=== PATIENT | male | born 1955 | race Caucasian/White ===

== ENCOUNTER → 2017-11-14 14:31 | Outpatient (CLI) | payer OTHER, SELFPAY ==
[2017-10-27 09:20] VITALS: BP 130/98; BMI 38.2
[2017-11-14 16:11] LABS: Anion Gap 7 (5-15); BUN 21 mg/dL (7-18); BUN/Creat Ratio 18.8 RATIO (10-20); Calcium,Total 9.6 mg/dL (8.5-10.1); Chloride 109 mmol/L (98-107); Creatinine, Serum 1.12 mg/dL (0.70-1.30); EST Glomerular Filtration Rate 71 mL/min (>60); Est Glom Filt Rate - Afr Amer 85 mL/min (>60); Glucose 89 mg/dL (74-106); Sodium Level 143 mmol/L (136-145); T4 Total, Thyroxin 10.8 ug/dL (4.5-12.1); Thyroid Stim Hormone (TSH) 1.72 uIU/mL (0.358-3.74)
== END ==
PROVIDERS: Family Provider Family Medicine; PCP Family Medicine; Visit Provider Family Medicine
DX: E03.9 Hypothyroidism, unspecified (principal); I10 Essential (primary) hypertension
CPT/HCPCS: 36415; 80048; 84436; 84443

== ENCOUNTER → 2018-07-21 12:35 | Outpatient (CLI) | payer OTHER, SELFPAY ==
--- NOTE | 2018-07-21 12:38 | ECHOCS_ITS ---
Reason For Study: CHF Procedure This was a 2D Doppler, Color Flow transthoracic echocardiogram. The study was technically difficult. Contrast injection was performed. Exam performed in department. Left Ventricle Left ventricular systolic function is normal. The estimated ejection fraction is 55 %. Diastolic function is indeterminate. No regional wall motion abnormalities noted. Right Ventricle Normal RV size. Normal systolic function. Atria The left atrium is mildly enlarged. Normal right atrium. No doppler evidence for ASD. Mitral Valve There is no mitral annular calcification. Normal mitral valve. Trivial mitral valve insufficiency. Tricuspid Valve Normal tricuspid valve. Trivial tricuspid valve insufficiency. Right ventricular systolic pressure estimated to be 22 mmHg. Aortic Valve Trisinus/trileaflet aortic valve. Normal aortic valve. Pulmonic Valve The pulmonic valve is not well visualized. Great Vessels Normal sized aortic root. Pericardium/Pleural No pericardial effusion. Medication 22 gauge I.V. with prn adaptor inserted into right arm. Diluted definity 4.0ml given slow IV push to enhance endocardial definition. MMode/2D Measurements & Calculations LVIDd: 4.3 cm IVSd: 1.5 cm Ao root diam: 2.9 cm LVIDs: 3.1 cm LVPWd: 1.2 cm LA dimension: 3.8 cm RVDd: 2.8 cm FS: 26.2 % LAV(MOD-bp): 68.9 ml LA A4 area: 21.0 cm2 RA A4 area: 15.2 cm2 LAV(MOD-bp) Indexed: 29.1 ml/m2 LAV(MOD-sp2): 68.1 ml LAV(MOD-sp4): 66.5 ml Doppler Measurements & Calculations MV E max abimael: 60.7 cm/sec Lat Peak E' Abimael: 7.6 cm/sec Med Peak E' Abimael: 6.8 cm/sec MV A max abimael: 77.8 cm/sec E/E' lat: 8.0 E/E' med: 9.0 MV E/A: 0.78 Ao V2 max: 108.0 cm/sec LV V1 max: 90.3 cm/sec PA V2 max: 89.7 cm/sec Ao max P.7 mmHg LV V1 max P.3 mmHg TR max abimael: 219.0 cm/sec TR max P.2 mmHg Interpretation Summary The study was technically difficult. Contrast injection was performed. Left ventricular systolic function is normal. The estimated ejection fraction is 55 %. The left atrium is mildly enlarged. Trivial mitral valve insufficiency. Trivial tricuspid valve insufficiency. Right ventricular systolic pressure estimated to be 22 mmHg. Diastolic function is indeterminate. Ordering Physician: Luis Bo Referring Physician: Luis Bo Performed By: Ann Caceres, MARCO, RVT
== END ==
PROVIDERS: Family Provider Family Medicine; PCP Family Medicine; Referring Provider Nurse Practitioner Family; Visit Provider Nurse Practitioner Family
DX: I42.8 Other cardiomyopathies (principal); I48.0 Paroxysmal atrial fibrillation; I34.0 Nonrheumatic mitral (valve) insufficiency; I10 Essential (primary) hypertension
CPT/HCPCS: 93306; Q9957; A4216; C8929

== ENCOUNTER 2018-09-01 09:01 | Day surgery (SDC) | payer OTHER, SELFPAY ==
[2018-08-21 09:35] VITALS: BMI 24.7
--- NOTE | 2018-08-21 10:12 | RAD_ITS ---
STUDY: X-RAY CHEST REASON FOR EXAM: Male, 62 years old. Preheart catheter. TECHNIQUE: PA and lateral views of the chest. COMPARISON: June 30, 2017 FINDINGS: There is no new focal consolidation. There are surgical clips within the left axilla. Normal size heart. Normal mediastinum and presley. Normal visualized pulmonary arteries. Normal visualized aortic arch and descending thoracic aorta. Normal visualized thoracic spine. Normal visualized ribs, clavicles, and shoulders. There is no demonstrated abnormality of the visualized soft tissue structures of the upper abdomen. RAD/Chest PA and Lateral IMPRESSION: No acute cardiopulmonary process. Electronically Signed: Carmina Jacobs MD at 10:55 EST Tel , Service support ,
[2018-08-21 11:53] LABS: Hematocrit 41.9 % (40-54); Mean Corp Hgb Conc 33.4 g/gl (32-36); Mean Corpuscular Hgb 30.2 pg (27.0-32.0); Mean Corpuscular Volume 90.5 fL (80-94); Platelet Count 244 K/mm3 (150-450); RBC Distribution Width SD 42.4 fl (35.1-43.9); Red Blood Count 4.63 M/mm3 (4.6-6.2); White Blood Count 6.2 K/mm3 (4.4-11.0)
[2018-08-21 12:04] LABS: International Normalized Ratio 1.1; Prothrombin Time (Protime)PT. 13.9 SECONDS (11.7-14.9); Scan Indicated on CBC? Y/N NO
[2018-08-21 12:05] LABS: Partial Thromboplast Time 37.5 Seconds (24.1-36.2)
[2018-08-21 12:20] LABS: Anion Gap 2 (5-15); BUN 24 mg/dL (7-18); BUN/Creat Ratio 21.6 RATIO (10-20); Calcium,Total 9.5 mg/dL (8.5-10.1); Chloride 110 mmol/L (98-107); Creatinine, Serum 1.11 mg/dL (0.70-1.30); EST Glomerular Filtration Rate 71 mL/min (>60); Est Glom Filt Rate - Afr Amer 86 mL/min (>60); Glucose 60 mg/dL (74-106); Potassium 4.2 mmol/L (3.5-5.1); Sodium Level 143 mmol/L (136-145)
[2018-08-31 14:21] VITALS: BMI 24.7
--- NOTE | 2018-09-01 11:14 | CL.D_ITS ---
Patient Name: SWAPNA CEBALLOS Study Date: 09/01/2018 Performing: Frandy Phoenix MD Ht: 70.07 inches 178 cm : 1955 Wt: 171.96 lbs 78 kg Age: 62 Gender: male BSA: 1.96 PROCEDURE(S) PERFORMED [id number] CLINICAL PROFILE AND INDICATIONS Indications: Cardiac Arrythmia, Cardiomyopathy Heart Failure: None Stress/Imaging Stress/Image Study Performed: No Angina Classification Anginal Classification w/in 2 Weeks: No symptoms CAD Presentations: No Sxs, no angina. CONCLUSIONS Elevated Left Ventricular End Diastolic Pressure Normal LV size, wall motion,and systolic function LVEF: by LV gram 55 % [place] Multivessel CAD RECOMMENDATIONS Risk factor modification Medical therapy DESCRIPTION OF PROCEDURE The patient arrived to the procedure lab. The risks and benefits of the procedure as well as a full d escription of our services here and current unavailability of surgical backup were fully explained to the patient and/or their significant other prior to the catheterization. The Timeout was completed, verifying the correct patient and procedure. The patient's procedural site was prepped and draped in the usual fashion. Local anesthetic was given subcutaneously to right radial region with Lidocaine 2% . Using a modified Seldinger technique, arterial access was obtained via the right radial artery, a 6 Fr sheath was inserted. Left Coronary Artery selective angiography was performed in multiple views u sing a 5 Fr. 4.0 Garnett catheter. Right Coronary Artery selective angiography was then performed in mu ltiple views using a 5 Fr. 4.0 Garnett catheter. Left Ventriculography was performed in RAZA projection using a 5 Fr. Pigtail catheter. LV to AO pullback pressures were then recorded.The arterial sheath was pulled and a TR Band was applied for hemostasis w/ 14ml air CORONARY ANGIOGRAPHY DOMINANCE: Right Dominant LEFT HEART ASSESSMENT Left Ventricular Ejection Fraction: by LV Gram 55 % Normal LV wall motion Elevated Left Ventricular End Diastolic Pressure LVEDP: 24 mmHg LEFT MAIN: Angiographically normal LEFT ANTERIOR DECENDING ARTERY: PROX LAD: 25 % Stenosis MID LAD: Mild luminal irregularities DIAGONAL 1: Proximal - Mild luminal irregularities, Mid - Mild luminal irregularities CIRCUMFLEX ARTERY: OM 1: Proximal - Mild luminal irregularities RIGHT CORONARY ARTERY: Mild luminal irregularities VALVE FINDINGS: Normal Aortic Valve function Normal Mitral Valve function AORTIC ROOT: Angiographically normal COMPLICATIONS No Complications PROCEDURE MEDICATIONS Versed 1 mg IV Fentanyl 50 mcg IV Versed 1 mg IV Fentanyl 50 mcg IV Oxygen: 2 L/min via nasal cannula Heparin diluted in 23cc Heparinized saline. Patient given 10cc IA of this solution. 09/01/2018 10:36 :33 Verapamil 2.5mg, Ntg 100mcgs, 2000 units of Heparin diluted in 23cc Heparinized saline. Patient give n 10cc IA of this solution. 09/01/2018 10:36:33 SUMMARY OF HEMODYNAMIC DATA Time AIR REST ECG 09:27:01 AO 140/91 (109) SA 10:38:47 LV 144/9, 27 10:48:27 LV 148/4, 24 10:48:33 LV 145/11, 28 10:49:43 LVp 144/5, 25 10:49:49 AOp 153/88 (115) 10:49:54 Signed By Frandy Phoenix MD On 09/01/2018 11:13:36 Frandy Phoenix MD
--- OUTSIDE RECORDS SUMMARY | 2018-10-13 22:02 | XMS RPT_ITS ---
:1955 Author Organization [place] Support Name Relationship Address Phone DAWSON CEBALLOS Unavailable [address] + [place] [address] [facility] Unavailable [address] + [place] [address] TACHO ROWE Unavailable [address] + [place] [address] CATANZARITE, DAWSON Unavailable [address] + [place] [address] [facility] Unavailable [address] [address] + [place] [address] TACHO ROWE Unavailable [address] + [place] [address] CATANZARITE, DAWSON Unavailable [address] + [place] [address] [facility] Unavailable [address] + [place] [address] TACHO ROWE Unavailable [address] + [place] [address] CATANZARITE, DAWSON Unavailable [address] + [place] [address] [facility] Unavailable [address] [facility] + [place] [address] TACHO ROWE Unavailable [address] + [place] [address] CATANZARITE, DAWSON Unavailable Unavailable + [facility] Unavailable [address] [facility] + [place] [address] TACHO ROWE Unavailable Unavailable + CATANZARITE, DAWSON Unavailable Unavailable + [facility] Unavailable [address] + [place] [address] TACHO ROWE Unavailable Unavailable + CATANZARITE, DAWSON Unavailable Unavailable + [facility] Unavailable [address] + [place] [address] TACHO ROWE Unavailable Unavailable + CATANZARITE, DAWSON Unavailable NA + [place], [place] [facility] Unavailable [address] + [place] [address] TACHO ROWE Unavailable NA + [place], [place] CATANZARITE, DAWSON Unavailable NA + [place], [place] [facility] Unavailable [address] + [place] [address] TACHO ROWE Unavailable NA + [place], [place] CATANZARITE, DAWSON Unavailable NA + [place], [place] [facility] Unavailable [address] + [place] [address] TACHO ROWE Unavailable NA + [place], [place] CATANZARITE, DAWSON Unavailable NA + [place], [place] [facility] Unavailable [address] + [place] [address] TACHO ROWE Unavailable NA + [place], [place] CATANZARITE, DAWSON Unavailable [address] + [place] [address] [facility] Unavailable [address] [place] [address] ST + [place] [address] TACHO ROWE Unavailable . + [place] [address] Care Team Providers Name Role Phone Frandy Phoenix Attending Unavailable Frandy Phoenix Referring Unavailable Frandy Phoenix Attending Unavailable Frandy Phoenix Referring Unavailable Luis Bo Attending Unavailable Luis Bo Attending Unavailable Jimena Cagle Referring Unavailable Jolliff, Jimena Primary Care Unavailable Moodispaw, Frandy Attending Unavailable Jolliff, Jimena Attending Unavailable Jolliff, Jimena Primary Care Unavailable Roof, Luis H Attending Unavailable Jolliff, Jimena Referring Unavailable Roof, Luis H Attending Unavailable Roof, Luis H Referring Unavailable Jolliff, Jimena Primary Care Unavailable Roof, Luis H Attending Unavailable Roof, Luis H Referring Unavailable Jolliff, Jimena Primary Care Unavailable Moodispaw, Frandy Attending Unavailable Roof, Luis H Referring Unavailable Roof, Luis H Attending Unavailable Jolliff, Jimena Referring Unavailable Moodispaw, Frandy Attending Unavailable Moodispaw, Frandy Referring Unavailable Jolliff, Jimena Primary Care Unavailable PROBLEMS PROBLEMS DATE TYPE CONDITION / CODE ATTENDING STATUS SOURCE 09/01/2018 Unknown I48.0 - Paroxysmal [place], Active [place] atrial fibrillation / [facility] I48.0(ICD-10) Hospital Repository 09/01/2018 Unknown I47.2 - Ventricular [place], Active [place] tachycardia / [facility] I47.2(ICD-10) Hospital Repository 09/01/2018 Unknown R06.02 - Shortness of [place], Active [place] breath / [facility] R06.02(ICD-10) Hospital Repository 09/21/2018 Unknown I48.91 - Unspecified [place], Active [place] atrial fibrillation / [facility] I48.91(ICD-10) Hospital Repository 07/13/2018 Unknown I42.8 - Other RoofLuis Active [place] cardiomyopathies / [facility] I42.8(ICD-10) Hospital Repository 07/13/2018 Unknown I34.0 - Nonrheumatic Luis Bo Active [place] mitral (valve) Community insufficiency / Hospital I34.0(ICD-10) Repository 07/13/2018 Unknown I10 - Essential RoofLuis Active [place] (primary) hypertension [facility] / I10(ICD-10) Hospital Repository PROCEDURES PROCEDURES No Procedure Records FoundRESULTS RESULTS CBC-COMPLETE BLOOD CNT Collected: 09/01/2018 Status: F Source: [place] NO DIFF 10:30 AM [facility] HOSPITAL REPOSITORY TYPE CODE TESTS RESULT OUT OF RANGE REFERENCE UNITS LAB L100.1000 4.4-11.0 K/mm3 Normal WBC 6.2 LAB L100.1200 4.6-6.2 M/mm3 Normal RBC 4.63 LAB L100.1300 13.0-16.5 g/dl Normal HGB 14.0 LAB L100.1400 40-54 % Normal HCT 41.9 LAB L100.1500 80-94 fL Normal MCV 90.5 LAB L100.1600 27.0-32.0 pg Normal MCH 30.2 LAB L100.1700 32-36 g/gl Normal MCHC 33.4 LAB L100.1810 11.6-14.6 % Normal RDW CV 13.0 LAB L100.1820 35.1-43.9 fl Normal RDW SD 42.4 LAB L100.1900 150-450 K/mm3 Normal PLT 244 LAB L100.2000 6.2-12.0 fl Normal MPV 10.0 Performed By: #### L100.0500 #### [facility] [address] [place], [address] PROTHROMBIN TIME W/INR Collected: 09/01/2018 Status: F Source: [place] 10:30 AM [facility] REPOSITORY TYPE CODE TESTS RESULT OUT OF RANGE REFERENCE UNITS LAB L300.4150 11.7-14.9 SECONDS Normal PROTIME 13.9 LAB L300.4200 Normal INR 1.1 Performed By: #### L300.3900, L300.4310 #### [facility] [address] [place], [place], [address] PARTIAL THROMBOPLAST Collected: 09/01/2018 Status: F Source: [place] TIME 10:30 AM [facility] REPOSITORY TYPE CODE TESTS RESULT OUT OF REFERENCE UNITS RANGE LAB L300.4310 24.1-36.2 Seconds High PTT 37.5 Performed By: #### L300.3900, L300.4310 #### [facility] [address] [place], [address] BASIC METABOLIC Collected: 09/01/2018 Status: F Source: [place] PROFILE (BMP) 10:30 AM [facility] REPOSITORY TYPE CODE TESTS RESULT OUT OF RANGE REFERENCE UNITS LAB L501.0100 74-106 mg/dL Low GLU 60 Result Comment: Please note revised GLUCOSE reference range effective 2017. LAB L501.1000 7-18 mg/dL High BUN 24 LAB L501.1100 0.70-1.30 mg/dL Normal CREAT,SERUM 1.11 Result Comment: The validity of the calculated GFR AND GFRAA in patients over 70 years has not been determined. Clinical correlation is essential. LAB L501.1110 >60 mL/min Normal EST GFR 71 Result Comment: Non- GFR Calc LAB L501.1115 >60 mL/min Normal EST GFR - AA 86 Result Comment: GFR Calc LAB L501.1300 10-20 RATIO High BUN/CRE 21.6 LAB L501.2200 8.5-10.1 mg/dL CA Normal 9.5 LAB L501.5300 136-145 mmol/L NA Normal 143 LAB L501.5600 3.5-5.1 mmol/L K Normal 4.2 LAB L501.5900 98-107 mmol/L High CL 110 LAB L501.6100 21.0-32.0 mmol/L Normal CO2 31.0 LAB L501.6200 5-15 Low GAP 2 Performed By: #### L500.2500 #### [facility] [address] [place], [address] CARDIOLOGY VISIT Observed: 08/21/2018 Status: F Source: [place] REPORT 1:32 PM [facility] REPOSITORY [facility] [address] [place] [address] OFFICE VISIT Date of Service: 08/21/18 MR#: [id number] Acct: [id number] Name: SWAPNA CEBALLOS Rep #: [id number] : 1955 Provider: REJI Bo Age/Sex: 62/M Location: [facility] Status: Signed HPI HPI Details: SWAPNA CEBALLOS, is a 62 M who presents to the office today for a cardiovascular outpatient follow-up. Patient has a history of paroxysmal atrial fibrillation, hypertension, mitral valve insufficiency, tricuspid valve insufficiency, PFO, and hypothyroidism. While wearing a 30-day event monitor to discern if he has had any episodes of paroxysmal atrial fibrillation to better decide if he can discontinue anticoagulation, he had a 14 beat run of a wide complex tachycardia. It is difficult to discern if this is atrial fibrillation with aberrancy versus ventricular tachycardia. To err on the side of extreme caution he will undergo a heart catheterization for further assessment. Pt denies chest, arm, jaw, or neck discomfort. His exercise tolerance is stable. Pt denies symptoms of CHF, palpitations, lightheadedness, dizziness, near syncopal or syncopal episodes. Pt denies edema or claudication issues. Pt. denies orthopnea, PND, fever, chills, blood in urine, blood in stool, myalgia, or unexplainable fatigue. Intake Vital Signs08/21/18 Height 5 ft 10 in 08/21/18 Weight: 172 lb 2 oz 08/21/18 Body Mass Index (BMI) 24.7 Intake Visit Reasons: update H AND P Is patient in pain?: No Allergies lisinopril Adverse Reaction (Unknown, Verified 07/13/18 15:15) Dry Cough Medications B3/Azel/Quer/Tur/FA/B6/Zn/Caitlin [Nicazel Forte Tablet] 1 ea PO DAILY 06/10/17 [History Confirmed 07/13/18] Levothyroxine [Synthroid] 112 mcg PO DAILY 06/10/17 [History Confirmed 07/13/18] Mometasone/Formoterol [Dulera 200 Mcg/5 Mcg Inhaler] 1 puff IH BID 06/10/17 [History Confirmed 07/13/18] Metoprolol Tartrate [Lopressor (beta estefania)] 50 mg PO BID #60 tab 06/11/17 [Rx Confirmed 07/13/18] apixaban 5 mg tablet 5 mg PO BID #180 tab 09/11/17 [Rx Confirmed 07/13/18] multivitamin-ferrous fumarate-folic acid 18 mg-400 mcg tablet 1 tab PO QDAY 10/27/17 [History Confirmed 07/13/18] losartan 25 mg tablet 25 mg PO DAILY #30 tab 07/13/18 [Rx Confirmed 07/13/18] aspirin 81 mg tablet,delayed release 81 mg PO DAILY 08/19/18 [History] clopidogrel 75 mg tablet 75 mg PO DAILY #30 tab 08/21/18 [Rx Confirmed 08/21/18] furosemide 20 mg tablet 20 mg PO DAILY PRN 08/21/18 [History Confirmed 08/21/18] [facility] Medical History SOB (shortness of breath) (Acute) Wide-complex tachycardia (Acute) Paroxysmal atrial fibrillation (Chronic) Essential (primary) hypertension (Chronic) Nonischemic cardiomyopathy (Chronic) Valvular heart disease (Chronic) Nonrheumatic tricuspid (valve) insufficiency (Chronic) Nonrheumatic mitral (valve) insufficiency (Chronic) Atrial fibrillation (Chronic) Hypothyroidism (Chronic) Surgical History History of left knee surgery (Resolved) History of open reduction and internal fixation (ORIF) procedure (Resolved) History of tonsillectomy (Resolved) History of vasectomy (Resolved) Family History Father CAD (coronary artery disease) Mother Thyroid disorder Social History Smoking Status: Former smoker how long ago did patient quit smokin-3 months ago alcohol intake: current alcohol intake frequency: a few times a week Alcohol type: beer, wine, hard liquor substance use type: does not use caffeine: Yes Type: coffee Number of servings: 4 what type of physical activity do you participate in: none seatbelt use: always do you feel safe at home: Yes ROS Const Const: Negative for weakness, body ache, fever(s), chills or fatigue ENT ENT: Positive for dizziness Cardio Chest Pain: No Palpitations: No Edema: None Muscle aches with walking: None Resp Respiratory: Negative for SOB with activity, SOB at rest, SOB orthopnea\SOB lying down or paroxysmal nocturnal dyspnea GI GI: Negative nausea, black,tarry stools, bright, red blood in stools or vomiting blood/hematemesis : Negative for hematuria or frequent nighttime urination/ nocturia Musc Musc: Negative for muscle aches/ myalgia Skin Skin: Negative non-healing lesions or rash Neuro Neuro: Positive for dizziness; negative for weakness Endo Endo: Negative for fatigue Allergy Allergy/Immunology: Negative for rash Cardiology Exam Const Appearance: cooperative, healthy appearing, comfortable and no acute distress Nutritional Appearance: obese and well nourished Orientation: alert, awake and oriented x3 Head Head: normal to inspection Ears: hearing grossly normal bilaterally Nose: external nose normal Mouth: oral mucosae normal Eyes General: appearance normal, both eyes and all related structures Eyelids: eyelids normal Pupils: PERRL EOM: EOM intact bilaterally Neck Neck: no JVD and normal visual inspection Carotids: normal carotid upstroke Chest Chest inspection: normal inspection of the chest, normal respiratory effort and symmetric chest movement Auscultation: Bilateral: Clear to Auscultation Cardio Rate: regular rate Rhythm: regular rhythm Heart sounds: S1 normal and S2 normal; negative rub, gallop or murmur GI GI: obese Neuro General: alert, awake, oriented x3 and CN's II-XI intact bilaterally Skin Skin: no rashes or lesions noted Extremities Pulses: Normal: Right Posterior Tibial Pulse, Left Posterior Tibial Pulse, Right Radial Pulse, Left Radial Pulse Lower Extremity Edema: None: Bilateral Psych Psychological: normal affect Supplemental Info SANJEEV from July 2017 showed an estimated ejection fraction of 45%, mildly enlarged left atrium, mild spontaneous contrast of the left atrium, no thrombus detected in left atrial appendage, mildly enlarged right atrium, mild diffuse mitral valve thickening, mild to moderate mitral valve insufficiency, mild tricuspid valve insufficiency, positive color flow study for left to right interatrial shunt compatible with a PFO, and positive agitation saline contrast study for a right to left interatrial shunt compatible with a PFO. Echocardiogram from July 2018 showed estimate ejection fraction 55%, mildly enlarged left atrium, trivial mitral valve insufficiency, tricuspid valve incision, RVSP 22 mmHg, and diastolic function is indeterminate. Cardiovascular stress test from June 2017 was negative for myocardial ischemia and reported an ejection fraction 42%. Assessment AND Plan 1. Wide-complex tachycardia I47.2 Plan A 14 beat run of wide-complex tachycardia was noted on his 30-day event monitor in July 2018. Because of this, he will undergo a left heart catheterization for further assessment. Further recommendation will be made based on results of this test. If no intervention is required, he will discontinue his aspirin Plavix. 2. Paroxysmal atrial fibrillation I48.0 Cardioversion 07/2017; Plan His 30-day event monitor from July 2018 did not reveal any shlomo episodes of paroxysmal atrial fibrillation. Based on his heart catheterization result it will be further investigated whether his wide-complex tachycardia is related atrial fibrillation. It is reassuring that his most recent echocardiogram showed an improved ejection fraction 55%. Patient would like to discontinue anticoagulation. His echocardiogram did reveal mildly enlarged left atrium. This will all be taken into account to make final decision regarding anticoagulation. Orders Orders: 3. Essential (primary) hypertension I10 Plan Patient's blood pressure is well-controlled today in the office. We will continue to monitor this. We will not make any medication regimen changes. 4. Nonischemic cardiomyopathy I42.8 Plan His most recent echocardiogram in July 2018 showed ejection fraction 55%. He will continue with current beta-estefania and ARB. He was instructed that his Lasix can be changed to as needed. He was reminded of symptoms to monitor regarding fluid volume overload. We will continue to monitor. Plan Detail Other Medications New: Additional Comments Thank you for allowing us to participate in the patients plan of care, if you have any questions please do not hesitate to call. This note was generated using a voice recognition system and there may be incorrect words, spelling or punctuation that were not noted when reviewing the office note prior to saving. Coding Level of Care Code Off vis,est,level 3 Diagnoses Wide-complex tachycardia I47.2 Paroxysmal atrial fibrillation I48.0 Essential (primary) hypertension I10 Nonischemic cardiomyopathy I42.8 Coding Level of Care Code Off vis,est,level 3 Diagnoses Wide-complex tachycardia I47.2 Paroxysmal atrial fibrillation I48.0 Essential (primary) hypertension I10 Nonischemic cardiomyopathy I42.8 08/21/18 1332 <Electronically signed by Luis SHAW> Date Luis SHAW Cosigner Signature: Date (if applicable) CC: Jimena Cagle MD CHEST PA AND LATERAL Observed: 08/21/2018 Status: F Source: [place] 10:13 AM [facility] REPOSITORY [facility] Imaging Services [address] [place] [address] Chest PA and Lateral MR#: [id number] Acct: [id number] Name: SWAPNA CEBALLOS Rep #: [id number] : 1955 M 62 From: Carmina Jacobs MD PCP: Jimena Cagle MD [place] [facility]: Chest PA and Lateral Date of Exam: 08/21/18 Exam# [id number] Ordering Dr: Frandy Phoenix MD STUDY: X-RAY CHEST REASON FOR EXAM: Male, 62 years old. Preheart catheter. TECHNIQUE: PA and lateral views of the chest. COMPARISON: June 30, 2017 FINDINGS: There is no new focal consolidation. There are surgical clips within the left axilla. Normal size heart. Normal mediastinum and presley. Normal visualized pulmonary arteries. Normal visualized aortic arch and descending thoracic aorta. Normal visualized thoracic spine. Normal visualized ribs, clavicles, and shoulders. There is no demonstrated abnormality of the visualized soft tissue structures of the upper abdomen. RAD/Chest PA and Lateral IMPRESSION: No acute cardiopulmonary process. Electronically Signed: Carmina Jacobs MD at 10:55 EST Tel , Service support , CC: Jimena Cagle MD; Frandy Phoenix MD Heading And Priming Tool Setter: Signed 12 LEAD EKG PERFORMED Observed: 08/21/2018 Status: F Source: [place] BY [facility] 9:40 AM [facility] REPOSITORY [facility] [address] [place] [address] 12 Lead EKG performed by [facility] 08/21/18 0940 MR#: [id number] Acct: [id number] Name: SWAPNA CEBALLOS Rep #: [id number] : 1955 62 From: Luis Bo DIRECTOR OF EVENT MARKETING-C Attending Dr: Luis Bo NP Status: DEP AMB Ordering Dr: Luis BoC Date: 08/21/18 Location: [facility] Sex: M C Admitted: [facility]/12 Lead EKG performed by [facility] ECG Report Interpretation Sinus Rhythm Electronically signed on 08/21/2018 at 13:45 by Frandy Phoenix Software Version [id number] 08/21/18 1350 Date Luis Bo DIRECTOR OF EVENT MARKETING-C CC: Jimena Cagle MD Date Dictated: 08/21/1840 Date Transcribed: 08/21/18939 Heading And Priming Tool Setter: CHACORTA Signed ECHO, COMPLETE W/ Observed: 07/21/2018 Status: F Source: [place] CONTRAST 6:23 PM [facility] REPOSITORY [facility] Cardiovascular Services [address] [place] [address] Echo Complete W/ Contrast 07/21/18 1311 MR#: [id number] Acct: [id number] Name: SWAPNA CEBALLOS Rep #: [id number] : 1955 62 From: Frandy Phoenix MD Attending Dr: Luis Bo NP Status: REG CLI Ordering Dr: Luis Bo DIRECTOR OF EVENT MARKETING-C Date: 07/21/18 Location: [facility] Sex: M C Admitted: Reason For Study: CHF Procedure This was a 2D Doppler, Color Flow transthoracic echocardiogram. The study was technically difficult. Contrast injection was performed. Exam performed in department. Left Ventricle Left ventricular systolic function is normal. The estimated ejection fraction is 55 %. Diastolic function is indeterminate. No regional wall motion abnormalities noted. Right Ventricle Normal RV size. Normal systolic function. Atria The left atrium is mildly enlarged. Normal right atrium. No doppler evidence for ASD. Mitral Valve There is no mitral annular calcification. Normal mitral valve. Trivial mitral valve insufficiency. Tricuspid Valve Normal tricuspid valve. Trivial tricuspid valve insufficiency. Right ventricular systolic pressure estimated to be 22 mmHg. Aortic Valve Trisinus/trileaflet aortic valve. Normal aortic valve. Pulmonic Valve The pulmonic valve is not well visualized. Great Vessels Normal sized aortic root. Pericardium/Pleural No pericardial effusion. Medication 22 gauge I.V. with prn adaptor inserted into right arm. Diluted definity 4.0ml given slow IV push to enhance endocardial definition. MMode/2D Measurements AND Calculations LVIDd: 4.3 cm IVSd: 1.5 cm Ao root diam: 2.9 cm LVIDs: 3.1 cm LVPWd: 1.2 cm LA dimension: 3.8 cm RVDd: 2.8 cm FS: 26.2 % LAV(MOD-bp): 68.9 ml LA A4 area: 21.0 cm2 RA A4 area: 15.2 cm2 LAV(MOD-bp) Indexed: 29.1 ml/m2 LAV(MOD-sp2): 68.1 ml LAV(MOD-sp4): 66.5 ml Doppler Measurements AND Calculations MV E max abimael: 60.7 cm/sec Lat Peak E' Abimael: 7.6 cm/sec Med Peak E' Abimael: 6.8 cm/sec MV A max abimael: 77.8 cm/sec E/E' lat: 8.0 E/E' med: 9.0 MV E/A: 0.78 Ao V2 max: 108.0 cm/sec LV V1 max: 90.3 cm/sec PA V2 max: 89.7 cm/sec Ao max P.7 mmHg LV V1 max P.3 mmHg TR max abimael: 219.0 cm/sec TR max P.2 mmHg Interpretation Summary The study was technically difficult. Contrast injection was performed. Left ventricular systolic function is normal. The estimated ejection fraction is 55 %. The left atrium is mildly enlarged. Trivial mitral valve insufficiency. Trivial tricuspid valve insufficiency. Right ventricular systolic pressure estimated to be 22 mmHg. Diastolic function is indeterminate. Ordering Physician: Luis Bo Referring Physician: Luis Bo Performed By: Ann Caceres, MARCO, RVT 07/21/181821 Date Frandy Phoenix MD CC: REJI Bo; Jimena Cagle MD Date Dictated: 07/21/18 1311 Date Transcribed: 07/21/181821 Heading And Priming Tool Setter: Signed CARDIOLOGY VISIT Observed: 07/13/2018 Status: F Source: RACINE REPORT 4:42 PM [facility] REPOSITORY [facility] [address] [place] [address] OFFICE VISIT Date of Service: 07/13/18 MR#: [id number] Acct: [id number] Name: SWAPNA CEBALLOS Rep #: [id number] : 1955 Provider: REJI Bo Age/Sex: 62/M Location: [facility] Status: Signed HPI HPI Details: SWAPNA CEBALLOS, is a 62 M who presents to the office today for a cardiovascular outpatient follow-up. Patient has a history of paroxysmal atrial fibrillation, hypertension, mitral valve insufficiency, tricuspid valve insufficiency, PFO, and hypothyroidism. Pt. denies chest, arm, jaw, or neck discomfort. His exercise tolerance is stable. Pt. denies symptoms of CHF, palpitations, near syncope, or syncopal episodes. Pt. denies edema or claudication issues. Pt. denies orthopnea, PND, fever, chills, blood in urine, blood in stool, myalgia, or unexplainable fatigue. He states feeling SOB when going up multiple flights of steps. He acknowledges some lightheadedness, dizziness, presyncope during extreme episodes of coughing. Since his inhalers were adjusted this has improved. Intake Vital Signs07/13/18 Blood Pressure 140/90 H 07/13/18 Blood Pressure Location Lt brachial Intake Visit Reasons: 9 M FU Procedure Writer Required: No Accompanied by: Daughter Is patient in pain?: No Allergies lisinopril Adverse Reaction (Unknown, Verified 07/13/18 15:15) Dry Cough Medications B3/Azel/Quer/Tur/FA/B6/Zn/Caitlin [Nicazel Forte Tablet] 1 ea PO DAILY 06/10/17 [History Confirmed 07/13/18] Levothyroxine [Synthroid] 112 mcg PO DAILY 06/10/17 [History Confirmed 07/13/18] Mometasone/Formoterol [Dulera 200 Mcg/5 Mcg Inhaler] 1 puff IH BID 06/10/17 [History Confirmed 07/13/18] Metoprolol Tartrate [Lopressor (beta estefania)] 50 mg PO BID #60 tab 06/11/17 [Rx Confirmed 07/13/18] apixaban 5 mg tablet 5 mg PO BID #180 tab 09/11/17 [Rx Confirmed 07/13/18] multivitamin-ferrous fumarate-folic acid 18 mg-400 mcg tablet 1 tab PO QDAY 10/27/17 [History Confirmed 07/13/18] furosemide 20 mg tablet 20 mg PO DAILY 07/13/18 [History Confirmed 07/13/18] losartan 25 mg tablet 25 mg PO DAILY #30 tab 07/13/18 [Rx Confirmed 07/13/18] Ejection fraction %: 45 to 49 PFSH Medical History Paroxysmal atrial fibrillation (Chronic) Essential (primary) hypertension (Chronic) Nonischemic cardiomyopathy (Chronic) Valvular heart disease (Chronic) Nonrheumatic tricuspid (valve) insufficiency (Chronic) Nonrheumatic mitral (valve) insufficiency (Chronic) Atrial fibrillation (Chronic) Hypothyroidism (Chronic) Surgical History History of left knee surgery (Resolved) History of open reduction and internal fixation (ORIF) procedure (Resolved) History of tonsillectomy (Resolved) History of vasectomy (Resolved) Family History Father CAD (coronary artery disease) Mother Thyroid disorder Social History Smoking Status: Former smoker how long ago did patient quit smokin-3 months ago alcohol intake: current alcohol intake frequency: a few times a week Alcohol type: beer, wine, hard liquor substance use type: does not use caffeine: Yes Type: coffee Number of servings: 4 what type of physical activity do you participate in: none seatbelt use: always do you feel safe at home: Yes ROS Const Const: Negative for weakness, body ache, fever(s), chills or fatigue ENT ENT: Positive for dizziness Cardio Chest Pain: No Palpitations: No Edema: None Muscle aches with walking: None Resp Respiratory: Negative for SOB with activity, SOB at rest, SOB orthopnea\SOB lying down or paroxysmal nocturnal dyspnea GI GI: Negative nausea, black,tarry stools, bright, red blood in stools or vomiting blood/hematemesis : Negative for hematuria or frequent nighttime urination/ nocturia Musc Musc: Negative for muscle aches/ myalgia Skin Skin: Negative non-healing lesions or rash Neuro Neuro: Positive for lightheadedness, near syncope and dizziness; negative for syncope, orthostatic symptoms or weakness Endo Endo: Negative for fatigue Allergy Allergy/Immunology: Negative for rash Cardiology Exam Const Appearance: cooperative, healthy appearing, comfortable and no acute distress Nutritional Appearance: obese Orientation: alert, awake and oriented x3 Head Head: normal to inspection Ears: hearing grossly normal bilaterally Nose: external nose normal Mouth: oral mucosae normal Eyes General: appearance normal, both eyes and all related structures Eyelids: eyelids normal Pupils: PERRL EOM: EOM intact bilaterally Neck Neck: no JVD and normal visual inspection Carotids: normal carotid upstroke Chest Chest inspection: normal inspection of the chest, normal respiratory effort and symmetric chest movement Auscultation: Bilateral: Clear to Auscultation Cardio Rate: regular rate Rhythm: regular rhythm Heart sounds: S1 normal and S2 normal; negative rub, gallop or murmur GI GI: normal to inspection and obese Neuro General: alert, awake, oriented x3 and CN's II-XI intact bilaterally Skin Skin: no rashes or lesions noted Extremities Pulses: Normal: Right Posterior Tibial Pulse, Left Posterior Tibial Pulse, Right Radial Pulse, Left Radial Pulse Lower Extremity Edema: None: Bilateral Psych Psychological: normal affect Supplemental Info SANJEEV from July 2017 showed an estimated ejection fraction of 45%, mildly enlarged left atrium, mild spontaneous contrast of the left atrium, no thrombus detected in left atrial appendage, mildly enlarged right atrium, mild diffuse mitral valve thickening, mild to moderate mitral valve insufficiency, mild tricuspid valve insufficiency, positive color flow study for left to right interatrial shunt compatible with a PFO, and positive agitation saline contrast study for a right to left interatrial shunt compatible with a PFO. Cardiovascular stress test from June 2017 was negative for myocardial ischemia and reported an ejection fraction 42%. Assessment AND Plan 1. Paroxysmal atrial fibrillation I48.0 Cardioversion 07/2017; Plan Patient appears to be maintaining regular rhythm. He inquired if he can stop his anticoagulation. He will undergo a repeat echocardiogram to discern if his ejection fraction has improved. He will undergo a 30-day event monitor to evaluate for any episodes of paroxysmal atrial fibrillation. Based on results of these test further recommendation to discontinue anticoagulation will be made. Orders Orders: 2. Nonischemic cardiomyopathy I42.8 Plan His most recent transesophageal echocardiogram in July 2017 showed ejection fraction 45%. He denies any shortness of breath, lower extremity pedal edema, or activity intolerance. He will continue with current beta-estefania. An ARB will be added due to elevated blood pressure and intolerance to lisinopril. His echocardiogram will discern if this has improved. Orders Orders: 3. Essential (primary) hypertension I10 Plan His blood pressure is slightly elevated today in office. After last office visit, an LUZ MARIA inhibitor was added, but he states this caused a dry cough. An ARB will be added. We will continue to monitor this. Orders Orders: 4. Nonrheumatic mitral (valve) insufficiency I34.0 Plan His transesophageal echocardiogram in July 2017 showed mild to moderate mitral valve insufficiency. This does not appear to be causing any symptoms. This will be reevaluated during his echocardiogram. He will continue current medications. Orders Orders: Plan Detail Other Medications New: Additional Comments Thank you for allowing us to participate in the patient's plan of care, if you have any questions please do not hesitate to call. This note was generated using a voice recognition system and there may be incorrect words, spelling, or punctuation that were not noted upon reviewing the office note prior to saving. Follow Up 6 Months (PFM) 12 Months (DIRECTOR OF EVENT MARKETING/PA) Coding Level of Care Code Off vis,est,level 4 Diagnoses Paroxysmal atrial fibrillation I48.0 Nonischemic cardiomyopathy I42.8 Essential (primary) hypertension I10 Nonrheumatic mitral (valve) insufficiency I34.0 Coding Level of Care Code Off vis,est,level 4 Diagnoses Paroxysmal atrial fibrillation I48.0 Nonischemic cardiomyopathy I42.8 Essential (primary) hypertension I10 Nonrheumatic mitral (valve) insufficiency I34.0 07/13/18 1642 <Electronically signed by Luis SHAW> Date Luis SHAW Cosigner Signature: Date (if applicable) CC: Jimena Cagle MD BASIC METABOLIC Collected: 11/14/2017 Status: F Source: DEN PROFILE (BMP) 2:34 PM [facility] REPOSITORY Order Comment: Order Date: 08/30/16 Order Info: 0667-1 - BMP Order Info: 3026-2 - T4 Order Info: 3016-3 - TSH TYPE CODE TESTS RESULT OUT OF RANGE REFERENCE UNITS LAB L501.0100 74-106 mg/dL Normal GLU 89 Result Comment: Please note revised GLUCOSE reference range effective 2017. LAB L501.1000 7-18 mg/dL High BUN 21 LAB L501.1100 0.70-1.30 mg/dL Normal CREAT,SERUM 1.12 Result Comment: The validity of the calculated GFR AND GFRAA in patients over 70 years has not been determined. Clinical correlation is essential. LAB L501.1110 >60 mL/min Normal EST GFR 71 Result Comment: Non- GFR Calc LAB L501.1115 >60 mL/min Normal EST GFR - AA 85 Result Comment: GFR Calc LAB L501.1300 10-20 RATIO Normal BUN/CRE 18.8 LAB L501.2200 8.5-10.1 mg/dL CA Normal 9.6 LAB L501.5300 136-145 mmol/L NA Normal 143 LAB L501.5600 3.5-5.1 mmol/L K Normal 4.0 LAB L501.5900 98-107 mmol/L High CL 109 LAB L501.6100 21.0-32.0 mmol/L Normal CO2 27.0 LAB L501.6200 5-15 Normal GAP 7 Performed By: #### L500.2500, L501.9310, L501.9520 #### [facility] [address] [place], [address] T4 TOTAL, THYROXIN Collected: 11/14/2017 Status: F Source: RACINE 2:34 PM [facility] REPOSITORY Order Comment: Order Date: 08/30/16 Order Info: 0667-1 - BMP Order Info: 3026-2 - T4 Order Info: 3016-3 - TSH TYPE CODE TESTS RESULT OUT OF RANGE REFERENCE UNITS LAB L501.9310 4.5-12.1 ug/dL T4 Normal THYROXIN 10.8 Performed By: #### L500.2500, L501.9310, L501.9520 #### [facility] [address] [place], [address] THYROID STIM HORMONE Collected: 11/14/2017 Status: F Source: DEN (TSH) 2:34 PM [facility] REPOSITORY Order Comment: Order Date: 08/30/16 Order Info: 0667-1 - BMP Order Info: 3026-2 - T4 Order Info: 3016-3 - TSH TYPE CODE TESTS RESULT OUT OF RANGE REFERENCE UNITS LAB L501.9520 0.358-3.74 uIU/mL Normal TSH 1.72 Performed By: #### L500.2500, L501.9310, L501.9520 #### [facility] [address] [place], [place], [address] PROGRESS Observed: 11/09/2017 Status: COMPLETED Source: MUÑOZ 12:41 PM [facility] REPOSITORY HNO ID: [id number] Author: Nisa Araujo (Pa) Service: (none) Author Type: Physician Digital Artist Type: Progress Notes Filed: 11/09/2017 1:07 PM Note Text: HPI Pt presents with cough and congestion x 2 days. He has had fatigue and body aches. No influenza shot this year. He feels like he had a fever at home. He has been taking ibuprofen . He does have a history of afib ad is on eliquis and metoprolol. No chest pain. No hx of smoker. No hx of asthma, he does get bronchitis frequently. Some coworkers have been sick. Review of Systems Constitutional: Positive for chills, fever and malaise/fatigue. HENT: Positive for congestion and sore throat. Negative for ear pain. Eyes: Negative. Respiratory: Positive for cough, shortness of breath and wheezing. Cardiovascular: Negative. Gastrointestinal: Negative. Genitourinary: Negative. Musculoskeletal: Negative. Skin: Negative. Neurological: Negative. Endo/Heme/Allergies: Negative. Psychiatric/Behavioral: Negative. All other systems reviewed and are negative. No past medical history on file. Current Outpatient Prescriptions: metoprolol tartrate, short acting, (LOPRESSOR) 50 mg tablet Disp: Rfl: 3 lisinopril 2.5 mg tablet Take 2.5 mg by mouth once daily. Disp: Rfl: 5 furosemide (LASIX) 40 mg tablet Disp: Rfl: 3 SYMBICORT 160-4.5 mcg/actuation inhaler Inhale 1 puff using inhaler twice a day Disp: Rfl: 11 ELIQUIS 5 mg tab tab(s) Take 5 mg by mouth twice daily. Disp: Rfl: 3 LEVOTHYROXINE SODIUM (LEVOTHYROXINE ORAL) Take by mouth. Disp: Rfl: albuterol HFA (PROVENTIL HFA, VENTOLIN HFA) 90 mcg/actuation inhaler Inhale 2 Puffs as instructed every 4 hours as needed. Disp: 1 Inhaler Rfl: 0 No current facility-administered medications for this visit. No past surgical history on file. No family history on file. Social History Substance Use Topics - Smoking status: Light Tobacco Smoker Types: Cigars - Smokeless tobacco: Never Used - Alcohol use Not on file BP 134/80 Pulse 70 Temp 36.9 ?C (98.4 ?F) (Tympanic) Resp 18 Wt 120.2 kg (265 lb) SpO2 95% Physical Exam Constitutional: He is oriented to person, place, and time and well-developed, well-nourished, and in no distress. HENT: Head: Normocephalic and atraumatic. Right Ear: External ear normal. Left Ear: External ear normal. Nose: Nose normal. Mouth/Throat: Oropharynx is clear and moist. Eyes: Conjunctivae are normal. Pupils are equal, round, and reactive to light. Neck: Normal range of motion. Neck supple. Cardiovascular: Normal rate, regular rhythm and normal heart sounds. Pulmonary/Chest: Effort normal and breath sounds normal. No respiratory distress. He has no wheezes. Lymphadenopathy: He has no cervical adenopathy. Neurological: He is alert and oriented to person, place, and time. Skin: Skin is warm and dry. No rash noted. Psychiatric: Affect and judgment normal. Nursing note and vitals reviewed. ASSESSMENT/PLAN: 1. Influenza-like illness - ICD9: 799.89, ICD10: R69 Pt symptoms are most consistent with influenza. Pulse ox recheck here is 97%. His lungs are clear no wheezing. He is in the window for tamiflu and this was given as well as tessalon. Also instructed that he shouldn't be taking Nsaids while on eliquis due to risk of bleeding and should be taking Tylenol instead. Discussed with patient concerning symptoms to go to the emergency department or follow up here. Pt agreeable with this plan. Also instructed patient to keep appt with pcp in 5 days. Nisa Araujo PA-C CARDIOLOGY VISIT Observed: 10/27/2017 Status: F Source: DEN REPORT 5:58 PM [facility] REPOSITORY [facility] [address] [place] [address] OFFICE VISIT Date of Service: 10/27/17 MR#: [id number] Acct: [id number] Name: SWAPNA CEBALLOS Rep #: [id number] : 1955 Provider: REJI Bo Age/Sex: 62/M Location: [facility] Status: Signed HPI 3 M FU: Details: SWAPNA CEBALLOS, is a 62 M who presents to the office today for a current vascular outpatient follow-up. Patient has a history of atrial fibrillation, hypertension, mitral valve insufficiency, tricuspid valve insufficiency, PFO, and hypothyroidism. Pt. denies chest, arm, jaw, or neck discomfort. His exercise tolerance is stable. Pt. denies symptoms of CHF, palpitations, near syncope, or syncopal episodes. Pt. denies edema or claudication issues. Pt. denies orthopnea, PND, fever, chills, blood in urine, blood in stool, myalgia, or unexplainable fatigue. Pt. states sleeping less. Pt. states some lightheadedness/dizziness/and pre-syncope with extreme coughing in which he has been following up with an ENT. SANJEEV from July 2017 showed an estimated ejection fraction of 45%, mildly enlarged left atrium, mild spontaneous contrast of the left atrium, no thrombus detected in left atrial appendage, mildly enlarged right atrium, mild diffuse mitral valve thickening, mild to moderate mitral valve insufficiency, mild tricuspid valve insufficiency, positive color flow study for left to right interatrial shunt compatible with a PFO, and positive agitation saline contrast study for a right to left interatrial shunt compatible with a PFO. Cardiovascular stress test from June 2017 was negative for myocardial ischemia and reported an ejection fraction 42%. Intake Vital Signs10/27/17 Height 5 ft 10 in 10/27/17 Weight: 267 lb 10/27/17 Body Mass Index (BMI) 38.2 10/27/17 Blood Pressure 130/98 10/27/17 Blood Pressure Location Lt brachial Intake Visit Reasons: 3 M FU Procedure Writer Required: No Accompanied by: None Is patient in pain?: No Allergies No Known Allergies Allergy (Verified 10/27/17 09:25) Medications B3/Azel/Quer/Tur/FA/B6/Zn/Caitlin [Nicazel Forte Tablet] 1 ea PO DAILY 06/10/17 [History Confirmed 07/29/17] Levothyroxine [Synthroid] 112 mcg PO DAILY 06/10/17 [History Confirmed 10/22/17] Mometasone/Formoterol [Dulera 200 Mcg/5 Mcg Inhaler] 1 puff IH BID 06/10/17 [History Confirmed 10/22/17] Metoprolol Tartrate [Lopressor (beta estefania)] 50 mg PO BID #60 tab 06/11/17 [Rx Confirmed 10/22/17] apixaban 5 mg tablet 5 mg PO BID #180 tab 09/11/17 [Rx Confirmed 10/22/17] furosemide 40 mg tablet 20 mg PO DAILY tab 10/27/17 [History Confirmed 10/27/17] lisinopril 2.5 mg tablet 2.5 mg PO QDAY #30 tab 10/27/17 [Rx Confirmed 10/27/17] multivitamin-ferrous fumarate-folic acid 18 mg-400 mcg tablet 1 tab PO QDAY 10/27/17 [History Confirmed 10/27/17] Ejection fraction %: 45 to 49 PFSH Medical History Nonrheumatic tricuspid (valve) insufficiency (Chronic) Nonrheumatic mitral (valve) insufficiency (Chronic) Atrial fibrillation (Chronic) Hypothyroidism (Chronic) Hypertension (Chronic) Family History Father CAD (coronary artery disease) Social History Smoking Status: Current some day smoker alcohol intake: current alcohol intake frequency: a few times a week Alcohol type: beer, wine, hard liquor substance use type: does not use caffeine: Yes Type: coffee what type of physical activity do you participate in: none seatbelt use: always do you feel safe at home: Yes ROS Const Const: Negative for fatigue, weakness, body ache, fever(s) or chills ENT ENT: Positive for dizziness Cardio Chest Pain: No Palpitations: Positive for No Edema: None Muscle aches with walking: None Resp Respiratory: Positive for other (cough); negative for SOB with activity, SOB at rest, SOB orthopnea\SOB lying down or paroxysmal nocturnal dyspnea GI GI: Negative nausea, black,tarry stools, bright, red blood in stools or vomiting blood/hematemesis : Negative for hematuria or frequent nighttime urination/ nocturia Musc Musc: Negative for muscle aches/ myalgia Neuro Neuro: Negative for weakness, Positive for dizziness, Positive for lightheadedness, Positive for near syncope, Negative for syncope, Negative for orthostatic symptoms Endo Endo: Negative for fatigue Cardiology Exam Const Appearance: cooperative, healthy appearing, comfortable and no acute distress Orientation: alert, awake and oriented x3 Head Head: normal to inspection Mouth: oral mucosae normal Neck Neck: no JVD and normal visual inspection Carotids: normal carotid upstroke Chest Chest inspection: normal inspection of the chest and normal respiratory effort Auscultation: Bilateral: Clear to Auscultation Cardio Rate: regular rate Rhythm: regular rhythm Heart sounds: S1 normal and S2 normal; negative rub or gallop GI GI: normal to inspection Neuro General: alert, awake, oriented x3 and CN's II-XI intact bilaterally Skin Skin: no rashes or lesions noted Extremities Pulses: Normal: Right Posterior Tibial Pulse, Left Posterior Tibial Pulse, Right Radial Pulse, Left Radial Pulse Lower Extremity Edema: None: Bilateral Psych Psychological: normal affect Assessment AND Plan 1. Paroxysmal atrial fibrillation I48.0 Cardioversion 07/2017; Plan - COLIN Ag Patient appears to be maintaining sinus rhythm. Patient's chads score is 2, thus we will keep on oral anticoagulation. His rate is well controlled today in office. We will continue to monitor this through exam and repeat ECGs as needed. 2. Essential hypertension I10 Plan - COLIN Ag Patient's blood pressure remains elevated compared to previous office visit. We will add LUZ MARIA inhibitor, lisinopril 2.5 mg once a day. We will titrate this medication accordingly. He states that he will have a upcoming appointment primary care physician and possibly 1 week to evaluate blood pressure. 3. Valvular heart disease I38 Plan - COLIN Ag Patient's most recent SANJEEV from July 2017 showed mild to moderate mitral valve insufficiency and mild tricuspid valve insufficiency. Patient's activity level is stable. He denies any shortness of breath. We will continue to monitor this through exam and repeat echocardiogram as needed. We will not make any medication regimen changes. 4. Other cardiomyopathy I42.8 Plan - COLIN Ag This appears nonischemic related. Patient's most recent SANJEEV showed an ejection fraction of 45%. He was started on diuretics at last office visit. He appears to be euvolemic. We will attempt to decrease his Lasix to 20 mg once a day. He was asked to monitor his fluid status via shortness of breath, lower extremity pedal edema, and weight. He was also advised that if he would like to hold the medication due to continual usage of the restroom he could do so. He was reminded that if symptoms worsen to increase or resume Lasix. Plan Detail Other Medications New: Additional Comments - COLIN Ag Discussed the above patient with Dr. Phoenix, he agrees with the plan of care. Thank you for allowing us to participate in the patients plan of care, if you have any questions please do not hesitate to call. This note was generated using a voice recognition system and there may be incorrect words, spelling or punctuation that were not noted when reviewing the office note prior to saving. Follow Up 9 Months (PFM) Coding Level of Care Code Off vis,est,level 3 Diagnoses Paroxysmal atrial fibrillation I48.0 Atrial fibrillation type: paroxysmal Essential hypertension I10 Hypertension type: essential hypertension Valvular heart disease I38 Other cardiomyopathy I42.8 Cardiomyopathy type: other 10/27/17 1013 <Electronically signed by Luis FREEDMANC> Date Luis FREEDMANC 10/27/17 1758<Electronically signed by Frandy Phoenix MD> Cosigner Signature: Date (if applicable) Frandy Phoenix MD CC: Jimena Cagle MD ALLERGIES ALLERGIES DATE TYPE / CODE NAME / CODE REACTION SEVERITY SOURCE 07/13/2018 Drug lisinopril/F0060 DRY COUGH Unknown [facility] Allergy/416 01886(RXNORM) Hospital 326718(SNOM Repository ED CT) 10/27/2017 Drug No Known Unknown [facility] Allergy/416 Allergies/M33848 Hospital 150128(SNOM 0388(RXNORM) Repository ED CT) Drug NO KNOWN [facility] Class/98190 ALLERGIES [facility] 1003(SNOMED Repository CT) ENCOUNTERS ENCOUNTERS ADMIT/DISCHARGE ACCOUNT ADMITTING ENCOUNTER LOCATION SOURCE NUMBER CLASS 09/01/2018 [id number] Ambulatory BMSBuilding:[facility] Repository 09/01/2018/09/01/20 [id number] Ambulatory [address] ing:[facility] Repository 08/21/2018/08/21/20 [id number] [facility] [address] [facility] 08/19/2018 [id number] Ambulatory BMSBuilding:[facility] Repository 07/21/2018 [id number] [facility] Repository 07/21/2018 [id number] [facility] Repository 07/21/2018 [id number] Ambulatory BMSBuilding:Shelley Crenshaw [facility] Repository 07/13/2018 [id number] Ambulatory BMSBuilding:Bernard Crenshaw [facility] Repository 07/13/2018/07/13/20 [id number] Ambulatory BMSBuilding:Bernard Crenshaw [address] [place].[facility] Repository 11/14/2017 [id number] Ambulatory [facility] ing:[facility] Repository 11/09/2017/11/09/19 [id number] Ambulatory [address] Repository 10/27/2017/10/27/19 [id number] Ambulatory BMSBuilding:Bernard Crenshaw [address] MS.[facility] Repository 10/27/2017 [id number] Ambulatory BMSBuilding:Bernard Crenshaw MS.[facility] Repository PAYERS PAYERS ENCOUNTER GUARANTOR PAYER SUBSCRIBER SOURCE 09/01/2018 SWAPNA Primary Insurance:NUNU ONTIVEROSTE2711 [facility] CATANZARITEDOB: [facility] Number: [id number], [place] [id number] Repository [address]Skd: ([phone]) Date:2565-69-38XE [phone] () [address], [place] [address]CS: CHECK WEBSITE 09/01/2018 Secondary NOT GIVENUNK [place] Insurance:SELF PAY [facility] Number: Effective Repository Date:2018-09-01 09/01/2018 SWAPNA Primary Insurance:NUNU [id number] [facility] CATANZARITEDOB: [facility] [place] Number: [id number], [place] [id number] Repository [address]Zyd: (330) Date:7658-53-42WP [phone] () [address], [place] [address]AV: CHECK WEBSITE 09/01/2018 Secondary NOT GIVENUNK [place] Insurance:SELF PAY [facility] Number: Effective Repository Date:2018-08-19 08/21/2018 SWAPNA Primary Insurance:NUNU [id number] [employer] TP[employer] CATANZARITEDOB: Community [place] Number: [id number], [place] [id number] Repository [address]Vkm: (330) Date:4893-36-00YH [phone] () [address]EM[place], [place] [address]GG: CHECK WEBSITE 08/21/2018 Secondary NOT GIVENUNK [place] Insurance:SELF PAY [facility] Number: Effective Repository Date:2018-08-21 08/19/2018 SWAPNA Primary Insurance:MED SWAPNA Crenshaw [id number] MUTUAL TPAPolicy CATANZARITEDOB: Community [place] Number: [id number], [place] [id number] Repository [address]Lba: (330) Date:4632-15-64PK [phone] () [address]YGWLPVNP, [place] [address]VK: CHECK WEBSITE 08/19/2018 Secondary NOT GIVENUNK [place] Insurance:SELF PAY [facility] Number: Effective Repository Date:2018-08-19 07/21/2018 SWAPNA Primary NOT GIVENUNK [place] [id number] Insurance:SELF PAY [place] Number: Effective Repository [id number]: (330) Date:2018-07-13 [phone] () 07/21/2018 SWAPNA Primary Insurance:MED SWAPNA Crenshaw [id number] [address] TP[address]olicy CATANZARITEDOB: Community [place] Number: [id number], [place] [id number] Repository [address]Qsu: (330) Date:4135-73-76NM [phone] () [address]NSPYSZ[place], [place] [address]RN: CHECK WEBSITE 07/21/2018 Secondary NOT GIVENUNK [place] Insurance:SELF PAY [facility] Number: Effective Repository Date:2018-07-13 07/21/2018 SWAPNA Primary Insurance:MED SWAPNA Crenshaw [id number] MUTUAL TPAPolicy CATANZARITEDOB: Community [place] Number: [id number], [place] [id number] Repository [address]Gdx: (330) Date:5155-90-35GF [phone] () [address]UZVHA[place], [place] [address]OA: CHECK WEBSITE 07/21/2018 Secondary NOT GIVENUNK [place] Insurance:SELF PAY [facility] Number: Effective Repository Date:2018-07-21 07/13/2018 SWAPNA Primary Insurance:MED SWAPNA MARINELLIARITE2711 [address] TPAPolicy CATANZARITEDOB: Community [place] Number: [id number], [place] [id number] Repository [address]Zop: (330) Date:6322-12-50UK [phone] () [address]QFPGFOMWH, [place] [address]ZA: CHECK WEBSITE 07/13/2018 Secondary NOT GIVENUNK [place] Insurance:SELF PAY [facility] Number: Effective Repository Date:2017-10-27 07/13/2018 SWAPNA Primary Insurance:MED SWAPNA ONTIVEROSTE2711 [facility] CATANZARITEDOB: Community [place] Number: [id number], [place] [id number] Repository [address]Jka: ([phone]) Date:9186-11-46KF [phone] () [id number], [place] [address]OY: CHECK WEBSITE 07/13/2018 Secondary NOT GIVENUNK [place] Insurance:SELF PAY [facility] Number: Effective Repository Date:2018-04-06 11/14/2017 SWAPNA Primary Insurance:MED SWAPNA MARINELLIARITE2711 [facility] CATANZARITEDOB: Community GARRET Number: [id number], [place] [id number] Repository [address]Qks: (330) Date:9739-05-64HZ [phone] () [address], [place] [address]PS: CHECK WEBSITE 11/14/2017 Secondary NOT GIVENUNK [place] Insurance:SELF PAY [facility] Number: Effective Repository Date:2017-11-14 10/27/2017 SWAPNA Primary Insurance:MED SWAPNA MARINELLIARITE2711 [facility] CATANZARITEDOB: Community [place] Number: [id number], [place] [id number] Repository [address]Jpn: (330) Date:6222-77-74DZ [phone] () [address], [place] [address]LZ: CHECK WEBSITE 10/27/2017 Secondary NOT GIVENUNK [place] Insurance:SELF PAY [facility] Number: Effective Repository Date:2017-09-13 10/27/2017 [place] Primary Insurance:[facility] Swapna Hernandezoster [id number] [facility] CatanzariteDOB: Community Garret Number: [id number] [place], [place] [id number] Repository [address]Wfl: (330) Date:2916-39-85IW [phone] () [address], [place] [address]CR: CHECK WEBSITE 10/27/2017 Secondary NOT GIVENUNK [place] Insurance:SELF PAY [facility] Number: Effective Repository Date:2017-10-27
== END 2018-09-01 13:31 | disposition home or self-care (01) ==
LOC: CLSP 09:02
PROVIDERS: Family Provider Family Medicine; PCP Family Medicine; Referring Provider Internal Medicine Cardiovascular Disease; Visit Provider Internal Medicine Cardiovascular Disease
DX: I47.2 Ventricular tachycardia (principal); I48.0 Paroxysmal atrial fibrillation; E03.9 Hypothyroidism, unspecified; I35.0 Nonrheumatic aortic (valve) stenosis; I10 Essential (primary) hypertension; Z87.891 Personal history of nicotine dependence; Q21.1 Atrial septal defect; I42.8 Other cardiomyopathies
CPT/HCPCS: 36415; 71046; 80048; 85027; 85610; 85730; 93458; 99152; 99153; J7040; Q9967; C1769; C1894

== ENCOUNTER → 2019-10-22 09:48 | Outpatient (CLI) | payer OTHER, SELFPAY ==
[2019-08-23 16:06] VITALS: BMI 39.7
[2019-10-22 13:21] LABS: T4 Total, Thyroxin 9.2 ug/dL (4.5-12.1); Thyroid Stim Hormone (TSH) 2.52 uIU/mL (0.358-3.74)
== END ==
PROVIDERS: PCP Family Medicine; Referring Provider Family Medicine; Visit Provider Family Medicine
DX: E03.9 Hypothyroidism, unspecified (principal)
CPT/HCPCS: 36415; 84436; 84443

== ENCOUNTER → 2020-04-28 10:54 | Outpatient (CLI) | payer OTHER, SELFPAY ==
[2020-02-21 08:28] VITALS: BMI 39.6
[2020-04-28 12:34] LABS: Anion Gap 3 (5-15); BUN 16 mg/dL (7-18); BUN/Creat Ratio 12.5 RATIO (10-20); Calcium,Total 9.2 mg/dL (8.5-10.1); Chloride 111 mmol/L (98-107); Cholesterol 181 mg/dL (200); Creatinine, Serum 1.28 mg/dL (0.70-1.30); EST Glomerular Filtration Rate 60 mL/min (>60); Est Glom Filt Rate - Afr Amer 73 mL/min (>60); Glucose 110 mg/dL (74-106); High Density Lipoprotein 54 mg/dL; Potassium 4.4 mmol/L (3.5-5.1); Sodium Level 141 mmol/L (136-145); Triglycerides 68 mg/dL; Very Low Density Lipoprotein 14 mg/dL (5-40)
[2020-04-28 14:21] LABS: Vitamin D,25 Hydroxy 31.7 ng/mL
== END ==
PROVIDERS: PCP Family Medicine; Referring Provider Family Medicine; Visit Provider Family Medicine
DX: I10 Essential (primary) hypertension (principal); E55.9 Vitamin D deficiency, unspecified
CPT/HCPCS: 36415; 80048; 80061; 82306

== ENCOUNTER 2020-05-07 16:33 | Emergency (ER) | payer OTHER, SELFPAY ==
[2020-02-21 08:28] VITALS: BMI 39.6
[2020-05-07 16:36] VITALS: BP 170/97; PULSE 114; RESP 20; TEMP 37.1; O2SAT 95; BMI 39.7
--- NOTE | 2020-05-07 16:50 | EKG12_ITS ---
Test Reason : Blood Pressure : / mmHG Vent. Rate : 113 BPM Atrial Rate : 113 BPM P-R Int : 150 ms QRS Dur : 082 ms QT Int : 328 ms P-R-T Axes : 057 049 048 degrees QTc Int : 449 ms Sinus tachycardia Possible Bi-Atrial Enlargement Nonspeciic T- wave Abnormality Confirmed by CARLY SNEED, HARPER ([id number]), editor & co founder TORY RUSSELL ([id number]) on 05/10/2020 10:42:17 AM Referred By: CODY Confirmed By:HARPER CARROLL MD
--- NOTE | 2020-05-07 16:51 | ED.DCSUM_ITS ---
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 He then subsequently started feeling tingling in both hands and feet/toes. There is no weakness. He did not feel near syncopal or syncopal, he had no chest discomfort, shortness of breath, or palpitations but he checked his blood pressure, it was reading 150/110 and his heart rate was in the 150s although he did not feel his heart racing. He has been diagnosed with paroxysmal atrial fibrillation, when it was discovered and he was admitted to the hospital for it, he was asymptomatic. He has been rate controlled with metoprolol, anticoagulated with Eliquis since then. He states at one point last year he was cardioverted, although he has had no symptoms with atrial fibrillation so the reason for the cardioversion is unknown at this time. He has no known recent illnesses. Patient presents during the national coronavirus emergency declaration/pandemic. He denies any known contact with anyone infected with COVID-19. He denies traveling out of the immediate area recently. Additionally, patient states that he had a small amount of bright red blood per rectum this morning with bowel movement. He had no rectal pain, sensation of anything like a hemorrhoid in his perianal area, or large amount of blood in the toilet. There was a small amount mixed in with stool, and then when he wiped. He has had this from time to time. He had a colonoscopy 4 or 5 years ago, states it was normal and he was due 10 years later for another, they did not see any hemorrhoids or polyps. - Past Medical History (1) Essential (primary) hypertension Status: Chronic (2) Hypothyroidism Status: Chronic (3) Nonrheumatic mitral (valve) insufficiency Status: Chronic (4) Nonrheumatic tricuspid (valve) insufficiency Status: Chronic (5) Paroxysmal atrial fibrillation Status: Chronic Comment: Cardioversion 07/2017; (6) Patent foramen ovale Status: Chronic (7) Valvular heart disease Status: Chronic (8) Nonischemic cardiomyopathy Status: Resolved Past Medical History - Allergies and Home Meds Allergies/Adverse Reactions: Allergies lisinopril Adverse Reaction (Unknown, Verified 02/21/20 08:28) Dry Cough Primary Care Physician: Jimena Cagle MD [Primary Care Provider] - Surgical History: noncontributory Lives: Spouse/ Significant Other Smoking Status: Light Smoker (<10/day) - Family History Maternal Family History: Family History (Last Reviewed 08/23/19 @ 16:07 by Maribel Donahue) Father CAD (coronary artery disease) Mother Thyroid disorder Family History: Reports: No pertinent history Paternal Family History: Family History (Last Reviewed 08/23/19 @ 16:07 by Maribel Donahue) Father CAD (coronary artery disease) Mother Thyroid disorder Family History: Reports: Heart Disease - Congestive heart failure Review of Systems General: Reports: Malaise, Sweats, - - [place] hot. Denies: Chills, Fever Eyes: Denies: Visual changes - bilaterally, Diplopia ENT: Denies: Bilateral ear pain, Rhinorrhea, Sore throat Cardiovascular: Denies: Chest pain, Palpitations, Heart racing Respiratory: Denies: Dyspnea, Cough, Dyspnea on exertion Gastrointestinal: Reports: Hematochezia. Denies: Abdominal pain, Nausea, Vomiting, Diarrhea, Melena Genitourinary: Denies: Dysuria, Hematuria, Frequency Musculoskeletal: Denies: Neck pain, Back pain, Swelling, Extremity Pain Skin: Denies: Rash, Wounds Neurological: Reports: Headache - Resolved, Parasthesia. Denies: Weakness Physical Exam Vital Signs/Narrative: Vital Signs Temp Pulse Resp BP Pulse Ox 05/07/20 16:36 98.7 F 114 H 20 H 170/97 H 95 Inital Vital Signs reviewed: Yes General: Well nourished, Well developed, No Acute Distress Head: Normocephalic, Atraumatic Eyes: Perrl, EOMI ENT: Moist mucous membranes, No rhinorrhea Neck: Supple, Nontender, No lymphadenopathy, No JVD Cardiovascular: Regular rate, Regular rhythm, No murmurs, Tachycardia Respiratory: No distress, CTA bilaterally, Chest nontender Abdomen: Soft, Nontender, Nondistended, Normal bowel sounds Back: Nontender, Normal Inspection Extremities: Nontender, No edema. Negative for: Calf Tenderness Skin: Normal color, No rash, No Trauma. Negative for: Diaphoresis Neurological: Alert, Oriented x3, Cranial nerves II-XII grossly intact, Normal Strength, Normal Sensation Psychological: Normal affect, Normal Mood Diagnostic/Tx/Re-eval Laboratory Results 05/07/20 05/07/20 05/07/20 16:40 16:40 16:58 WBC 11.3 H RBC 5.12 Hgb 14.9 Hct 44.9 MCV 87.7 MCH 29.1 MCHC 33.2 RDW Std Deviation 43.4 RDW Coeff of Agustín 13.5 Plt Count 219 MPV 9.6 Immature Gran % (Auto) 0.400 Neut % (Auto) 88.8 H Lymph % (Auto) 3.[address] [place] % (Auto) 6.7 Eos % (Auto) 0.7 Baso % (Auto) 0.1 Absolute Neuts (auto) 10.0 H Absolute Lymphs (auto) 0.37 L Nucleated RBC % 0 Differential Comment SCANNED Sodium 141 Potassium 4.3 Chloride 109 H Carbon Dioxide 26.0 Anion Gap 6 BUN 18 Creatinine 1.42 H Estim Creat Clear Calc 54.26 Est GFR (MDRD) Af Amer 64 Est GFR (MDRD) Non-Af 53 L BUN/Creatinine Ratio 12.7 Glucose 104 Calcium 9.5 Troponin I < 0.015 Urine Color Urine Clarity Urine pH Ur Specific [place] Urine Protein Urine Glucose (UA) Urine Ketones Urine Occult Blood Urine Nitrite Urine Bilirubin Urine Urobilinogen Ur Leukocyte Esterase Urine RBC Urine WBC Ur Squamous Epith Cells Urine Bacteria Urine Mucus POC Glucose 100 05/07/20 17:50 WBC RBC Hgb Hct MCV MCH MCHC RDW Std Deviation RDW Coeff of Agustín Plt Count MPV Immature Gran % (Auto) Neut % (Auto) Lymph % (Auto) [place]. Francis % (Auto) Eos % (Auto) Baso % (Auto) Absolute Neuts (auto) Absolute Lymphs (auto) Nucleated RBC % Differential Comment Sodium Potassium Chloride Carbon Dioxide Anion Gap BUN Creatinine Estim Creat Clear Calc Est GFR (MDRD) Af Amer Est GFR (MDRD) Non-Af BUN/Creatinine Ratio Glucose Calcium Troponin I Urine Color Straw Urine Clarity Clear Urine pH 5.0 Ur Specific [place] 1.020 Urine Protein Negative Urine Glucose (UA) Normal Urine Ketones Negative Urine Occult Blood 25 H Urine Nitrite Negative Urine Bilirubin Negative Urine Urobilinogen Normal Ur Leukocyte Esterase Negative Urine RBC 0-5 SEEN Urine WBC 0-5 SEEN Ur Squamous Epith Cells 0 SEEN Urine Bacteria 1+ Urine Mucus 0 SEEN POC Glucose - Rhythm Strip Rhythm Strip: Sinus Tach Rate: 113 - EKG Initial EKG Interpretation: No Acute Injury Pattern, Sinus Tachycardia - Medical Decision Making Patient without any thoracic symptoms or palpitations/racing heartbeat. His work-up was unremarkable. He remained in sinus rhythm throughout his ED stay over almost 2 hours. This included before and after walking back and forth to the bathroom here. Urinalysis shows no infection. He has a very mild nonspecific leukocytosis of unknown significance. He is wondering if he was in A. fib prior to coming here, which I am not able to answer. Certainly with facial flushing, sweating, and basically symptoms of adrenaline release, that could have been the case. His blood pressure was monitored and continued to go up, so labetalol was ordered but prior to it being given his blood pressure read 140/85 and he felt back to normal basically at that point, still with a heart rate of 104, sinus. It is unknown if these symptoms were triggered by elevated blood pressure, or if that was simply a result of what ever caused his symptoms. Regardless he is feeling better, his blood pressure is down, and his work-up is negative. I recommend following up with his doctor as an outpatient, and he is welcome to return if he has recurrent symptoms, they are comfortable with that plan. ED Disposition - Plan for ED Patient: Disposition: Home or Assisted Living Diagnosis: Tachycardia Instructions: ED Tachycardia PAT Referrals: Jimena Cagle MD [Primary Care Provider] - Frandy Phoenix MD [STAFF PHYSICIAN] - 3-5 Days
[2020-05-07 17:03] LABS: Absolute Lymphocyte Count 0.37 X10^3/uL (0.83-4.51); Basophil# 0.01 X10^3/uL; Basophil% 0.1 % (0-1); Eosinophil# 0.08 X10^3/uL; Eosinophils% 0.7 % (0-5); Hematocrit 44.9 % (40-54); Hemoglobin 14.9 g/dL (13.0-16.5); Lymphocyte # 0.37 X10^3/ul (4.0); Lymphocyte % 3.3 % (19-41); Mean Corp Hgb Conc 33.2 g/dL (32-36); Mean Corpuscular Hgb 29.1 pg (27.0-32.0); Mean Corpuscular Volume 87.7 fL (80-94); Mean Platelet Vol. 9.6 fl (6.2-12.0); Monocyte# 0.75 X10^3/uL; Monocyte% 6.7 % (0-10); NRBC Flagged by Analyzer 0 % (0-5); Neutrophil # 10.01 X10^3/uL (2.7-7.7); Neutrophil % 88.8 % (47-70); POSITIVE DIFFERENTIAL YES; Platelet Count 219 K/mm3 (150-450); RBC Distribution Width CV 13.5 % (11.6-14.6); RBC Distribution Width SD 43.4 fl (35.1-43.9); Red Blood Count 5.12 M/mm3 (4.6-6.2); White Blood Count 11.3 K/mm3 (4.4-11.0)
[2020-05-07 17:06] LABS: Bedside Glucose 100 mg/dL (70-110)
[2020-05-07 17:14] LABS: Differential Indicated SCAN CRITERIA MET
[2020-05-07 17:16] LABS: Anion Gap 6 (5-15); BUN 18 mg/dL (7-18); BUN/Creat Ratio 12.7 RATIO (10-20); Calcium,Total 9.5 mg/dL (8.5-10.1); Chloride 109 mmol/L (98-107); Creatinine, Serum 1.42 mg/dL (0.70-1.30); EST Glomerular Filtration Rate 53 mL/min (>60); Est Glom Filt Rate - Afr Amer 64 mL/min (>60); Estimated Creatinine Clearance 54.26 ml/min; Glucose 104 mg/dL (74-106); Potassium 4.3 mmol/L (3.5-5.1); Sodium Level 141 mmol/L (136-145)
[2020-05-07 17:28] LABS: Differential Comment SCANNED
[2020-05-07 17:54] LABS: Mucous, Urine 0 SEEN /hpf (<or=2+); Squamous Epithelial Cells - UA 0 SEEN /hpf (0-5)
[2020-05-07 17:56] LABS: Color, Urine Straw (Yellow); Glucose, Dipstick Normal (Normal); Ketone-Dipstick Negative (Negative); Leukocyte Esterase-Dipstick Negative /ul (Negative); Nitrite-Dipstick Negative (Negative); Occult Blood-Urine 25 /ul (Negative); Protein-Dipstick Negative (Negative); Urine Bilirubin Dipstick Negative (Negative); Urine Clarity Clear (Clear); Urine Urobilinogen Normal (Normal)
[2020-05-07 18:13] VITALS: BP 144/85; PULSE 104; RESP 20; O2SAT 94
[2020-05-07 18:17] LABS: Bacteria 1+ /hpf (None Seen); Red Blood Cells-Urine 0-5 SEEN /hpf (0-5); White Blood Cells 0-5 SEEN /hpf (0-5)
[2020-05-07 18:41] VITALS: BP 137/87; PULSE 100; RESP 24; O2SAT 94
--- NOTE | 2020-05-07 18:41 | ED.RN ---
IV DC'ED, CATHETER INTACT, SMALL GAUZE DRESSING PLACED. DISCHARGE INSTRUCTIONS GIVEN TO AND REVIEWED WITH PATIENT, PATIENT DENIES QUESTIONS OR CONCERNS AND VOICES UNDERSTANDING OF DISCHARGE INSTRUCTIONS. PT AMBULATES OUT OF ROOM WITHOUT DIFFICULTY.
== END 2020-05-07 18:42 | disposition home or self-care (01) ==
PROVIDERS: Emergency Provider Emergency Medicine; PCP Family Medicine
DX: R00.0 Tachycardia, unspecified (principal); I10 Essential (primary) hypertension; E03.9 Hypothyroidism, unspecified; I48.0 Paroxysmal atrial fibrillation; I34.0 Nonrheumatic mitral (valve) insufficiency; F17.200 Nicotine dependence, unspecified, uncomplicated; Q21.1 Atrial septal defect; Z79.01 Long term (current) use of anticoagulants; Z82.49 Family history of ischemic heart disease and other diseases of the circulatory system
CPT/HCPCS: 80048; 81001; 82962; 84484; 85025; 93005; 96374; 99283; A4216

== ENCOUNTER → 2020-05-30 12:52 | Outpatient (CLI) | payer OTHER, SELFPAY ==
[2020-05-07 16:36] VITALS: BMI 39.7
== END ==
PROVIDERS: PCP Family Medicine; Referring Provider Internal Medicine Cardiovascular Disease; Visit Provider Internal Medicine Cardiovascular Disease
DX: R00.2 Palpitations (principal); R00.0 Tachycardia, unspecified; I48.0 Paroxysmal atrial fibrillation
CPT/HCPCS: 93225; 93226

== ENCOUNTER → 2020-08-25 12:05 | Outpatient (CLI) | payer OTHER, SELFPAY ==
--- NOTE | 2020-08-25 12:16 | RAD_ITS ---
STUDY: X-RAY CHEST REASON FOR EXAM: Male, 64 years old. ACUTE BRONCHITIS, COVID POSITIVE X1 WEEK AGO, CHEST PAIN TECHNIQUE: PA and lateral views of the chest. COMPARISON: Comparison is made with prior study dated 08/21/2018. FINDINGS: Surgical clips are seen in the left axillary region. There is evidence of focal infiltrate in the peripheral aspect of the right upper lobe. Mild increased markings are also seen at the left lung base. There is no demonstrated pleural abnormality. Normal size heart. Normal mediastinum and presley. Normal visualized pulmonary arteries. Normal visualized aortic arch and descending thoracic aorta. There is demineralization of the osseous structures. Normal visualized ribs, clavicles, and shoulders. There is no demonstrated abnormality of the visualized soft tissue structures of the upper abdomen. RAD/Chest PA and Lateral IMPRESSION: Focal infiltrate in the peripheral aspect of the right upper lobe with increased markings at the left lung base. Electronically Signed: Manuel James, at 12:30 EST , Service support ,
== END ==
PROVIDERS: PCP Family Medicine; Referring Provider Family Medicine; Visit Provider Family Medicine
DX: J20.9 Acute bronchitis, unspecified (principal)
CPT/HCPCS: 71046

== ENCOUNTER → 2020-10-13 15:43 | Outpatient (CLI) | payer OTHER, SELFPAY ==
[2020-10-13 18:24] LABS: Anion Gap 5 (5-15); BUN 16 mg/dL (7-18); Calcium,Total 9.3 mg/dL (8.5-10.1); Chloride 107 mmol/L (98-107); Creatinine, Serum 1.07 mg/dL (0.70-1.30); EST Glomerular Filtration Rate 74 mL/min (>60); Est Glom Filt Rate - Afr Amer 89 mL/min (>60); Glucose 95 mg/dL (74-106); Potassium 4.1 mmol/L (3.5-5.1); Sodium Level 139 mmol/L (136-145); T4 Total, Thyroxin 8.2 ug/dL (4.5-12.1); Thyroid Stim Hormone (TSH) 2.91 uIU/mL (0.358-3.74)
== END ==
PROVIDERS: PCP Family Medicine; Visit Provider Family Medicine
DX: E03.9 Hypothyroidism, unspecified (principal); I10 Essential (primary) hypertension
CPT/HCPCS: 36415; 80048; 84436; 84443

== ENCOUNTER → 2021-04-17 07:54 | Outpatient (CLI) | payer OTHER, SELFPAY ==
[2021-03-29 10:20] VITALS: BMI 39.0
--- NOTE | 2021-04-17 07:57 | ECHOCS_ITS ---
Reason For Study: CMP, HTN, PAF Procedure This was a 2D Doppler, Color Flow transthoracic echocardiogram. The study was technically difficult. Contrast injection was performed. Exam performed in department. Left Ventricle Normal LV size. Left ventricular systolic function is normal. The estimated ejection fraction is 55 %. No evidence for diastolic dysfunction. No regional wall motion abnormalities noted. Right Ventricle Normal RV size. Normal systolic function. Atria Normal left atrium. Normal right atrium. No doppler evidence for ASD. Mitral Valve There is no mitral annular calcification. Normal mitral valve. Trivial mitral valve insufficiency. Tricuspid Valve Normal tricuspid valve. Trivial tricuspid valve insufficiency. Right ventricular systolic pressure estimated to be 20 mmHg. Aortic Valve The aortic valve is not well visualized. Pulmonic Valve The pulmonic valve is not well visualized. Great Vessels Normal sized aortic root. Pericardium/Pleural No pericardial effusion. Medication 22 gauge I.V. with prn adaptor inserted into right arm. Diluted definity 5ml given slow IV push to enhance endocardial definition. MMode/2D Measurements & Calculations LVIDd: 5.9 cm IVSd: 1.1 cm Ao root diam: 3.6 cm LVIDs: 4.6 cm LVPWd: 1.1 cm RVDd: 3.3 cm FS: 22.2 % LAV(MOD-bp): 62.9 ml LVAd ap4: 33.5 cm2 LVAd ap2: 31.3 cm2 LAV(MOD-bp) Indexed: 26.4 ml/m2 LVLd ap4: 8.5 cm LVLd ap2: 8.5 cm LAV(MOD-sp2): 77.4 ml EDV(MOD-sp4): 110.6 ml EDV(MOD-sp2): 95.5 ml LAV(MOD-sp4): 50.7 ml EDV(sp4-el): 111.4 ml EDV(sp2-el): 97.4 ml LVAs ap4: 21.3 cm2 LVAs ap2: 19.4 cm2 LVLs ap4: 7.0 cm LVLs ap2: 7.4 cm ESV(MOD-sp4): 57.0 ml ESV(MOD-sp2): 43.6 ml ESV(sp4-el): 54.9 ml ESV(sp2-el): 43.3 ml EF(MOD-sp4): 48.5 % EF(MOD-sp2): 54.3 % EF(sp4-el): 50.8 % SV(MOD-sp4): 53.6 ml SV(MOD-sp2): 51.9 ml SV(sp4-el): 56.6 ml LA A4 area: 19.9 cm2 LA dimension(2D): 4.2 cm RA A4 area: 18.2 cm2 Time Measurements MV dec time: 0.20 sec Doppler Measurements & Calculations MV E max abimael: 83.9 cm/sec Lat Peak E' Abimael: 10.1 cm/sec Med Peak E' Abimael: 7.8 cm/sec MV A max abimael: 64.2 cm/sec E/E' lat: 8.3 E/E' med: 10.7 MV E/A: 1.3 Ao V2 max: 113.1 cm/sec LV V1 max: 96.0 cm/sec PA V2 max: 93.2 cm/sec Ao max P.1 mmHg LV V1 max P.7 mmHg TR max abimael: 200.6 cm/sec TR max P.1 mmHg ECHO/Echo Complete W/ Contrast Interpretation Summary The study was technically difficult. Contrast injection was performed. Left ventricular systolic function is normal. The estimated ejection fraction is 55 %. Trivial mitral valve insufficiency. Trivial tricuspid valve insufficiency. Right ventricular systolic pressure estimated to be 20 mmHg. No evidence for diastolic dysfunction. Ordering Physician: Frandy Phoenix Referring Physician: ABDIEL ONFORE Performed By: Deneen Fischer, MARCO, RVT
== END ==
PROVIDERS: PCP Family Medicine; Referring Provider Internal Medicine Cardiovascular Disease; Visit Provider Internal Medicine Cardiovascular Disease
DX: I42.8 Other cardiomyopathies (principal)
CPT/HCPCS: 93306; Q9957; A4216; C8929; J3490

== ENCOUNTER → 2021-09-27 10:53 | Outpatient (CLI) | payer OTHER, SELFPAY ==
[2021-09-27 13:01] LABS: Thyroid Stim Hormone (TSH) 2.46 uIU/mL (0.358-3.74)
== END ==
PROVIDERS: PCP Family Medicine; Referring Provider Family Medicine; Visit Provider Nurse Practitioner Family
DX: E03.9 Hypothyroidism, unspecified (principal)
CPT/HCPCS: 36415; 84443

== ENCOUNTER 2021-09-29 14:30 | Emergency (ER) | payer OTHER, SELFPAY ==
[2021-09-29 14:31] VITALS: BP 163/97; PULSE 76; RESP 16; TEMP 37; O2SAT 97; BMI 37.7
--- NOTE | 2021-09-29 15:25 | RAD_ITS ---
History: Trauma: Left femur AP and lateral views: Findings: No fracture or subluxation. Joint spaces and soft tissues appear normal. IMPRESSION: Intact left femur. at 1550 Reported and signed by: Bryant Vázquez MD Electronically Signed: Bryant Vázquez MD at 15:49 EST Tel , Service support , RAD/Femur Min 2 Views
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
[2021-09-29 16:01] VITALS: BP 176/76; PULSE 81; RESP 14
== END 2021-09-29 16:09 | disposition home or self-care (01) ==
PROVIDERS: Emergency Provider Emergency Medicine; PCP Family Medicine
DX: S70.12XA Contusion of left thigh, initial encounter (principal); V89.2XXA Person injured in unspecified motor-vehicle accident, traffic, initial encounter; Y93.9 Activity, unspecified; Y92.410 Unspecified street and highway as the place of occurrence of the external cause; Y99.9 Unspecified external cause status; I48.0 Paroxysmal atrial fibrillation; E03.9 Hypothyroidism, unspecified; I10 Essential (primary) hypertension; Q21.1 Atrial septal defect; F17.200 Nicotine dependence, unspecified, uncomplicated; Z79.82 Long term (current) use of aspirin; Z79.01 Long term (current) use of anticoagulants
CPT/HCPCS: 73552; 99284

== ENCOUNTER → 2022-04-10 | Outpatient (CLI) | payer OTHER, SELFPAY ==
[2022-04-10 10:16] LABS: Hematocrit 42.4 % (40-54); Hemoglobin 14.1 g/dL (13.0-16.5); Mean Corp Hgb Conc 33.3 g/dL (32-36); Mean Corpuscular Hgb 29.4 pg (27.0-32.0); Mean Corpuscular Volume 88.5 fL (80-94); Mean Platelet Vol. 9.6 fl (6.2-12.0); Platelet Count 243 K/mm3 (150-450); RBC Distribution Width CV 13.2 % (11.6-14.6); RBC Distribution Width SD 43.4 fl (35.1-43.9); Red Blood Count 4.79 M/mm3 (4.6-6.2); White Blood Count 5.3 K/mm3 (4.4-11.0)
[2022-04-10 11:03] LABS: AST(SGOT) 14 U/L (15-37); Alanine Aminotransfer ALT/SGPT 21 U/L (16-61); Albumin, Serum 3.6 g/dL (3.2-5.0); Alkaline Phosphatase 66 U/L (45-117); Anion Gap 3 (5-15); BUN 23 mg/dL (7-18); BUN/Creat Ratio 19.2 RATIO (10-20); Calcium,Total 10.1 mg/dL (8.5-10.1); Chloride 108 mmol/L (98-107); Cholesterol 188 mg/dL (200); EST Glomerular Filtration Rate 64 mL/min (>60); Est Glom Filt Rate - Afr Amer 78 mL/min (>60); Globulin 3.5 g/dL (2.2-4.2); Glucose 102 mg/dL (74-106); High Density Lipoprotein 52 mg/dL; Protein, Total 7.1 g/dL (6.4-8.2); Sodium Level 141 mmol/L (136-145); T4 Free Direct 1.04 ng/dL (0.76-1.46); Thyroid Stim Hormone (TSH) 2.84 uIU/mL (0.358-3.74); Triglycerides 87 mg/dL; Very Low Density Lipoprotein 17 mg/dL (5-40)
== END | disposition home or self-care (01) ==
LOC: MFPLAB 09:04
PROVIDERS: PCP Family Medicine; Visit Provider Nurse Practitioner Family
DX: I48.91 Unspecified atrial fibrillation (principal); I10 Essential (primary) hypertension; E03.9 Hypothyroidism, unspecified
CPT/HCPCS: 36415; 80053; 80061; 84439; 84443; 85027

== ENCOUNTER → 2023-06-02 | Outpatient (CLI) | payer OTHER, SELFPAY ==
[2023-06-02 18:38] LABS: Anion Gap 5 (5-15); BUN 18 mg/dL (7-18); BUN/Creat Ratio 16.5 RATIO (10-20); Calcium,Total 10.1 mg/dL (8.5-10.1); Chloride 107 mmol/L (98-107); Cholesterol 177 mg/dL (200); Creatinine, Serum 1.09 mg/dL (0.70-1.30); EST Glomerular Filtration Rate 72 mL/min (>60); Est Glom Filt Rate - Afr Amer 87 mL/min (>60); Glucose 94 mg/dL (74-106); High Density Lipoprotein 54 mg/dL; PSA,Total - Annual Screen 2.13 ng/mL (0.00-4.00); Potassium 4.1 mmol/L (3.5-5.1); Sodium Level 143 mmol/L (136-145); T4 Total, Thyroxin 9.5 ug/dL (4.5-12.1); Triglycerides 67 mg/dL; Very Low Density Lipoprotein 13 mg/dL (5-40)
[2023-06-02 19:01] LABS: Microalbumin,Random Urine 11.1 mg/L (NO RANGE EST.); Microalbumin:Creatinine Ratio 5.1 mg/g CRE (<30 mg/g CRE)
== END | disposition home or self-care (01) ==
LOC: MTLAB 16:55
PROVIDERS: PCP Family Medicine; Referring Provider Family Medicine; Visit Provider Family Medicine
DX: E03.9 Hypothyroidism, unspecified (principal); I10 Essential (primary) hypertension; Z12.5 Encounter for screening for malignant neoplasm of prostate
CPT/HCPCS: 36415; 80048; 80061; 82043; 82570; 84153; 84436; 84443; G0103

== ENCOUNTER → 2023-06-17 | Outpatient (CLI) | payer OTHER, SELFPAY | END | disposition home or self-care (01) | LOC: SL 19:31 | PROVIDERS: PCP Family Medicine; Visit Provider Family Medicine | DX: G47.10 Hypersomnia, unspecified (principal) | CPT/HCPCS: 95810 ==

== ENCOUNTER → 2024-06-14 | Outpatient (CLI) | payer OTHER, SELFPAY ==
[2024-06-14 17:58] LABS: Absolute Lymphocyte Count 1.18 X10^3/uL (0.83-4.51); Absolute Neutrophil Count 3.6 X10^3/uL (2.0-7.7); Basophil# 0.03 X10^3/uL; Basophil% 0.5 % (0-1); Eosinophils% 3.5 % (0-5); Hematocrit 42.7 % (40-54); Hemoglobin 13.9 g/dL (13.0-16.5); Lymphocyte # 1.18 X10^3/ul (0.83-4.51); Lymphocyte % 20.5 % (19-41); Mean Corp Hgb Conc 32.6 g/dL (32-36); Mean Corpuscular Hgb 28.7 pg (27.0-32.0); Mean Platelet Vol. 9.8 fl (6.2-12.0); Monocyte# 0.71 X10^3/uL; Monocyte% 12.3 % (0-10); NRBC Flagged by Analyzer 0 % (0-5); Neutrophil # 3.62 X10^3/uL (2.7-7.7); Platelet Count 242 K/mm3 (150-450); RBC Distribution Width CV 12.9 % (11.6-14.6); RBC Distribution Width SD 41.6 fl (35.1-43.9); Red Blood Count 4.85 M/mm3 (4.6-6.2); White Blood Count 5.8 K/mm3 (4.4-11.0)
[2024-06-14 18:17] LABS: Erythrocyte Sedimentation Rate 9 mm/hr (0-20)
[2024-06-14 20:51] LABS: ALB/GLOB Ratio 1.1 RATIO (0.9-2.4); AST(SGOT) 16 U/L (15-37); Alanine Aminotransfer ALT/SGPT 23 U/L (16-61); Albumin, Serum 3.9 g/dL (3.2-5.0); Alkaline Phosphatase 68 U/L (45-117); Anion Gap 9 (5-15); BUN 21 mg/dL (7-18); BUN/Creat Ratio 18.1 RATIO (10-20); CRP < 2.90 mg/L (0.0-3.0); Calcium,Total 10.9 mg/dL (8.5-10.1); Chloride 110 mmol/L (98-107); Creatinine, Serum 1.16 mg/dL (0.70-1.30); EST Glomerular Filtration Rate 66 mL/min (>60); Est Glom Filt Rate - Afr Amer 80 mL/min (>60); Globulin 3.6 g/dL (2.2-4.2); Glucose 94 mg/dL (74-106); Potassium 3.8 mmol/L (3.5-5.1); Protein, Total 7.5 g/dL (6.4-8.2); Sodium Level 144 mmol/L (136-145); T4 Total, Thyroxin 10.5 ug/dL (4.5-12.1)
[2024-06-15 08:42] LABS: Vitamin B12 382 pg/mL (211-911); Vitamin D,25 Hydroxy 29.7 ng/mL
== END | disposition home or self-care (01) ==
LOC: MFPLAB 17:02
PROVIDERS: PCP Family Medicine; Visit Provider Family Medicine
DX: E03.9 Hypothyroidism, unspecified (principal); E55.9 Vitamin D deficiency, unspecified; R53.83 Other fatigue; I10 Essential (primary) hypertension
CPT/HCPCS: 36415; 80053; 82306; 82607; 84436; 84443; 85025; 85652; 86140

== ENCOUNTER 2024-11-15 17:49 | Emergency (ER) | payer OTHER, SELFPAY ==
[2024-11-15 17:52] VITALS: BP 151/82; PULSE 81; RESP 18; TEMP 36.7; O2SAT 96; BMI 38.3
[2024-11-15 18:27] LABS: Absolute Lymphocyte Count 1.42 X10^3/uL (0.83-4.51); Absolute Neutrophil Count 7.4 X10^3/uL (2.0-7.7); Basophil# 0.03 X10^3/uL; Basophil% 0.3 % (0-1); Eosinophil# 0.19 X10^3/uL; Eosinophils% 1.9 % (0-5); Hematocrit 45.1 % (40-54); Hemoglobin 14.8 g/dL (13.0-16.5); Lymphocyte # 1.42 X10^3/ul (0.83-4.51); Lymphocyte % 14.2 % (19-41); Mean Corp Hgb Conc 32.8 g/dL (32-36); Mean Corpuscular Hgb 28.8 pg (27.0-32.0); Mean Corpuscular Volume 87.7 fL (80-94); Mean Platelet Vol. 9.4 fl (6.2-12.0); NRBC Flagged by Analyzer 0 % (0-5); Neutrophil # 7.35 X10^3/uL (2.7-7.7); Neutrophil % 73.3 % (47-70); Platelet Count 248 K/mm3 (150-450); RBC Distribution Width CV 13.2 % (11.6-14.6); RBC Distribution Width SD 42.1 fl (35.1-43.9); Red Blood Count 5.14 M/mm3 (4.6-6.2)
[2024-11-15 18:39] LABS: ALB/GLOB Ratio 0.9 RATIO (0.9-2.4); AST(SGOT) 34 U/L (15-37); Alanine Aminotransfer ALT/SGPT 24 U/L (16-61); Albumin, Serum 3.7 g/dL (3.2-5.0); Alkaline Phosphatase 81 U/L (45-117); Anion Gap 5 (5-15); BUN 17 mg/dL (7-18); BUN/Creat Ratio 14.2 RATIO (10-20); Calcium,Total 10.4 mg/dL (8.5-10.1); Chloride 103 mmol/L (98-107); EST Glomerular Filtration Rate 64 mL/min (>60); Est Glom Filt Rate - Afr Amer 77 mL/min (>60); Estimated Creatinine Clearance 76.44 ml/min; Globulin 4.2 g/dL (2.2-4.2); Glucose 98 mg/dL (74-106); Potassium 5.2 mmol/L (3.5-5.1); Protein, Total 7.9 g/dL (6.4-8.2); Sodium Level 135 mmol/L (136-145)
--- NOTE | 2024-11-15 19:27 | CT_ITS ---
PROCEDURE: CT abdomen pelvis with IV contrast REASON FOR EXAM: Left lower quadrant pain TECHNIQUE: Multiple contiguous axial images through the abdomen and pelvis were obtained after the administration of intravenous contrast. Two-dimensional coronal and sagittal reformatted images were reconstructed. Low-dose imaging technique was utilized. COMPARISON: None. FINDINGS: Lung bases are clear. Liver, spleen, pancreas and adrenal glands are intact. Gallbladder is satisfactory. No significant biliary ductal dilation. Kidneys enhance symmetrically. Heterogeneous enhancing mass in the inferior pole of the right kidney measuring 3.5 x 3.4 x 2.1 cm (AP, TV and CC dimensions). Small peripelvic cyst. No renal calculi or hydronephrosis. Urinary bladder is intact. Mildly enlarged prostate. Moderate focal inflammatory changes at the distal descending colon surrounding multiple prominent diverticula consistent with acute diverticulitis. No pericolonic abscess or free air. No bowel obstruction. Normal appendix. No pelvic free fluid. No free air. Calcified nonaneurysmal abdominal aorta. No suspicious adenopathy. Small fat containing inguinal hernias. No acute osseous abnormality. CT/Abdomen/Pelvis W IV Cont ONLY IMPRESSION: 1. Moderate acute uncomplicated distal descending colonic diverticulitis. 2. Heterogeneously enhancing mass in the inferior pole of the right kidney conc erning for renal cell carcinoma. One or more dose reduction techniques were used (e.g., Automated exposure contr ol, adjustment of the mA and/or kV according to patient size, use of iterative reconstruction technique). Reading Location: [facility]
--- NOTE | 2024-11-15 19:28 | EDS_ITS ---
HPI HPI - GI History of Present Illness Chief Complaint: Abd Pain Detail of Chief Complaint: Abdominal pain Informant: patient Narrative Narrative: Patient presents to the emergency room with complaint of abdominal pain that started 2 weeks ago to the left lower quadrant. Patient also tells me that 7 or 8 months ago he sneezed really hard and felt a strain in his left lower abdomen and the pain never really completely resolved. He denies any masses or anything protruding from his abdomen. Denies urinary symptoms other than frequency but he does take a water pill. Patient was seen by his primary care physician and referred to the ER. He denies fevers. He has had no vomiting. He states 3 weeks ago he had small amount of blood when he wiped on the toilet paper when he was having bowel movements but he thought maybe it was hemorrhoids and it resolved soon after. His last colonoscopy was about 4 years ago. He himself is never had diverticulitis but on colonoscopy had evidence of diverticular dise ase. Patient states pain is worse with moving. [facility] Medical History (Updated 11/15/24 @ 21:[address] Hilaria Jacobo, DO) Afib COVID-19 Palpitations Tachycardia Patent foramen ovale SOB (shortness of breath) Wide-complex tachycardia Paroxysmal atrial fibrillation Essential (primary) hypertension Nonischemic cardiomyopathy Valvular heart disease Nonrheumatic tricuspid (valve) insufficiency Nonrheumatic mitral (valve) insufficiency Hypothyroidism Home Medications ?Medication ?Instructions ?Recorded ?Last Taken ?Type levothyroxine 112 mcg tablet 112 mcg PO DAILY 06/10/17 07/29/17 History Blood Pressure Cuff #1 ea 08/23/19 Unknown Rx multivitamin-ferrous 1 tab PO QDAY PRN 08/22/23 U nknown History fumarate-folic acid 18 mg-400 mcg tablet (Centrum Complete) hydrochlorothiazide 25 mg tablet 25 mg PO DAILY #90 ta bs 01/30/24 Unknown Rx metoprolol tartrate 50 mg tablet 50 mg PO BID #180 TAB LETS 08/16/24 Unknown Rx losartan 50 mg tablet 50 mg PO BID #180 tabs 08/18 Unknown Rx apixaban 5 mg tablet (Eliquis) 5 mg PO BID #180 tabs 0 11/02/24 Unknown Rx budesonide 160 mcg-glycopyr 9 2 inh inhalation ONCE Unknown History mcg-formot 4.8 mcg/actuation HFA inhaler (Breztri Aerosphere) aspirin 81 mg capsule 81 mg PO DAILY 11/15/24 Unkn own History ciprofloxacin HCl 500 mg tablet 500 mg PO BID #20 TABL ETS 11/15/24 Unknown Rx hydrocodone-acetaminophen 5-325mg 1 tab PO Q4H PRN PRN Pain 2 days 11/15/24 Unknown Rx 5mg-325mg #15 TABLETS metronidazole 500 mg tablet 500 mg PO TID #30 tabs 07/30 Unknown Rx Allergy/AdvReac Type Severity Reaction Status Date / Time lisinopril AdvReac Unknown Dry Cough Verified 11/15/24 17:52 Family History Father CAD (coronary artery disease) Mother Thyroid disorder Surgical History Hx of cataract removal with insertion of prosthetic lens (~06/2022) History of open reduction and internal fixation (ORIF) procedure History of vasectomy History of left knee surgery History of tonsillectomy Social History Smoking Status: Current some day smoker tobacco type: cigars per week: 2 alcohol intake: current alcohol intake frequency: a few times a week Alcohol type: beer, wine and hard liquor substance use type: does not use caffeine: Yes Type: carbonated beverages and coffee Number of servings: 4 what type of physical activity do you participate in: none seatbelt use: always do you feel safe at home: Yes ROS ROS ED Review of Systems ROS Unobtainable: other Constitutional Constitutional ED: Reports lethargy; Denies chills, fever(s), sweats or weight loss Eyes Eyes: Denies blurry vision, change in vision or diplopia ENT ENT ED: Denies rhinorrhea or sore throat Cardiovascular Cardiovascular: Denies chest pain, orthopnea or racing heartbeat Respiratory/Chest Respiratory/Chest: Denies cough, dyspnea, dyspnea on exertion, orthopnea or sputum Gastrointestinal Gastrointestinal: Reports abdominal pain; Denies diarrhea, nausea or vomiting Genitourinary Genitourinary ED: Denies dysuria, hematuria or urinary frequency Musculoskeletal Musculoskeletal: Denies arthralgias, back pain, myalgias or neck pain Integumentary Denies abscess, Abrasions or rash Neurologic Neurologic: Denies headache(s) or weakness Psychiatric Psychiatric: Denies anxiety, depression or suicidal thoughts Endocrine Endocrinology: Denies polydipsia, polyphagia or polyuria Hematologic/Lymphatic Hematologic/Lymphatic: Denies easy bleeding, easy bruising or lymphadenopathy Allergic/Immunologic Allergic/Immunologic ED: Denies mouth swelling, tongue swelling or urticaria EXAM Physical Exam Const Vital Signs: 11/15/24 17:52 11/15/24 19:50 11/15/24 21:00 Temperature 98.1 F Temperature Source Oral Pulse Rate 81 83 93 Respiratory Rate 18 18 18 Blood Pressure 151/82 H 162/71 H 144/72 H Blood Pressure Mean 105 101 96 Pulse Ox 96 95 95 Oxygen Delivery Method Room Air Room Air Room Air Positive well nourished and well developed General Appearance ED: well developed and NAD HEENT Reports TM's clear and moist mucous membranes normocephalic and atraumatic; Negative for trauma or tenderness Tympanic Membrane ED: Yes TM's clear Eyes PERRL and EOMs intact bilaterally General Eye ED: Negative for pale conjunctiva or scleral icterus Neck no lymphadenopathy, supple and no JVD General: Negative for tenderness Chest Wall inspection of chest normal and palpation of chest normal Chest: Negative for tenderness Resp normal respiratory effort and clear to auscultation bilaterally Effort and Inspection: Negative for respiratory distress or pain with movement Auscultation: Negative for rhonchi, wheezes or diminished lung sounds Cardio regular rate, regular rhythm, S1 normal heart sound, S2 normal heart sound and no murmurs Peripheral Pulses: pulses 2+ throughout GI normal to inspection, nondistended, normoactive bowel sounds, soft to palpation, non-distended and no masses GI Narrative: Tenderness palpation over left lower quadrant with guarding and rebound. No rigidity noted Back/Spine no CVA tenderness and no thoracic nor lumbar tenderness Extremity normal to inspection General Extremety ED: Negative for edema General Extremity: Negative for edema Neuro oriented x3, CN's II-XII intact bilaterally, no sensory deficits noted and gait normal Sensorium / Orientation: awake, alert, oriented to person, oriented to place and oriented to time Motor Exam: strength 5/5 throughout and strength abnormal Psych mental status grossly normal Skin no rashes or lesions noted and no wounds MDM MDM MDM Narrative Medical decision making narrative: Patient presents with lower abdomen pain continuously for 2 weeks. Clinically looks well. In the differential would be kidney stone versus diverticulitis versus perforated bowel or other abnormality. No family history of colon cancer. IV line established. CBC with differential obtained showed white count of 10.0 with hemoglobin 14.8 and platelet count of 248. Chemistries unremarkable. LFTs were normal. Patient did not want thing for pain. Will obtain a CT scan of the abdomen pelvis with IV contrast. CT scan of the M pelvis read by radiology is uncomplicated sigmoid diverticulitis. Patient also noted to have a mass in his right kidney consistent with renal cell carcinoma. Discussed case with Dr. Lowry who asked that patient follow-up with his office. Will start patient on Cipro and Flagyl and give [place] for pain. Advised to ret urn if worsening pain, fever, bloody stools, or condition worsening way. He and his are aware of findings on CT including the repossible renal cell carcinoma Lab Data Attestation: I reviewed the patient's lab results. Labs: Laboratory Results - last 24 hr 11/15/24 18:10 WBC 10.0 RBC 5.14 Hgb 14.8 Hct 45.1 MCV 87.7 MCH 28.8 MCHC 32.8 RDW Std Deviation 42.1 RDW Coeff of Agustín 13.2 Plt Count 248 MPV 9.4 Immature Gran % (Auto) 0.300 Neut % (Auto) 73.3 H Lymph % (Auto) 14.2 L [place] % (Auto) 10.0 Eos % (Auto) 1.9 Baso % (Auto) 0.3 Absolute Neuts (auto) 7.4 Absolute Lymphs (auto) 1.42 Nucleated RBC % 0 Sodium 135 L Potassium 5.2 H Chloride 103 Carbon Dioxide 27.0 Anion Gap 5 BUN 17 Creatinine 1.20 Estim Creat Clear Calc 76.44 Est GFR (MDRD) Af Amer 77 Est GFR (MDRD) Non-Af 64 BUN/Creatinine Ratio 14.2 Glucose 98 Calcium 10.4 H Total Bilirubin 0.90 AST 34 ALT 24 Alkaline Phosphatase 81 Total Protein 7.9 Albumin 3.7 Globulin 4.2 Albumin/Globulin Ratio 0.9 Radiography Diagnostic Testing: Clinical Impression(s) from Imaging Studies Abdomen/Pelvis CT 11/15/24 19:27 IMPRESSION: 1. Moderate acute uncomplicated distal descending colonic diverticulitis. 2. Heterogeneously enhancing mass in the inferior pole of the right kidney concerning for renal cell carcinoma. One or more dose reduction techniques were used (e.g., Automated exposure control, adjustment of the mA and/or kV according to patient size, use of iterative reconstruction technique). Reading Location: [facility] Discharge Plan Triage Chief Complaint: Abd Pain ED Provider: Hilaria Jacobo Dx/Rx/DC Orders Clinical Impression: Acute diverticulitis, Renal cell carcinoma Instructions: Kidney Cancer Tx Dc, Diverticulitis Dc, ED Tumor, Uncertain Cause Prescriptions: New hydrocodone-acetaminophen 5-325 mg tablet 1 tab PO Q4H PRN PRN (Reason: Pain) 2 Days Qty: 15 0RF ciprofloxacin HCl 500 mg tablet 500 mg PO BID Qty: 20 0RF metronidazole 500 mg tablet 500 mg PO TID Qty: 30 0RF No Action Centrum Complete 18-400 mg-mcg tablet 1 tab PO QDAY PRN (DME) Blood Pressure Cuff Qty: 1 0RF Rx Instructions: As directed Breztri Aerosphere 160-9-4.8 mcg/actuation HFA aerosol inhaler 2 inh inhalation ONCE Eliquis 5 mg tablet 5 mg PO BID Qty: 180 3RF levothyroxine 112 MCG tablet 112 mcg PO DAILY Patient Comments: thyroid aspirin 81 mg capsule 81 mg PO DAILY hydrochlorothiazide 25 mg tablet 25 mg PO DAILY Qty: 90 4RF metoprolol tartrate 50 mg tablet 50 mg PO BID Qty: 180 3RF losartan 50 mg tablet 50 mg PO BID Qty: 180 3RF Primary Care Provider: Jimena Cagle Referrals: Jimena Cagle MD [Primary Care Provider] - Print Language: Kyrgyz Disposition Disposition: Home, Self Care
[2024-11-15 19:50] VITALS: BP 162/71; PULSE 83; RESP 18; O2SAT 95
[2024-11-15 21:00] VITALS: BP 144/72; PULSE 93; RESP 18; O2SAT 95
[2024-11-15] MEDS: metroNIDAZOLE 500 MG Tablet PO (21:24)
[2024-11-15] MEDS: HYDROcodone Bitartrate/Apap 5/325 Tablet PO (21:24)
[2024-11-15] MEDS: Ciprofloxacin 500 MG Tablet PO (21:24)
[2024-11-15 21:50] VITALS: BP 153/82; PULSE 86; RESP 16; TEMP 36.7; O2SAT 96
[2024-11-15 22:20] LABS: Bacteria 0 SEEN /hpf (None Seen); Color, Urine Yellow (Yellow); Glucose, Dipstick Normal (Normal); Ketone-Dipstick Negative (Negative); Leukocyte Esterase-Dipstick Negative /ul (Negative); Mucous, Urine 0 SEEN /hpf (<or=2+); Nitrite-Dipstick Negative (Negative); Occult Blood-Urine 25 /ul (Negative); Protein-Dipstick 30 mg/dl (Negative); Squamous Epithelial Cells - UA 0 SEEN /hpf (0-5); Urine Bilirubin Dipstick Negative (Negative); Urine Clarity Clear (Clear); Urine Urobilinogen Normal (Normal); White Blood Cells 0 SEEN /hpf (0-5)
[2024-11-15 22:55] LABS: Red Blood Cells-Urine 0 SEEN /hpf (0-5)
== END 2024-11-15 22:05 | disposition home or self-care (01) ==
PROVIDERS: Emergency Provider Emergency Medicine; PCP Family Medicine; Visit Provider Emergency Medicine
DX: K57.32 Diverticulitis of large intestine without perforation or abscess without bleeding (principal); C64.9 Malignant neoplasm of unspecified kidney, except renal pelvis; I10 Essential (primary) hypertension; Z79.82 Long term (current) use of aspirin; E03.9 Hypothyroidism, unspecified; Z86.16 Personal history of COVID-19; F17.290 Nicotine dependence, other tobacco product, uncomplicated
CPT/HCPCS: 74177; 80053; 81001; 85025; 99283; Q9967; A4216

== ENCOUNTER 2024-12-29 12:05 | Observation (INO) | payer OTHER, MEDICARE, SELFPAY ==
--- NOTE | 2024-12-16 11:51 | EKG12_ITS ---
Test Reason : PREOP Blood Pressure : */* mmHG Vent. Rate : 64 BPM Atrial Rate : 64 BPM P-R Int : 166 ms QRS Dur : 82 ms QT Int : 374 ms P-R-T Axes : 29 19 52 degrees QTcB Int : 385 ms Normal sinus rhythm Normal ECG Confirmed by STU SNEED, SANJUANITA ([id number]), editorial specialist JAXSON MESSER ([id number]) on 12/20/2024 11:30:45 AM Referred By: Portillo Lowry Confirmed By: SANJUANITA PERAZA MD
[2024-12-16 12:42] LABS: Hematocrit 41.5 % (40-54); Hemoglobin 13.9 g/dL (13.0-16.5); Mean Corp Hgb Conc 33.5 g/dL (32-36); Mean Corpuscular Hgb 29.4 pg (27.0-32.0); Mean Corpuscular Volume 87.9 fL (80-94); Mean Platelet Vol. 9.3 fl (6.2-12.0); Platelet Count 225 K/mm3 (150-450); RBC Distribution Width CV 13.2 % (11.6-14.6); RBC Distribution Width SD 42.5 fl (35.1-43.9); Red Blood Count 4.72 M/mm3 (4.6-6.2); White Blood Count 6.8 K/mm3 (4.4-11.0)
[2024-12-16 13:30] LABS: Anion Gap 10 (5-15); BUN 19 mg/dL (4-19); BUN/Creat Ratio 16.8 RATIO (10-20); Calcium,Total 10.6 mg/dL (7.6-11.0); Carbon Dioxide 24.3 mmol/L (21.0-32.0); Chloride 106 mmol/L (98-108); Creatinine, Serum 1.11 mg/dL (0.70-1.20); EST Glomerular Filtration Rate 72 (>60); Glucose 102 mg/dL (70-99); Potassium 4.2 mmol/L (3.3-5.1); Sodium Level 140 mmol/L (133-145)
[2024-12-29] VITALS (17 sets, daily range): BP systolic 111–148; BP diastolic 69–99; PULSE 64–107; RESP 16–20; TEMP 36.1–36.9; O2SAT 93–97; BMI 38.0
--- NOTE | 2024-12-29 09:52 | PCM.PRE.AN2 ---
ASA Classification* ASA Classification ASA Classification: 3 Assessment & Plan Anesthesia* Anesthesia Assessment Anesthesia Assessment: Discussed sedation and/or anesthesia options, risks, benefits, and alternatives with patient/parents/legal guardian/POA. Questions invited. The patient/parents/legal guardian/POA seems to understand and agrees to proceed with anesthesia plan. Reviewed the physical assessment, medical history, allergy history and patient home medications list prior to surgery/procedure/anesthetic and documented any changes. Performed airway and anesthesia risk assessments. Anesthesia Type Anesthesia Type: General Anesthesia Focused Assessment* Airway Assessment Mouth opens: >3 cm Mallampati Score: II Focused Labs Anesthesia Preop lab: CBC WBC 6.8 K/mm3 (4.4-11.0) 12/16/24 12:12/16/24 RBC 4.72 M/mm3 (4.6-6.2) 12/16/24 12:12/16/24 Hgb 13.9 g/dL (13.0-16.5) 12/16/24 12:12/16/24 Hct 41.5 % (40-54) 12/16/24 12:12/16/24 Plt Count 225 K/mm3 (150-450) 12/16/24 12:12/16/24 CHEMISTRY Potassium 4.2 mmol/L (3.3-5.1) 12/16/24 12:12/16/24 Sodium 140 mmol/L (133-145) 12/16/24 12:12/16/24 Magnesium 2.2 mg/dL (1.8-2.4) 06/10/17 12:30 06/10/17 BUN 19 mg/dL (4-19) 12/16/24 12:12/16/24 Creatinine 1.11 mg/dL (0.70-1.20) 12/16/24 12:12/16/24 Glucose 102 mg/dL (70-99) H 12/16/24 12:12/16/24 POC Glucose 100 mg/dL (70-110) 05/07/20 16:58 05/07/20 TSH 1.500 uIU/mL (0.300-4.200) 12/16/24 12:12/16/24 COAG PT 13.9 SECONDS (11.7-14.9) 09/01/18 10:30 09/01/18 Pre-Assessment Diagnosis/Proposed Procedure Planned Operative Procedure(s): LAP ROBOTIC RIGHT PARTIAL NEPHRECTOMY Anesthesia History 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 When Was Last Pacemaker Check QUESTION #4 FULL TEXT: You/Your Family Experience fever (hyperthermia) with Anesthesia Last Oral Intake Last Oral intake: Last Oral Intake NPO since Meds taken in AM with sips of water? 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 Female No 12/15/24 13:39 HX of Motion Sickness No 12/15/24 13:39 HX of N/V After Surgery No 12/15/24 13:39 Non-Smoker Yes 12/15/24 13:39 Duration of Surgery greater Yes 12/15/24 13:39 than 60 minutes Number of Risk Factors 2 12/15/24 13:39 PONV Score Moderate Risk 12/15/24 13:39 Height & Weight Height & Weight: Anesthesia: Height & Weight Height 5 ft 10.5 in 11/15/24 17:52 Respiratory Assessment Respiratory Assessment - croze machine operator: Respiratory Tract Infection Hx - croze machine operator Hx Respiratory Tract Infection No 12/15/24 13:39 STOP Sleep Apnea STOP Sleep Apnea - croze machine operator: STOP Sleep Apnea - croze machine operator Hx Hypertension Yes: CONTROLLED WITH MEDS 12/15/24 13:39 Hx Sleep Apnea Yes 12/15/24 13:39 CPAP Yes 12/15/24 13:39 BIPAP No 12/15/24 13:39 Do you snore loudly (louder than talking or can be heard Do you often feel tired/ fatigued/ sleepy during daytime? Has anyone observed you stop breathing during sleep? STOP Results Positive 12/15/24 13:39 QUESTION #5 FULL TEXT : Do you snore loudly (louder than talking or can be heard through closed doors)? Tobacco Use History Tobacco Use History - croze machine operator: Tobacco Use History - croze machine operator Tobacco Use Smoking Status Light Smoker (<10/day) 12/15/24 13:39 Hx Tobacco Use Yes 12/15/24 13:39 Years Smoking Packs Smoked per Day Smoking Cessation Date was within the last 15 years Hx Smoking Cessation Date Hx Smoking Cessation Counseling Hematologic Medial History Hematologic Hx - croze machine operator: Hematologic Medical Hx - targeteer Hx of Blood Transfusion No 12/15/24 13:39 Hx of Transfusion in last 3 No 12/15/24 13:39 Months Date of Last Transfusion (if within last 3 months) Ever experience any problems No 12/15/24 13:39 with transfusion(s)? Specify any problems Hx of Preganancy in last 3 N/A 12/15/24 13:39 Months Nurse Filling Out Transfusion DSCHRIBER 12/15/24 13:39 & Questions: Date: 12/15/24 12/15/24 13:39 Time: 13:41 12/15/24 13:39 Patient unable to answer at this time (ie. confused, unrespo /Reproduction History /Reproductive History - croze machine operator: /Reproductive Hx- croze machine operator Hx Now No 12/15/24 13:39 Gestational Age (in weeks): EDC: Hx Hx Para Hx Section SAB No 12/15/24 13:39 Active Medications Active Medications: Current Medications Generic Name Dose Route Start Last Admin Trade Name Freq PRN Reason Stop Dose Admin Cefazolin Sodium 3 gm/ N/A 30 mls @ 600 mls/hr 12/29/24 11:30 IV 12/29/24 11:32 PREOP ONE Sodium Chloride 1,000 mls @ 15 mls/hr 12/29/24 09:40 IV 01/03/25 22:59 .Q48H ANN MARIE PFSH Medical History Wears glasses Cancer Alcohol use History of steroid therapy Thyroid disease Arthritis History of renal disease Back pain History of diverticulitis Heartburn Cigar smoker CPAP (continuous positive airway pressure) dependence Chronic cough Asthma Leg cramps History of edema History of Holter monitoring History of echocardiogram Cardiology follow-up encounter Afib COVID-19 Palpitations Tachycardia Patent foramen ovale SOB (shortness of breath) Wide-complex tachycardia Paroxysmal atrial fibrillation Essential (primary) hypertension Nonischemic cardiomyopathy Valvular heart disease Nonrheumatic tricuspid (valve) insufficiency Nonrheumatic mitral (valve) insufficiency Hypothyroidism Home Medications ?Medication ?Instructions ?Recorded ?Last Taken ?Type levothyroxine 112 mcg tablet 112 mcg PO DAILY 06/10/17 07/29/17 History Blood Pressure Cuff #1 ea 08/23/19 Unknown Rx multivitamin-ferrous 1 tab PO QDAY 08/22/23 Unknown History fumarate-folic acid 18 mg-400 mcg tablet (Centrum Complete) hydrochlorothiazide 25 mg tablet 25 mg PO DAILY #90 tabs 01/30/24 Unknown Rx metoprolol tartrate 50 mg tablet 50 mg PO BID #180 TABLETS 08/16/24 Unknown Rx losartan 50 mg tablet 50 mg PO BID #180 tabs 08/18/24 Unknown Rx apixaban 5 mg tablet (Eliquis) 5 mg PO BID #180 tabs 11/02/24 Unknown Rx albuterol sulfate 90 mcg/actuation 2 puff inhalation 4X/DAY PRN 12/15/24 Unknown History aerosol inhaler shortness of breath or wheezing fluticasone furoate 200 1 ea inhalation DAILY 12/15/24 Unknown History mcg-vilanterol 25 mcg/dose inhalation powder (Breo Ellipta) Allergy/AdvReac Type Severity Reaction Status Date / Time lisinopril AdvReac Unknown Dry Cough Verified 12/15/24 13:34 Family History Father CAD (coronary artery disease) Mother Thyroid disorder Surgical History History of cardiac catheterization History of melanoma excision Hx of meniscectomy of right knee Hx of cataract removal with insertion of prosthetic lens (~06/2022) History of open reduction and internal fixation (ORIF) procedure History of vasectomy History of tonsillectomy Social History Smoking Status: Light Smoker (<10/day) alcohol intake: current alcohol intake frequency: a few times a week Alcohol type: beer, wine and hard liquor substance use type: does not use caffeine: Yes Type: carbonated beverages and coffee Number of servings: 4 what type of physical activity do you participate in: none seatbelt use: always do you feel safe at home: Yes Review of Systems (Anesthesia) ROS Narrative System reviewed and no additional complaints, except as documented.
[2024-12-29] MEDS: 0.9% Normal Saline (1000mL) 1,000 ML 15 ML IV (10:07)
--- NOTE | 2024-12-29 11:18 | PCM.HP.STD ---
HPI - General General Date of Service: 12/29/24 Chief Complaint: Right renal mass HPI Narrative WSAPNA CEBALLOS, is a 69 M who presents for a robotic right partial nephrectomy for a solid lower pole right renal mass PFSH Medical History Wears glasses Cancer Alcohol use History of steroid therapy Thyroid disease Arthritis History of renal disease Back pain History of diverticulitis Heartburn Cigar smoker CPAP (continuous positive airway pressure) dependence Chronic cough Asthma Leg cramps History of edema History of Holter monitoring History of echocardiogram Cardiology follow-up encounter Afib COVID-19 Palpitations Tachycardia Patent foramen ovale SOB (shortness of breath) Wide-complex tachycardia Paroxysmal atrial fibrillation Essential (primary) hypertension Nonischemic cardiomyopathy Valvular heart disease Nonrheumatic tricuspid (valve) insufficiency Nonrheumatic mitral (valve) insufficiency Hypothyroidism Home Medications ?Medication ?Instructions ?Recorded ?Last Taken ?Type levothyroxine 112 mcg tablet 112 mcg PO DAILY 06/10/17 12/29/24 History Blood Pressure Cuff #1 ea 08/23/19 Unknown Rx multivitamin-ferrous 1 tab PO QDAY 08/22/23 Unknown History fumarate-folic acid 18 mg-400 mcg tablet (Centrum Complete) hydrochlorothiazide 25 mg tablet 25 mg PO DAILY #90 tabs 01/30/24 12/29/24 Rx metoprolol tartrate 50 mg tablet 50 mg PO BID #180 TABLETS 08/16/24 12/29/24 Rx losartan 50 mg tablet 50 mg PO BID #180 tabs 08/18/24 12/29/24 Rx apixaban 5 mg tablet (Eliquis) 5 mg PO BID #180 tabs 11/02/24 12/23/24 Rx albuterol sulfate 90 mcg/actuation 2 puff inhalation 4X/DAY PRN 12/15/24 Unknown History aerosol inhaler shortness of breath or wheezing fluticasone furoate 200 1 ea inhalation DAILY 12/15/24 12/29/24 History mcg-vilanterol 25 mcg/dose inhalation powder (Breo Ellipta) Allergy/AdvReac Type Severity Reaction Status Date / Time lisinopril AdvReac Unknown Dry Cough Verified 12/29/24 09:58 Family History Father CAD (coronary artery disease) Mother Thyroid disorder Surgical History History of cardiac catheterization History of melanoma excision Hx of meniscectomy of right knee Hx of cataract removal with insertion of prosthetic lens (~06/2022) History of open reduction and internal fixation (ORIF) procedure History of vasectomy History of tonsillectomy Social History Smoking Status: Light Smoker (<10/day) alcohol intake: current alcohol intake frequency: a few times a week Alcohol type: beer, wine and hard liquor substance use type: does not use caffeine: Yes Type: carbonated beverages and coffee Number of servings: 4 what type of physical activity do you participate in: none seatbelt use: always do you feel safe at home: Yes Vital Signs Vital Signs Vital Signs: 12/29/24 10:00 12/29/24 10:00 Temperature 97.5 F L Temperature Source Temporal Pulse Rate 64 Respiratory Rate 16 Respiratory Pattern Normal Blood Pressure 145/92 H Blood Pressure Mean 109 Blood Pressure Source Monitor Blood Pressure Position Semi-Fowlers Blood Pressure Location Right Arm Pulse Ox 97 Oxygen Delivery Method Room Air Weight Weight: 120.2 kg Body Mass Index (BMI) 38.0 Results Lab / Micro Data 12/16/24 12:13 12/16/24 12:13
--- NOTE | 2024-12-29 11:30 | KID_PTH ---
PATIENT: SWAPNA CEBALLOS LOC: [facility]3 U#:[id number] AGE/SX: 69/M ROOM: NM319 RE12/29/[address]: Dr. Portillo Lowry MD : 1955 BED: 1 DIS: 12/31/2024 SPEC #: [id number] RECD: 12/30/24 09:16 STATUS: RADHA RILEY #: [id number] EFRAIN: 12/29/24 11:[address]: Portillo Lowry DEPT: SURGICAL PATHOLOGY RECD BY: Felton Reynaga ENTERED: 12/30/24 09:17 SP TYPE: KIDNEY OTHR DR: Dr. Jimena Cagle MD Tissues: A - Kidney, NOS Procedures: Surgery Specimen Level V HEADER OPERATION: Laparoscopic robotic partial nephrectomy PRE-OP DIAGNOSIS: Right renal mass TISSUE SUBMITTED: A- Partial right kidney and contents MICROSCOPIC DIAGNOSIS A. RIGHT KIDNEY, PARTIAL NEPHRECTOMY: * Clear cell renal cell carcinoma, WHO / ISUP grade 2, 3.5 cm in greatest dimension (see Synoptic Report). * Tumor is confined within the renal capsule. * All surgical margins are negative for carcinoma. COMMENT SYNOPTIC REPORT FOR RENAL CARCINOMA OF THE KIDNEY: Nephrectomy type (p=partial, t=total):?P Laterality (r=right, l=left): R Focality (u=unifocal, m=multifocal):?U Tumor size (cm):?3.5 cm Histologic type:?clear cell renal cell carcinoma Tumor grade (1-4):?WHO / ISUP grade 2 % sarcomatoid:?0 % rhabdoid:?0 % coagulative necrosis:?15% Lymphovascular invasion (n=no, y=yes):?N ? Tumor extent (n=no, y=yes, na=not applicable): NA ??? Renal sinus fat invasion:? Perinephric fat invasion:? Pelvicalyceal invasion:? Renal vein/branch invasion:? Vena cava thrombus below diaphragm:? Vena cava thrombus above diaphragm:? Invasion of vena cava wall:? Direct invasion of adrenal gland:? Non-contiguous adrenal invasion:? Beyond Gerota's fascia/in non-adrenal organs:? ? Margins (n=negative, p=positive, na=not applicable):?N ??? Location positive margin:?NA ? Regional lymph nodes (na=not applicable): NA ??? Number examined:?0 ??? Number positive:?NA ? Non-neoplastic kidney:? Additional findings:?NONE pTNM:?pT1a pNX Comments: NONE ? Pathologic Staging Definitions (pTNM): Primary Tumor (pT) pTX:? Primary tumor cannot be assessed pT0:? No evidence of primary tumor pT1a:?? Tumor </= 4 cm, limited to the kidney pT1b:?? Tumor > 4 cm and </= 7 cm, limited to the kidney pT2a:?? Tumor > 7 cm and </= 10 cm, limited to the kidney pT2b:?? Tumor > 10 cm, limited to the kidney pT3a:?? Tumor invades renal vein/branches, perirenal fat, renal sinus fat (adipose/soft tissue/small vessels) or pelvicalyceal system pT3b:?? Tumor extends into vena cava below the diaphragm pT3c:?? Tumor extends into vena cava above the diaphragm or invades vena cava wall pT4:? Tumor invades beyond Gerota's fascia including direct extension to adrenal gland ? MICROSCOPIC DESCRIPTION Slides are reviewed. GROSS DESCRIPTION A. Received in formalin labeledMallory Andrew, and designated partial right kidney and contents, is a portion of kidney with attached perinephric adipose tissue that weighs 38 g and measures 6.6 x 4.2 x 3.3 cm. The capsular surface consists of yellow, lobular, unremarkable, adipose tissue that is inked blue. The parenchymal margin is red-brown slightly ragged focally slightly disrupted and inked black. Sectioning shows a mass that measures 3.5 x 2.6 x 1.9 cm. The mass is a yellow to red-brown, focally softened, and slightly friable. The mass grossly appears to be confined to the kidney by the outer renal capsule with no involvement of the perinephric adipose tissue. The edge of the mass is within 0.4 cm of the closest point of the adipose tissue margin surface. The mass is focally present at an open/previously disrupted area of the parenchymal margin however the mass extends to within 0.1 cm of the closest black inked, intact, surface of the margin. The remaining parenchyma is red-brown and unremarkable. Adon sections are submitted as follows: Cassette Summary:A1-corporate sales representative perpendicular sections of one end of the [id number] bisected cross-section showing mass with closest soft tissue margin and disrupted/open parenchyma [id number] bisected cross-section showing mass and disrupted/open parenchyma marginA6-corporate sales representative section of mass at disrupted/open parenchyma [id number] bisected cross-section of kidney with massA9-corporate sales representative perpendicular sections of opposing end of the specimen Lacey 12/30/2024 CPT:15209
[2024-12-29] MEDS: Cefazolin 3 GM in Syringe 1 EACH IV (12:15)
--- NOTE | 2024-12-29 12:16 | DCINST_ITS ---
Discharge Instructions Diet Discharge Diet: No restrictions DC O2, CPAP, BIPAP needs Home O2 Discharge instructions: No Dressing / Incision Discharge Activity: May Not Drive (while taking narcotic pain medications.) Return to work on:: 01/26/25 Dressing / Incision Call your doctor if you observe: Fever of 101 or Higher and Uncontrolled pain Suture Line Care: Avoid Pulling/Pushing and Avoid Pinching/Bending Follow Up Care Please Follow Up With: Portillo Lowry MD When: Call [phone] for an appointment Test Results: Test results from this visit will be discussed in further detail at your follow- up appointment, if applicable. Discharge Plan Admission Primary Reason for Your Visit: right partial nephrectomy Attending Provider: Portillo Lowry Primary Care Provider: Jimena Cagle Instructions Print Language: [place]dean Discharge Orders/Prescriptions Prescriptions: New docusate sodium [Colace] 100 mg capsule 100 mg PO BID Qty: 20 0RF oxycodone 5 mg tablet 5 mg PO Q6H PRN (Reason: pain) 7 Days Qty: 14 0RF Continued Centrum Complete 18-400 mg-mcg tablet 1 tab PO QDAY (DME) Blood Pressure Cuff Qty: 1 0RF Rx Instructions: As directed levothyroxine 112 MCG tablet 112 mcg PO DAILY Patient Comments: thyroid fluticasone furoate-vilanterol [Breo Ellipta] 200-25 mcg/dose blister with device 1 ea inhalation DAILY albuterol sulfate 90 mcg/actuation HFA aerosol inhaler 2 puff INHALATION 4X/DAY PRN (Reason: shortness of breath or wheezing) hydrochlorothiazide 25 mg tablet 25 mg PO DAILY Qty: 90 4RF metoprolol tartrate 50 mg tablet 50 mg PO BID Qty: 180 3RF losartan 50 mg tablet 50 mg PO BID Qty: 180 3RF Held Eliquis 5 mg tablet 5 mg PO BID Qty: 180 3RF Hold Instructions: Resume on 01/12/25. Referrals / Follow Up: Jimena Cagle MD [Primary Care Provider] - Portillo Lowry MD [Med Staff - Active Staff] - Disposition Disposition (needs filled in before D/C Order can be placed): Home, Self Care
--- NOTE | 2024-12-29 14:56 | PCM.OPRPT ---
Operative Report (Standard) Operative Information Date of Procedure: 12/29/24 Pre-Operative Diagnosis: Right renal mass Post-Operative Diagnosis: The same Surgery/Procedure Performed: Laparoscopic robotic assisted right partial nephrectomy dietetic tech: Yes Hvac Sales Representative: Jolly Crouch Tasks completed by commercial lines assistant: Opening, Closing, Opening & closing, Harvesting grafts, Dissecting tissue, Removing tissue, Implanting device, Altering tissue, Insert Trochanter, Hemostasis: Clamp, Hemostasis: Tie, Hemostasis: Electrocautery, Trocar, Retracting and Other Type of Anesthesia: General RN Documented Start/Stop Times: Operation Date: 12/29/24 11:30 Case Time Into Pre-Op 12/29/24 09:38 Out of Pre-Op 12/29/24 12:07 Anesthesia Start 12/29/24 12:12 Into Room 12/29/24 12:12 Procedure Start 12/29/24 12:40 Procedure Start Time: 12:40 Procedure Stop Time: 14:57 Select all DRAINS/GRAFTS/IMPLANTS that apply: Drains Drain details: De La Rsoa catheter Estimated Blood Loss: 500 cc Specimen collected: No Description of surgery: Patient was taken back to to the operating room after smooth induction of anesthesia he was placed lateral flank position the patient's De La Rosa catheter was placed the abdomen was prepped and draped in usual sterile fashion. Made a small incision in the abdomen been severest Veress needle into the abdomen insufflated the abdomen CO2 gas upon insufflation the patient had a episode of bradycardia this was controlled by anesthesia once this was controlled then we proceeded with surgery again placed [place] ports and then Robot and proceeded with a laparoscopic robotic surgery to remove the tumor from the lower pole of the right kidnEY, first I dissected the colon off the kidney and then I dissected towards the renal hilum the Cook the Grady duodenum was kocherized and reflected off the hilum I then identified the vena cava identified the gonadal that was that was going to the vena cava this was left in place and then identified the first renal vein then identified a second renal vein these both were left in place between the 2 renal veins then deep within the fat was the renal artery once this was identified it was clean enough for 2 bulldogs to go on it. We then used ultrasound to identify the kidney had a lot of adequate adipose tissue around the kidney I then dissected through the adipose tissue down to the parenchyma of the kidney and then used ultrasound identify the tumor that was about 4 cm in size in the lower pole of the right kidney that was going deep into the sinus of the kidney I then used ultrasound to vicente out the edges of the resection site where the tumor deep is going into the kidney once this is accomplished and we got ready the artery was clamped with 2 bulldogs and we proceeded with the resection using cold knife and minimal electrocautery the tumor was then resected off the lower pole of the kidney having a gross negative margin and the entire way once the tumor was resected completely then is placed in Endo Catch bag I then used STRATAFIX stitch to run the base of the resection site to control blood vessels we did an early unclamping and immediately there was recognition of a fairly sizable blood vessel that was bleeding in the hilum of the resection so I did use a second STRATAFIX stitch to to suture this once this was sutured closed and the bleeding stopped we then performed a renal artery to reapproximate the edges of the kidney using a CT1 needle and 0 Vicryl with continuous fashion using clips along the way to put pressure on the kidney and this allowed for hemostatic pressure on the resection site Floseal and Surgicel was then placed on top of the resection site we lowered the pressure down to 5 mmHg and there was no bleeding from the resection site we then undocked the robot extracted the tumor through the Cecilio through the 1012 port where the air seal port was being used with open up the air seal port and then we reclosed this incision with interrupted 0 Vicryl stitches. Then we look back inside the abdomen all suture sponges needles were removed at the end of the case and there was no sign of bleeding from the resection site took about 7 to 10 minutes to extract the tumor and during this time there was no significant amount of bleeding from the resection site in the lower pole of the right kidney appeared to be good hemostasis blood pressure was stable. This point we then are closing all the subcuticular stitches with 4-0 Monocryl the anesthetic is currently being reversed blood loss about 500 cc and it was a complete gross resection of the tumor in the lower pole of the kidney. Surgical Findings: Mass in the lower pole resected completely and reconstructed Complications Complications: No Admit VTE Documentation VTE Present on Admission: No VTE Mechan Device Prophylaxis: SCD's VTE Pharm Prophylaxis ordered?: No
[2024-12-29] MEDS: Bupivacaine Mpf 0.5% 30 ML VIAL (15:07)
--- NOTE | 2024-12-29 15:21 | PCM.POST.ANE ---
Anesthesia: Postop Eval I Current Vital Signs Temperature: 98.1 F Pulse Rate: 99 Blood Pressure: 148/99 Respiratory Rate: 20 Pulse Ox: 95 Oxygen Delivery Method: Room Air Assessment Airway patent: Yes Spontaneous unlabored respirations: Yes Mental status: Awake and Calm nausea: No Vomiting: No Anesthesia Complication: No Fluid Hydration Crystalloid volume administer (ml): 2,300 Total IV fluid infused: 2,300 Progress Note Anesthesia document: Postop Eval 1 completed: Yes
--- NOTE | 2024-12-29 15:41 | POSTOPAN2_ITS ---
Anesthesia Postop Eval I Sum Postop Eval Completion status Anesthesia document: Postop Eval 1 completed: Yes Anesthesia Postop Eval I Summary Anesthesia Postop Eval I Summary: Anesthesia Postop Eval I: Assessment Summary Airway patent Yes 12/29/24 15:22 ACCOUNTS RECEIVABLE [email or web address] Spontaneous unlabored Yes 12/29/24 15:22 ACCOUNTS RECEIVABLE [email or web address] respirations Mental status Awake,Calm 12/29/24 15:22 ACCOUNTS RECEIVABLE [email or web address] nausea No 12/29/24 15:22 ACCOUNTS RECEIVABLE [email or web address] Vomiting No 12/29/24 15:22 ACCOUNTS RECEIVABLE [email or web address] Anesthesia Postop Eval I: Fluid Summary Crystalloid volume administer 2,300 12/29/24 15:22 ACCOUNTS RECEIVABLE [email or web address] (ml) Colloids volume administered ( ml) Blood Product volume administered (ml) Total IV fluid infused 2,300 12/29/24 15:22 ACCOUNTS RECEIVABLE [email or web address] Anesthesia Postop Eval I: Summary Notes Anesthesia Complication No 12/29/24 15:22 ACCOUNTS RECEIVABLE [email or web address] Anesthesia Complication Comment: Post-operative progress note Anesthesia: Postop Eval II Evaluation Mental status: Awake Pain Level: 3 nausea: No Vomiting: No
--- NOTE | 2024-12-29 15:41 | PCM.POSTANE2 ---
Anesthesia Postop Eval I Sum Postop Eval Completion status Anesthesia document: Postop Eval 1 completed: Yes Anesthesia Postop Eval I Summary Anesthesia Postop Eval I Summary: Anesthesia Postop Eval I: Assessment Summary Airway patent Yes 12/29/24 15:22 [email or web address] Spontaneous unlabored Yes 12/29/24 15:22 [email or web address] respirations Mental status Awake,Calm 12/29/24 15:22 [email or web address] nausea No 12/29/24 15:22 [email or web address] Vomiting No 12/29/24 15:22 [email or web address] Anesthesia Postop Eval I: Fluid Summary Crystalloid volume administer 2,300 12/29/24 15:22 [email or web address] (ml) Colloids volume administered ( ml) Blood Product volume administered (ml) Total IV fluid infused 2,300 12/29/24 15:22 [email or web address] Anesthesia Postop Eval I: Summary Notes Anesthesia Complication No 12/29/24 15:22 [email or web address] Anesthesia Complication Comment: Post-operative progress note Anesthesia: Postop Eval II Evaluation Mental status: Awake Pain Level: 3 nausea: No Vomiting: No
[2024-12-29] MEDS: Ketorolac 15 MG/ML Vial IV (15:46)
[2024-12-29] MEDS: 0.9% Normal Saline (1000mL) 1,000 ML 125 ML IV (15:46)
[2024-12-29] MEDS: Metoprolol Tartrate 50 MG Tablet PO (22:07)
[2024-12-29] MEDS: Losartan Potassium 50 MG Tablet PO (22:07)
[2024-12-29] MEDS: Docusate Sodium 100 MG Capsule 200 MG PO (22:08)
[2024-12-30] VITALS (9 sets, daily range): BP systolic 119–145; BP diastolic 71–81; PULSE 61–92; RESP 16–18; TEMP 36.7–37.1; O2SAT 91–97
[2024-12-30] MEDS: 0.9% Normal Saline (1000mL) 1,000 ML 125 ML IV (00:11)
[2024-12-30] MEDS: 0.9% Saline Lock 10 ML Syringe IV ×2 (01:24→21:25)
[2024-12-30] MEDS: Acetaminophen 325 MG Tablet 650 MG PO ×2 (01:24→10:50)
[2024-12-30] MEDS: Levothyroxine 112 MCG Tablet PO (05:15)
[2024-12-30 07:06] LABS: Absolute Lymphocyte Count 0.68 X10^3/uL (0.83-4.51); Absolute Neutrophil Count 9.4 X10^3/uL (2.0-7.7); Basophil# 0.01 X10^3/uL; Basophil% 0.1 % (0-1); Hematocrit 36.3 % (40-54); Hemoglobin 12.2 g/dL (13.0-16.5); Lymphocyte # 0.68 X10^3/ul (0.83-4.51); Mean Corp Hgb Conc 33.6 g/dL (32-36); Mean Corpuscular Hgb 29.2 pg (27.0-32.0); Mean Corpuscular Volume 86.8 fL (80-94); Monocyte# 1.07 X10^3/uL; Monocyte% 9.5 % (0-10); NRBC Flagged by Analyzer 0 % (0-5); Neutrophil # 9.44 X10^3/uL (2.7-7.7); Platelet Count 218 K/mm3 (150-450); RBC Distribution Width CV 13.1 % (11.6-14.6); RBC Distribution Width SD 41.1 fl (35.1-43.9); Red Blood Count 4.18 M/mm3 (4.6-6.2); White Blood Count 11.2 K/mm3 (4.4-11.0)
--- NOTE | 2024-12-30 07:29 | PCM.PN.GU ---
Subjective Subjective 69-year-old male status post right partial nephrectomy for lower pole renal mass complete resection. Postop day #1 patient looks fairly good just have some minor soreness in the abdomen which is expected. He is tolerating liquids but has not tried any solid food yet will see how it goes today we will remove the De La Rosa catheter today keep him on IV fluids. Tumor was fairly deep so too high risk this restart any pharmacological DVT prophylaxis he will continue with SCDs no sinus clubbing swelling or edema in the lower extremities abdomen soft and benign. He is on little bit of oxygen will wean as tolerated. Will check a set of blood labs tomorrow continue with IV fluids for now. Objective Data Objective Data Vital Signs: Vital Signs Temp Pulse Resp BP Pulse Ox O2 Del Method O2 Flow Rate 98.2 F 82 17 119/81 H 97 Nasal Cannula 2 12/30/24 05:13 12/30/24 05:13 12/30/24 05:13 12/30/24 05:13 12/30/24 05:13 12/30/24 05:13 12/30/24 05:13 Oxygen Flow Rate (L/min) 2 Oxygen Delivery Method Nasal Cannula Weight: 120.2 kg Body Mass Index (BMI) 38.0 Intake & Output: Intake and Output for Last 24 Hours 12/28/24 12/29/24 12/30/24 23:59 23:59 23:59 Intake Total 1136 / 1136 350 / 350 Output Total 600 / 600 250 / 250 Balance 536 / 536 100 / 100 Lab / Micro Data 12/30/24 06:40 12/16/24 12:13 Labs: Laboratory Results - last 24 hr 12/30/24 06:40: WBC 11.2 H, RBC 4.18 L, Hgb 12.2 L, Hct 36.3 L, MCV 86.8, MCH 29.2, MCHC 33.6, RDW Std Deviation 41.1, RDW Coeff of Agustín 13.1, Plt Count 218, MPV 9.0, Immature Gran % (Auto) 0.400, Neut % (Auto) 84.0 H, Lymph % (Auto) 6.0 L, [place] % (Auto) 9.5, Eos % (Auto) 0.0, Baso % (Auto) 0.1, Absolute Neuts (auto) 9.4 H, Absolute Lymphs (auto) 0.68 L, Nucleated RBC % 0
[2024-12-30 08:02] LABS: Anion Gap 8 (5-15); BUN 18 mg/dL (4-19); BUN/Creat Ratio 15.2 RATIO (10-20); Calcium,Total 9.2 mg/dL (7.6-11.0); Carbon Dioxide 21.9 mmol/L (21.0-32.0); Chloride 107 mmol/L (98-108); Creatinine, Serum 1.16 mg/dL (0.70-1.20); EST Glomerular Filtration Rate 68 (>60); Estimated Creatinine Clearance 78.11 ml/min (50-250); Glucose 132 mg/dL (70-99); Sodium Level 138 mmol/L (133-145)
[2024-12-30] MEDS: 0.9% Normal Saline (1000mL) 1,000 ML 100 ML IV ×2 (08:06→18:04)
[2024-12-30] MEDS: oxyCODONE 5 MG Tablet PO (10:51)
[2024-12-30] MEDS: Losartan Potassium 50 MG Tablet PO ×2 (10:52→21:17)
[2024-12-30] MEDS: Metoprolol Tartrate 50 MG Tablet PO ×2 (10:53→21:17)
[2024-12-30] MEDS: Docusate Sodium 100 MG Capsule 200 MG PO ×2 (10:53→21:17)
[2024-12-30] MEDS: hydroCHLOROthiazide 25 MG Tablet PO (10:53)
--- NOTE | 2024-12-30 12:44 | CASEMGMT ---
Met with patient to complete FOLEY form. FOLEY form explained to patient who was unaware that he had [employer] benefits. Original form placed in pt?s chart and copy provided to patient. Melania Iglesias, Discharge Planning Asst
[2024-12-30] MEDS: Albuterol 2.5 MG/3 ML VIAL.NEB. INHALATION ×2 (12:52→19:46)
[2024-12-30] MEDS: Budesonide Respules 0.5 MG/2 ML AMPUL.NEB. INHALATION (19:46)
[2024-12-30] MEDS: Ketorolac 15 MG/ML Vial IV (21:22)
[2024-12-31 03:19] VITALS: BP 121/81; PULSE 76; RESP 16; TEMP 37.1; O2SAT 96
[2024-12-31] MEDS: 0.9% Normal Saline (1000mL) 1,000 ML 100 ML IV (03:31)
[2024-12-31] MEDS: Levothyroxine 112 MCG Tablet PO (06:21)
[2024-12-31] MEDS: Albuterol 2.5 MG/3 ML VIAL.NEB. INHALATION (06:29)
[2024-12-31] MEDS: Budesonide Respules 0.5 MG/2 ML AMPUL.NEB. INHALATION (06:29)
[2024-12-31 06:31] VITALS: PULSE 78; RESP 18; O2SAT 93
--- NOTE | 2024-12-31 06:53 | PN.URO_ITS ---
Subjective Subjective 69-year-old male status post right lower pole partial nephrectomy. Postoperative day #2 he looks like is doing well reports that he is eating regular food staying down and also tolerating liquids okay we can Hep-Lock his fluids this morning De La Rosa catheter is out he has been urinating. He has not passed gas. Abdomen abdomen is soft and benign. He is using SCDs for DVT prophylaxis but contraindicated for pharmacological prophylaxis for DVT given the high risk of bleeding from a partial nephrectomy patient can go home today with a regular diet he will go home stool softeners and pain medicine he can resume all his medications , but he was given strict instructions not to start any blood thinners and not to start his Eliquis for a very high risk for bleeding from the resection site. He will follow-up in 2 weeks in my office to review the pathology report and for postoperative check. Objective Data Objective Data Vital Signs: Vital Signs Temp Pulse Resp BP Pulse Ox O2 Del Method O2 Flow Rate 98.7 F 78 18 121/81 H 93 Nasal Cannula 1.5 12/31/24 03:19 12/31/24 06:31 12/31/24 06:31 12/31/24 03:19 12/31/24 06:31 12/31/24 06:31 12/31/24 06:31 Oxygen Flow Rate (L/min) 1.5 Oxygen Delivery Method Nasal Cannula Weight: 120.2 kg Body Mass Index (BMI) 38.0 Intake & Output: Intake and Output for Last 24 Hours 12/29/24 12/30/24 12/31/24 23:59 23:59 23:59 Intake Total 1136 / 1136 2846.67 / 2846.67 945 / 945 Output Total 600 / 600 1225 / 1225 575 / 575 Balance 536 / 536 1621.67 / 1621.67 370 / 370 Lab / Micro Data 12/30/24 06:40 12/30/24 06:40 Labs: Laboratory Results - last 24 hr 12/30/24 06:40: WBC 11.2 H, RBC 4.18 L, Hgb 12.2 L, Hct 36.3 L, MCV 86.8, MCH 29.2, MCHC 33.6, RDW Std Deviation 41.1, RDW Coeff of Agustín 13.1, Plt Count 218, MPV 9.0, Immature Gran % (Auto) 0.400, Neut % (Auto) 84.0 H, Lymph % (Auto) 6.0 L, [place] % (Auto) 9.5, Eos % (Auto) 0.0, Baso % (Auto) 0.1, Absolute Neuts (auto) 9.4 H, Absolute Lymphs (auto) 0.68 L, Nucleated RBC % 0, Sodium 138, Potassium 4.0, Chloride 107, Carbon Dioxide 21.9, Anion Gap 8, BUN 18, Creatinine 1.16, Estim Creat Clear Calc 78.11, Est GFR (MDRD) Non-Af 68, BUN/Creatinine Ratio 15.2, Glucose 132 H, Calcium 9.2
[2024-12-31 06:54] LABS: Absolute Lymphocyte Count 0.93 X10^3/uL (0.83-4.51); Basophil# 0.02 X10^3/uL; Basophil% 0.3 % (0-1); Eosinophil# 0.08 X10^3/uL; Hematocrit 35.1 % (40-54); Hemoglobin 11.4 g/dL (13.0-16.5); Lymphocyte # 0.93 X10^3/ul (0.83-4.51); Lymphocyte % 11.7 % (19-41); Mean Corp Hgb Conc 32.5 g/dL (32-36); Mean Corpuscular Hgb 29.2 pg (27.0-32.0); Mean Corpuscular Volume 89.8 fL (80-94); Mean Platelet Vol. 9.7 fl (6.2-12.0); Monocyte% 11.3 % (0-10); NRBC Flagged by Analyzer 0 % (0-5); Neutrophil % 75.3 % (47-70); Platelet Count 169 K/mm3 (150-450); RBC Distribution Width CV 13.2 % (11.6-14.6); RBC Distribution Width SD 43.1 fl (35.1-43.9); Red Blood Count 3.91 M/mm3 (4.6-6.2)
[2024-12-31 08:04] LABS: Anion Gap 8 (5-15); BUN 17 mg/dL (4-19); BUN/Creat Ratio 12.9 RATIO (10-20); Calcium,Total 9.6 mg/dL (7.6-11.0); Chloride 108 mmol/L (98-108); Creatinine, Serum 1.34 mg/dL (0.70-1.20); EST Glomerular Filtration Rate 57 (>60); Estimated Creatinine Clearance 67.61 ml/min (50-250); Glucose 106 mg/dL (70-99); Potassium 3.9 mmol/L (3.3-5.1); Sodium Level 137 mmol/L (133-145)
[2024-12-31 08:42] VITALS: BP 151/85; PULSE 84; RESP 16; TEMP 37.2; O2SAT 94
--- NOTE | 2024-12-31 09:15 | CASEMGMT ---
MOISES CM into pt room, pt lying in bed in no distress. 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 He states he has a walker that he will have access to this evening. Pt denies any homegoing needs.
== END 2024-12-31 09:51 | disposition home or self-care (01) ==
LOC: SDC 16:13 → MS3 16:13
PROVIDERS: Anesthesiology; Admitting Provider Urology; PCP Family Medicine; Referring Provider Urology; Visit Provider Urology
PROC: (CPT 50543; principal; 2024-12-29 11:10)
DX: C64.1 Malignant neoplasm of right kidney, except renal pelvis (principal); I42.8 Other cardiomyopathies; I10 Essential (primary) hypertension; F17.200 Nicotine dependence, unspecified, uncomplicated; Z79.01 Long term (current) use of anticoagulants; Z79.890 Hormone replacement therapy; Z79.899 Other long term (current) drug therapy
CPT/HCPCS: 50543; S2900; 00862; 36415; 80048; 84439; 84443; 85025; 85027; 88307; 93005; 94640; 94668; 96361; 96374; 99221; 99406; A4216; G0378; J2405

== ENCOUNTER 2025-02-25 11:29 | Day surgery (SDC) | payer OTHER, SELFPAY ==
--- NOTE | 2025-02-24 11:02 | PAT.ANE_ITS ---
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 When Was Last Pacemaker Check QUESTION #4 FULL TEXT: You/Your Family Experience fever (hyperthermia) with Anesthesia Last Oral Intake Last Oral intake: Last Oral Intake NPO since Meds taken in AM with sips of water? 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 contractor Female No 02/24/25 10:34 HX of Motion Sickness No 02/24/25 10:34 HX of N/V After Surgery No 02/24/25 10:34 Non-Smoker No 02/24/25 10:34 Duration of Surgery greater No 02/24/25 10:34 than 60 minutes Number of Risk Factors PONV Score Height & Weight Height & Weight: Anesthesia: Height & Weight Height 5 ft 10.5 in 11/15/24 17:52 Respiratory Assessment Respiratory Assessment - construction contractor: Respiratory Tract Infection Hx - construction contractor Hx Respiratory Tract Infection No 02/24/25 10:34 STOP Sleep Apnea STOP Sleep Apnea - construction contractor: STOP Sleep Apnea - construction contractor Hx Hypertension Yes: CONTROLLED WITH MEDS 02/24/25 10:34 Hx Sleep Apnea Yes 02/24/25 10:34 CPAP Yes 02/24/25 10:34 BIPAP No 02/24/25 10:34 Do you snore loudly (louder than talking or can be heard Do you often feel tired/ fatigued/ sleepy during daytime? Has anyone observed you stop breathing during sleep? STOP Results Positive 02/24/25 10:34 QUESTION #5 FULL TEXT : Do you snore loudly (louder than talking or can be heard through closed doors)? 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 Specify any problems Hx of Preganancy in last 3 N/A 02/24/25 10:34 Months Nurse Filling Out Transfusion NBUCHER 02/24/25 10:34 & Questions: Date: 02/24/25 02/24/25 10:34 Time: 10:35 02/24/25 10:34 Patient unable to answer at this time (ie. confused, unrespo /Reproduction History /Reproductive History - construction contractor: /Reproductive Hx- construction contractor Hx Now Gestational Age (in weeks): EDC: Hx Hx Para Hx Section SAB No 02/24/25 10:34 PFSH Medical History (Updated 02/24/25 @ 10:40 by Yojana Carver) Smoker History of atrial fibrillation History of stress test Hypertension Wears glasses Cancer Alcohol use History of steroid therapy Thyroid disease Arthritis History of renal disease Back pain History of diverticulitis Heartburn Cigar smoker CPAP (continuous positive airway pressure) dependence Chronic cough Asthma Leg cramps History of edema History of Holter monitoring History of echocardiogram Cardiology follow-up encounter Afib COVID-19 Palpitations Tachycardia Patent foramen ovale SOB (shortness of breath) Wide-complex tachycardia Paroxysmal atrial fibrillation Essential (primary) hypertension Nonischemic cardiomyopathy Valvular heart disease Nonrheumatic tricuspid (valve) insufficiency Nonrheumatic mitral (valve) insufficiency Hypothyroidism Home Medications ?Medication ?Instructions ?Recorded ?Last Taken ?Type levothyroxine 112 mcg tablet 112 mcg PO DAILY 06/10/17 12/29/24 History Blood Pressure Cuff #1 ea 08/23/19 Unknown Rx multivitamin-ferrous 1 tab PO QDAY 08/22/23 Unkno wn History fumarate-folic acid 18 mg-400 mcg tablet (Centrum Complete) hydrochlorothiazide 25 mg tablet 25 mg PO DAILY #90 ta bs 01/30/24 12/29/24 Rx metoprolol tartrate 50 mg tablet 50 mg PO BID #180 TAB LETS 08/16/24 12/29/24 Rx apixaban 5 mg tablet (Eliquis) 5 mg PO BID #180 tabs 0 11/02/24 02/21/25 Rx albuterol sulfate 90 mcg/actuation 2 puff inhalation 4 X/DAY PRN 12/15/24 Unknown History aerosol inhaler shortness of breath or wheez ing fluticasone furoate 200 1 ea inhalation DAILY 12/29/24 History mcg-vilanterol 25 mcg/dose inhalation powder (Breo Ellipta) docusate sodium 100 mg capsule 100 mg PO BID #20 caps 12/29/24 Unknown Rx (Colace) losartan 50 mg tablet 50 mg PO BID #180 tabs 01/25 Unknown Rx Allergy/AdvReac Type Severity Reaction Status Date / Time lisinopril AdvReac Unknown Dry Cough Verified 02/24/25 10:32 Family History Father CAD (coronary artery disease) Mother Thyroid disorder Surgical History History of partial nephrectomy History of cardiac catheterization History of melanoma excision Hx of meniscectomy of right knee Hx of cataract removal with insertion of prosthetic lens (~06/2022) History of open reduction and internal fixation (ORIF) procedure History of vasectomy History of tonsillectomy Social History Smoking Status: Light Smoker (<10/day) alcohol intake: current alcohol intake frequency: a few times a week Alcohol type: beer, wine and hard liquor substance use type: does not use caffeine: Yes Type: carbonated beverages and coffee Number of servings: 4 what type of physical activity do you participate in: none seatbelt use: always do you feel safe at home: Yes Audit: Pertinent Findings Pertinent Findings EKG Perinent findings: 05/18/2025. Normal sinus rhythm 64 bpm. Echo (EF%) pertinent findings: 04/17/2021. Function normal EF 55%. PA pressure equals 20. Consult pertinent findings: Cardiology 10/25/2024. 04A. Paroxysmal atrial fibrillation. Stable. Appears to be regular rhythm on exam. 2 hypertension. Well-controlled. Recommendation Anesthesia Recommendation Anesthesia recommendation: OPTIMIZED for anesthesia
[2025-02-25] VITALS (8 sets, daily range): BP systolic 113–123; BP diastolic 68–82; PULSE 58–67; RESP 16; TEMP 36.1–37; O2SAT 67–99; BMI 36.8
--- NOTE | 2025-02-25 11:38 | PCM.PRE.AN2 ---
ASA Classification* ASA Classification ASA Classification: 2 Assessment & Plan Anesthesia* Anesthesia Assessment Anesthesia Assessment: Discussed sedation and/or anesthesia options, risks, benefits, and alternatives with patient/parents/legal guardian/POA. Questions invited. The patient/parents/legal guardian/POA seems to understand and agrees to proceed with anesthesia plan. Reviewed the physical assessment, medical history, allergy history and patient home medications list prior to surgery/procedure/anesthetic and documented any changes. Performed airway and anesthesia risk assessments. Anesthesia Type Anesthesia Type: MAC Anesthesia Focused Assessment* Airway Assessment Mouth opens: >3 cm Mallampati Score: II Focused Labs Anesthesia Preop lab: CBC WBC 8.0 K/mm3 (4.4-11.0) 12/31/24 06:21 12/31/24 RBC 3.91 M/mm3 (4.6-6.2) L 12/31/24 06:21 12/31/24 Hgb 11.4 g/dL (13.0-16.5) L 12/31/24 06:21 12/31/24 Hct 35.1 % (40-54) L 12/31/24 06:21 12/31/24 Plt Count 169 K/mm3 (150-450) 12/31/24 06:21 12/31/24 CHEMISTRY Potassium 3.9 mmol/L (3.3-5.1) 12/31/24 06:21 12/31/24 Sodium 137 mmol/L (133-145) 12/31/24 06:21 12/31/24 Magnesium 2.2 mg/dL (1.8-2.4) 06/10/17 12:30 06/10/17 BUN 17 mg/dL (4-19) 12/31/24 06:21 12/31/24 Creatinine 1.34 mg/dL (0.70-1.20) H 12/31/24 06:21 12/31/24 Glucose 106 mg/dL (70-99) H 12/31/24 06:21 12/31/24 POC Glucose 100 mg/dL (70-110) 05/07/20 16:58 05/07/20 TSH 1.500 uIU/mL (0.300-4.200) 12/16/24 12:13 12/16/24 COAG PT 13.9 SECONDS (11.7-14.9) 09/01/18 10:30 09/01/18 Pre-Assessment Diagnosis/Proposed Procedure Planned Operative Procedure(s): CSCOPE Anesthesia History 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 When Was Last Pacemaker Check QUESTION #4 FULL TEXT: You/Your Family Experience fever (hyperthermia) with Anesthesia Last Oral Intake Last Oral intake: Last Oral Intake NPO since Meds taken in AM with sips of water? Meds patient instructed to take am of surgery PONV PONV - trolley car overhauler: PONV - trolley car overhauler Female No 02/24/25 10:34 HX of Motion Sickness No 02/24/25 10:34 HX of N/V After Surgery No 02/24/25 10:34 Non-Smoker No 02/24/25 10:34 Duration of Surgery greater No 02/24/25 10:34 than 60 minutes Number of Risk Factors PONV Score Height & Weight Height & Weight: Anesthesia: Height & Weight Height 5 ft 10 in 12/29/24 17:20 Respiratory Assessment Respiratory Assessment - trolley car overhauler: Respiratory Tract Infection Hx - trolley car overhauler Hx Respiratory Tract Infection No 02/24/25 10:34 STOP Sleep Apnea STOP Sleep Apnea - trolley car overhauler: STOP Sleep Apnea - trolley car overhauler Hx Hypertension Yes: CONTROLLED WITH MEDS 02/24/25 10:34 Hx Sleep Apnea Yes 02/24/25 10:34 CPAP Yes 02/24/25 10:34 BIPAP No 02/24/25 10:34 Do you snore loudly (louder than talking or can be heard Do you often feel tired/ fatigued/ sleepy during daytime? Has anyone observed you stop breathing during sleep? STOP Results Positive 02/24/25 10:34 QUESTION #5 FULL TEXT : Do you snore loudly (louder than talking or can be heard through closed doors)? 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 Specify any problems Hx of Preganancy in last 3 N/A 02/24/25 10:34 Months Nurse Filling Out Transfusion NBUCHER 02/24/25 10:34 & Questions: Date: 02/24/25 02/24/25 10:34 Time: 10:35 02/24/25 10:34 Patient unable to answer at this time (ie. confused, unrespo /Reproduction History /Reproductive History - trolley car overhauler: /Reproductive Hx- trolley car overhauler Hx Now Gestational Age (in weeks): EDC: Hx Hx Para Hx Section SAB No 02/24/25 10:34 PFSH Medical History Smoker History of atrial fibrillation History of stress test Hypertension Wears glasses Cancer Alcohol use History of steroid therapy Thyroid disease Arthritis History of renal disease Back pain History of diverticulitis Heartburn Cigar smoker CPAP (continuous positive airway pressure) dependence Chronic cough Asthma Leg cramps History of edema History of Holter monitoring History of echocardiogram Cardiology follow-up encounter Afib COVID-19 Palpitations Tachycardia Patent foramen ovale SOB (shortness of breath) Wide-complex tachycardia Paroxysmal atrial fibrillation Essential (primary) hypertension Nonischemic cardiomyopathy Valvular heart disease Nonrheumatic tricuspid (valve) insufficiency Nonrheumatic mitral (valve) insufficiency Hypothyroidism Home Medications ?Medication ?Instructions ?Recorded ?Last Taken ?Type levothyroxine 112 mcg tablet 112 mcg PO DAILY 06/10/17 12/29/24 History Blood Pressure Cuff #1 ea 08/23/19 Unknown Rx multivitamin-ferrous 1 tab PO QDAY 08/22/23 Unknown History fumarate-folic acid 18 mg-400 mcg tablet (Centrum Complete) hydrochlorothiazide 25 mg tablet 25 mg PO DAILY #90 tabs 01/30/24 12/29/24 Rx metoprolol tartrate 50 mg tablet 50 mg PO BID #180 TABLETS 08/16/24 12/29/24 Rx apixaban 5 mg tablet (Eliquis) 5 mg PO BID #180 tabs 11/02/24 02/21/25 Rx albuterol sulfate 90 mcg/actuation 2 puff inhalation 4X/DAY PRN 12/15/24 Unknown History aerosol inhaler shortness of breath or wheezing fluticasone furoate 200 1 ea inhalation DAILY 12/15/24 12/29/24 History mcg-vilanterol 25 mcg/dose inhalation powder (Breo Ellipta) docusate sodium 100 mg capsule 100 mg PO BID #20 caps 12/29/24 Unknown Rx (Colace) losartan 50 mg tablet 50 mg PO BID #180 tabs 01/25/25 Unknown Rx Allergy/AdvReac Type Severity Reaction Status Date / Time lisinopril AdvReac Unknown Dry Cough Verified 02/24/25 10:32 Family History Father CAD (coronary artery disease) Mother Thyroid disorder Surgical History History of partial nephrectomy History of cardiac catheterization History of melanoma excision Hx of meniscectomy of right knee Hx of cataract removal with insertion of prosthetic lens (~06/2022) History of open reduction and internal fixation (ORIF) procedure History of vasectomy History of tonsillectomy Social History Smoking Status: Light Smoker (<10/day) alcohol intake: current alcohol intake frequency: a few times a week Alcohol type: beer, wine and hard liquor substance use type: does not use caffeine: Yes Type: carbonated beverages and coffee Number of servings: 4 what type of physical activity do you participate in: none seatbelt use: always do you feel safe at home: Yes Review of Systems (Anesthesia) ROS Narrative System reviewed and no additional complaints, except as documented.
[2025-02-25] MEDS: Lactated Ringers 1,000 ML 15 ML IV (12:14)
--- NOTE | 2025-02-25 12:24 | HP.PCM_ITS ---
HPI - General General Date of Admission: 02/25/25 Date of Service: 02/25/25 Chief Complaint: Diverticulitis HPI Narrative SWAPNA CEBALLOS, is a 69 M who presents today for evaluation of diverticulitis [facility] ED 11.15.24 with abd pain in the LLQ for two weeks. Hx of diverticular disease. CT abd/pelvis with sigmoid diverticulitis and right kidney mass consistent with renal cell carcinoma. Started on Cipro/ Flagyl and [place] for pain Abdomen/Pelvis CT 11/15/24 19:27 IMPRESSION: 1. Moderate acute uncomplicated distal descending colonic diverticulitis. 2. Heterogeneously enhancing mass in the inferior pole of the right kidney concerning for renal cell carcinoma. OV 12.02.24 Pt abd pain has been improving. He now just has some dull achy pain. He finished his antibiotic and took 3 of the pain pills. He has struggled with some constipation and is taking miralax as needed. He did see the urologist and has nephrectomy to [facility] for December 2024. [facility] Medical History Smoker History of atrial fibrillation History of stress test Hypertension Wears glasses Cancer Alcohol use History of steroid therapy Thyroid disease Arthritis History of renal disease Back pain History of diverticulitis Heartburn Cigar smoker CPAP (continuous positive airway pressure) dependence Chronic cough Asthma Leg cramps History of edema History of Holter monitoring History of echocardiogram Cardiology follow-up encounter Afib COVID-19 Palpitations Tachycardia Patent foramen ovale SOB (shortness of breath) Wide-complex tachycardia Paroxysmal atrial fibrillation Essential (primary) hypertension Nonischemic cardiomyopathy Valvular heart disease Nonrheumatic tricuspid (valve) insufficiency Nonrheumatic mitral (valve) insufficiency Hypothyroidism Home Medications ?Medication ?Instructions ?Recorded ?Last Taken ?Type levothyroxine 112 mcg tablet 112 mcg PO DAILY 06/10/17 12/29/24 History Blood Pressure Cuff #1 ea 08/23/19 Unknown Rx multivitamin-ferrous 1 tab PO QDAY 08/22/23 Unkno wn History fumarate-folic acid 18 mg-400 mcg tablet (Centrum Complete) hydrochlorothiazide 25 mg tablet 25 mg PO DAILY #90 ta bs 01/30/24 12/29/24 Rx metoprolol tartrate 50 mg tablet 50 mg PO BID #180 TAB LETS 08/16/24 02/25/25 Rx apixaban 5 mg tablet (Eliquis) 5 mg PO BID #180 tabs 0 11/02/24 02/21/25 Rx albuterol sulfate 90 mcg/actuation 2 puff inhalation 4 X/DAY PRN 12/15/24 Unknown History aerosol inhaler shortness of breath or wheez ing fluticasone furoate 200 1 ea inhalation DAILY 12/29/24 History mcg-vilanterol 25 mcg/dose inhalation powder (Breo Ellipta) docusate sodium 100 mg capsule 100 mg PO BID #20 caps 12/29/24 Unknown Rx (Colace) losartan 50 mg tablet 50 mg PO BID #180 tabs 01/2502/25/25 Rx Allergy/AdvReac Type Severity Reaction Status Date / Time lisinopril AdvReac Unknown Dry Cough Verified 02/24/25 10:32 Family History Father CAD (coronary artery disease) Mother Thyroid disorder Surgical History History of partial nephrectomy History of cardiac catheterization History of melanoma excision Hx of meniscectomy of right knee Hx of cataract removal with insertion of prosthetic lens (~06/2022) History of open reduction and internal fixation (ORIF) procedure History of vasectomy History of tonsillectomy Social History Smoking Status: Light Smoker (<10/day) alcohol intake: current alcohol intake frequency: a few times a week Alcohol type: beer, wine and hard liquor substance use type: does not use caffeine: Yes Type: carbonated beverages and coffee Number of servings: 4 what type of physical activity do you participate in: none seatbelt use: always do you feel safe at home: Yes ROS Constitutional Constitutional: Denies fatigue, fever(s), poor appetite, weight gain or weight loss Gastrointestinal Gastrointestinal: Denies belching, bloating, change in bowel habits, change in stool character, chewing difficulty, coffee ground emesis, constipation, cramping, diarrhea, dyspepsia, dysphagia, early satiety, excessive flatus, fecal incontinence, heartburn, hematemesis, hematochezia, hemorrhoids, loose stools, melena, nausea, odynophagia, rectal bleeding, tenesmus, vomiting or weight changes Vital Signs Vital Signs Vital Signs: 02/25/25 11:57 02/25/25 12:04 Temperature 96.9 F L Temperature Source Temporal Pulse Rate 60 Respiratory Rate 16 Respiratory Pattern Normal Blood Pressure 123/82 H Blood Pressure Mean 95 Blood Pressure Source Monitor Blood Pressure Position Semi-Fowlers Blood Pressure Location Right Arm Pulse Ox 99 Oxygen Delivery Method Room Air Weight Weight: 256 lb 13.416 oz Body Mass Index (BMI) 36.8 Physical Exam Const alert, oriented x3, no apparent distress and healthy appearing General Appearance: cooperative GI normal to inspection, nondistended, normoactive bowel sounds, soft to palpation, non-tender and non-distended Percussion: normal to percussion Rectal Exam: deferred Assessment & Plan Assessment/Plan (1) Diverticulitis: PLAN: Assessment and Plan Assessment and Plan (1) Diverticulitis: Status: Acute Plan: Pt is a 69 yo male pt here today for f/u after [facility] ED for diverticulitis. Pt was prescribed 10 day course of cipro/flagyl. He finished this and is doing well now. He is just having some dull pain now. His last colonoscopy was 5-7 years ago. He will have repeat colonoscopy to assess his diverticular disease. I recommended he take miralax as needed for constipation. In one month, he will start taking a fiber supplement to prevent future diverticular flares. -Colonoscopy -Miralax PRN -Start fiber supplement in 1 month -f/u as needed
--- NOTE | 2025-02-25 12:30 | COLBX_PTH ---
PATIENT: SWAPNA CEBALLOS LOC: EN U#:[id number] AGE/SX: 69/M ROOM: RE02/25/[address]: Dr. Charly Rosas DO : 1955 BED: DIS: 02/25/2025 SPEC #: [id number] RECD: 02/25/25 13:12 STATUS: RADHA REKaiden #: [id number] EFRAIN: 02/25/25 12:[address]: Charly Rosas DEPT: SURGICAL PATHOLOGY RECD BY: Felton Reynaga ENTERED: 02/25/25 13:20 SP TYPE: COLON BX TONY DR: Dr. Jimena Cagle MD Tissues: A - Sigmoid colon biopsy Procedures: Surgery Specimen Level IV HEADER OPERATION: Colonoscopy, biopsy PRE-OP DIAGNOSIS: Diverticulitis TISSUE SUBMITTED: A- Sigmoid polyp MICROSCOPIC DIAGNOSIS A. Sigmoid colon, polyp, biopsy: Tubular adenoma. MICROSCOPIC DESCRIPTION Slides are reviewed. GROSS DESCRIPTION A. Received in formalin in a container labeled with the patient's name, date of , and sigmoid polyp are multiple munoz-pink fragments of mucosal tissue measuring 0.9 x 0.6 x 0.3 cm in aggregate. Submitted in toto in A1. B 02-25-2025 CPT:82984
--- NOTE | 2025-02-25 13:01 | PCM.POST.ANE ---
Anesthesia: Postop Eval I Current Vital Signs Temperature: 97.7 F Pulse Rate: 67 Blood Pressure: 114/68 Respiratory Rate: 16 Pulse Ox: 67 Oxygen Delivery Method: Room Air Assessment Airway patent: Yes Spontaneous unlabored respirations: Yes nausea: No Vomiting: No Anesthesia Complication: No Fluid Hydration Crystalloid volume administer (ml): 300 Total IV fluid infused: 300 Progress Note Anesthesia document: Postop Eval 1 completed: Yes
--- NOTE | 2025-02-25 13:03 | OP.CCLET_ITS ---
02/25/2025 Jimena Cagle [address] [place] [address] Re : [facility] Cagle This procedure was performed on Tuesday, February 25, 2025. My impressions and recommendations are as follows: Impressions : - One 5 mm polyp at the recto-sigmoid colon, removed with a jumbo cold forceps. Resected and retrieved. - Diverticulosis in the entire examined colon. Healed diverticulitis in the sigmoid colon. Recommendations : - Discharge patient to home. - Resume previous diet. - Continue present medications. - Await pathology results. - Repeat colonoscopy in 5 years for surveillance. My findings are described in the full procedure note, which is enclosed. If I can be of further assistance, please feel free to contact me at . Sincerely, Charly Rosas, 02/25/2025 1:02:34 PM This report has been signed electronically.
--- NOTE | 2025-02-25 13:03 | OP.COLON_ITS ---
Patient Name: Carlton Tejada Procedure Date: 02/25/2025 12:38 PM Date of : 1955 Age: 69 Procedure: Colonoscopy Indications: Abnormal CT of the GI tract Providers: Charly Rosas DO Medicines: Monitored Anesthesia Care Patient Profile: This is a 69 year old male. Refer to note in patient chart for documentation of history and physical. Last Colonoscopy: several years ago. Complications: No immediate complications. Procedure: Pre-Anesthesia Assessment: - Prior to the procedure, a History and Physical was performed, and patient medications and allergies were reviewed. The patient is competent. The risks and benefits of the procedure and the sedation options and risks were discussed with the patient. All questions were answered and informed consent was obtained. Patient identification and proposed procedure were verified by the physician in the pre-procedure area. Mental Status Examination: alert and oriented. Airway Examination: normal oropharyngeal airway and neck mobility. Respiratory Examination: clear to auscultation. CV Examination: normal. Prophylactic Antibiotics: The patient does not require prophylactic antibiotics. Prior Anticoagulants: The patient has taken no anticoagulant or antiplatelet agents except for NSAID medication. ASA Grade Assessment: II - A patient with mild systemic disease. After reviewing the risks and benefits, the patient was deemed in satisfactory condition to undergo the procedure. The anesthesia plan was to use monitored anesthesia care (MAC). Immediately prior to administration of medications, the patient was re-assessed for adequacy to receive sedatives. The heart rate, respiratory rate, oxygen saturations, blood pressure, adequacy of pulmonary ventilation, and response to care were monitored throughout the procedure. The physical status of the patient was re-assessed after the procedure. After I obtained informed consent, the scope was passed under direct vision. Throughout the procedure, the patient's blood pressure, pulse, and oxygen saturations were monitored continuously. The Colonoscope was introduced through the anus and advanced to the cecum, identified by appendiceal orifice and ileocecal valve. The colonoscopy was performed without difficulty. The patient tolerated the procedure well. The quality of the bowel preparation was good. The ileocecal valve, appendiceal orifice, and rectum were photographed. Scope In: 12:48:18 PM Scope Withdrawal Time 0 hours 7 minutes 56 seconds Scope Out: 12:58:19 PM Total Procedure Duration Time 0 hours 10 minutes 1 second Findings: The perianal and digital rectal examinations were normal. A 5 mm polyp was found in the recto-sigmoid colon. The polyp was sessile. The polyp was removed with a jumbo cold forceps. Resection and retrieval were complete. Verification of patient identification for the specimen was done. Estimated blood loss was minimal. Multiple small and large-mouthed diverticula were found in the entire colon. Impression: - One 5 mm polyp at the recto-sigmoid colon, removed with a jumbo cold forceps. Resected and retrieved. - Diverticulosis in the entire examined colon. Healed diverticulitis in the sigmoid colon. Recommendation: - Discharge patient to home. - Resume previous diet. - Continue present medications. - Await pathology results. - Repeat colonoscopy in 5 years for surveillance. Procedure Code(s): --- Professional --- 26820, Colonoscopy, flexible; with biopsy, single or multiple CPT copyright 2021 [employer]. All rights reserved. The codes documented in this report are preliminary and upon certified professional coder review may be revised to meet current compliance requirements. Charly Rosas DO 02/25/2025 1:02:34 PM This report has been signed electronically. Number of Addenda: 0 Note Initiated On: 02/25/2025 12:38 PM
--- NOTE | 2025-02-25 13:26 | POSTOPAN2_ITS ---
Anesthesia Postop Eval I Sum Postop Eval Completion status Anesthesia document: Postop Eval 1 completed: Yes Anesthesia Postop Eval I Summary Anesthesia Postop Eval I Summary: Anesthesia Postop Eval I: Assessment Summary Airway patent Yes 02/25/25 13:02 SCRAP BUNCH [email or web address] Spontaneous unlabored Yes 02/25/25 13:02 SCRAP BUNCH [email or web address] respirations Mental status nausea No 02/25/25 13:02 SCRAP BUNCH [email or web address] Vomiting No 02/25/25 13:02 SCRAP BUNCH [email or web address] Anesthesia Postop Eval I: Fluid Summary Crystalloid volume administer 300 02/25/25 13:02 SCRAP BUNCH [email or web address] (ml) Colloids volume administered ( ml) Blood Product volume administered (ml) Total IV fluid infused 300 02/25/25 13:02 SCRAP BUNCH [email or web address] Anesthesia Postop Eval I: Summary Notes Anesthesia Complication No 02/25/25 13:02 SCRAP BUNCH [email or web address] Anesthesia Complication Comment: Post-operative progress note Anesthesia: Postop Eval II Evaluation Mental status: Awake Pain Level: 0 nausea: No Vomiting: No
--- NOTE | 2025-02-25 13:26 | PCM.POSTANE2 ---
Anesthesia Postop Eval I Sum Postop Eval Completion status Anesthesia document: Postop Eval 1 completed: Yes Anesthesia Postop Eval I Summary Anesthesia Postop Eval I Summary: Anesthesia Postop Eval I: Assessment Summary Airway patent Yes 02/25/25 13:02 MOBILE HOME [email or web address] Spontaneous unlabored Yes 02/25/25 13:02 MOBILE HOME [email or web address] respirations Mental status nausea No 02/25/25 13:02 MOBILE HOME [email or web address].SOBR Vomiting No 02/25/25 13:02 MOBILE HOME [email or web address].SOBR Anesthesia Postop Eval I: Fluid Summary Crystalloid volume administer 300 02/25/25 13:02 MOBILE HOME [email or web address] (ml) Colloids volume administered ( ml) Blood Product volume administered (ml) Total IV fluid infused 300 02/25/25 13:02 MOBILE HOME [email or web address].SOBR Anesthesia Postop Eval I: Summary Notes Anesthesia Complication No 02/25/25 13:02 MOBILE HOME [email or web address].SOBR Anesthesia Complication Comment: Post-operative progress note Anesthesia: Postop Eval II Evaluation Mental status: Awake Pain Level: 0 nausea: No Vomiting: No
== END 2025-02-25 14:00 | disposition home or self-care (01) ==
LOC: EN 11:30 → AC 11:31
PROVIDERS: PCP Family Medicine; Referring Provider Family Medicine; Visit Provider Internal Medicine Gastroenterology
PROC: 0DJD8ZZ Inspection of Lower Intestinal Tract, Via Natural or Artificial Opening Endoscopic (ICD-10-PCS; CPT 45378; principal; 2025-02-25 12:25)
DX: D12.5 Benign neoplasm of sigmoid colon (principal); I10 Essential (primary) hypertension; Z90.5 Acquired absence of kidney; Z86.16 Personal history of COVID-19; Z87.19 Personal history of other diseases of the digestive system; E03.9 Hypothyroidism, unspecified; Z99.89 Dependence on other enabling machines and devices; F17.210 Nicotine dependence, cigarettes, uncomplicated; K57.30 Diverticulosis of large intestine without perforation or abscess without bleeding
CPT/HCPCS: 45380; 88305

== ENCOUNTER 2025-05-26 15:30 | Outpatient (RCR) | payer OTHER, SELFPAY ==
--- NOTE | 2025-05-03 13:51 | HP.PTEVAL_ITS ---
Patient's Visit Information Visit Information Visit Information: SWAPNA CEBALLOS is a 69 year old M referred to Physical Therapy by NATHALIE Stevens with a diagnosis of DDD. Date of Evaluation: 05/03/25 Physical Therapist: Travis Sagastume, DPT, OCS, CSCS Visit Plan Frequency: 2x /Week Duration: 4-6 Weeks Plan: 2x/week for 4-6 weks.. IE HEP pelvic tilts 20x, trunk rotation 20x, skc 10x all 2x/day adn HS stretch supine 30 5x daily, also activity modificaiton to avoid aggravating activities. treat with progression to yoga back flows, quad and pirifromis streteches both to HEP with pics, then core mat strength to standing general strength all with pics. pt may decide he wants gym but not committed yet. Subjective Subjective: Rosana is present. H/O LBP sent over by Katie at ortho. Has had back pain on and off for years. All LBP worse with golf swinging hard, Helping in the kitchen can cause pain doing dishes. Sweeper hurts it. Walking is OK much of time unless leans forward. Sitting makes him worse. 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 Sore upon arising. Walks slow at work and gets more painful. Basic ADLS, all I. Sleeping OK, normal for him mostly but sometimes hard to get comfortable. Hobbies: golf. No regular exercises. Too much TV. Pain LBP: Pain Intensity (Out of 10): 1 Pain Intensity Range: 1 and 10 Objective Objective: Walks stiff adn little arm swing but I. Trasnfers chair and bed I. L/S AROM ext min limited adn flexion mod limited SB mod limited, rotations mod to max limited. slight pain end range of ext mostly, otherwise tight. HS and quad max tight B with a -40 90/90 test. - SLR,- slump reflexes 1/3 patella and achilles Seensation LE WNL to gross light touch B. strength knees and ankles 5/5, hips abd and ext 4-, core 3+ ext and flexion. Balance/Special Test Scores Oswestry Low Back Score: 18 Goals Goal 1:: I appropriate HEP for LB ROM, leg stretches and core strength to HEP, possibly gym. Goal Time Frame: 4-6 Weeks Goal 2:: Back pain 50% better to 4/10 at worst Goal Time Frame: 4-6 Weeks Goal 3:: Tolerate work walking and sitting without worsening at end of day. Goal Time Frame: 4-6 Weeks Goal 4:: return to golfing without increased pain Goal Time Frame: 4-6 Weeks Goal 5:: 9 or less oswestry score Goal Time Frame: 4-6 Weeks Rehabilitation Potential Physical Therapy Diagnosis: tightness, limited ROM and weakness effecting back pain and funciton. Rehabilitation Potential: Fair Anticipated Interventions Patient/Client Instruction: Educate patient on: Condition and Plan of Care For the Purpose of:: To decrease pain, To increase ROM, To improve muscle performance and motor function, To increase tolerance to activity/condition/position and To improve ability of physical actions for home/community/work/leisure Therapeutic Exercise to Include: Strength training, Flexibilty training, Passive ROM, Active ROM and Dynamic Lumbar Stabilization For the Purpose of:: To decrease pain, To increase ROM, To improve nutrient delivery to tissue, To improve muscle performance and motor function, To increase tolerance to activity/condition/position, To improve ability of physical actions for home/community/work/leisure and To improve gait and locomotor functions Text: Thank you for the opportunity to evaluate your patient. For Medicare and Medicare HMO plans, please review the plan of care and approve it. It will need to be FAXED BACK to us at [phone] for Medicare purposes. For Medicare only, by signing this I certify the plan of care. Please let me know if there are questions or concerns regarding this plan of ca re. Physician Signature: Date:
--- NOTE | 2025-07-21 16:42 | HP.PT.NRP ---
Patient Information Patient Information: SWAPNA CEBALLOS was seen in my office for initial evaluation on 05/03/25. The following Plan of Care was established for this patient: POC Established Initial Frequency: 2x /Week Initial Duration: 4-6 Weeks Anticipated Interventions Patient/Client Instruction: Educate patient on: Condition and Plan of Care For the Purpose of:: To decrease pain, To increase ROM, To improve muscle performance and motor function, To increase tolerance to activity/condition/position and To improve ability of physical actions for home/community/work/leisure Therapeutic Exercise to Include: Strength training, Flexibilty training, Passive ROM, Active ROM and Dynamic Lumbar Stabilization For the Purpose of:: To decrease pain, To increase ROM, To improve nutrient delivery to tissue, To improve muscle performance and motor function, To increase tolerance to activity/condition/position, To improve ability of physical actions for home/community/work/leisure and To improve gait and locomotor functions Last Seen Last Seen: This patient was last seen in our office 05/26/25. Pertinent comments regarding their Physical therapy will appear below: Pt seen 6 visits of POC and cancelled all remianing visits. did not reattend. I will discontinue at this time as it has been over 6 weeks. At this point I will be discontinuing this patient from physical therapy. I would be happy to see this patient again in the future if found appropriate by the physician. Thank you! Travis Sagastume, DPT, OCS, CSCS Balance/Gait/Functional tests Balance/Special Test Scores Oswestry Low Back Score: 18
== END 2025-05-26 19:00 | disposition home or self-care (01) ==
LOC: PT 15:30
PROVIDERS: PCP Family Medicine; Referring Provider Student in an Organized Health Care Education/Training Program; Visit Provider Student in an Organized Health Care Education/Training Program
DX: M51.360 Other intervertebral disc degeneration, lumbar region with discogenic back pain only (principal)
CPT/HCPCS: 97110; 97161

== ENCOUNTER → 2025-05-26 | Outpatient (CLI) | payer OTHER, SELFPAY ==
--- NOTE | 2025-05-26 06:40 | ECHOD_ITS ---
Reason For Study Reason For Study: AFIB/FLUTTER Procedure This was a 2D Doppler, Color Flow transthoracic echocardiogram. The study was technically difficult. Due to body habitus. 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 Exam performed in department. Left Ventricle Normal LV size. Left ventricular systolic function is normal. The left ventricular ejection fraction is 60 %. No regional wall motion abnormalities noted. Right Ventricle Normal RV size. Normal systolic function. Atria Normal left atrium. Normal right atrium. Mitral Valve Normal mitral valve. Tricuspid Valve Normal tricuspid valve. Aortic Valve The aortic valve is not well visualized. Pulmonic Valve The pulmonic valve is not well visualized. Great Vessels Normal aortic root. Pericardium/Pleural No pericardial effusion. MMode/2D Measurements & Calculations LVIDd: 5.3 cm IVSd: 1.2 cm Ao root diam: 3.2 cm LVIDs: 3.6 cm LVPWd: 1.4 cm FS: 32.6 % LAV(MOD-bp): 37.4 ml LVAd ap4: 26.1 cm2 SV(MOD-sp4): 51.7 ml LAV(MOD-bp) Indexed: 16.0 ml/m2 LVLd ap4: 7.6 cm SI(MOD-sp4): 22.1 ml/m2 LAV(MOD-sp2): 35.1 ml EDV(MOD-sp4): 75.2 ml LAV(MOD-sp4): 35.1 ml EDV(sp4-el): 75.4 ml LVAs ap4: 13.3 cm2 LVLs ap4: 6.3 cm ESV(MOD-sp4): 23.5 ml ESV(sp4-el): 23.6 ml EF(MOD-sp4): 68.7 % EF(sp4-el): 68.7 % SV(sp4-el): 51.8 ml LA A4 area: 13.3 cm2 RA A4 area: 10.6 cm2 TAPSE: 1.9 cm Time Measurements MV dec time: 0.21 sec Doppler Measurements & Calculations MV E max abimael: 65.3 cm/sec Lat Peak E' Abimael: 7.3 cm/sec Med Peak E' Abimael: 7.7 cm/sec MV A max abimael: 83.4 cm/sec E/E' lat: 9.0 E/E' med: 8.4 MV E/A: 0.78 MV V2 max: 80.9 cm/sec MV P1/2t max abimael: 71.2 cm/sec Ao V2 max: 93.1 cm/sec MV max P.6 mmHg MV P1/2t: 60.2 msec Ao max P.5 mmHg MV V2 mean: 40.7 cm/sec MV dec slope: 346.2 cm/sec2 Ao V2 mean: 67.3 cm/sec MV mean P.77 mmHg Ao mean P.0 mmHg MV V2 VTI: 26.9 cm MVA(P1/2t): 3.7 cm2 Ao V2 VTI: 21.3 cm AV (velocity ratio): 0.79 LV V1 max: 71.9 cm/sec PA V2 max: 74.6 cm/sec TR max abimael: 190.5 cm/sec LV V1 max P.1 mmHg TR max P.5 mmHg LV V1 mean P.1 mmHg LV V1 mean: 51.6 cm/sec LV V1 VTI: 16.9 cm ECHO/Echo Complete Interpretation Summary Normal LV size. Left ventricular systolic function is normal. The left ventricular ejection fraction is 60 %. The study was technically limited. Ordering Physician: Neville Scehrer Referring Physician: Frandy Patton Performed By: Ann Caceres, MARCO, RVT
--- OUTSIDE RECORDS SUMMARY | 2025-05-26 06:45 | XMS RPT_ITS | CCD ---
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 performance and motor function, To increase tolerance to activity/condition/p osition and To improve ability of physical actions for home/community/work/ leisure Therapeutic Exercise to Include: Strength training, Flexibilty training, Passive ROM, Active ROM and Dynamic Lumbar Stabilization For the Purpose of:: To decrease pain, To increase ROM, To improve nutrient delivery to tissue, To improve muscle performance and motor function, To increase tolerance to activity/condition/p osition, To improve ability of physical actions for home/community/work/ leisure and To improve gait and locomotor functions Text: Thank you for the opportunity to evaluate your patient. For Medicare and Medicare HMO plans, please review the plan of care and approve it. It will need to be FAXED BACK to us at [phone] for Medicare purposes. For Medicare only, by signing this I certify the plan of care. Please let me know if there are questions or concerns regarding this plan of care. Physician Signature: D ate: 05/03/25 1351 CC: NATHALIE Stevens; Dr. Frandy Patton MD EBG Signed Normal [facility] L/S Spine Min 4 Viewson 04-06 L/S Spine Min 4 Views [facility] Imaging Services [address] [place] [address] L/S Spine Min 4 Views MR#: [id number] Acct: [id number] Name: SWAPNA TEJADA Rep #: [id number] : 1955 M 69 From: Chuy Canas MD PCP: Dr. Jimena Cagle MD Status: DEP AMB Study: L/S Spine Min 4 Views Date of Exam: 04/25/25 Exam# [id number] Ordering Dr: Katie Meade PROCEDURE: L/S SPINE MIN 4 VIEWS 04/25/2025 REASON FOR EXAM: BACK PAIN TECHNIQUE: L/S SPINE MIN 4 VIEWS COMPARISON: No FINDINGS: Mild lumbosacral scoliosis. Diffuse facet arthritis. Grade 1 anterolisthesis, L4. Multilevel mild/moderate disc space narrowing most pronounced L5-S1. No abnormal motion with flexion/extension. No acute bone or soft tissue pathology. RAD/L/S Spine Min 4 Views IMPRESSION: Lumbar spine scoliosis and degeneration Reading Location: [place] [address] CC: NATHALIE Stevens; Dr. 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: No Accompanied by: Is patient in pain?: Yes (low back) Pain scale (1-10): 3 Allergies lisinopril Adverse Reaction (Unknown, Verified 04/25/25 13:38) Dry Cough Medications ???Medication ???Instructions ???Recorded ???Confirmed ???Type levothyroxine 112 mcg tablet 112 mcg PO DAILY 06/10/17 04/25/25 History Blood Pressure Cuff #1 ea 08/23/19 02/18/23 Rx multivitamin-ferrous 1 tab PO QDAY 08/22/23 04/25/25 Hi story fumarate-folic acid 18 mg-400 mcg tablet (Centrum Complete) hydrochlorothiazide 25 mg tablet 25 mg PO DAILY #90 tabs 01/30/24 0 04/25/25 Rx metoprolol tartrate 50 mg tablet 50 mg PO BID #180 TABLETS 08/16/24 04/25/25 Rx apixaban 5 mg tablet (Eliquis) 5 mg PO BID #180 tabs 11/02/24 Rx albuterol sulfate 90 mcg/actuation 2 puff inhalation 4X/DAY PRN 09/2904/25/25 History aerosol inhaler shortness of breath or wheezing fluticasone furoate 200 1 ea inhalation DAILY 12/15/24 History mcg-vilanterol 25 mcg/dose inhalation powder (Breo Ellipta) docusate sodium 100 mg capsule 100 mg PO BID #20 caps 12/29/24 Rx (Colace) losartan 50 mg tablet 50 mg PO BID #180 tabs 01/25/25 Rx methocarbamol 500 mg tablet 500 mg PO TID PRN pain/spasms #30 04/25/25 04/25/25 Rx tabs Have you fallen in the past year?: Yes PFSH Medical History Smoker History of atrial fibrillation History of stress test Hypertension Wears glasses Cancer Alcohol use History of steroid therapy Thyroid disease Arthritis History of renal disease Back pain History of diverticulitis Heartburn Cigar smoker CPAP (continuous positive airway pressure) dependence Chronic cough Asthma Leg cramps History of edema History of Holter monitoring History of echocardiogram Cardiology follow-up encounter Afib COVID-19 Palpitations Tachycardia Patent foramen ovale SOB (shortness of breath) Wide-complex tachycardia Paroxysmal atrial fibrillation Essential (primary) hypertension Nonischemic cardiomyopathy Valvular heart disease Nonrheumatic tricuspid (valve) insufficiency Nonrheumatic mitral (valve) insufficiency Hypothyroidism Surgical History History of partial nephrectomy History of cardiac catheterization History of melanoma excision Hx of meniscectomy of right knee Hx of cataract removal with insertion of prosthetic lens ( 06/2022) History of open reduction and internal fixation (ORIF) procedure History of vasectomy History of tonsillectomy Family History Father CAD (coronary artery disease) Mother Thyroid disorder Social History Smoking Status: Light Smoker (<10/day) alcohol intake: current alcohol intake frequency: a few times a week Alcohol type: beer, wine and hard liquor substance use type: does not use caffeine: Yes Type: carbonated beverages and coffee Number of servings: 4 what type of physical activity do you participate in: none seatbelt use: always do you feel safe at home: Yes HPI LUMBAR SPINE Details: This documentation accurately reflects the service provided and the decisions made by me, NATHALIE Stevens 04/25/25 2287. Part of today???s visit was documented by [ ], acting as scribe. SWAPNA TEJADA is a 69 year old M here today for B/L low back pain going on intermittently for many years. The pain worsens with sitting. Walking does not seem to increase the pain. He says that lifting heavy items seems to increase the pain. He denies any back injury or fall. 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 Occasional numbness and cramping in B/L hand or foot. He does have a history of restless leg syndrome at night. He gets pain that will radiate into the bilateral buttocks, he denies any pain that radiates down the leg. Says that this pain is equal bilaterally. Patient also says that his pain changes during the flares where sometimes it is worse with sitting and other times it is worse with walking or sometimes it is worse on 1 side versus the other however none of these are consistent issues. Completed PT years ago as ordered by [facility]/Dr. Mendez that was helpful. No recent phys (more content not included)... Normal [facility] Gastroenterology Visit Repor ton 03-10-2025 Gastroenterology Visit Report [facility] [address] [place] [address] OFFICE VISIT Date of Service: 03/10/25 MR#: [id number] Acct: [id number] Name: SWAPNA TEJADA Rep #: [id number] : 1955 Provider: NATHALIE Arenas Age/Sex: 69/M [place] [facility] [place] Signed Intake Vital Signs 02/25/25 11:57 Height 5 ft 10 in Intake Visit Reasons: Follow up to scope Chief Complaint: Diverticulitis Allergies lisinopril Adverse Reaction (Unknown, Verified 02/24/25 10:32) Dry Cough Have you fallen in the past year?: Yes Nurse's Note: OV 03/10/25 Pt here for f/u and reports he is feeling well with no GI complaints. Pt reports he is sill taking colace daily. [facility] Medical History Smoker History of atrial fibrillation History of stress test Hypertension Wears glasses Cancer Alcohol use History of steroid therapy Thyroid disease Arthritis History of renal disease Back pain History of diverticulitis Heartburn Cigar smoker CPAP (continuous positive airway pressure) dependence Chronic cough Asthma Leg cramps History of edema History of Holter monitoring History of echocardiogram Cardiology follow-up encounter Afib COVID-19 Palpitations Tachycardia Patent foramen ovale SOB (shortness of breath) Wide-complex tachycardia Paroxysmal atrial fibrillation Essential (primary) hypertension Nonischemic cardiomyopathy Valvular heart disease Nonrheumatic tricuspid (valve) insufficiency Nonrheumatic mitral (valve) insufficiency Hypothyroidism Surgical History History of partial nephrectomy History of cardiac catheterization History of melanoma excision Hx of meniscectomy of right knee Hx of cataract removal with insertion of prosthetic lens ( 06/2022) History of open reduction and internal fixation (ORIF) procedure History of vasectomy History of tonsillectomy Family History Father CAD (coronary artery disease) Mother Thyroid disorder Social History Smoking Status: Light Smoker (<10/day) alcohol intake: current alcohol intake frequency: a few times a week Alcohol type: beer, wine and hard liquor substance use type: does not use caffeine: Yes Type: carbonated beverages and coffee Number of servings: 4 what type of physical activity do you participate in: none seatbelt use: always do you feel safe at home: Yes HPI HPI Chief Complaint: Diverticulitis Details: SWAPNA TEJADA, is a 69 M who presents to the office today for f/u. [facility] ED 11.15.24 With abd pain in the LLQ for two weeks. Hx of diverticular disease. CT abd/pelvis with sigmoid diverticuiltis and right kidney mass consitstent with r enal cell carcomina. Starte on atb and norco for pain. Abdomen/Pelvis CT 11/15/24 19:27 IMPRESSION: 1. Moderate acute uncomplicated distal descending colonic diverticulitis. 2. Heterogeneously enhancing mass in the inferior pole of the right kidney concerning for renal cell carcinoma. Last OV 12.02.24 Pain is improving. Finished course of antibiotics. Having constipation and taking miralax as needed. Pt scheduled for nephrectomy in December 2024. Colonoscopy 02.25.25; - One 5 mm polyp at the recto-sigmoid colon, removed with a jumbo cold forceps. Resected and retrieved. - Diverticulosis in the entire examined colon. Healed diverticulitis in the sigmoid colon. OV 6.25 Pt doing well today. He is taking a daily fiber supplement and miralax PRN. He is having a formed stool daily. He continues to have some left sided abd pain but not near as bad as when he was the diverticulitis. ROS Const Constitutional: Positive for weight change; No fatigue or fever(s) ENT ENT: No difficulty swallowing Gastro GI: No abdominal pain, belching, bloating, change in bowel habits, change in stool character, coffee ground emesis, constipation, cramping, diarrhea, heartburn, difficulty swallowing, feeling full early, excessive flatus, incontinent of stools, Vomiting blood/hematemesis, Blood in stool, loose stools, Black,tarry stools, nausea/dyspepsia, pain with swallowing, vomiting or other Musc Musculoskeletal: Positive for joint pain, back pain, muscle cramps and Arthritis Skin Skin: No yellowing of the eye or itchy eyes Psych Psychiatric: No anxiety and No depression Endo Endocrine: Positive for weight change; No fatigue Aller/Imm Allergy/Immunologic: No itchy eyes Janak/Lymp Hematologic/Lymphati c: Positive for easy bruising; No easy bleeding Exam Const General: cooperative and comfortable Orientation: alert Resp Effort Inspection: normal respiratory effort and cough Cardio (more content not included)... Normal [facility] Colonoscopy Reporton 025 Colonoscopy Report [facility] Medical Records Department [address] [place] [address] Colonoscopy Report MR#: [id number] Acct: [id number] Name: SWAPNA TEJADA Rep #: [id number] : 1955 69 From: Charly Rosas DO PCP: Dr. Jimena Cagle MD Status:[facility] Patient Name: Swapna Tejada Procedure Date: 02/25/2025 12:38 PM Date of : 1955 Age: 69 Procedure: Colonoscopy Indications: Abnormal CT of the GI tract Providers: Charly Rosas DO Medicines: Monitored Anesthesia Care Patient Profile: This is a 69 year old male. Refer to note in patient chart for documentation of history and physical. Last Colonoscopy: several years ago. Complications: No immediate complications. Procedure: Pre-Anesthesia Assessment: - Prior to the procedure, a History and Physical was performed, and patient medications and allergies were reviewed. The patient is competent. The risks and benefits of the procedure and the sedation options and risks were discussed with the patient. All questions were answered and informed consent was obtained. Patient identification and proposed procedure were verified by the physician in the pre-procedure area. Mental Status Examination: alert and oriented. Airway Examination: normal oropharyngeal airway and neck mobility. Respiratory Examination: clear to auscultation. CV Examination: normal. Prophylactic Antibiotics: The patient does not require prophylactic antibiotics. Prior Anticoagulants: The patient has taken no anticoagulant or antiplatelet agents except for NSAID medication. ASA Grade Assessment: II - A patient with mild systemic disease. After reviewing the risks and benefits, the patient was deemed in satisfactory condition to undergo the procedure. The anesthesia plan was to use monitored anesthesia care (MAC). Immediately prior to administration of medications, the patient was re-assessed for adequacy to receive sedatives. The heart rate, respiratory rate, oxygen saturations, blood pressure, adequacy of pulmonary ventilation, and response to care were monitored throughout the procedure. The physical status of the patient was re-assessed after the procedure. After I obtained informed consent, the scope was passed under direct vision. Throughout the procedure, the patient's blood pressure, pulse, and oxygen saturations were monitored continuously. The Colonoscope was introduced through the anus and advanced to the cecum, identified by appendiceal orifice and ileocecal valve. The colonoscopy was performed without difficulty. The patient tolerated the procedure well. The quality of the bowel preparation was good. The ileocecal valve, appendiceal orifice, and rectum were photographed. Scope In: 12:48:18 PM Scope Withdrawal Time 0 hours 7 minutes 56 seconds Scope Out: 12:58:19 PM Total Procedure Duration Time 0 hours 10 minutes 1 second Findings: The perianal and digital rectal examinations were normal. A 5 mm polyp was found in the recto-sigmoid colon. The polyp was sessile. The polyp was removed with a jumbo cold forceps. Resection and retrieval were complete. Verification of patient identification for the specimen was done. Estimated blood loss was minimal. Multiple small and large-mouthed diverticula were found in the entire colon. Impression: - One 5 mm polyp at the recto-sigmoid colon, removed with a jumbo cold forceps. Resected and retrieved. - Diverticulosis in the entire examined colon. Healed diverticulitis in the sigmoid colon. Recommendation: - Discharge patient to home. - Resume previous diet. - Continue present medications. - Await pathology results. - Repeat colonoscopy in 5 years for surveillance. Procedure Code(s): --- Professional --- 22648, Colonoscopy, flexible; with biopsy, single or multiple CPT copyright 2021 [employer]. All rights reserved. The codes documented in this report are preliminary and upon field associate review may be revised to meet current compliance requirements. Charly Rosas DO 02/25/2025 1:02:34 PM This report has been signed electronically. Number of Addenda: 0 Note Initiated On: 02/25/2025 12:38 PM 02/25/25 1302 Date Charly Rosas DO Cosigner Signature: Date (if indicated) CC: Dr. Jimena Cagle MD; Charly Rosas DO Date Dictated: 02/25/25 1238 Date Transcribed: Saxophone Assembler: RF Signed [facility] MR/POSTOP.ANE 02-25-2025 MR/POSTOP.[facility] Medical Records Department [address] [place] [address] Anesthesia Postop Eval I 02/25/25 1301 MR#: [id number] Acct: [id number] Name: SWAPNA TEJADA Rep #: [id number] : 1955 69 From: Zach Olivera CRNA PCP: Dr. Jimena Cagle MD Status:REG [facility] Race: C Location: [place] [address] Anesthesia: Postop Eval I Current Vital Signs Temperature: 97.7 F Pulse Rate: 67 Blood Pressure: 114/68 Respiratory Rate: 16 Pulse Ox: 67 Oxygen Delivery Method: Room Air Assessment Airway patent: Yes Spontaneous unlabored respirations: Yes nausea: No Vomiting: No Anesthesia Complication: No Fluid Hydration Crystalloid volume administer (ml): 300 Total IV fluid infused: 300 Progress Note Anesthesia document: Postop Eval 1 completed: Yes 02/25/25 130 Date Zach Olivera 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 CLERK Cosigner Signature: Date CC: Signed [facility] MR/LUZQUVOH7ev 02-25-2025 MR/POSTOPAN2 [facility] Medical Records Department [address] [place] [address] Anesthesia Postop Eval II 02/25/25 1326 MR#: [id number] Acct: [id number] Name: SWAPNA TEJADA Rep #: [id number] : 1955 69 From: Rigo Kendrick MD PCP: Dr. Jimena Cagle MD Status:REG SDC Y Race: C Location: [facility]-05 Anesthesia Postop Eval I Sum Postop Eval Completion status Anesthesia document: Postop Eval 1 completed: Yes Anesthesia Postop Eval I Summary Anesthesia Postop Eval I Summary: Anesthesia Postop Eval I: Assessment Summary Airway patent Yes 02/25/25 13:02 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 CLERK.SOBR Spontaneous unlabored Yes 02/25/25 13:02 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 CLERK.SOBR respirations Mental status nausea No 02/25/25 13:02 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 CLERK.SOBR Vomiting No 02/25/25 13:02 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 CLERK.SOBR Anesthesia Postop Eval I: Fluid Summary Crystalloid volume administer 300 02/25/25 13:02 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 CLERK.SOBR (ml) Colloids volume administered ( ml) Blood Product volume administered (ml) Total IV fluid infused 300 02/25/25 13:02 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 CLERK.SOBR Anesthesia Postop Eval I: Summary Notes Anesthesia Complication No 02/25/25 13:02 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 CLERK.SOBR Anesthesia Complication Comment: Post-operative progress note Anesthesia: Postop Eval II Evaluation Mental status: Awake Pain Level: 0 nausea: No Vomiting: No 02/25/25 1326 Date [facility] Date CC: Signed Normal [facility] Surgery Specimen Level Merna 02-25-2025 Surgery Specimen Level IV Patient Age/Sex Location Account Attending Physician RAMASWAPNA MENDOZA 69/M EN [id number] Charly Rosas DO Specimen: [id number] Received: 02/25/25 Status: RADHA Swain Num: [id number] Spec Type: COLON BX Subm Dr: Charly Rosas DO HEADER OPERATION: Colonoscopy, biopsy PRE-OP DIAGNOSIS: Diverticulitis TISSUE SUBMITTED: A- Sigmoid polyp MICROSCOPIC DIAGNOSIS A. Sigmoid colon, polyp, biopsy: Tubular adenoma. MICROSCOPIC DESCRIPTION Slides are reviewed. GROSS DESCRIPTION A. Received in formalin in a container labeled with the patient's name, date of , and sigmoid polyp are multiple munoz-pink fragments of mucosal tissue measuring 0.9 x 0.6 x 0.3 cm in aggregate. Submitted in toto in A1. [facility] 02-25-2025 CPT:84604 Patient Age/Sex Location Account Attending Physician SWAPNA TEJADA 69/M EN [id number] Charly Rosas, DO Signed (signature on file) Dr. Reshma Farooq MD 03/07/25 1224 Normal [facility] Comment on above: Performed By: #### P SUIV #### [facility] Laboratory [address] [place], [place], [address] MR/Elijah 02-24-2025 MR/[facility] Medical Records Department [address] [place] [address] PAT - Anesthesia 02/24/25 1102 MR#: [id number] Acct: [id number] Name: SWAPNA TEJADA Rep #: [id number] : 1955 69 From: Rigo Kendrick MD PCP: Dr. 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 When Was Last Pacemaker Check QUESTION #4 FULL TEXT: You/Your Family Experience fever (hyperthermia) with Anesthesia Last Oral Intake Last Oral intake: Last Oral Intake NPO since Meds taken in AM with sips of water? Meds patient instructed to take am of surgery PONV PONV - yard hostler: PONV - yard hostler Female No 02/24/25 10:34 HX of Motion Sickness No 02/24/25 10:34 HX of N/V After Surgery No 02/24/25 10:34 Non-Smoker No 02/24/25 10:34 Duration of Surgery greater No 02/24/25 10:34 than 60 minutes Number of Risk Factors PONV Score Height Weight Height Weight: Anesthesia: Height Weight Height 5 ft 10.5 in 11/15/24 17:52 Respiratory Assessment Respiratory Assessment - yard hostler: Respiratory Tract Infection Hx - yard hostler Hx Respiratory Tract Infection No 02/24/25 10:34 STOP Sleep Apnea STOP Sleep Apnea - yard hostler: STOP Sleep Apnea - yard hostler Hx Hypertension Yes: CONTROLLED WITH MEDS 02/24/25 10:34 Hx Sleep Apnea Yes 02/24/25 10:34 CPAP Yes 02/24/25 10:34 BIPAP No 02/24/25 10:34 Do you snore loudly (louder than talking or can be heard Do you often feel tired/ fatigued/ sleepy during daytime? Has anyone observed you stop breathing during sleep? STOP Results Positive 02/24/25 10:34 QUESTION #5 FULL TEXT : Do you snore loudly (louder than talking or can be heard through closed doors)? 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 Specify any problems Hx of Preganancy in last 3 N/A 02/24/25 10:34 Months Nurse Filling Out Transfusion NBUCHER 02/24/25 10:34 Questions: Date: 02/24/25 02/24/25 10:34 Time: 10:35 02/24/25 10:34 Patient unable to answer at this time (ie. confused, unrespo /Reproducti on History /Reproducti ve History - yard hostler: /Reproducti ve Hx- yard hostler Hx Now Gestational Age (in weeks): EDC: Hx Hx Para Hx Section SAB No 02/24/25 10:34 PFSH Medical History (Updated 02/24/25 @ 10:40 by Yojana Carver) Smoker History of atrial fibrillation History of stress test Hypertension Wears glasses Cancer Alcohol use History of steroid therapy Thyroid disease Arthritis History of renal disease Back pain History of diverticulitis Heartburn Cigar smoker CPAP (continuous positive airway pressure) dependence Chronic cough Asthma Leg cramps History of edema History of Holter monitoring History of echocardiogram Cardiology follow-up encounter Afib COVID-19 Palpitations Tachycardia Patent foramen ovale SOB (shortness of breath) Wide-complex tachycardia Paroxysmal atrial fibrillation Essential (primary) hypertension Nonischemic cardiomyopathy Valvular heart disease Nonrheumatic tricuspid (valve) insufficiency Nonrheumatic mitral (valve) insufficiency Hypothyroidism Home Medications ???Medication ???Instructions ???Recorded ???Last Taken ???Type levothyroxine 112 mcg tablet 112 mcg PO DAILY 06/10/17/ (more content not included)... Normal [facility] Basic Metabolic Profile (BMP )on 01-01-2025 BUN Normal 4-19 [facility] Comment on above: Result Comment: Canc elled via OM: Order cancelled - Patient discharged Performed By: #### L 500.2500, L100.0100 #### [facility] [address] [place], [address] BUN/CRE Normal 10-20 [facility] Comment on above: Result Comment: Canc elled via OM: Order cancelled - Patient discharged Performed By: #### L 500.2500, L100.0100 #### [facility] [address] [place], [address] Calcium Normal 7.6-11.0 [facility] Comment on above: Result Comment: Canc elled via OM: Order cancelled - Patient discharged Performed By: #### L 500.2500, L100.0100 #### [facility] [address] [place], [address] CL Normal 98-108 [facility] Comment on above: Result Comment: Canc elled via OM: Order cancelled - Patient discharged Performed By: #### L 500.2500, L100.0100 #### [facility] [address] [place], [address] CO2 Normal 21.0-32.0 [facility] Comment on above: Result Comment: Canc elled via OM: Order cancelled - Patient discharged Performed By: #### L 500.2500, L100.0100 #### [facility] [address] [place], [address] CREAT,SERUM Normal 0.70-1.20 [facility] Comment on above: Result Comment: Canc elled via OM: Order cancelled - Patient discharged Performed By: #### L 500.2500, L100.0100 #### [facility] [address] [place], [address] eGFR Normal >60 [facility] Comment on above: Result Comment: Canc elled via OM: Order cancelled - Patient discharged Performed By: #### L 500.2500, L100.0100 #### [facility] [address] [place], [address] GAP Normal 5-15 [facility] Comment on above: Result Comment: Canc elled via OM: Order cancelled - Patient discharged Performed By: #### L 500.2500, L100.0100 #### [facility] [address] [place], [address] GLU Normal 70-99 [facility] Comment on above: Result Comment: Canc elled via OM: Order cancelled - Patient discharged Performed By: #### L 500.2500, L100.0100 #### [facility] [address] [place], [address] Potassium Normal 3.3-5.1 [facility] Comment on above: Result Comment: Canc elled via OM: Order cancelled - Patient discharged Performed By: #### L 500.2500, L100.0100 #### [facility] [address] [place], [address] Basic Metabolic Profile (BMP) Normal 133-145 [facility] Comment on above: Result Comment: Canc elled via OM: Order cancelled - Patient discharged Performed By: #### L 500.2500, L100.0100 #### [facility] [address] [place], [address] CBC W/Diff, Automatedon 03-2 Absolute Neut Normal 2.0-7.7 [facility] Comment on above: Result Comment: Canc elled via OM: Order cancelled - Patient discharged Performed By: #### L 500.2500, L100.0100 #### [facility] [address] [place], [address] HCT Normal 40-54 [facility] Comment on above: Result Comment: Canc elled via OM: Order cancelled - Patient discharged Performed By: #### L 500.2500, L100.0100 #### [facility] [address] [place], [address] HGB Normal 13.0-16.5 [facility] Comment on above: Result Comment: Canc elled via OM: Order cancelled - Patient discharged Performed By: #### L 500.2500, L100.0100 #### [facility] [address] [place], [address] MCH Normal 27.0-32.0 [facility] Comment on above: Result Comment: Canc elled via OM: Order cancelled - Patient discharged Performed By: #### L 500.2500, L100.0100 #### [facility] [address] [place], [address] MCHC Normal 32-36 [facility] Comment on above: Result Comment: Canc elled via OM: Order cancelled - Patient discharged Performed By: #### L 500.2500, L100.0100 #### [facility] [address] [place], [address] MCV Normal 80-94 [facility] Comment on above: Result Comment: Canc elled via OM: Order cancelled - Patient discharged Performed By: #### L 500.2500, L100.0100 #### [facility] [address] [place], [address] NEUT% Normal 47-70 [facility] Comment on above: Result Comment: Canc elled via OM: Order cancelled - Patient discharged Performed By: #### L 500.2500, L100.0100 #### [facility] [address] [place], [address] PLT Normal 150-450 [facility] Comment on above: Result Comment: Canc elled via OM: Order cancelled - Patient discharged Performed By: #### L 500.2500, L100.0100 #### [facility] [address] [place], [address] RBC Normal 4.6-6.2 [facility] Comment on above: Result Comment: Canc elled via OM: Order cancelled - Patient discharged Performed By: #### L 500.2500, L100.0100 #### [facility] [address] [place], [address] RDW CV Normal 11.6-14.6 [facility] Comment on above: Result Comment: Canc elled via OM: Order cancelled - Patient discharged Performed By: #### L 500.2500, L100.0100 #### [facility] [address] [place], [address] RDW SD Normal 35.1-43.9 [facility] Comment on above: Result Comment: Canc elled via OM: Order cancelled - Patient discharged Performed By: #### L 500.2500, L100.0100 #### [facility] [address] [place], [address] WBC Normal 4.4-11.0 [facility] Comment on above: Result Comment: Canc elled via OM: Order cancelled - Patient discharged Performed By: #### L 500.2500, L100.0100 #### [facility] [address] [place], [address] Absolute lymphocyte countOrd ered By: Portillo Lowry on 12-31-2024 Lymphocytes Auto (Unsp spec) [#/Vol] 0.93 10*3/uL 0.83-4.51 [facility] Absolute neutrophil countOrd ered By: Portillo Lowry on 12-31-2024 Neutrophils (Bld) [#/Vol] 6.0 10*3/uL 2.0-7.7 [facility] Anion gap in Serum or Plasma Ordered By: Portillo Lowry on 12-31-2024 Anion gap [Moles/Vol] 8 mmol/L 5-15 [facility] Automated lymphocyte count a s percentage of total leukocytesOrdered By: Portillo Lowry on 12-31-2024 Lymphocytes/100 WBC Auto (Unsp spec) 11.7 % Low 19-41 [facility] BUN/creatinine ratioOrdered By: Portillo Lowry on 12-31-2024 Urea nitrogen/Creatinine [Mass ratio] 12.9 mg/mg 10- [facility] Basic Metabolic Profile (BMP )on 12-31-2024 BUN/CRE 12.9 RATIO Normal - [facility] Comment on above: Performed By: #### P SUIV #### [facility] [address] [place], [address] Calcium [Mass/Vol] 9.6 mg/dL Normal 7.6-11.0 [facility] Comment on above: Performed By: #### P SUIV #### [facility] [address] [place], [address] Chloride [Moles/Vol] 108 mmol/L Normal 98-108 [facility] Comment on above: Performed By: #### P SUIV #### [facility] [address] [place], [address] CO2 [Moles/Vol] 21.0 mmol/L Normal 21.0-32.0 [facility] Comment on above: Performed By: #### P SUIV #### [facility] [address] [place], [address] Creatinine [Mass/Vol] 1.34 mg/dL High 0.70-1.20 [facility] Comment on above: Performed By: #### P SUIV #### [facility] [address] [place], [address] ECRCL 67.61 ml/min Normal 50-250 [facility] Comment on above: Performed By: #### P SUIV #### [facility] [address] [place], [address] GAP 8 Normal 5-15 [facility] Comment on above: Performed By: #### P SUIV #### [facility] [address] [place], [address] GFR/1.73 sq M.predicted among non-blacks MDRD (S/P/Bld) [Vol rate/Area] 57 mL/min/{1.73_m2} Low >60 [facility] Comment on above: Result Comment: mL/m in/1.73m2 CKD-EPI Creatinine Equation (2020) Performed By: #### P SUIV #### [facility] [address] [place], [address] Glucose [Mass/Vol] 106 mg/dL High 70-99 [facility] Comment on above: Performed By: #### P SUIV #### [facility] [address] [place], [address] Potassium [Moles/Vol] 3.9 mmol/L Normal 3.3-5.1 [facility] Comment on above: Performed By: #### P SUIV #### [facility] [address] [place], [address] Sodium [Moles/Vol] 137 mmol/L Normal 133-145 [facility] Comment on above: Performed By: #### P SUIV #### [facility] [address] [place], [address] Urea nitrogen [Mass/Vol] 17 mg/dL Normal 4-19 [facility] Comment on above: Performed By: #### P SUIV #### [facility] [address] [place], [address] Basophil percentageOrdered B y: Portillo Lowry on 12-31-2024 Basophils/100 WBC (Bld) 0.3 % 0-1 [facility] CBC W/Diff, Automatedon 03-2 Absolute Lymph 0.93 X10 3/uL Normal 0.83-4.51 [facility] Comment on above: Performed By: #### P SUIV #### [facility] [address] [place], [address] Absolute Neut 6.0 X10 3/uL Normal 2.0-7.7 [facility] Comment on above: Performed By: #### P SUIV #### [facility] [address] [place], [address] Basophils/100 WBC (Bld) 0.3 % Normal 0-1 [facility] Comment on above: Performed By: #### P SUIV #### [facility] [address] [place], [address] Eosinophils/100 WBC (Bld) 1.0 % Normal 0-5 [facility] Comment on above: Performed By: #### P SUIV #### [facility] [address] [place], [address] Erythrocyte distribution width (RBC) [Ratio] 13.2 % Normal 11.6-14.6 [facility] Comment on above: Performed By: #### P SUIV #### [facility] [address] [place], [address] Hematocrit (Bld) [Volume fraction] 35.1 % Low 40-54 [facility] Comment on above: Performed By: #### P SUIV #### [facility] [address] [place], [address] Hemoglobin (Bld) [Mass/Vol] 11.4 g/dL Low 13.0-16.5 [facility] Comment on above: Performed By: #### P SUIV #### [facility] [address] [place], [address] IG% 0.400 Normal 0.0-0.9 [facility] Comment on above: Result Comment: IG% - Immature Granulocytes (promyelocytes, myelocytes and metamyelocytes) > 1% indicates that a LEFT SHIFT is Present. Performed By: #### P SUIV #### [facility] [address] [place], [address] Lymphocytes/100 WBC (Bld) 11.7 % Low 19-41 [facility] Comment on above: Performed By: #### P SUIV #### [facility] [address] [place], [address] MCH (RBC) [Entitic mass] 29.2 pg Normal 27.0-32.0 [facility] Comment on above: Performed By: #### P SUIV #### [facility] [address] [place], [address] MCHC (RBC) [Mass/Vol] 32.5 g/dL Normal 32-36 [facility] Comment on above: Performed By: #### P SUIV #### [facility] [address] [place], [address] MCV (RBC) [Entitic vol] 89.8 fL Normal 80-94 [facility] Comment on above: Performed By: #### P SUIV #### [facility] [address] [place], [address] Monocytes/100 WBC (Bld) 11.3 % High 0-10 [facility] Comment on above: Performed By: #### P SUIV #### [facility] [address] [place], [address] Neutrophils/100 WBC (Bld) 75.3 % High 47-70 [facility] Comment on above: Performed By: #### P SUIV #### [facility] [address] [place], [address] Nucleated RBC (Bld) [#/Vol] 0 10*3/uL Normal 0-5 [facility] Comment on above: Performed By: #### P SUIV #### [facility] [address] [place], [address] Platelet mean volume (Bld) [Entitic vol] 9.7 fL Normal 6.2-12.0 [facility] Comment on above: Performed By: #### P SUIV #### [facility] [address] [place], [address] Platelets (Bld) [#/Vol] 169 10*3/uL Normal 150-450 [facility] Comment on above: Performed By: #### P SUIV #### [facility] [address] [place], [address] RBC (Bld) [#/Vol] 3.91 10*6/uL Low 4.6-6.2 [facility] Comment on above: Performed By: #### P SUIV #### [facility] [address] [place], [address] RDW SD 43.1 fl Normal 35.1-43.9 [facility] Comment on above: Performed By: #### P SUIV #### [facility] [address] [place], [address] WBC (Bld) [#/Vol] 8.0 10*3/uL Normal 4.4-11.0 [facility] Comment on above: Performed By: #### P SUIV #### [facility] [address] [place], [address] Carbon dioxide, total [Moles /volume] in Central venous bloodOrdered By: Portillo Lowry on 12-31-2024 CO2 [Moles/Vol] 21.0 mmol/L 21.0-32.0 [facility] Chloride assayOrdered By: Faith Lowry on 12-31-2024 Chloride [Moles/Vol] 108 mmol/L 98-108 [facility] Eosinophil percentageOrdered By: Portillo Lowry on 12-31-2024 Eosinophils/100 WBC (Bld) 1.0 % 0-5 [facility] Erythrocyte distribution wid th ratioOrdered By: Portillo Lowry on 12-31-2024 Erythrocyte distribution width (RBC) [Ratio] 13.2 % 11.6-14.6 [facility] Erythrocyte distribution wid th standard deviationOrdered By: Portillo Lowry on 12-31-2024 Erythrocyte distribution width (RBC) [Entitic vol] 43.1 fL 35.1-43.9 [facility] Erythrocyte distribution width (RBC) [Ratio] 43.1 fl 35.1-43.9 [facility] Estimation of creatinine otto aranceOrdered By: Portillo Lowry on 12-31-2024 Estimated Creatinine Clearance Calc 67.61 ml/min 50-250 [facility] GFR/1.73 sq M.predicted carolyn g non-blacks MDRD (S/P/Bld) [Vol rate/Area]Ordered By: Portillo Lowry on 12-31-2024 Estimated GFR (MDRD) Non-Af Amer 57 Low >60 [facility] Comment on above: mL/min/1.73m2 CKD-EP I Creatinine Equation (2020) Glomerular filtration rate ( GFR) estimation/1.73 sq m using serum, plasma, or whole bOrdered By: Portillo Lowry on 12-31-2024 GFR/1.73 sq M.predicted among non-blacks MDRD (S/P/Bld) [Vol rate/Area] 57 mL/min/{1.73_m2} Low >60 [facility] Comment on above: mL/min/1.73m2 CKD-EP I Creatinine Equation (2020) Hematocrit Auto (Bld) [Volum e fraction]Ordered By: Portillo Lowry on 12-31-2024 Hematocrit (Bld) [Volume fraction] 35.1 % Low 40-54 [facility] Hemoglobin measurementOrdere d By: Portillo Lowry on 12-31-2024 Hemoglobin (Bld) [Mass/Vol] 11.4 g/dL Low 13.0-16.5 [facility] Immature granulocytes/100 WB C Auto (Bld)Ordered By: Portillo Lowry on 12-31-2024 Immature granulocytes/100 WBC (Bld) 0.400 % 0.0-0.9 [facility] Comment on above: IG% - Immature Granu locytes (promyelocytes, myelocytes and metamyelocytes) > 1% indicates that a LEFT SHIFT is Present. Lymphocytes Auto (Unsp spec) [#/Vol]Ordered By: Portillo Lowry on 12-31-2024 Lymphocytes (Bld) [#/Vol] 0.93 10*3/uL 0.83-4.51 [facility] Lymphocytes/100 WBC Auto (Un sp spec)Ordered By: Portillo Lowry on 12-31-2024 Lymphocytes/100 WBC (Bld) 11.7 % Low 19-41 [facility] MCV (mean corpuscular volume ) determinationOrdered By: Portillo Lowry on 12-31-2024 MCV (RBC) [Entitic vol] 89.8 fL 80-94 [facility] Mean corpuscular hemoglobin (MCH) determinationOrdered By: Portillo Lowry on 12-31-2024 MCH (RBC) [Entitic mass] 29.2 pg 27.0-32.0 [facility] Mean corpuscular hemoglobin concentration (MCHC) determinationOrdered By: Portillo Lwory on 12-31-2024 MCHC (RBC) [Mass/Vol] 32.5 g/dL 32-36 [facility] Mean platelet volume determi nationOrdered By: Portillo Lowry on 12-31-2024 Platelet mean volume (Bld) [Entitic vol] 9.7 fL 6.2-12.0 [facility] Monocyte percentageOrdered B y: Portillo Lowry on 12-31-2024 Monocytes/100 WBC (Bld) 11.3 % High 0-10 [facility] Neutrophil percentageOrdered By: Portillo Lowry on 12-31-2024 Neutrophils/100 WBC (Bld) 75.3 % High 47-70 [facility] Nucleated red blood cell per centageOrdered By: Portillo Lowry on 12-31-2024 Nucleated RBC/100 WBC (Bld) [Ratio] 0 % 0-5 [facility] Platelet countOrdered By: Faith Lowry on 12-31-2024 Platelets (Bld) [#/Vol] 169 10*3/uL 150-450 [facility] Potassium (Unsp spec) [Mass/ Vol]Ordered By: Portillo Lowry on 12-31-2024 Potassium [Moles/Vol] 3.9 mmol/L 3.3-5.1 [facility] Potassium measurement (mass/ volume)Ordered By: Portillo Lowry on 12-31-2024 Potassium (Unsp spec) [Mass/Vol] 3.9 mmol/L 3.3-5.1 [facility] RBC Auto (Bld) [#/Vol]Ordere d By: Portillo Lowry on 12-31-2024 RBC (Bld) [#/Vol] 3.91 10*6/uL Low 4.6-6.2 [facility] Serum creatinine measurement (mass/volume)Ordered By: Portillo Lowry on 12-31-2024 Creatinine [Mass/Vol] 1.34 mg/dL High 0.70-1.20 [facility] Serum glucose measurement (m ass/volume)Ordered By: Portillo Lowry on 12-31-2024 Glucose [Mass/Vol] 106 mg/dL High 70-99 [facility] Serum or plasma calcium ralf urement (mass/volume)Ordered By: Portillo Lowry on 12-31-2024 Calcium [Mass/Vol] 9.6 mg/dL 7.6-11.0 [facility] Serum or plasma urea nitroge n measurement (mass/volume)Ordered By: Portillo Lowry on 12-31-2024 Urea nitrogen [Mass/Vol] 17 mg/dL 4-19 [facility] Sodium levelOrdered By: Portillo Lowry on 12-31-2024 Sodium [Moles/Vol] 137 mmol/L 133-145 [facility] White blood cell (WBC) count Ordered By: Portillo Lowry on 12-31-2024 WBC (Bld) [#/Vol] 8.0 10*3/uL 4.4-11.0 [facility] Basic Metabolic Profile (BMP )on 12-30-2024 BUN/CRE 15.2 RATIO Normal 10-20 [facility] Comment on above: Performed By: #### L 100.0100, L500.2500 #### [facility] [address] [place], [address] Calcium [Mass/Vol] 9.2 mg/dL Normal 7.6-11.0 [facility] Comment on above: Performed By: #### L 100.0100, L500.2500 #### [facility] [address] [place], [address] Chloride [Moles/Vol] 107 mmol/L Normal 98-108 [facility] Comment on above: Performed By: #### L 100.0100, L500.2500 #### [facility] [address] [place], [address] CO2 [Moles/Vol] 21.9 mmol/L Normal 21.0-32.0 [facility] Comment on above: Performed By: #### L 100.0100, L500.2500 #### [facility] [address] [place], [address] Creatinine [Mass/Vol] 1.16 mg/dL Normal 0.70-1.20 [facility] Comment on above: Performed By: #### L 100.0100, L500.2500 #### [facility] [address] [place], [address] ECRCL 78.11 ml/min Normal 50-250 [facility] Comment on above: Performed By: #### L 100.0100, L500.2500 #### [facility] [address] [place], [address] GAP 8 Normal 5-15 [facility] Comment on above: Performed By: #### L 100.0100, L500.2500 #### [facility] [address] [place], [address] GFR/1.73 sq M.predicted among non-blacks MDRD (S/P/Bld) [Vol rate/Area] 68 mL/min/{1.73_m2} Normal >60 [facility] Comment on above: Result Comment: mL/m in/1.73m2 CKD-EPI Creatinine Equation (2020) Performed By: #### L 100.0100, L500.2500 #### [facility] [address] [place], [address] Glucose [Mass/Vol] 132 mg/dL High 70-99 [facility] Comment on above: Performed By: #### L 100.0100, L500.2500 #### [facility] [address] [place], [address] Potassium [Moles/Vol] 4.0 mmol/L Normal 3.3-5.1 [facility] Comment on above: Performed By: #### L 100.0100, L500.2500 #### [facility] [address] [place], [address] Sodium [Moles/Vol] 138 mmol/L Normal 133-145 [facility] Comment on above: Performed By: #### L 100.0100, L500.2500 #### [facility] [address] [place], [address] Urea nitrogen [Mass/Vol] 18 mg/dL Normal 4-19 [facility] Comment on above: Performed By: #### L 100.0100, L500.2500 #### [facility] [address] [place], [address] CBC W/Diff, Automatedon 03-2 Absolute Lymph 0.68 X10 3/uL Low 0.83-4.51 [facility] Comment on above: Performed By: #### L 100.0100, L500.2500 #### [facility] [address] [place], [address] Absolute Neut 9.4 X10 3/uL High 2.0-7.7 [facility] Comment on above: Performed By: #### L 100.0100, L500.2500 #### [facility] [address] [place], [address] Basophils/100 WBC (Bld) 0.1 % Normal 0-1 [facility] Comment on above: Performed By: #### L 100.0100, L500.2500 #### [facility] [address] [place], [address] Eosinophils/100 WBC (Bld) 0.0 % Normal 0-5 [facility] Comment on above: Performed By: #### L 100.0100, L500.2500 #### [facility] [address] [place], [address] Erythrocyte distribution width (RBC) [Ratio] 13.1 % Normal 11.6-14.6 [facility] Comment on above: Performed By: #### L 100.0100, L500.2500 #### [facility] [address] [place], [address] Hematocrit (Bld) [Volume fraction] 36.3 % Low 40-54 [facility] Comment on above: Performed By: #### L 100.0100, L500.2500 #### [facility] [address] [place], [address] Hemoglobin (Bld) [Mass/Vol] 12.2 g/dL Low 13.0-16.5 [facility] Comment on above: Performed By: #### L 100.0100, L500.2500 #### [facility] [address] [place], [address] IG% 0.400 Normal 0.0-0.9 [facility] Comment on above: Result Comment: IG% - Immature Granulocytes (promyelocytes, myelocytes and metamyelocytes) > 1% indicates that a LEFT SHIFT is Present. Performed By: #### L 100.0100, L500.2500 #### [facility] [address] [place], [address] Lymphocytes/100 WBC (Bld) 6.0 % Low 19-41 [facility] Comment on above: Performed By: #### L 100.0100, L500.2500 #### [facility] [address] [place], [address] MCH (RBC) [Entitic mass] 29.2 pg Normal 27.0-32.0 [facility] Comment on above: Performed By: #### L 100.0100, L500.2500 #### [facility] [address] [place], [address] MCHC (RBC) [Mass/Vol] 33.6 g/dL Normal 32-36 [facility] Comment on above: Performed By: #### L 100.0100, L500.2500 #### [facility] [address] [place], [address] MCV (RBC) [Entitic vol] 86.8 fL Normal 80-94 [facility] Comment on above: Performed By: #### L 100.0100, L500.2500 #### [facility] [address] [place], [address] Monocytes/100 WBC (Bld) 9.5 % Normal 0-10 [facility] Comment on above: Performed By: #### L 100.0100, L500.2500 #### [facility] [address] [place], [address] Neutrophils/100 WBC (Bld) 84.0 % High 47-70 [facility] Comment on above: Performed By: #### L 100.0100, L500.2500 #### [facility] [address] [place], [address] Nucleated RBC (Bld) [#/Vol] 0 10*3/uL Normal 0-5 [facility] Comment on above: Performed By: #### L 100.0100, L500.2500 #### [facility] [address] [place], [address] Platelet mean volume (Bld) [Entitic vol] 9.0 fL Normal 6.2-12.0 [facility] Comment on above: Performed By: #### L 100.0100, L500.2500 #### [facility] [address] [place], [address] Platelets (Bld) [#/Vol] 218 10*3/uL Normal 150-450 [facility] Comment on above: Performed By: #### L 100.0100, L500.2500 #### [facility] [address] [place], [address] RBC (Bld) [#/Vol] 4.18 10*6/uL Low 4.6-6.2 [facility] Comment on above: Performed By: #### L 100.0100, L500.2500 #### [facility] [address] [place], [address] RDW SD 41.1 fl Normal 35.1-43.9 [facility] Comment on above: Performed By: #### L 100.0100, L500.2500 #### [facility] [address] [place], [address] WBC (Bld) [#/Vol] 11.2 10*3/uL High 4.4-11.0 [facility] Comment on above: Performed By: #### L 100.0100, L500.2500 #### [facility] [address] [place], [address] Discharge Instructionon 12-05 Discharge Instruction [facility] Medical Records Department [address] [place] [address] Instructions for Home/Discharge Instructions 12/29/24 1216 MR#: [id number] Acct: [id number] Name: SWAPNA TEJADA Rep #: [id number] : 1955 69 From: Portillo Lowry MD PCP: Dr. Jimena Cagle MD Status:REG SD Discharge Instructions Diet Discharge Diet: No restrictions DC O2, CPAP, BIPAP needs Home O2 Discharge instructions: No Dressing / Incision Discharge Activity: May Not Drive (while taking narcotic pain medications.) Return to work on:: 01/26/25 Dressing / Incision Call your doctor if you observe: Fever of 101 or Higher and Uncontrolled pain Suture Line Care: Avoid Pulling/Pushing and Avoid Pinching/Bending Follow Up Care Please Follow Up With: Portillo Lowry MD When: Call [phone] for an appointment Test Results: Test results from this visit will be discussed in further detail at your follow-up appointment, if applicable. Discharge Plan Admission Primary Reason for Your Visit: right partial nephrectomy Attending Provider: Portillo Lowry Primary Care Provider: Jimena Cagle Instructions Print Language: Ethiopian Discharge Orders/Prescriptions Prescriptions: New docusate sodium [Colace] 100 mg capsule 100 mg PO BID Qty: 20 0RF oxycodone 5 mg tablet 5 mg PO Q6H PRN (Reason: pain) 7 Days Qty: 14 0RF Continued Centrum Complete 18-400 mg-mcg tablet 1 tab PO QDAY (DME) Blood Pressure Cuff Qty: 1 0RF Rx Instructions: As directed levothyroxine 112 MCG tablet 112 mcg PO DAILY Patient Comments: thyroid fluticasone furoate-vilanterol [Breo Ellipta] 200-25 mcg/dose blister with device 1 ea inhalation DAILY albuterol sulfate 90 mcg/actuation HFA aerosol inhaler 2 puff INHALATION 4X/DAY PRN (Reason: shortness of breath or wheezing) hydrochlorothiazide 25 mg tablet 25 mg PO DAILY Qty: 90 4RF metoprolol tartrate 50 mg tablet 50 mg PO BID Qty: 180 3RF losartan 50 mg tablet 50 mg PO BID Qty: 180 3RF Held Eliquis 5 mg tablet 5 mg PO BID Qty: 180 3RF Hold Instructions: Resume on 01/12/25. Referrals / Follow Up: Jimena Cagle MD [Primary Care Provider] - Portillo Lowry MD [Med Staff - Active Staff] - Disposition Disposition (needs filled in before D/C Order can be placed): Home, Self Care 12/29/24 1216 Portillo Lowry MD CC: Dr. Jimena Cagle MD Signed [facility] MR/POSTOP.ANEon 12-29-2024 MR/POSTOP.[facility] Medical Records Department [address] [facility] [place] [address] Anesthesia Postop Eval I 12/29/24 1521 MR#: [id number] Acct: [id number] Name: SWAPNA TEJADA Rep #: [id number] : 1955 69 From: Chuy Serrano CRNA PCP: Dr. Jimena Cagle MD Status:REG [facility] Race: C Location: [place] [address] Anesthesia: Postop Eval I Current Vital Signs Temperature: 98.1 F Pulse Rate: 99 Blood Pressure: 148/99 Respiratory Rate: 20 Pulse Ox: 95 Oxygen Delivery Method: Room Air Assessment Airway patent: Yes Spontaneous unlabored respirations: Yes Mental status: Awake and Calm nausea: No Vomiting: No Anesthesia Complication: No Fluid Hydration Crystalloid volume administer (ml): 2,300 Total IV fluid infused: 2,300 Progress Note Anesthesia document: Postop Eval 1 completed: Yes 12/29/24 152 Date [facility]err[facility] Date CC: Signed [facility] MR/[id number] 12-29-2024 MR/POSTOPAN2 [facility] Medical Records Department [address] [facility] [place] [address] Anesthesia Postop Eval II 12/29/24 1541 MR#: [id number] Acct: [id number] Name: IANBESWANPA Rep #: [id number] : 1955 69 From: Rigo Kendrick MD PCP: Dr. 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 Vomiting No 12/29/24 15:22 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 Anesthesia Postop Eval I: Fluid Summary Crystalloid volume administer 2,300 12/29/24 15:22 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 (ml) Colloids volume administered ( ml) Blood Product volume administered (ml) Total IV fluid infused 2,300 12/29/24 15:22 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 Anesthesia Postop Eval I: Summary Notes Anesthesia Complication No 12/29/24 15:22 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 Jimena Cagle MD Status:REG [facility] Location: AC21-1 Operative Report (Standard) Operative Information Date of Procedure: 12/29/24 Pre-Operative Diagnosis: Right renal mass Post-Operative Diagnosis: The same Surgery/Procedure Performed: Laparoscopic robotic assisted right partial nephrectomy sleeve turner: Yes Heel Shaper: Jolly Crouch Tasks completed by children's nursery assistant: Opening, Closing, Opening closing, Harvesting grafts, Dissecting tissue, Removing tissue, Implanting device, Altering tissue, Insert Trochanter, Hemostasis: Clamp, Hemostasis: Tie, Hemostasis: Electrocautery, Trocar, Retracting and Other Type of Anesthesia: General RN Documented Start/Stop Times: Operation Date: 12/29/24 11:30 Case Time Into Pre-Op 12/29/24 09:38 Out of Pre-Op 12/29/24 12:07 Anesthesia Start 12/29/24 12:12 Into Room 12/29/24 12:12 Procedure Start 12/29/24 12:40 Procedure Start Time: 12:40 Procedure Stop Time: 14:57 Select all DRAINS/GRAFTS/IMPLAN TS that apply: Drains Drain details: De La Rosa catheter Estimated Blood Loss: 500 cc Specimen collected: No Description of surgery: Patient was taken back to to the operating room after smooth induction of anesthesia he was placed lateral flank position the patient's De La Rosa catheter was placed the abdomen was prepped and draped in usual sterile fashion. Made a small incision in the abdomen been severest Veress needle into the abdomen insufflated the abdomen CO2 gas upon insufflation the patient had a episode of bradycardia this was controlled by anesthesia once this was controlled then we proceeded with surgery again placed [place] ports and then Robot and proceeded with a laparoscopic robotic surgery to remove the tumor from the lower pole of the right kidnEY, first I dissected the colon off the kidney and then I dissected towards the renal hilum the Cook the Dunmary anne duodenum was kocherized and reflected off the hilum I then identified the vena cava identified the gonadal that was that was going to the vena cava this was left in place and then identified the first renal vein then identified a second renal vein these both were left in place between the 2 renal veins then deep within the fat was the renal artery once this was identified it was clean enough for 2 bulldogs to go on it. We then used ultrasound to identify the kidney had a lot of adequate adipose tissue around the kidney I then dissected through the adipose tissue down to the parenchyma of the kidney and then used ultrasound identify the tumor that was about 4 cm in size in the lower pole of the right kidney that was going deep into the sinus of the kidney I then used ultrasound to vicente out the edges of the resection site where the tumor deep is going into the kidney once this is accomplished and we got ready the artery was clamped with 2 bulldogs and we proceeded with the resection using cold knife and minimal electrocautery the tumor was then resected off the lower pole of the kidney having a gross negative margin and the entire way once the tumor was resected completely then is placed in Endo Catch bag I then used STRATAFIX stitch to run the base of the resection site to control blood vessels we did an early unclamping and immediately there was recognition of a fairly sizable blood vessel that was bleeding in the hilum of the resection so I did use a second STRATAFIX stitch to to suture this once this was sutured closed and the bleeding stopped we then performed a renal artery to reapproximate the edges of the kidney using a CT1 needle and 0 Vicryl with continuous fashion using clips along the way to put pressure on the kidney and this allowed for hemostatic pressure on the resection site Floseal and Surgicel was then placed on top of the resection site we lowered the pressure down to 5 mmHg and there was no bleeding from the resection site we then undocked the robot extracted the tumor through the Cecilio through the 1012 port where the air seal port was being used with open up the air seal port and then we reclosed this incision with interrupted 0 Vicryl stitches. Then we look back inside the abdomen all suture sponges needles were removed at the end of the case and there was no sign of bleeding from the resection site took about 7 to 10 minutes to extract the tumor and during this time there was no significant amount of bleeding from the resection site in the lower pole of the right kidney appeared to be good hemostasis blood pressure was stable. This point we then are closing all the subcuticular stitches with 4-0 Monocryl the anesthetic is currently being reversed blood loss about 500 (more content not included)... Normal [facility] Surgery Specimen Level Von 0 12-29-2024 Surgery Specimen Level V ----- Patient Age/Sex Location Account Attending Physician TUCKERSWAPNA 69/M MS3 [id number] Dr. Portillo Lowry MD Specimen: [id number] Received: 12/30/24 Status: RADHA Cxogerri Num: [id number] Spec Type: KIDNEY Subm Dr: Dr. Portillo Lowry MD HEADER OPERATION: Laparoscopic robotic partial nephrectomy PRE-OP DIAGNOSIS: Right renal mass TISSUE SUBMITTED: A- Partial right kidney and contents MICROSCOPIC DIAGNOSIS A. RIGHT KIDNEY, PARTIAL NEPHRECTOMY: * Clear cell renal cell carcinoma, WHO / ISUP grade 2, 3.5 cm in greatest dimension (see Synoptic Report). * Tumor is confined within the renal capsule. * All surgical margins are negative for carcinoma. COMMENT SYNOPTIC REPORT FOR RENAL CARCINOMA OF THE KIDNEY: Nephrectomy type (p=partial, t=total):???P Laterality (r=right, l=left): R Focality (u=unifocal, m=multifocal):???U Tumor size (cm):???3.5 cm Histologic type:???clear cell renal cell carcinoma Tumor grade (1-4):???WHO / ISUP grade 2 % sarcomatoid:???0 % rhabdoid:???0 % coagulative necrosis:???15% Lymphovascular invasion (n=no, y=yes):???N ??? Tumor extent (n=no, y=yes, na=not applicable): NA ? Renal sinus fat invasion:? Perinephric fat invasion:? Pelvicalyceal invasion:? Renal vein/branch invasion:? Vena cava thrombus below diaphragm:? Vena cava thrombus above diaphragm:? Invasion of vena cava wall:? Direct invasion of adrenal gland:? Non-contiguous adrenal invasion:? Beyond Gerota's fascia/in non-adrenal organs:? Margins (n=negative, p=positive, na=not applicable):???N ? Location positive margin:???NA ??? Regional lymph nodes (na=not applicable): NA ? Number examined:???0 ? Number positive:???NA ??? Patient Age/Sex Location Account Attending Physician SWAPNA TEJADA 69/M MS3 [id number] Dr. Portillo Lowry MD Non-neoplastic kidney:??? Additional findings:???NONE pTNM:???pT1a pNX Comments: NONE ??? Pathologic Staging Definitions (pTNM): Primary Tumor (pT) pTX:? Primary tumor cannot be assessed pT0:? No evidence of primary tumor pT1a:? Tumor pT1b:? Tumor > 4 cm and pT2a:? Tumor > 7 cm and pT2b:? Tumor > 10 cm, limited to the kidney pT3a:? Tumor invades renal vein/branches, perirenal fat, renal sinus fat (adipose/soft tissue/small vessels) or pelvicalyceal system pT3b:? Tumor extends into vena cava below the diaphragm pT3c:? Tumor extends into vena cava above the diaphragm or invades vena cava wall pT4:? Tumor invades beyond Gerota's fascia including direct extension to adrenal gland ??? MICROSCOPIC DESCRIPTION Slides are reviewed. GROSS DESCRIPTION A. Received in formalin labeled, IanJuma amosw, and designated partial right kidney and contents, is a portion of kidney with attached perinephric adipose tissue that weighs 38 g and measures 6.6 x 4.2 x 3.3 cm. The capsular surface consists of yellow, lobular, unremarkable, adipose tissue that is inked blue. The parenchymal margin is red-brown slightly ragged focally slightly disrupted and inked black. Sectioning shows a mass that measures 3.5 x 2.6 x 1.9 cm. The mass is a yellow to red-brown, focally softened, and slightly friable. The mass grossly appears to be confined to the kidney by the outer renal capsule with no involvement of the perinephric adipose tissue. The edge of the mass is within 0.4 cm of the closest point of the adipose tissue margin surface. The mass is focally present at an open/previously disrupted area of the parenchymal margin however the mass extends to within 0.1 cm of the closest black inked, intact, surface of the margin. The remaining parenchyma is red-brown and unremarkable. Cad Draftsman sections are submitted as follows: Cassette Summary:A1-represent ative perpendicular sections of one end of the [id number] bisected cross-section showing mass with closest soft tissue margin and disrupted/open parenchyma [id number] bisected cross-section showing mass and disrupted/open parenchyma marginA6-representat derek section of m (more content not included)... Normal [facility] Comment on above: Performed By: #### P SUIV #### [facility] [address] [facility], [address] Electrocardiogram reportOrde red By: Rick Calhoun on 12-20-2024 EKG study [facility] Cardiovascular Services [address] [place] [address] 12 Lead EKG 12/16/24 1207 MR#: [id number] Acct: [id number] Name: ISISMURALISWAPNA Rep #:[id number] : 1955 69 From: Rick montalvo MD Attending Dr: Dr. Portillo Lowry MD Status: PRE SDC Ordering Dr: Rigo Kendrick MD Date: 12/04 12/28 Location: [facility] Sex: M C Admitted: Test Reason : PREOP Blood Pressure : */* mmHG Vent. Rate : 64 BPM Atrial Rate : 64 BPM P-R Int : 166 ms QRS Dur : 82 ms QT Int : 374 ms P-R-T Axes : 29 19 52 degrees QTcB Int : 385 ms Normal sinus rhythm Normal ECG Confirmed by LJ SNEED, SANJUANITA ([id number]), web editor JAXSON MESSER ([id number]) on12/20/2024 11:30:45 AM Referred By: Portillo Lowry Confirmed By: SANJUANITA CALHOUN MD 12/20/24 1130 Date _ Rick Calhoun MD CC: Dr. Jimena Cagle MD; Dr. Rigo Kendrick MD; Dr. Portillo Lowry MD ~ Signed [facility] Work Phone: 12 Lead EKGon 12-16-2024 12 Lead EKG [facility] Cardiovascular Services [address] [place] [address] 12 Lead EKG 12/16/24 1207 MR#: [id number] Acct: [id number] Name: SWAPNA TEJADA Rep #: [id number] : 1955 69 From: Rick Calhoun MD Attending Dr: Dr. Portillo Lowry MD Status: PRE SDC Ordering Dr: Rigo Kendrick MD Date: 12/16/24 Location: [facility] Sex: M C Admitted: Test Reason : PREOP Blood Pressure : */* mmHG Vent. Rate : 64 BPM Atrial Rate : 64 BPM P-R Int : 166 ms QRS Dur : 82 ms QT Int : 374 ms P-R-T Axes : 29 19 52 degrees QTcB Int : 385 ms Normal sinus rhythm Normal ECG Confirmed by LJ SNEED, SANJUANITA ([id number]), web editor JAXSON MESESR ([id number]) on 12/20/2024 11:30:45 AM Referred By: Portillo Lowry Confirmed By: SANJUANITA CALHOUN MD 12/20/24 1130 Date Rick Calhoun MD CC: Dr. Jimena Cagle MD; Dr. Rigo Kendrick MD; Dr. Portillo Lowry MD Signed Normal [facility] Basic Metabolic Profile (BMP )on 12-16-2024 BUN/CRE 16.8 RATIO Normal 10-20 [facility] Comment on above: Order Comment: SEND TSH AND CALCIUM TO [facility] Performed By: #### L 100.0500, L501.9520, L500.2500 #### [facility] [address] [place], [address] Calcium [Mass/Vol] 10.6 mg/dL Normal 7.6-11.0 [facility] Comment on above: Order Comment: SEND TSH AND CALCIUM TO [facility] Performed By: #### L 100.0500, L501.9520, L500.2500 #### [facility] [address] [place], [address] Chloride [Moles/Vol] 106 mmol/L Normal 98-108 [facility] Comment on above: Order Comment: SEND TSH AND CALCIUM TO [facility] Performed By: #### L 100.0500, L501.9520, L500.2500 #### [facility] [address] [place], [address] CO2 [Moles/Vol] 24.3 mmol/L Normal 21.0-32.0 [facility] Comment on above: Order Comment: SEND TSH AND CALCIUM TO [facility] Performed By: #### L 100.0500, L501.9520, L500.2500 #### [facility] [address] [place], [address] Creatinine [Mass/Vol] 1.11 mg/dL Normal 0.70-1.20 [facility] Comment on above: Order Comment: SEND TSH AND CALCIUM TO [facility] Performed By: #### L 100.0500, L501.9520, L500.2500 #### [facility] [address] [place], [address] GAP 10 Normal 5-15 [facility] Comment on above: Order Comment: SEND TSH AND CALCIUM TO [facility] Performed By: #### L 100.0500, L501.9520, L500.2500 #### [facility] [address] [place], [address] GFR/1.73 sq M.predicted among non-blacks MDRD (S/P/Bld) [Vol rate/Area] 72 mL/min/{1.73_m2} Normal >60 [facility] Comment on above: Order Comment: SEND TSH AND CALCIUM TO [facility] Result Comment: mL/m in/1.73m2 CKD-EPI Creatinine Equation (2020) Performed By: #### L 100.0500, L501.9520, L500.2500 #### [facility] [address] [place], [address] Glucose [Mass/Vol] 102 mg/dL High 70-99 [facility] Comment on above: Order Comment: [facility]END [facility] Performed By: #### L 100.0500, L501.9520, L500.2500 #### [facility] Laboratory [address] [place], [address] Potassium [Moles/Vol] 4.2 mmol/L Normal 3.3-5.1 [facility] Comment on above: Order Comment: SEND TSH AND CALCIUM TO [facility] Performed By: #### L 100.0500, L501.9520, L500.2500 #### [facility] Laboratory [address] [place], [address] Sodium [Moles/Vol] 140 mmol/L Normal 133-145 [facility] Comment on above: Order Comment: SEND TSH AND CALCIUM TO [facility] Performed By: #### L 100.0500, L501.9520, L500.2500 #### [facility] Laboratory [address] [place], [address] Urea nitrogen [Mass/Vol] 19 mg/dL Normal 4-19 [facility] Comment on above: Order Comment: SEND TSH AND CALCIUM TO [facility] Performed By: #### L 100.0500, L501.9520, L500.2500 #### [facility] Laboratory [address] [place], [address] CBC-Complete Blood Cnt No Di ffon 12-16-2024 Erythrocyte distribution width (RBC) [Ratio] 13.2 % Normal 11.6-14.6 [facility] Comment on above: Performed By: #### L 100.0500, L501.9520, L500.2500 #### [facility] Laboratory [address] [place], [address] Hematocrit (Bld) [Volume fraction] 41.5 % Normal 40-54 [facility] Comment on above: Performed By: #### L 100.0500, L501.9520, L500.2500 #### [facility] Laboratory [address] [place], [address] Hemoglobin (Bld) [Mass/Vol] 13.9 g/dL Normal 13.0-16.5 [facility] Comment on above: Performed By: #### L 100.0500, L501.9520, L500.2500 #### [facility] Laboratory [address] [place], [address] MCH (RBC) [Entitic mass] 29.4 pg Normal 27.0-32.0 [facility] Comment on above: Performed By: #### L 100.0500, L501.9520, L500.2500 #### [facility] Laboratory [address] [place], [address] MCHC (RBC) [Mass/Vol] 33.5 g/dL Normal 32-36 [facility] Comment on above: Performed By: #### L 100.0500, L501.9520, L500.2500 #### [facility] Laboratory [address] [place], [address] MCV (RBC) [Entitic vol] 87.9 fL Normal 80-94 [facility] Comment on above: Performed By: #### L 100.0500, L501.9520, L500.2500 #### [facility] Laboratory [address] [place], [address] Platelet mean volume (Bld) [Entitic vol] 9.3 fL Normal 6.2-12.0 [facility] Comment on above: Performed By: #### L 100.0500, L501.9520, L500.2500 #### [facility] Laboratory [address] [place], [address] Platelets (Bld) [#/Vol] 225 10*3/uL Normal 150-450 [facility] Comment on above: Performed By: #### L 100.0500, L501.9520, L500.2500 #### [facility] Laboratory [address] [place], [address] RBC (Bld) [#/Vol] 4.72 10*6/uL Normal 4.6-6.2 [facility] Comment on above: Performed By: #### L 100.0500, L501.9520, L500.2500 #### [facility] Laboratory [address] [place], [address] RDW SD 42.5 fl Normal 35.1-43.9 [facility] Comment on above: Performed By: #### L 100.0500, L501.9520, L500.2500 #### [facility] Laboratory [address] [place], [address] WBC (Bld) [#/Vol] 6.8 10*3/uL Normal 4.4-11.0 [facility] Comment on above: Performed By: #### L 100.0500, L501.9520, L500.2500 #### [facility] Laboratory [address] [place], [address] T4 Free Directon 12-16-2024 T4 FREE DIRECT 1.40 ng/dL Normal 0.76-1.46 [facility] Comment on above: Order Comment: Order Date: 06/16/24 Order Info: 3024-7 - T4F re check Performed By: #### L 506.0400 #### [facility] Laboratory [address] [place], [address] T4 freeOrdered By: Jimena Linares ff on 12-16-2024 Free T4 [Mass/Vol] 1.40 ng/dL 0.76-1.46 [facility] TSH DL <= 0.005 mIU/L QnOrde red By: Rigo Kendrick on 12-16-2024 Thyroid Stimulating Hormone (TSH) 1.500 uIU/mL 0.300-4.200 [facility] TSH Qn 1.500 uIU/mL 0.300-4.200 [facility] Thyroid Stim Hormone (TSH)on 12-16-2024 TSH 1.500 uIU/mL Normal 0.300-4.200 [facility] Comment on above: Order Comment: SEND TSH AND CALCIUM TO [facility] Performed By: #### L 100.0500, L501.9520, L500.2500 ####[facility] [address] [place], [address] Gastroenterology Visit Repor ton 12-02-2024 Gastroenterology Visit Report [facility] Gastroenterology [address] [place] [address] OFFICE VISIT Date of Service: 12/02/24 MR#: [id number] Acct: [id number] Name: SWAPNA TEJADA Rep #: [id number] : 1955 Provider: NATHALIE Arenas Age/Sex: 69/M Location: [email or web address] Status: Signed Intake Vital Signs 11/15/24 17:52 Height 5 ft 10.5 in Intake Visit Reasons: Diverticulitis Chief Complaint: Diverticulitis Accompanied by: Is patient in pain?: No Allergies lisinopril Adverse Reaction (Unknown, Verified 11/15/24 17:52) Dry Cough Have you fallen in the past year?: No Nurse's Note: OV 12.02.24 Pt here to establish care [facility]. Reports trouble swallowing. Reports a formed BM daily. Denies blood in stools, and n/v. Prior colonoscopy 5 years ago. [facility] Medical History (Updated 12/02/24 @ 16:54 by NATHALIE Arenas) Afib COVID-19 Palpitations Tachycardia Patent foramen ovale SOB (shortness of breath) Wide-complex tachycardia Paroxysmal atrial fibrillation Essential (primary) hypertension Nonischemic cardiomyopathy Valvular heart disease Nonrheumatic tricuspid (valve) insufficiency Nonrheumatic mitral (valve) insufficiency Hypothyroidism Surgical History Hx of cataract removal with insertion of prosthetic lens ( 06/2022) History of open reduction and internal fixation (ORIF) procedure History of vasectomy History of left knee surgery History of tonsillectomy Family History Father CAD (coronary artery disease) Mother Thyroid disorder Social History Smoking Status: Current some day smoker tobacco type: cigars per week: 2 alcohol intake: current alcohol intake frequency: a few times a week Alcohol type: beer, wine and hard liquor substance use type: does not use caffeine: Yes Type: carbonated beverages and coffee Number of servings: 4 what type of physical activity do you participate in: none seatbelt use: always do you feel safe at home: Yes HPI HPI Chief Complaint: Diverticulitis Details: SWAPNA TEJADA, is a 69 M who presents to the office today for ED f/u. [facility] ED 11.15.24 with abd pain in the LLQ for two weeks. Hx of diverticular disease. CT abd/pelvis with sigmoid diverticulitis and right kidney mass consistent with renal cell carcinoma. Started on Cipro/ Flagyl and [place] for pain Abdomen/Pelvis CT 11/15/24 19:27 IMPRESSION: 1. Moderate acute uncomplicated distal descending colonic diverticulitis. 2. Heterogeneously enhancing mass in the inferior pole of the right kidney concerning for renal cell carcinoma. OV 12.02.24 Pt abd pain has been improving. He now just has some dull achy pain. He finished his antibiotic and took 3 of the pain pills. He has struggled with some constipation and is taking miralax as needed. He did see the urologist and [facility]. ROS Const Constitutional: Positive for fatigue; No fever(s) or weight change Eyes Eyes: No change in vision ENT ENT: No abnormal hearing, difficulty swallowing, mouth lesions, tongue swelling or throat swelling Resp Respiratory: No cough or shortness of breath Cardio Cardiology: No chest pain at rest, chest pain with exertion, shortness of breath or dyspnea on exertion Gastro GI: Positive for abdominal pain and change in bowel habits; No belching, bloating, change in stool character, coffee ground emesis, constipation, cramping, diarrhea, heartburn, difficulty swallowing, feeling full early, excessive flatus, incontinent of stools, Vomiting blood/hematemesis, Blood in stool, loose stools, Black,tarry stools, nausea/dyspepsia, pain with swallowing, vomiting or other Genitourinary Male: No difficulty urinating or burning urination Musc Musculoskeletal: Positive for joint pain, back pain, muscle cramps, muscle weakness, numbness, stiffness, tingling and Arthritis Skin Skin: No hair loss in leg, yellowing of the eye, itchy eyes, rash, skin ulcer or skin swelling Neuro Neurology: Positive for numbness and tingling; No abnormal hearing, abnormal movements, confusion, unsteady gait/balance or memory loss Psych Psychiatric: No anxiety, No confusion, No depression and No memory loss Endo Endocrine: Positive for fatigue; No weight change Aller/Imm Allergy/Immunologic: No itchy eyes, throat swelling or tongue swelling Janak/Lymp Hematologic/Lymphati c: No easy bleeding, easy bruising or enlarged lymph nodes Exam Const General: cooperative and comfortable Nutritional Appearance: average body habitus and well nourished [facility] Head: normal to inspection Ears: hearing grossly normal bilaterally Nose: external nose normal Face and sinus: normal facial exam Eyes Gene (more content not included)... Normal [facility] Abdomen/Pelvis W IV Cont ONL Yon 11-15-2024 Abdomen/Pelvis W IV Cont ONLY [facility] Imaging Services [address] [place], [place] [address] Abdomen/Pelvis W IV Cont ONLY MR#: [id number] Acct: [id number] Name: SWAPNA TEJADA Rep #: [id number] : 1955 M 69 From: Brian Gilliland PCP: Dr. Jimena Cagle MD Status: REG ER Study: Abdomen/Pelvis W IV Cont ONLY Date of Exam: Exam# [id number] Ordering Dr: Hilaria Jacobo DO PROCEDURE: CT abdomen pelvis with IV contrast REASON FOR EXAM: Left lower quadrant pain TECHNIQUE: Multiple contiguous axial images through the abdomen and pelvis were obtained after the administration of intravenous contrast. Two-dimensional coronal and sagittal reformatted images were reconstructed. Low-dose imaging technique was utilized. COMPARISON: None. FINDINGS: Lung bases are clear. Liver, spleen, pancreas and adrenal glands are intact. Gallbladder is satisfactory. No significant biliary ductal dilation. Kidneys enhance symmetrically. Heterogeneous enhancing mass in the inferior pole of the right kidney measuring 3.5 x 3.4 x 2.1 cm (AP, TV and CC dimensions). Small peripelvic cyst. No renal calculi or hydronephrosis. Urinary bladder is intact. Mildly enlarged prostate. Moderate focal inflammatory changes at the distal descending colon surrounding multiple prominent diverticula consistent with acute diverticulitis. No pericolonic abscess or free air. No bowel obstruction. Normal appendix. No pelvic free fluid. No free air. Calcified nonaneurysmal abdominal aorta. No suspicious adenopathy. Small fat containing inguinal hernias. No acute osseous abnormality. CT/Abdomen/Pelvis W IV Cont ONLY IMPRESSION: 1. Moderate acute uncomplicated distal descending colonic diverticulitis. 2. Heterogeneously enhancing mass in the inferior pole of the right kidney concerning for renal cell carcinoma. One or more dose reduction techniques were used (e.g., Automated exposure control, adjustment of the mA and/or kV according to patient size, use of iterative reconstruction technique). Reading Location: [facility] CC: Dr. Jimena Cagle MD; Dr. Hilaria Jacobo, Saxophone Assembler: Signed Normal [facility] Absolute lymphocyte countOrd ered By: ED PROVIDER on 11-15-2024 Lymphocytes Auto (Unsp spec) [#/Vol] 1.42 10*3/uL 0.83-4.51 [facility] Absolute neutrophil countOrd ered By: ED PROVIDER on 11-15-2024 Neutrophils (Bld) [#/Vol] 7.4 10*3/uL 2.0-7.7 [facility] Albumin to globulin ratioOrd ered By: ED PROVIDER on 11-15-2024 Albumin/Globulin [Mass ratio] 0.9 {ratio} 0.9-2.4 [facility] Automated lymphocyte count a s percentage of total leukocytesOrdered By: ED PROVIDER on 11-15-2024 Lymphocytes/100 WBC Auto (Unsp spec) 14.2 % Low 19-41 [facility] Basophil percentageOrdered B y: ED PROVIDER on 11-15-2024 Basophils/100 WBC (Bld) 0.3 % 0-1 [facility] Bilirubin Test strip Ql (U)O rdered By: Hilaria Jacobo on 11-15-2024 Bilirubin Ql (U) Negative Negative [facility] Bilirubin, totalOrdered By: ED PROVIDER on 11-15-2024 Bilirubin [Mass/Vol] 0.90 mg/dL 0.20-1.00 [facility] Comment on above: For patients on eltr ombopag therapy, use of [employer] TBIL is not recommended. Blood urea nitrogen (BUN)/cr eatinine ratioOrdered By: ED PROVIDER on 11-15-2024 Urea nitrogen/Creatinine [Mass ratio] 14.2 mg/mg 10- [facility] CBC W/Diff, Automatedon 11-06 Absolute Lymph 1.42 X10 3/uL Normal 0.83-4.51 [facility] Comment on above: Performed By: #### P SUIV #### [facility] Laboratory [address] [place], [address] Absolute Neut 7.4 X10 3/uL Normal 2.0-7.7 [facility] Comment on above: Performed By: #### P SUIV #### [facility] Laboratory [address] [place], [address] Basophils/100 WBC (Bld) 0.3 % Normal 0-1 [facility] Comment on above: Performed By: #### P SUIV #### [facility] Laboratory [address] [place], [address] Eosinophils/100 WBC (Bld) 1.9 % Normal 0-5 [facility] Comment on above: Performed By: #### P SUIV #### [facility] Laboratory [address] [place], [address] Erythrocyte distribution width (RBC) [Ratio] 13.2 % Normal 11.6-14.6 [facility] Comment on above: Performed By: #### P SUIV #### [facility] Laboratory [address] [place], [address] Hematocrit (Bld) [Volume fraction] 45.1 % Normal 40-54 [facility] Comment on above: Performed By: #### P SUIV #### [facility] Laboratory [address] [place], [address] Hemoglobin (Bld) [Mass/Vol] 14.8 g/dL Normal 13.0-16.5 [facility] Comment on above: Performed By: #### P SUIV #### [facility] Laboratory [address] [place], [address] IG% 0.300 Normal 0.0-0.9 [facility] Comment on above: Result Comment: IG% - Immature Granulocytes (promyelocytes, myelocytes and metamyelocytes) > 1% indicates that a LEFT SHIFT is Present. Performed By: #### P SUIV #### [facility] Laboratory [address] [place], [address] Lymphocytes/100 WBC (Bld) 14.2 % Low 19-41 [facility] Comment on above: Performed By: #### P SUIV #### [facility] Laboratory [address] [place], [address] MCH (RBC) [Entitic mass] 28.8 pg Normal 27.0-32.0 [facility] Comment on above: Performed By: #### P SUIV #### [facility] Laboratory [address] [place], [address] MCHC (RBC) [Mass/Vol] 32.8 g/dL Normal 32-36 [facility] Comment on above: Performed By: #### P SUIV #### [facility] Laboratory [address] [place], [address] MCV (RBC) [Entitic vol] 87.7 fL Normal 80-94 [facility] Comment on above: Performed By: #### P SUIV #### [facility] Laboratory [address] [place], [address] Monocytes/100 WBC (Bld) 10.0 % Normal 0-10 [facility] Comment on above: Performed By: #### P SUIV #### [facility] Laboratory [address] [place], [address] Neutrophils/100 WBC (Bld) 73.3 % High 47-70 [facility] Comment on above: Performed By: #### P SUIV #### [facility] Laboratory [address] [place], [address] Nucleated RBC (Bld) [#/Vol] 0 10*3/uL Normal 0-5 [facility] Comment on above: Performed By: #### P SUIV #### [facility] Laboratory [address] [place], [address] Platelet mean volume (Bld) [Entitic vol] 9.4 fL Normal 6.2-12.0 [facility] Comment on above: Performed By: #### P SUIV #### [facility] Laboratory [address] [place], [address] Platelets (Bld) [#/Vol] 248 10*3/uL Normal 150-450 [facility] Comment on above: Performed By: #### P SUIV #### [facility] Laboratory [address] [place], [address] RBC (Bld) [#/Vol] 5.14 10*6/uL Normal 4.6-6.2 [facility] Comment on above: Performed By: #### P SUIV #### [facility] Laboratory [address] [place], [address] RDW SD 42.1 fl Normal 35.1-43.9 [facility] Comment on above: Performed By: #### P SUIV #### [facility] Laboratory [address] [place], [address] WBC (Bld) [#/Vol] 10.0 10*3/uL Normal 4.4-11.0 [facility] Comment on above: Performed By: #### P SUIV #### [facility] Laboratory [address] [place], [address] Carbon dioxide measurementOr dered By: ED PROVIDER on 11-15-2024 CO2 [Moles/Vol] 27.0 mmol/L 21.0-32.0 [facility] Chloride measurementOrdered By: ED PROVIDER on 11-15-2024 Chloride [Moles/Vol] 103 mmol/L 98-107 [facility] Comprehensive Metabolic Prof ilon 11-15-2024 Albumin [Mass/Vol] 3.7 g/dL Normal 3.2-5.0 [facility] Comment on above: Performed By: #### P SUIV #### [facility] Laboratory [address] [place], [address] Albumin/Globulin [Mass ratio] 0.9 {ratio} Normal 0.9-2.4 [facility] Comment on above: Performed By: #### P SUIV #### [facility] Laboratory [address] [place], [address] ALK P 81 U/L Normal 45-117 [facility] Comment on above: Performed By: #### P SUIV #### [facility] Laboratory [address] [place], [address] ALT [Catalytic activity/Vol] 24 U/L Normal 16-61 [facility] Comment on above: Performed By: #### P SUIV #### [facility] Laboratory [address] [place], [address] AST [Catalytic activity/Vol] 34 U/L Normal 15-37 [facility] Comment on above: Result Comment: Mode rate Hemolysis, Result may be falsely increased. Performed By: #### P SUIV #### [facility] Laboratory [address] [place], [address] Bilirubin [Mass/Vol] 0.90 mg/dL Normal 0.20-1.00 [facility] Comment on above: Result Comment: For patients on eltrombopag therapy, use of [employer] TBIL is not recommended. Performed By: #### P SUIV #### [facility] Laboratory [address] [place], [address] BUN/CRE 14.2 RATIO Normal 10-20 [facility] Comment on above: Performed By: #### P SUIV #### [facility] Laboratory [address] [place], [address] CA,Total 10.4 mg/dL High 8.5-10.1 [facility] Comment on above: Performed By: #### P SUIV #### [facility] Laboratory [address] [place], [address] Chloride [Moles/Vol] 103 mmol/L Normal 98-107 [facility] Comment on above: Performed By: #### P SUIV #### [facility] Laboratory [address] [place], [address] CO2 [Moles/Vol] 27.0 mmol/L Normal 21.0-32.0 [facility] Comment on above: Performed By: #### P SUIV #### [facility] Laboratory [address] [place], [address] Creatinine [Mass/Vol] 1.20 mg/dL Normal 0.70-1.30 [facility] Comment on above: Result Comment: The validity of the calculated GFR GFRAA in patients over 70 years has not been determined. Clinical correlation is essential. Performed By: #### P SUIV #### [facility] Laboratory [address] [place], [address] ECRCL 76.44 ml/min Normal [facility] Comment on above: Performed By: #### P SUIV #### [facility] Laboratory [address] [place], [address] EST GFR - AA 77 mL/min Normal >60 [facility] Comment on above: Result Comment: Afri can Lebanese GFR Calc Performed By: #### P SUIV #### [facility] Laboratory [address] [place], [address] GAP 5 Normal 5-15 [facility] Comment on above: Performed By: #### P SUIV #### [facility] Laboratory [address] [place], [address] GFR/1.73 sq M.predicted among non-blacks MDRD (S/P/Bld) [Vol rate/Area] 64 mL/min/{1.73_m2} Normal >60 [facility] Comment on above: Result Comment: Non- GFR Calc Performed By: #### P SUIV #### [facility] Laboratory [address] [place], [address] Globulin (S) [Mass/Vol] 4.2 g/dL Normal 2.2-4.2 [facility] Comment on above: Performed By: #### P SUIV #### [facility] Laboratory [address] [place], [address] Glucose [Mass/Vol] 98 mg/dL Normal 74-106 [facility] Comment on above: Performed By: #### P SUIV #### [facility] Laboratory [address] [place], [address] Potassium [Moles/Vol] 5.2 mmol/L High 3.5-5.1 [facility] Comment on above: Result Comment: Mode rate Hemolysis, Result may be falsely increased. Performed By: #### P SUIV #### [facility] Laboratory [address] [place], [address] Sodium [Moles/Vol] 135 mmol/L Low 136-145 [facility] Comment on above: Performed By: #### P SUIV #### [facility] Laboratory [address] [place], [address] T PROT 7.9 g/dL Normal 6.4-8.2 [facility] Comment on above: Performed By: #### P SUIV #### [facility] Laboratory [address] [place], [address] Urea nitrogen [Mass/Vol] 17 mg/dL Normal 7-18 [facility] Comment on above: Performed By: #### P SUIV #### [facility] Laboratory [address] [place], [address] Emergency Department Summary on 11-15-2024 Emergency Department Summary [facility] Medical Records Department [address] [place] [address] Emergency Department Summary 11/15/24 MR#: [id number] Acct: [id number] Name: SWAPNA TEJADA Rep #: [id number] : 1955 69 From: Hilaria Jacobo DO PCP: Dr. Jimena Cagle MD Status:DEP ER Location: ED HPI HPI - GI History of Present Illness Chief Complaint: Abd Pain Detail of Chief Complaint: Abdominal pain Informant: patient Narrative Narrative: Patient presents to the emergency room with complaint of abdominal pain that started 2 weeks ago to the left lower quadrant. Patient also tells me that 7 or 8 months ago he sneezed really hard and felt a strain in his left lower abdomen and the pain never really completely resolved. He denies any masses or anything protruding from his abdomen. Denies urinary symptoms other than frequency but he does take a water pill. Patient was seen by his primary care physician and referred to the ER. He denies fevers. He has had no vomiting. He states 3 weeks ago he had small amount of blood when he wiped on the toilet paper when he was having bowel movements but he thought maybe it was hemorrhoids and it resolved soon after. His last colonoscopy was about 4 years ago. He himself is never had diverticulitis but on colonoscopy had evidence of diverticular disease. Patient states pain is worse with moving. [facility] Medical History (Updated 11/15/24 @ 21:[address] Hilaria Jacobo DO) Afib COVID-19 Palpitations Tachycardia Patent foramen ovale SOB (shortness of breath) Wide-complex tachycardia Paroxysmal atrial fibrillation Essential (primary) hypertension Nonischemic cardiomyopathy Valvular heart disease Nonrheumatic tricuspid (valve) insufficiency Nonrheumatic mitral (valve) insufficiency Hypothyroidism Home Medications ???Medication ???Instructions ???Recorded ???Last Taken ???Type levothyroxine 112 mcg tablet 112 mcg PO DAILY 06/10/17 07/29/17 History Blood Pressure Cuff #1 ea 08/23/19 Unknown Rx multivitamin-ferrous 1 tab PO QDAY PRN 08/22/23 Unknown History fumarate-folic acid 18 mg-400 mcg tablet (Centrum Complete) hydrochlorothiazide 25 mg tablet 25 mg PO DAILY #90 tabs 01/30/24 U nknown Rx metoprolol tartrate 50 mg tablet 50 mg PO BID #180 TABLETS 08/16/24 Unknown Rx losartan 50 mg tablet 50 mg PO BID #180 tabs 08/18/24 Un known Rx apixaban 5 mg tablet (Eliquis) 5 mg PO BID #180 tabs 11/02/24 Unk nown Rx budesonide 160 mcg-glycopyr 9 2 inh inhalation ONCE 11/02/24 Unk nown History mcg-formot 4.8 mcg/actuation HFA inhaler (Breztri Aerosphere) aspirin 81 mg capsule 81 mg PO DAILY 11/15/24 Unknown Hi story ciprofloxacin HCl 500 mg tablet 500 mg PO BID #20 TABLETS 11/15/24 Unknown Rx hydrocodone-acetamin ophen 5-325mg 1 tab PO Q4H PRN PRN Pain 2 days 11/15/24 Unknown Rx 5mg-325mg #15 TABLETS metronidazole 500 mg tablet 500 mg PO TID #30 tabs 11/15/24 Un known Rx Allergy/AdvReac Type Severity Reaction Status Date / Time lisinopril AdvReac Unknown Dry Cough Verified 11/15/24 17:52 Family History Father CAD (coronary artery disease) Mother Thyroid disorder Surgical History Hx of cataract removal with insertion of prosthetic lens ( 06/2022) History of open reduction and internal fixation (ORIF) procedure History of vasectomy History of left knee surgery History of tonsillectomy Social History Smoking Status: Current some day smoker tobacco type: cigars per week: 2 alcohol intake: current alcohol intake frequency: a few times a week Alcohol type: beer, wine and hard liquor substance use type: does not use caffeine: Yes Type: carbonated beverages and coffee Number of servings: 4 what type of physical activity do you participate in: none seatbelt use: always do you feel safe at home: Yes ROS ROS ED Review of Systems ROS Unobtainable: other Constitutional Constitutional ED: Reports lethargy; Denies chills, fever(s), sweats or weight loss Eyes Eyes: Denies blurry vision, change in vision or diplopia ENT ENT ED: Denies rhinorrhea or sore throat Cardiovascular Cardiovascular: Denies chest pain, orthopnea or racing heartbeat Respiratory/Chest Respiratory/Chest: Denies cough, dyspnea, dyspnea on exertion, orthopnea or sputum Gastrointestinal Gastrointestinal: Reports abdominal pain; Denies diarrhea, nausea or vomiting Genitourinary Genitourinary ED: Denies dysuria, hematuria or urinary frequency Musculoskeletal Musculoskeletal: Denies arthralgias, back pain, myalgias or neck pain Integumentary Denies abscess, Abrasions or rash Neurologic Neurologic: Denies headache(s) or weakness Psychiatric Psychiatric: Denies anxiet (more content not included)... Normal [facility] Eosinophil percentageOrdered By: ED PROVIDER on 11-15-2024 Eosinophils/100 WBC (Bld) 1.9 % 0-5 [facility] Epithelial cells.squamous LM Ql (Urine sed)Ordered By: Hilaria Jacobo on 11-15-2024 Epithelial cells.squamous LM.HPF (Urine sed) [#/Area] 0 /[HPF] 0-5 [facility] Erythrocyte distribution wid th ratioOrdered By: ED PROVIDER on 11-15-2024 Erythrocyte distribution width (RBC) [Ratio] 13.2 % 11.6-14.6 [facility] Erythrocyte distribution wid th standard deviationOrdered By: ED PROVIDER on 11-15-2024 Erythrocyte distribution width (RBC) [Entitic vol] 42.1 fL 35.1-43.9 [facility] Erythrocyte distribution width (RBC) [Ratio] 42.1 fl 35.1-43.9 [facility] Estimated glomerular filtrat ion rate (GFR) AmericanOrdered By: ED PROVIDER on 11-15-2024 Estimated GFR (MDRD) Amer 77 mL/min >60 [facility] Comment on above: GFR Calc Estimation of creatinine otto aranceOrdered By: ED PROVIDER on 11-15-2024 Estimated Creatinine Clearance Calc 76.44 ml/min [facility] Glomerular filtration rate ( GFR) estimationOrdered By: ED PROVIDER on 11-15-2024 Estimated GFR (MDRD) Non-Af Amer 64 mL/min >60 [facility] Comment on above: Non- GFR Calc GFR/1.73 sq M.predicted among non-blacks MDRD (S/P/Bld) [Vol rate/Area] 64 mL/min/{1.73_m2} >60 [facility] Comment on above: Non- GFR Calc Glucose Ql (U)Ordered By: Brooke Jacobo on 11-15-2024 Urine Glucose (UA) Normal mg/dl Normal [facility] Glucose measurementOrdered B y: ED PROVIDER on 11-15-2024 Glucose [Mass/Vol] 98 mg/dL 74-106 [facility] Hematocrit Auto (Bld) [Volum e fraction]Ordered By: ED PROVIDER on 11-15-2024 Hematocrit (Bld) [Volume fraction] 45.1 % 40-54 [facility] Hemoglobin measurementOrdere d By: ED PROVIDER on 11-15-2024 Hemoglobin (Bld) [Mass/Vol] 14.8 g/dL 13.0-16.5 [facility] Immature granulocytes/100 WB C Auto (Bld)Ordered By: ED PROVIDER on 11-15-2024 Immature granulocytes/100 WBC (Bld) 0.300 % 0.0-0.9 [facility] Comment on above: IG% - Immature Granu locytes (promyelocytes, myelocytes and metamyelocytes) > 1% indicates that a LEFT SHIFT is Present. Ketones Test strip Ql (U)Ord ered By: Hilaria Jacobo on 11-15-2024 Ketones Ql (U) Negative Negative [facility] Laboratory - Chemistry and C hemistry - challengeOrdered By: ED PROVIDER on 11-15-2024 AST [Catalytic activity/Vol] 34 U/L 15-37 [facility] Comment on above: Moderate Hemolysis, Result may be falsely increased. Lymphocytes Auto (Unsp spec) [#/Vol]Ordered By: ED PROVIDER on 11-15-2024 Lymphocytes (Bld) [#/Vol] 1.42 10*3/uL 0.83-4.51 [facility] Lymphocytes/100 WBC Auto (Un sp spec)Ordered By: ED PROVIDER on 11-15-2024 Lymphocytes/100 WBC (Bld) 14.2 % Low 19-41 [facility] MCV (mean corpuscular volume ) determinationOrdered By: ED PROVIDER on 11-15-2024 MCV (RBC) [Entitic vol] 87.7 fL 80-94 [facility] Mean corpuscular hemoglobin (MCH) determinationOrdered By: ED PROVIDER on 11-15-2024 MCH (RBC) [Entitic mass] 28.8 pg 27.0-32.0 [facility] Mean corpuscular hemoglobin concentration (MCHC) determinationOrdered By: ED PROVIDER on 11-15-2024 MCHC (RBC) [Mass/Vol] 32.8 g/dL 32-36 [facility] Mean platelet volume determi nationOrdered By: ED PROVIDER on 11-15-2024 Platelet mean volume (Bld) [Entitic vol] 9.4 fL 6.2-12.0 [facility] Microscopic analysis of urin e for red blood cells (RBC)Ordered By: Hilaria Jacobo on 11-15-2024 Microscopic analysis of urine for red blood cells (RBC) 0 SEEN /hpf 0-5 [facility] Urine RBC 0 SEEN /hpf 0-5 [facility] Monocyte percentageOrdered B y: ED PROVIDER on 11-15-2024 Monocytes/100 WBC (Bld) 10.0 % 0-10 [facility] Mucus LM Ql (Urine sed)Order ed By: Hilaria Jacobo on 11-15-2024 Mucus Ql (Urine sed) 0 SEEN /hpf [facility] Neutrophil percentageOrdered By: ED PROVIDER on 11-15-2024 Neutrophils/100 WBC (Bld) 73.3 % High 47-70 [facility] Nitrite Test strip Ql (U)Ord ered By: Hilaria Jacobo on 11-15-2024 Nitrite Ql (U) Negative Negative [facility] Nucleated red blood cell per centageOrdered By: ED PROVIDER on 11-15-2024 Nucleated RBC/100 WBC (Bld) [Ratio] 0 % 0-5 [facility] Platelet countOrdered By: ED PROVIDER on 11-15-2024 Platelets (Bld) [#/Vol] 248 10*3/uL 150-450 [facility] Potassium measurementOrdered By: ED PROVIDER on 11-15-2024 Potassium [Moles/Vol] 5.2 mmol/L High 3.5-5.1 [facility] Comment on above: Moderate Hemolysis, Result may be falsely increased. Protein Test strip Ql (U)Ord ered By: Hilaria Jacobo on 11-15-2024 Protein Ql (U) 30 mg/dl High Negative [facility] RBC Auto (Bld) [#/Vol]Ordere d By: ED PROVIDER on 11-15-2024 RBC (Bld) [#/Vol] 5.14 10*6/uL 4.6-6.2 [facility] Serum anion gap measurementO rdered By: ED PROVIDER on 11-15-2024 Anion gap [Moles/Vol] 5 mmol/L 5-15 [facility] Serum globulin measurementOr dered By: ED PROVIDER on 11-15-2024 Globulin (S) [Mass/Vol] 4.2 g/dL 2.2-4.2 [facility] Serum or plasma alanine rojas otransferase (ALT) measurementOrdered By: ED PROVIDER on 11-15-2024 ALT [Catalytic activity/Vol] 24 U/L 16-61 [facility] Serum or plasma albumin ralf urement (mass/volume)Ordered By: ED PROVIDER on 11-15-2024 Albumin [Mass/Vol] 3.7 g/dL 3.2-5.0 [facility] Serum or plasma alkaline yeison sphatase measurementOrdered By: ED PROVIDER on 11-15-2024 ALP [Catalytic activity/Vol] 81 U/L 45-117 [facility] Serum or plasma calcium ralf urement (mass/volume)Ordered By: ED PROVIDER on 11-15-2024 Calcium [Mass/Vol] 10.4 mg/dL High 8.5-10.1 [facility] Serum or plasma creatinine m easurement (mass/volume)Ordered By: ED PROVIDER on 11-15-2024 Creatinine [Mass/Vol] 1.20 mg/dL 0.70-1.30 [facility] Comment on above: The validity of the calculated GFR & GFRAA in patients over 70 years has not been determined. Clinical correlation is essential. Serum or plasma urea nitroge n measurement (mass/volume)Ordered By: ED PROVIDER on 11-15-2024 Urea nitrogen [Mass/Vol] 17 mg/dL 7-18 [facility] Sodium levelOrdered By: ED Alexander DONATO on 11-15-2024 Sodium [Moles/Vol] 135 mmol/L Low 136-145 [facility] Squamous epithelial cells de tection in urine sediment by light microscopyOrdered By: Hilaria Jacobo on 11-15-2024 Epithelial cells.squamous LM Ql (Urine sed) 0 SEEN /hpf 0-5 [facility] Total proteinOrdered By: ED PROVIDER on 11-15-2024 Protein [Mass/Vol] 7.9 g/dL 6.4-8.2 [facility] Urinalysis, Completeon 11-15 RBC 0 SEEN Normal 0-5 [facility] Comment on above: Order Comment: KENYATTA CTOR TO SPECIFY Performed By: #### L [id number] ####[facility] [address] [place], [address] BACTERIA 0 SEEN Normal None Seen [facility] Comment on above: Order Comment: KENYATTA CTOR TO SPECIFY Performed By: #### L [id number] ####[facility] [address] [place], [address] EPI,SQUAMOUS 0 SEEN Normal 0-5 [facility] Comment on above: Order Comment: KENYATTA CTOR TO SPECIFY Performed By: #### L [id number] ####[facility] [address] [place], [address] Mucus Ql (Urine sed) 0 SEEN Normal [facility] Comment on above: Order Comment: KENYATTA CTOR TO SPECIFY Performed By: #### L [id number] ####[facility] [address] [place], [address] WBC 0 SEEN Normal [address] [place] [address] Comment on above: Order Comment: KENYATTA CTOR TO SPECIFY Performed By: #### L [id number] ####[facility] [address] [place], [address] Urine blood detectionOrdered By: Remus Ungur on 11-15-2024 Urine Occult Blood 25 /ul High Negative [facility] Urine clarityOrdered By: Rem us Ungur on 11-15-2024 Clarity (U) Clear Clear [facility] Urine color determinationOrd ered By: Remus Ungur on 11-15-2024 Color (U) Yellow Yellow [facility] Urine glucose detectionOrder ed By: Remus Ungur on 11-15-2024 Glucose Ql (U) Normal mg/dl Normal [facility] Urine leukocyte esterase det ection by dipstickOrdered By: Hilaria Jacobo on 11-15-2024 Leukocyte esterase Test strip Ql (U) Negative Negative [facility] Urine pHOrdered By: Hilaria Un gur on 11-15-2024 pH (U) 5.0 [pH] 5.0 - 8.0 [facility] Urine sediment bacteria coun t by microscopy (number/high power field)Ordered By: Hilaria Jacobo on 11-15-2024 Bacteria LM.HPF (Urine sed) [#/Area] 0 /[HPF] None Seen [facility] Urine specific gravity measu rementOrdered By: Hilaria Jacobo on 11-15-2024 Specific gravity (U) [Rel density] 1.010 1.002-1.030 [facility] Urine urobilinogen measureme ntOrdered By: Remus Jacobo on 11-15-2024 Urobilinogen Ql (U) Normal mg/dl Normal [facility] Urobilinogen Ql (U)Ordered B y: Remus Odalis on 11-15-2024 Urine Urobilinogen Normal mg/dl Normal [facility] White blood cell (WBC) count Ordered By: ED PROVIDER on 11-15-2024 WBC (Bld) [#/Vol] 10.0 10*3/uL 4.4-11.0 [facility] White blood cell countOrdere d By: Karinaus Odalis on 11-15-2024 Urine WBC 0 SEEN /hpf 0-5 [facility] White blood cell count 0 SEEN /hpf 0-5 [facility] Cardiology Visit Reporton Cardiology Visit Report [facility] [place] [address] OFFICE VISIT Date of Service: 11/02/24 MR#: [id number] Acct: [id number] Name: SWAPNA TEJADA Rep #: [id number] : 1955 Provider: Dr. Neville Scherer MD Age/Sex: 69/M Location: [facility] Status: Signed HPI HPI History of Present Illness Details: This is a 69-year-old white male who presents today for outpatient cardiovascular follow-up of a history of a non-CAD related cardiomyopathy, an episode of atrial fibrillation status post synchronized DC biphasic energy over 5 years ago. He also has mild obstructive sleep apnea. CPAP was recommended but he has not been using it faithfully. He has been on anticoagulation and has not had any episodes of atrial fibrillation since his last ejection fraction from 2020 was 55%. He denies chest, arm, jaw, or neck discomfort. He denies palpitations. He denies bilateral lower extremity edema. He denies claudication. He continues with shortness of breath with activity such as going up stairs. This is improved since last visit. He denies shortness of breath at rest, orthopnea, or PND. He denies chronic cough. He denies significant, sudden weight gain. He is acknowledges lightheadedness when coughing. He acknowledges occasional near-syncope. He denies dizziness or syncope. He denies blood in urine, blood in stool, or epistaxis. He denies fever with chills. He denies myalgia. He continues with fatigue. His exercise level has remained stable. Intake Vital Signs 08/22/23 08:38 11/02/24 15:36 Height 5 ft 11 in 5 ft 11 in Weight: 274 lb BMI 38.2 BP 136/82 H Blood Pressure Location Lt brachial Position Sitting Respiration 16 Pulse 61 Pulse Source Monitor Intake Visit Reasons: 1 Y FU/PREV PFM [employer] T[employer] Required: No Accompanied by: Significant Other Is patient in pain?: No Allergies lisinopril Adverse Reaction (Unknown, Verified 11/02/24 15:39) Dry Cough Medications ???Medication ???Instructions ???Recorded ???Confirmed ???Type levothyroxine 112 mcg tablet 112 mcg PO DAILY 06/10/17 11/02/24 History Blood Pressure Cuff #1 ea 08/23/19 02/18/23 Rx multivitamin-ferrous 1 tab PO QDAY PRN 08/22/23 11/02/24 History fumarate-folic acid 18 mg-400 mcg tablet (Centrum Complete) hydrochlorothiazide 25 mg tablet 25 mg PO DAILY #90 tabs 01/30/24 11/02/24 Rx metoprolol tartrate 50 mg tablet 50 mg PO BID #180 TABLETS 08/16/24 11/02/24 Rx losartan 50 mg tablet 50 mg PO BID #180 tabs 08/18/24 11/02/24 Rx apixaban 5 mg tablet (Eliquis) 5 mg PO BID #180 tabs 11/02/24 11/02/24 Rx budesonide 160 mcg-glycopyr 9 2 inh inhalation ONCE 11/02/24 11/02/24 History mcg-formot 4.8 mcg/actuation HFA inhaler (Breztri [employer]) Have you fallen in the past year?: No PFSH Medical History COVID-19 Palpitations Tachycardia Patent foramen ovale SOB (shortness of breath) Wide-complex tachycardia Paroxysmal atrial fibrillation Essential (primary) hypertension Nonischemic cardiomyopathy Valvular heart disease Nonrheumatic tricuspid (valve) insufficiency Nonrheumatic mitral (valve) insufficiency Hypothyroidism Surgical History Hx of cataract removal with insertion of prosthetic lens ( 06/2022) History of open reduction and internal fixation (ORIF) procedure History of vasectomy History of left knee surgery History of tonsillectomy Family History Father CAD (coronary artery disease) Mother Thyroid disorder Social History Smoking Status: Current some day smoker tobacco type: cigars per week: 2 alcohol intake: current alcohol intake frequency: a few times a week Alcohol type: beer, wine and hard liquor substance use type: does not use caffeine: Yes Type: carbonated beverages and coffee Number of servings: 4 what type of physical activity do you participate in: none seatbelt use: always do you feel safe at home: Yes ROS Const Const: Negative for fatigue, weakness, headache(s), daytime sleepiness or difficulty sleeping ENT ENT: Negative for headache(s), dizziness or Nosebleed/epistaxis Cardio Chest Pain: No Palpitations: No Edema: None Resp Respiratory: Positive for SOB with activity (climbing stairs); Negative for SOB at rest, SOB orthopnea SOB lying down or Cough GI GI: Negative nausea, vomiting or heartburn Neuro Neuro: Negative for dizziness, lightheadedness, near syncope, headache(s) or weakness Endo Endo: Negative for fatigue Cardiology Exam Const Appearance: cooperative, healthy appearing, comfortable and no acute distress Nutritional Appearance: well n (more content not included)... Normal [facility] Vitamin B12on 06-15-2024 Cobalamin (Vitamin B12) [Mass/Vol] 382 pg/mL Normal 211-911 [facility] Comment on above: Performed By: #### L 501.9520, L506.1000, L501.9310, L501.6710, L101.9900, L500.4050, L100.0100, L503.0105 ####[facility] [address] [place], [address] Vitamin D,25 Hydroxyon 06-15 Vitamin D 25-OH 29.7 ng/mL Normal [facility] Comment on above: Result Comment: Brie min D 25(OH) Status Range Deficiency <20 ng/mL (50nmol/L) Insufficiency 20 - 30 ng/mL (50 - 75 nmol/L) Sufficiency 30 - 100 ng/mL (75 - 250 nmol/L) Toxicity >100 ng/mL (>250 nmol/L) Performed By: #### L 501.9520, L506.1000, L501.9310, L501.6710, L101.9900, L500.4050, L100.0100, L503.0105 ####[facility] [address] [place], [address] CBC W/Diff, Automatedon Absolute Lymph 1.18 X10 3/uL Normal 0.83-4.51 [facility] Comment on above: Performed By: #### L [id number], L506.1000, L501.9310, L501.6710, L101.9900, L500.4050, L100.0100, L503.0105 ####[facility] [address] [place], [address] Absolute Neut 3.6 X10 3/uL Normal 2.0-7.7 [facility] Comment on above: Performed By: #### L 501.9520, L506.1000, L501.9310, L501.6710, L101.9900, L500.4050, L100.0100, L503.0105 ####[facility] [address] [place], [address] Basophils/100 WBC (Bld) 0.5 % Normal 0-1 [facility] Comment on above: Performed By: #### L 501.9520, L506.1000, L501.9310, L501.6710, L101.9900, L500.4050, L100.0100, L503.0105 ####[facility] [address] [place], [address] Eosinophils/100 WBC (Bld) 3.5 % Normal 0-5 [facility] Comment on above: Performed By: #### L [id number], L506.1000, L501.9310, L501.6710, L101.9900, L500.4050, L100.0100, L503.0105 ####[facility] [address] [place], [address] Erythrocyte distribution width (RBC) [Ratio] 12.9 % Normal 11.6-14.6 [facility] Comment on above: Performed By: #### L 501.9520, L506.1000, L501.9310, L501.6710, L101.9900, L500.4050, L100.0100, L503.0105 ####[facility] [address] [place], [address] Hematocrit (Bld) [Volume fraction] 42.7 % Normal 40-54 [facility] Comment on above: Performed By: #### L 501.9520, L506.1000, L501.9310, L501.6710, L101.9900, L500.4050, L100.0100, L503.0105 ####[facility] [address] [place], [address] Hemoglobin (Bld) [Mass/Vol] 13.9 g/dL Normal 13.0-16.5 [facility] Comment on above: Performed By: #### L 501.9520, L506.1000, L501.9310, L501.6710, L101.9900, L500.4050, L100.0100, L503.0105 ####[facility] [address], [address] IG% 0.200 Normal 0.0-0.9 [facility] Comment on above: Result Comment: IG% - Immature Granulocytes (promyelocytes, myelocytes and metamyelocytes) > 1% indicates that a LEFT SHIFT is Present. Performed By: #### L [id number], L506.1000, L501.9310, L501.6710, L101.9900, L500.4050, L100.0100, L503.0105 ####[facility] [address], [address] Lymphocytes/100 WBC (Bld) 20.5 % Normal 19-41 [facility] Comment on above: Performed By: #### L 501.9520, L506.1000, L501.9310, L501.6710, L101.9900, L500.4050, L100.0100, L503.0105 ####[facility] [address] [place], [address] MCH (RBC) [Entitic mass] 28.7 pg Normal 27.0-32.0 [facility] Comment on above: Performed By: #### L 501.9520, L506.1000, L501.9310, L501.6710, L101.9900, L500.4050, L100.0100, L503.0105 ####[facility] [facility] [address], [address] MCHC (RBC) [Mass/Vol] 32.6 g/dL Normal 32-36 [facility] Comment on above: Performed By: #### L 501.9520, L506.1000, L501.9310, L501.6710, L101.9900, L500.4050, L100.0100, L503.0105 ####[facility] [address] [place], [address] MCV (RBC) [Entitic vol] 88.0 fL Normal 80-94 [facility] Comment on above: Performed By: #### L 501.9520, L506.1000, L501.9310, L501.6710, L101.9900, L500.4050, L100.0100, L503.0105 ####[facility] [address] [place], [address] Monocytes/100 WBC (Bld) 12.3 % High 0-10 [facility] Comment on above: Performed By: #### L 501.9520, L506.1000, L501.9310, L501.6710, L101.9900, L500.4050, L100.0100, L503.0105 ####[facility] [address] [place], [address] Neutrophils/100 WBC (Bld) 63.0 % Normal 47-70 [facility] Comment on above: Performed By: #### L 501.9520, L506.1000, L501.9310, L501.6710, L101.9900, L500.4050, L100.0100, L503.0105 ####[facility] [address] [place], [address] Nucleated RBC (Bld) [#/Vol] 0 10*3/uL Normal 0-5 [facility] Comment on above: Performed By: #### L 501.9520, L506.1000, L501.9310, L501.6710, L101.9900, L500.4050, L100.0100, L503.0105 ####[facility] [address] [place], [address] Platelet mean volume (Bld) [Entitic vol] 9.8 fL Normal 6.2-12.0 [facility] Comment on above: Performed By: #### L 501.9520, L506.1000, L501.9310, L501.6710, L101.9900, L500.4050, L100.0100, L503.0105 ####[facility] [address] [place], [address] Platelets (Bld) [#/Vol] 242 10*3/uL Normal 150-450 [facility] Comment on above: Performed By: #### L 501.9520, L506.1000, L501.9310, L501.6710, L101.9900, L500.4050, L100.0100, L503.0105 ####[facility] [address] [place], [address] RBC (Bld) [#/Vol] 4.85 10*6/uL Normal 4.6-6.2 [facility] Comment on above: Performed By: #### L 501.9520, L506.1000, L501.9310, L501.6710, L101.9900, L500.4050, L100.0100, L503.0105 ####[facility] [address] [place], [address] RDW SD 41.6 fl Normal 35.1-43.9 [facility] Comment on above: Performed By: #### L 501.9520, L506.1000, L501.9310, L501.6710, L101.9900, L500.4050, L100.0100, L503.0105 ####[facility] [address] [place], [address] WBC (Bld) [#/Vol] 5.8 10*3/uL Normal 4.4-11.0 [facility] Comment on above: Performed By: #### L 501.9520, L506.1000, L501.9310, L501.6710, L101.9900, L500.4050, L100.0100, L503.0105 ####[facility] [address] [place], [address] CRPon 06-14-2024 C-REACTIVE PROT < 2.90 Normal 0.0-3.0 [facility] Comment on above: Result Comment: C-Re active Protein (CRP) provides useful information for the diagnosis, therapy and monitoring of inflammatory processes and associated diseases. For the evaluation of Relative Risk for Cardiovascular Disease, a High Sensitivity CRP (HSCRP) should be ordered. Performed By: #### L 501.9520, L506.1000, L501.9310, L501.6710, L101.9900, L500.4050, L100.0100, L503.0105 ####[facility] [address] [place], [place], [id number] Comprehensive Metabolic Prof ilon 06-14-2024 Albumin [Mass/Vol] 3.9 g/dL Normal 3.2-5.0 [facility] Comment on above: Performed By: #### L 501.9520, L506.1000, L501.9310, L501.6710, L101.9900, L500.4050, L100.0100, L503.0105 ####[facility] [address] [place], [place], [id number] Albumin/Globulin [Mass ratio] 1.1 {ratio} Normal 0.9-2.4 [facility] Comment on above: Performed By: #### L 501.9520, L506.1000, L501.9310, L501.6710, L101.9900, L500.4050, L100.0100, L503.0105 ####[facility] [address] [place], [address] ALK P 68 U/L Normal 45-117 [facility] Comment on above: Performed By: #### L 501.9520, L506.1000, L501.9310, L501.6710, L101.9900, L500.4050, L100.0100, L503.0105 ####[facility] [address] [place], [address] ALT [Catalytic activity/Vol] 23 U/L Normal 16-61 [facility] Comment on above: Performed By: #### L 501.9520, L506.1000, L501.9310, L501.6710, L101.9900, L500.4050, L100.0100, L503.0105 ####[facility] [address] [place], [address] AST [Catalytic activity/Vol] 16 U/L Normal 15-37 [facility] Comment on above: Performed By: #### L 501.9520, L506.1000, L501.9310, L501.6710, L101.9900, L500.4050, L100.0100, L503.0105 ####[facility] [address] [place], [address] Bilirubin [Mass/Vol] 0.50 mg/dL Normal 0.20-1.00 [facility] Comment on above: Result Comment: For patients on eltrombopag therapy, use of [employer] TBIL is not recommended. Performed By: #### L 501.9520, L506.1000, L501.9310, L501.6710, L101.9900, L500.4050, L100.0100, L503.0105 ####[facility] [address] [place], [address] BUN/CRE 18.1 RATIO Normal 10-20 [facility] Comment on above: Performed By: #### L 501.9520, L506.1000, L501.9310, L501.6710, L101.9900, L500.4050, L100.0100, L503.0105 ####[facility] [address] [place], [address] CA,Total 10.9 mg/dL High 8.5-10.1 [facility] Comment on above: Performed By: #### L 501.9520, L506.1000, L501.9310, L501.6710, L101.9900, L500.4050, L100.0100, L503.0105 ####[facility] [address] [place], [address] Chloride [Moles/Vol] 110 mmol/L High 98-107 [facility] Comment on above: Performed By: #### L 501.9520, L506.1000, L501.9310, L501.6710, L101.9900, L500.4050, L100.0100, L503.0105 ####[facility] [address] [place], [address] CO2 [Moles/Vol] 25.0 mmol/L Normal 21.0-32.0 [facility] Comment on above: Performed By: #### L 501.9520, L506.1000, L501.9310, L501.6710, L101.9900, L500.4050, L100.0100, L503.0105 ####[facility] [address] [place], [address] Creatinine [Mass/Vol] 1.16 mg/dL Normal 0.70-1.30 [facility] Comment on above: Result Comment: The validity of the calculated GFR GFRAA in patients over 70 years has not been determined. Clinical correlation is essential. Performed By: #### L 501.9520, L506.1000, L501.9310, L501.6710, L101.9900, L500.4050, L100.0100, L503.0105 ####[facility] [address] [place], [address] EST GFR - AA 80 mL/min Normal >60 [facility] Comment on above: Result Comment: Afri can Lebanese GFR Calc Performed By: #### L 501.9520, L506.1000, L501.9310, L501.6710, L101.9900, L500.4050, L100.0100, L503.0105 ####[facility] [address] [place], [address] GAP 9 Normal 5-15 [facility] Comment on above: Performed By: #### L 501.9520, L506.1000, L501.9310, L501.6710, L101.9900, L500.4050, L100.0100, L503.0105 ####[facility] [address] [place], [address] GFR/1.73 sq M.predicted among non-blacks MDRD (S/P/Bld) [Vol rate/Area] 66 mL/min/{1.73_m2} Normal >60 [facility] Comment on above: Result Comment: Non- GFR Calc Performed By: #### L 501.9520, L506.1000, L501.9310, L501.6710, L101.9900, L500.4050, L100.0100, L503.0105 ####[facility] [address] [place], [address] Globulin (S) [Mass/Vol] 3.6 g/dL Normal 2.2-4.2 [facility] Comment on above: Performed By: #### L 501.9520, L506.1000, L501.9310, L501.6710, L101.9900, L500.4050, L100.0100, L503.0105 ####[facility] [address] [place], [address] Glucose [Mass/Vol] 94 mg/dL Normal 74-106 [facility] Comment on above: Performed By: #### L 501.9520, L506.1000, L501.9310, L501.6710, L101.9900, L500.4050, L100.0100, L503.0105 ####[facility] [address] [place], [address] Potassium [Moles/Vol] 3.8 mmol/L Normal 3.5-5.1 [facility] Comment on above: Performed By: #### L 501.9520, L506.1000, L501.9310, L501.6710, L101.9900, L500.4050, L100.0100, L503.0105 ####[facility] [address] [place], [address] Sodium [Moles/Vol] 144 mmol/L Normal 136-145 [facility] Comment on above: Performed By: #### L 501.9520, L506.1000, L501.9310, L501.6710, L101.9900, L500.4050, L100.0100, L503.0105 ####[facility] [address] [place], [address] T PROT 7.5 g/dL Normal 6.4-8.2 [facility] Comment on above: Performed By: #### L 501.9520, L506.1000, L501.9310, L501.6710, L101.9900, L500.4050, L100.0100, L503.0105 ####[facility] [address] [place], [address] Urea nitrogen [Mass/Vol] 21 mg/dL High 7-18 [facility] Comment on above: Performed By: #### L 501.9520, L506.1000, L501.9310, L501.6710, L101.9900, L500.4050, L100.0100, L503.0105 ####[facility] [address] [place], [place], [id number] Erythrocyte Sed Rateon 06-14 SED RATE 9 mm/hr Normal 0-20 [facility] Comment on above: Performed By: #### L 501.9520, L506.1000, L501.9310, L501.6710, L101.9900, L500.4050, L100.0100, L503.0105 ####[facility] [address] [place], [place], [id number] T4 Total, Thyroxinon 024 T4 [Mass/Vol] 10.5 ug/dL Normal 4.5-12.1 [facility] Comment on above: Performed By: #### L 501.9520, L506.1000, L501.9310, L501.6710, L101.9900, L500.4050, L100.0100, L503.0105 ####[facility] [address] [place], [place], [phone] Thyroid Stim Hormone (TSH)on 06-14-2024 TSH 2.470 uIU/mL Normal 0.358-3.740 [facility] Comment on above: Performed By: #### L 501.9520, L506.1000, L501.9310, L501.6710, L101.9900, L500.4050, L100.0100, L503.0105 ####[facility] [address] [place], [place], [id number] Basophil percentageOrdered B y: Jimena Cagle on 06-02-2023 Chloride [Moles/Vol] 107 mmol/L 98-107 [facility] Cholesterol [Mass/Vol] 177 mg/dL <200 [facility] Comment on above: <200 mg/dL Desirable 200-240 mg/dL Borderline >240 mg/dL High Risk Glucose [Mass/Vol] 94 mg/dL 74-106 [facility] Potassium [Moles/Vol] 4.1 mmol/L 3.5-5.1 [facility] Sodium [Moles/Vol] 143 mmol/L 136-145 [facility] Triglyceride [Mass/Vol] 67 mg/dL <199 [facility] Comment on above: The drugs N-Acetylcy steine and Metamizole may falsely depress this assay.Serum Triglycerides Reference Interval Normal <150 mg/dL Borderline high 150 - 199 mg/dL High 200 - 499 mg/dL Very High > or = 500 mg/dL Laboratory - Chemistry and C hemistry - challengeOrdered By: Jimena Cagle on 06-02-2023 CO2 [Moles/Vol] 31.0 mmol/L 21.0-32.0 [facility] T4 [Mass/Vol] 9.5 ug/dL 4.5-12.1 [facility] Urea nitrogen/Creatinine [Mass ratio] 16.5 mg/mg 10-20 [facility] No Panel InformationOrdered By: Jimena Cagle on 06-02-2023 Estimated GFR (MDRD) Amer 87 mL/min >60 [facility] Comment on above: GFR Calc Estimated GFR (MDRD) Non-Af Amer 72 mL/min >60 [facility] Comment on above: Non- GFR Calc Prostate Specific Antigen Screen 2.13 ng/mL 0.00-4.00 [facility] Comment on above: This test was perfor med using the TPSA assay method for the[facility] chemistry system. Values obtained with differentassay methods cannot be used interchangably.When changing PSA assays in the course of monitoring apatient, additional sequential testing should be carriedout to confirm baseline values. Thyroid Stimulating Hormone (TSH) 3.30 uIU/mL 0.358-3.74 [facility] Urine Microalbumin/Creatinine Ratio 5.1 mg/g CRE <30 [facility] Serum or plasma calcium ralf urement (mass/volume)Ordered By: Jimena Cagle on 06-02-2023 Calcium [Mass/Vol] 10.1 mg/dL 8.5-10.1 [facility] Serum or plasma cholesterol in HDL measurement (mass/volume)Ordered By: Jimena Cagle on 06-02-2023 Cholesterol in HDL [Mass/Vol] 54 mg/dL >40 [facility] Comment on above: The drugs N-Acetylcy steine and Metamizole may falsely depress this assay. Reference Range HDL <40 mg/dL Low HDL Cholesterol HDL >or= 60 mg/dL High HDL Cholesterol Serum or plasma cholesterol in VLDL measurement (mass/volume)Ordered By: Jimena Cagle on 06-02-2023 Cholesterol in VLDL [Mass/Vol] 13 mg/dL 5-40 [facility] Serum or plasma creatinine m easurement (mass/volume)Ordered By: Jimena Cagle on 06-02-2023 Creatinine [Mass/Vol] 1.09 mg/dL 0.70-1.30 [facility] Comment on above: The validity of the calculated GFR & GFRAA in patients over 70 years has not been determined. Clinical correlation is essential. Serum or plasma low density lipoprotein (LDL) cholesterol measurement (mass/volume)Ordered By: Jimena Cagle on 06-02-2023 Cholesterol in LDL [Mass/Vol] 110 mg/dL 0-130 [facility] Serum or plasma urea nitroge n measurement (mass/volume)Ordered By: Jimena Cagle on 06-02-2023 Urea nitrogen [Mass/Vol] 18 mg/dL 7-18 [facility] Thin prep Papanicolaou smear with manual screeningOrdered By: Jimena Cagle on 06-02-2023 Thin prep Papanicolaou smear with manual screening 5 5-15 [facility] Thin prep Papanicolaou smear with manual screening 11.1 mg/L NO RANGE EST. [facility] Urine creatinine measurement (mass/volume)Ordered By: Jimena Cagle on 06-02-2023 Creatinine (U) [Mass/Vol] 219.00 mg/dL NO RANGE EST. [facility] Basophil percentageon 2021 Bilirubin [Mass/Vol] 0.50 mg/dL 0.20-1.00 [facility] Work Phone: Comment on above: For patients on eltr ombopag therapy, use of [employer] TBIL is not recommended. Chloride [Moles/Vol] 108 mmol/L 98-107 [facility] Work Phone: Cholesterol [Mass/Vol] 188 mg/dL <200 [facility] Work Phone: Comment on above: <200 mg/dL Desirable 200-240 mg/dL Borderline >240 mg/dL High Risk Glucose [Mass/Vol] 102 mg/dL 74-106 [facility] Work Phone: Comment on above: Fasting Glucose resu lt from 100 to 125 mg/dL suggests IMPAIRED HOMEOSTASIS per A.D.A. criteria. Potassium [Moles/Vol] 4.0 mmol/L 3.5-5.1 [facility] Work Phone: Protein [Mass/Vol] 7.1 g/dL 6.4-8.2 [facility] Work Phone: Sodium [Moles/Vol] 141 mmol/L 136-145 [facility] Work Phone: Triglyceride [Mass/Vol] 87 mg/dL <199 [facility] Work Phone: Comment on above: The drugs N-Acetylcy steine and Metamizole may falsely depress this assay.Serum Triglycerides Reference Interval Normal <150 mg/dL Borderline high 150 - 199 mg/dL High 200 - 499 mg/dL Very High > or = 500 mg/dL WBC (Bld) [#/Vol] 5.3 10*3/uL 4.4-11.0 [facility] Work Phone: Blood erythrocytes count (nu mber/volume)on 04-10-2022 RBC (Bld) [#/Vol] 4.79 10*6/uL 4.6-6.2 [facility] Work Phone: Blood hemoglobin measurement (mass/volume)on 04-10-2022 Hemoglobin (Bld) [Mass/Vol] 14.1 g/dL 13.0-16.5 [facility] Work Phone: Blood platelet mean volumeon 04-10-2022 Platelet mean volume (Bld) [Entitic vol] 9.6 fL 6.2-12.0 [facility] Work Phone: Determination of erythrocyte mean corpuscular volume (MCV)on 04-10-2022 MCV (RBC) [Entitic vol] 88.5 fL 80-94 [facility] Work Phone: Hematocrit Auto (Bld) [Volum e fraction]on 04-10-2022 Hematocrit (Bld) [Volume fraction] 42.4 % 40-54 [facility] Work Phone: Laboratory - Chemistry and C hemistry - challengeon 04-10-2022 ALP [Catalytic activity/Vol] 66 U/L 45-117 [facility] Work Phone: ALT [Catalytic activity/Vol] 21 U/L 16-61 [facility] Work Phone: CO2 [Moles/Vol] 30.0 mmol/L 21.0-32.0 [facility] Work Phone: Free T4 [Mass/Vol] 1.04 ng/dL 0.76-1.46 [facility] Work Phone: Globulin (S) [Mass/Vol] 3.5 g/dL 2.2-4.2 [facility] Work Phone: Urea nitrogen/Creatinine [Mass ratio] 19.2 mg/mg 10-20 [facility] Work Phone: Laboratory - Hematology and Cell countson 04-10-2022 Erythrocyte distribution width (RBC) [Entitic vol] 43.4 fL 35.1-43.9 [facility] Work Phone: Erythrocyte distribution width (RBC) [Ratio] 13.2 % 11.6-14.6 [facility] Work Phone: MCH (RBC) [Entitic mass] 29.4 pg 27.0-32.0 [facility] Work Phone: MCHC Auto (RBC) [Mass/Vol]on 04-10-2022 MCHC (RBC) [Mass/Vol] 33.3 g/dL 32-36 [facility] Work Phone: No Panel Informationon 04-10 Estimated GFR (MDRD) Amer 78 mL/min >60 [facility] Work Phone: Comment on above: GFR Calc Estimated GFR (MDRD) Non-Af Amer 64 mL/min >60 [facility] Work Phone: Comment on above: Non- GFR Calc Thyroid Stimulating Hormone (TSH) 2.84 uIU/mL 0.358-3.74 [facility] Work Phone: Platelets bldon 04-10-2022 Platelets (Bld) [#/Vol] 243 10*3/uL 150-450 [facility] Work Phone: Serum or plasma albumin ralf urement (mass/volume)on 04-10-2022 Albumin [Mass/Vol] 3.6 g/dL 3.2-5.0 [facility] Work Phone: Serum or plasma albumin/glob ulin mass ratioon 04-10-2022 Albumin/Globulin [Mass ratio] 1.0 {ratio} 0.9-2.4 [facility] Work Phone: Serum or plasma calcium ralf urement (mass/volume)on 04-10-2022 Calcium [Mass/Vol] 10.1 mg/dL 8.5-10.1 [facility] Work Phone: Serum or plasma cholesterol in HDL measurement (mass/volume)on 04-10-2022 Cholesterol in HDL [Mass/Vol] 52 mg/dL >40 [facility] Work Phone: Comment on above: The drugs N-Acetylcy steine and Metamizole may falsely depress this assay. Reference Range HDL <40 mg/dL Low HDL Cholesterol HDL >or= 60 mg/dL High HDL Cholesterol Serum or plasma cholesterol in VLDL measurement (mass/volume)on 04-10-2022 Cholesterol in VLDL [Mass/Vol] 17 mg/dL 5-40 [facility] Work Phone: Serum or plasma creatinine m easurement (mass/volume)on 04-10-2022 Creatinine [Mass/Vol] 1.20 mg/dL 0.70-1.30 [facility] Work Phone: Comment on above: The validity of the calculated GFR & GFRAA in patients over 70 years has not been determined. Clinical correlation is essential. Serum or plasma low density lipoprotein (LDL) cholesterol measurement (mass/volume)on 04-10-2022 Cholesterol in LDL [Mass/Vol] 119 mg/dL 0-130 [facility] Work Phone: Serum or plasma urea nitroge n measurement (mass/volume)on 04-10-2022 Urea nitrogen [Mass/Vol] 23 mg/dL 7-18 [facility] Work Phone: Thin prep Papanicolaou smear with manual screeningon 04-10-2022 Thin prep Papanicolaou smear with manual screening 14 U/L 15-37 [facility] Work Phone: Thin prep Papanicolaou smear with manual screening 3 5-15 [facility] Work Phone: PROGRESSon 11-09-2017 PROGRESS HNO ID: [id number]: Nisa Rubio) AthyService: (none)Author Type: Physician AssistantType: Progress NotesFiled: 11/09/2017 1:07 PMNote Text:HPIPt presents with cough and congestion x 2 days. He has had fatigue andbody aches. No influenza shot this year. He feels like he had a fever athome. He has been taking ibuprofen . He does have a history of afib ad portia eliquis and metoprolol. No chest pain. No hx of smoker. No hx ofasthma, he does get bronchitis frequently. Some coworkers have been sick.Review of SystemsConstitutiona l: Positive for chills, fever and malaise/fatigue.HENT : Positive for congestion and sore throat. Negative for ear pain.Eyes: Negative.Respiratory : Positive for cough, shortness of breath and wheezing.Cardiovascu lar: Negative.Gastrointes tinal: Negative.Genitourina ry: Negative.Musculoskel etal: Negative.Skin: Negative.Neurologica l: Negative.Endo/Heme/A llergies: Negative.Psychiatric /Behavioral: Negative.All other systems reviewed and are negative.No past medical history on file.Current Outpatient Prescriptions:metopr olol tartrate, short acting, (LOPRESSOR) 50 mg tablet Disp: Rfl: 3lisinopril 2.5 mg tablet Take 2.5 mg by mouth once daily. Disp: Rfl: 5furosemide (LASIX) 40 mg tablet Disp: Rfl: 3SYMBICORT 160-4.5 mcg/actuation inhaler Inhale 1 puff using inhaler twicea day Disp: Rfl: 11ELIQUIS 5 mg tab tab(s) Take 5 mg by mouth twice daily. Disp: Rfl: 3LEVOTHYROXINE SODIUM (LEVOTHYROXINE ORAL) Take by mouth. Disp: Rfl:albuterol HFA (PROVENTIL HFA, VENTOLIN HFA) 90 mcg/actuation inhalerInhale 2 Puffs as instructed every 4 hours as needed. Disp: 1 Inhaler Rfl:0No current facility-administere d medications for this visit.No past surgical history on file.No family history on file.Social HistorySubstance Use Topics- Smoking status: Light Tobacco Smoker Types: Cigars- Smokeless tobacco: Never Used- Alcohol use Not on fileBP 134/80 Pulse 70 Temp 36.9 ?C (98.4 ?F) (Tympanic) Resp 18 Wt120.2 kg (265 lb) SpO2 95%Physical ExamConstitutional: He is oriented to person, place, and time andwell-developed, well-nourished, and in no distress.HENT:Head: Normocephalic and atraumatic.Right Ear: External ear normal.Left Ear: External ear normal.Nose: Nose normal.Mouth/Throat: Oropharynx is clear and moist.Eyes: Conjunctivae are normal. Pupils are equal, round, and reactive tolight.Neck: Normal range of motion. Neck supple.Cardiovascula r: Normal rate, regular rhythm and normal heart sounds.Pulmonary/Magy st: Effort normal and breath sounds normal. No respiratorydistress. He has no wheezes.Lymphadenopa thy: He has no cervical adenopathy.Neurologi kishor: He is alert and oriented to person, place, and time.Skin: Skin is warm and dry. No rash noted.Psychiatric: Affect and judgment normal.Nursing note and vitals reviewed.ASSESSMENT/ PLAN:1. Influenza-like illness - ICD9: 799.89, ICD10: R69Pt symptoms are most consistent with influenza. Pulse ox recheck here is97%. His lungs are clear no wheezing. He is in the window for tamiflu andthis was given as well as tessalon. Also instructed that he shouldn't betaking Nsaids while on eliquis due to risk of bleeding and should betaking Tylenol instead. Discussed with patient concerning symptoms to goto the emergency department or follow up here. Pt agreeable with thisplan. Also instructed patient to keep appt with pcp in 5 days.Nisa Araujo PA-C [facility] Vital Signs Date Time Vital Sign Value Performing Clinician Emily singh 05-03-2025 11:37-0400 Body height 177.[address] Jimena Cagle MD Work Phone: [facility] 05-03-2025 11:37-0400 Body mass index (BMI) [Ratio] 37.5 kg/m2 Dr. Jimena Cagle MD Work Phone: [facility] 05-03-2025 11:37-0400 Body weight 118.[address] Jimena Cagle MD Work Phone: [facility] 05-03-2025 11:37-0400 Diastolic blood pressure 76 mm[Hg] Dr. Jimena Cagle MD Work Phone: [facility] 05-03-2025 11:37-0400 Heart rate 65 /min Dr. Jimena Cagle MD Work Phone: [facility] 05-03-2025 11:37-0400 Respiratory rate 18 /min Dr. Jimean Cagle MD Work Phone: [facility] 05-03-2025 11:37-0400 SaO2% (BldA) [Mass fraction] 90 % Dr. Jimena Cagle MD Work Phone: [facility] 05-03-2025 11:37-0400 Systolic blood pressure 116 mm[Hg] Dr. Jimena Cagle MD Work Phone: [facility] 02-25-2025 13:25-0400 Body temperature 98.6 [degF] Dr. Jimean Cagle MD Work Phone: [facility] 02-25-2025 13:25-0400 Diastolic blood pressure 81 mm[Hg] Dr. Jimena Cagle MD Work Phone: [facility] 02-25-2025 13:25-0400 Heart rate 58 /min Dr. Jimena Cagle MD Work Phone: [facility] 02-25-2025 13:25-0400 Respiratory rate 16 /min Dr. Jimena Cagle MD Work Phone: [facility] 02-25-2025 13:25-0400 SaO2% (BldA) [Mass fraction] 95 % Dr. Jimena Cagle MD Work Phone: [facility] 02-25-2025 13:25-0400 Systolic blood pressure 118 mm[Hg] Dr. Jimena Cagle MD Work Phone: [facility] 02-25-2025 11:57-0400 Body height 177.[address] Jimena Cagle MD Work Phone: [facility] 02-25-2025 11:57-0400 Body mass index (BMI) [Ratio] 36.8 kg/m2 Dr. Jimena Cagle MD Work Phone: [facility] 02-25-2025 11:57-0400 Body weight 116.[address] Jimena Cagle MD Work Phone: [facility] 12-31-2024 08:42-0400 Body temperature 99 [degF] Dr. Jimena Cagle MD Work Phone: [facility] 12-31-2024 08:42-0400 Diastolic blood pressure 85 mm[Hg] Dr. Jimena Cagle MD Work Phone: [facility] 12-31-2024 08:42-0400 Heart rate 84 /min Dr. Jimena Cagle MD Work Phone: [facility] 12-31-2024 08:42-0400 Respiratory rate 16 /min Dr. Jimena Cagle MD Work Phone: 9(167)476-915648 [place] [address] 12-31-2024 08:42-0400 SaO2% (BldA) [Mass fraction] 94 % Dr. Jimena Cagle MD Work Phone: 4(941)464-796606 [place] [address] 12-31-2024 08:42-0400 Systolic blood pressure 151 mm[Hg] Dr. Jimena Cagle MD Work Phone: 1(305)734-943806 [place] [address] 12-31-2024 06:31-0400 Inhaled oxygen flow rate 1.5 L/min Dr. Jimena Cagle MD Work Phone: 8(243)801-094006 [place] [address] 12-29-2024 17:20-0400 Body height 177.[address] Jimena Cagle MD Work Phone: 5(836)423-960206 [place] [address] 12-29-2024 17:20-0400 Body mass index (BMI) [Ratio] 38 kg/m2 Dr. Jimena Cagle MD Work Phone: 5(799)028-587706 [place] [address] 12-29-2024 17:20-0400 Body weight 120.[address] Jimena Cagle MD Work Phone: 6(563)952-545906 [place] [address] 11-15-2024 21:50-0500 Body temperature 98.1 [degF] Dr. Jimena Cagle MD Work Phone: 0(304)635-581248 [place] [address] 11-15-2024 21:50-0500 Diastolic blood pressure 82 mm[Hg] Dr. Jimena Cagle MD Work Phone: 9(622)834-544548 [place] [address] 11-15-2024 21:50-0500 Heart rate 86 /min Dr. Jimena Cagle MD Work Phone: 3(413)916-001448 [place] [address] 11-15-2024 21:50-0500 Respiratory rate 16 /min Dr. Jimena Cagle MD Work Phone: 0(359)898-113748 [place] [address] 11-15-2024 21:50-0500 SaO2% (BldA) [Mass fraction] 96 % Dr. Jimena Cagle MD Work Phone: [facility] 11-15-2024 21:50-0500 Systolic blood pressure 153 mm[Hg] Dr. Jimena Cagle MD Work Phone: 3(159)213-817348 [place] [address] 11-15-2024 17:52-0500 Body mass index (BMI) [Ratio] 38.3 kg/m2 Dr. Jimena Cagle MD Work Phone: 8(178)617-747948 [place] [address] 11-15-2024 17:52-0500 Body weight 123.[address] Jimena Cagle MD Work Phone: 8(659)387-349906 [place] [address] 11-02-2024 15:36-0500 Body mass index (BMI) [Ratio] 38.2 kg/m2 Dr. Jimena Cagle MD Work Phone: 7(057)552-246006 [place] [address] 11-02-2024 15:36-0500 Body weight 124.[address] Jimena Cagle MD Work Phone: 9(520)481-987701 [address] 11-02-2024 15:36-0500 Diastolic blood pressure 82 mm[Hg] Dr. Jimena Cagle MD Work Phone: 0(077)962-896606 [place] [address] 11-02-2024 15:36-0500 Heart rate 61 /min Dr. Jimena Cagle MD Work Phone: 2(601)507-729248 [place] [address] 11-02-2024 15:36-0500 Respiratory rate 16 /min Dr. Jimena Cagle MD Work Phone: 8(162)036-585248 [place] [address] 11-02-2024 15:36-0500 Systolic blood pressure 136 mm[Hg] Dr. Jimena Cagle MD Work Phone: 5(609)126-496901 [address] 02-18-2023 08:47-0400 Body height 180.[address] Jimena Cagle Work Phone: 5(801)740-538606 [place] [address] 02-18-2023 08:47-0400 Body mass index (BMI) [Ratio] 37.2 kg/m2 Dr. Jimena Cagle Work Phone: 5(236)871-243548 [place] [address] 02-18-2023 08:47-0400 Body weight 121.[address] Jimena Cagle Work Phone: [facility] 02-18-2023 08:47-0400 Diastolic blood pressure 84 mm[Hg] Dr. Jimena Cagle Work Phone: [facility] 02-18-2023 08:47-0400 Heart rate 54 /min Dr. Jimena Cagle Work Phone: [facility] 02-18-2023 08:47-0400 Respiratory rate 16 /min Dr. Jimena Cagle Work Phone: [facility] 02-18-2023 08:47-0400 Systolic blood pressure 121 mm[Hg] Dr. Jimena Cagle Work Phone: [facility] Encounters Encounter Date Encounter Type Care Provider Facility Start: 05-26-2025 ambulatory [facility] Facility:[facility] Start: 05-23-2025 ambulatory [facility] Facility:[facility] Start: 05-03-2025 End: 05-03-2025 Patient encounter procedure Luis SHAW -[facility] Work Phone: Start: 05-03-2025 End: 05-03-[address] Jimena Cagle MD Work Phone: [facility] Start: 04-25-2025 End: 04-25-[address] Neville Scherer MD -[facility] Start: 04-25-2025 End: 04-25-[address] Jimena Cagle MD Work Phone: [facility] Start: 03-10-2025 End: 03-10-2025 Patient encounter procedure Francia ZELAYA -[facility] Work Phone: Start: 03-10-2025 End: 03-10-[address] Jimena Cagle MD Work Phone: [facility] Work Phone: Start: 02-25-2025 [facility] Start: 02-25-2025 End: 02-25-2025 Admission to same day surgery center Charly Alison DO -Endoscopy Work Phone: Start: 02-25-2025 End: 02-25-[address] Jimena Cagle MD Work Phone: [facility] Work Phone: Start: 12-29-2024 End: 12-31-2024 ambulatory Portillo Lowry Facility:[facility] Start: 12-29-2024 End: 12-31-2024 Evaluation and management of inpatient Dr. Portillo Lowry MD -[facility] 3 Work Phone: Start: 12-29-2024 End: 12-31-[address] Jimena Cagle MD Work Phone: [facility] Work Phone: Start: 12-16-2024 End: 12-16-2024 ambulatory Rick Calhoun Facility:[facility] Start: 12-16-2024 End: 12-16-2024 Non-patient / Non-visit Dr. Rick Calhoun MD -[facility] Work Phone: Start: 12-02-2024 End: 12-02-2024 Patient encounter procedure Francia Bush [facility] Work Phone: Start: 12-02-2024 End: 12-02-2024 ambulatory Francia Bush Facility:[facility] Start: 11-15-2024 End: 11-15-2024 Emergency department patient visit Dr. Hilaria Jacobo DO -Emergency Department Work Phone: Start: 11-02-2024 End: 11-02-[address] Neville Scherer MD -[facility] Work Phone: Start: 11-02-2024 End: 11-02-2024 ambulatory Jimena Cagle Facility:[facility] Start: 06-14-2024 End: 06-14-2024 ambulatory Jimena Cagle Facility:[facility] Start: 06-02-2023 End: 06-02-[address] Jimena Cagle Work Phone: [facility] Work Phone: Start: 06-02-2023 End: 06-02-[address] Jimena Cagle Work Phone: [facility] Work Phone: Start: 02-18-2023 End: 02-18-[address] Jimena Cagle Work Phone: [facility] Work Phone: Start: 04-10-2022 End: 04-10-2022 Patient encounter procedure [facility] Start: 11-09-2017 End: 11-09-2017 Ambulatory [facility] Procedures Date Procedure Procedure Detail Performing Clinician Start: 04-25-2025 X-ray of lumbosacral spine Dr. Jimena Cagle MD Work Phone: Start: 02-25-[address] Jimena gan MD Work Phone: Start: 12-31-[address] Jimena Cagle MD Work Phone: Start: 12-29-[address] Jimena Cagle MD Work Phone: Start: 11-15-2024 Urnls dip stick/tabl et reagent auto microscopy Dr. Jimena Cagle MD Work Phone: Start: 11-15-2024 Computed tomography of abdomen and pelvis with intravenous contrast Dr. Jmiena Cagle MD Work Phone: Start: 11-15-[address] Jimena Cagle MD Work Phone: Start: 11-15-2024 Measurement of renal function Dr. Jimena Cagle MD Work Phone: Comment on above: GFR Calc Plan of Treatment Date Care Activity Detail Author Start: 04-25-2025 X-ray of lumbosacral spine L/S Spine Min 4 Views [facility] Start: 04-25-2025 XR Spine Lumbar and Sacrum GE 4 Views [facility] Start: 02-25-2025 Colonoscopy w/biopsy single/multiple COLONOSCOPY AND BIOPSY [facility] Start: 02-25-2025 Patient discharge [facility] Start: 12-31-2024 Patient discharge [facility] Start: 12-30-2024 Measuring intake and output [facility] Start: 12-30-2024 Provision of activity privileges [facility] Start: 12-30-2024 Removal of urinary catheter [facility] Start: 12-30-2024 Oxygen therapy [facility] Start: 12-30-2024 Physiotherapy of chest [facility] Start: 12-29-2024 Following clinical pathway protocol [facility] Start: 12-29-2024 Anes xtrprtl lower abd ur tract renal don nfrct ANESTH KIDNEY/URETER SURG [facility] Start: 12-29-2024 Laparoscopy surg partial nephrectomy LAPARO PARTIAL NEPHRECTOMY [facility] Start: 12-29-2024 Measuring intake and output [facility] Start: 12-29-2024 Admission procedure [facility] Start: 12-29-2024 Ambulation therapy management [facility] Start: 12-29-2024 Assessment of risk of venous thromboembolism [facility] Start: 12-29-2024 Deep breathing and coughing exercises [facility] Start: 12-29-2024 Documentation procedure [facility] Start: 12-29-2024 Following clinical pathway protocol [facility] Start: 12-29-2024 Provision of activity privileges [facility] Start: 12-29-2024 Taking patient vital signs [facility] Start: 12-29-2024 Vital signs measurements [facility] Start: 12-29-2024 End: 12-29-2024 [facility] Start: 12-29-2024 Inhalation therapy procedure [facility] MR Lumbar spine [facility] Patient Education Kidney Cancer Tx Dc Diverticulitis Dc ED Tumor, Uncertain Cause [facility] Work Phone: Patient referral [facility] Work Phone: [facility] Payers Date Payer Category Payer Medicare [id number] 2024 Self-pay [id number] 2016 Unknown [id number] Private Health Insurance [id number] Unknown [id number] 2.16.8 [id number] Unknown [id number] 2.16.8 [id number] Unknown [id number] 2.16.8 [id number] Unknown [id number] 2.16.8 [id number] Unknown [id number] 2.16.8 [id number] Unknown [id number] 2.16.8 [id number] Unknown [id number] 2.16.8 [id number] Unknown [id number] 2.16.8 [id number] Unknown [id number] 2.16.8 [id number] Unknown [id number] 2.16.8 [id number] Unknown [id number] 2.16.8 [id number] Unknown [id number] 2.16.8 [id number] Unknown [id number] 2.16.8 [id number] Unknown [id number] 2.16.8 [id number] Social History Date Type Detail Facility Start: 11-23-2021 End: 02-18-2023 Tobacco smoking status MTIS Unknown if ever smoked [facility] Start: 06-10-2017 Occasional [facility] Start: 06-10-2017 None [facility] Start: 05-07-2020 Spouse/ Signif icant Other [facility] Start: 05-07-2020 Cigars [facility] Start: 1955 Sex Assigned At Male W [facility] Start: 12-29-2024 End: 02-24-2025 Tobacco smoking status NHIS Current Light tobacco smoker [facility] Start: 12-31-2024 Sex Male (finding) [facility] Medical Equipment Procedure Code Equipment Code Equipment Origin al Text Equipment Identifier Dates Robot-assisted partial nephrectomy CLIP,HEMOLOCK MED WECK FDA Start : 12-29-2024 Robot-assisted partial nephrectomy CLIP,HEMOLOCK MED WECK FDA Start : 12-29-2024 Robot-assisted partial nephrectomy CLIP,HEMOLOCK MED WECK FDA Start : 12-29-2024 Robot-assisted partial nephrectomy CLIP,HEMOLOCK MED WECK FDA Start : 12-29-2024 Robot-assisted partial nephrectomy CLIP,LAPRA-TY FDA Start: 12-29-2024 Robot-assisted partial nephrectomy CLIP,LAPRA-TY FDA Start: 12-29-2024 Robot-assisted partial nephrectomy SURGIFLO HEMOSTATIC MATRIX FDA Start: 12-29-2024 Robot-assisted partial nephrectomy Plant polysaccharide haemostatic agent, bioabsorbable ()[id number] FDA Start: 12-29-2024 Robot-assisted partial nephrectomy Ligation clip, synthetic polymer, non-bioabsorbable ()[id number] FDA Start: 12-29-2024 Robot-assisted partial nephrectomy CLIP,HEMOLOCK MED WECK FDA Start : 12-29-2024 Robot-assisted partial nephrectomy CLIP,HEMOLOCK MED WECK FDA Start : 12-29-2024 Robot-assisted partial nephrectomy CLIP,HEMOLOCK MED WECK FDA Start : 12-29-2024 Robot-assisted partial nephrectomy CLIP,HEMOLOCK MED WECK FDA Start : 12-29-2024 Robot-assisted partial nephrectomy CLIP,LAPRA-TY FDA Start: 12-29-2024 Robot-assisted partial nephrectomy CLIP,LAPRA-TY FDA Start: 12-29-2024 Robot-assisted partial nephrectomy SURGIFLO HEMOSTATIC MATRIX FDA Start: 12-29-2024 Robot-assisted partial nephrectomy CLIP,HEMOLOCK MED WECK FDA Start : 12-29-2024 Robot-assisted partial nephrectomy CLIP,HEMOLOCK MED WECK FDA Start : 12-29-2024 Robot-assisted partial nephrectomy CLIP,HEMOLOCK MED WECK FDA Start : 12-29-2024 Robot-assisted partial nephrectomy CLIP,HEMOLOCK MED WECK FDA Start : 12-29-2024 Robot-assisted partial nephrectomy CLIP,LAPRA-TY FDA Start: 12-29-2024 Robot-assisted partial nephrectomy CLIP,LAPRA-TY FDA Start: 12-29-2024 Robot-assisted partial nephrectomy SURGIFLO HEMOSTATIC MATRIX FDA Start: 12-29-2024 Robot-assisted partial nephrectomy CLIP,HEMOLOCK MED WECK FDA Start : 12-29-2024 Robot-assisted partial nephrectomy CLIP,HEMOLOCK MED WECK FDA Start : 12-29-2024 Robot-assisted partial nephrectomy CLIP,HEMOLOCK MED WECK FDA Start : 12-29-2024 Robot-assisted partial nephrectomy CLIP,HEMOLOCK MED WECK FDA Start : 12-29-2024 Robot-assisted partial nephrectomy CLIP,LAPRA-TY FDA Start: 12-29-2024 Robot-assisted partial nephrectomy CLIP,LAPRA-TY FDA Start: 12-29-2024 Robot-assisted partial nephrectomy SURGIFLO HEMOSTATIC MATRIX FDA Start: 12-29-2024 Robot-assisted partial nephrectomy CLIP,HEMOLOCK MED WECK FDA Start : 12-29-2024 Robot-assisted partial nephrectomy CLIP,HEMOLOCK MED WECK FDA Start : 12-29-2024 Robot-assisted partial nephrectomy CLIP,HEMOLOCK MED WECK FDA Start : 12-29-2024 Robot-assisted partial nephrectomy CLIP,HEMOLOCK MED WECK FDA Start : 12-29-2024 Robot-assisted partial nephrectomy CLIP,LAPRA-TY FDA Start: 12-29-2024 Robot-assisted partial nephrectomy CLIP,LAPRA-TY FDA Start: 12-29-2024 Robot-assisted partial nephrectomy SURGIFLO HEMOSTATIC MATRIX FDA Start: 12-29-2024 Robot-assisted partial nephrectomy CLIP,HEMOLOCK MED WECK FDA Start : 12-29-2024 Robot-assisted partial nephrectomy CLIP,HEMOLOCK MED WECK FDA Start : 12-29-2024 Robot-assisted partial nephrectomy CLIP,HEMOLOCK MED WECK FDA Start : 12-29-2024 Robot-assisted partial nephrectomy CLIP,HEMOLOCK MED WECK FDA Start : 12-29-2024 Robot-assisted partial nephrectomy CLIP,LAPRA-TY FDA Start: 12-29-2024 Robot-assisted partial nephrectomy CLIP,LAPRA-TY FDA Start: 12-29-2024 Robot-assisted partial nephrectomy SURGIFLO HEMOSTATIC MATRIX FDA Start: 12-29-2024 Goals Date Patient Goal Desired Activity /State Functional Status Date Assessment Result Facility 12-31-2024 Functional status Bathroom Privilege [facility] Work Phone: Mental Status Date Assessment Result Facility 02-25-2025 Cognitive function Voice/Name [facility] Work Phone: 12-30-2024 Cognitive function Voice/Name [facility] Work Phone: Clinical Notes 11-02-2024 to 02-25-2025 Note Date & Type Note Facility 02-25-2025 Consult note Note Date/Time February 25, 2025 2:00p [facility] Medical Records Department [address] [place] [id number] Anesthesia Postop Eval II 02/25/25 1326 MR#: [id number] Acct: [id number] Name: SWAPNA TEJADA Rep #:[id number] : 1955 69 From: Rigo Kendrick MD PCP: Dr. 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 CLERK.SOBR Spontaneous unlabored Yes 02/25/25 13:02 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 CLERK.SOBR respirations Mental status nausea No 02/25/25 13:02 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 CLERK.SOBR Vomiting No 02/25/25 13:02 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 CLERK.SOBR Anesthesia Postop Eval I: Fluid Summary Crystalloid volume administer 300 02/25/25 13:02 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 CLERK.SOBR (ml) Colloids volume administered ( ml) Blood Product volume administered (ml) Total IV fluid infused 300 02/25/25 13:02 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 CLERK.SOBR Anesthesia Postop Eval I: Summary Notes Anesthesia Complication No 02/25/25 13:02 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 CLERK.SOBR Anesthesia Complication Comment: Post-operative progress note Anesthesia: Postop Eval II Evaluation Mental status: Awake Pain Level: 0 nausea: No Vomiting: No 02/25/25 1326 <Electronically signed by Rigo Kendrick MD > Date _ Rigo Kendrick MD Cosigner Signature: Date CC: ~ Signed [facility] Work Phone: 1(957) 955-430405-23-2025 Consult note Author Zach Brentford [facility] Note Date/Time February 25, 2025 1:06p [facility] Medical Records Department [address] [place] [address] Anesthesia Postop Eval I 02/25/25 1301 MR#: [id number] Acct: [id number] Name: SWAPNA TEJADA Rep #:[id number] : 1955 69 From: Zach CHENEY PCP: Dr. Jimena Cagle MD Status:REG SDC Y Race: C Location: [place] [address] Anesthesia: Postop Eval I Current Vital Signs Temperature: 97.7 F Pulse Rate: 67 Blood Pressure: 114/68 Respiratory Rate: 16 Pulse Ox: 67 Oxygen Delivery Method: Room Air Assessment Airway patent: Yes Spontaneous unlabored respirations: Yes nausea: No Vomiting: No Anesthesia Complication: No Fluid Hydration Crystalloid volume administer (ml): 300 Total IV fluid infused: 300 Progress Note Anesthesia document: Postop Eval 1 completed: Yes 02/25/25 1306 <Electronically signed by Zach Olivera CRNA> Date _ Zach Olivera CRNA Cosigner Signature: Date CC: ~ Signed [facility] Work Phone: 1(496) 111-881605-23-2025 History and physical note Author Charly Rosas [facility] Note Date/Time February 25, 2025 12:25 pm [facility] Medical Records Department [address] [place] [address] History & Physical Exam 02/25/25 1224 MR#: [id number] Acct: [id number] Name: SWAPNA TEJADA Rep #:[id number] : 1955 69 From: Charly Rosas DO PCP: Dr. Jimena Cagle MD Status:[facility] Location: [place] [address] HPI - General General Date of Admission: 02/25/25 Date of Service: 02/25/25 Chief Complaint: Diverticulitis HPI Narrative SWAPNA TEJADA, is a 69 M who presents today for evaluation of diverticulitis [facility] ED 11.15.24 with abd pain in the LLQ for two weeks. Hx of diverticular disease. CT abd/pelvis with sigmoid diverticulitis and right kidney mass consistent with renal cell carcinoma. Started on Cipro/ Flagyl and [place] for pain Abdomen/Pelvis CT 11/15/24 19:27 IMPRESSION: 1. Moderate acute uncomplicated distal descending colonic diverticulitis. 2. Heterogeneously enhancing mass in the inferior pole of the right kidney concerning for renal cell carcinoma. OV 12.02.24 Pt abd pain has been improving. He now just has some dull achy pain. He finished his antibiotic and took 3 of the pain pills. He has struggled with some constipation and is taking miralax as needed. He did see the urologist and [facility] Medical History Smoker History of atrial fibrillation History of stress test Hypertension Wears glasses Cancer Alcohol use History of steroid therapy Thyroid disease Arthritis History of renal disease Back pain History of diverticulitis Heartburn Cigar smoker CPAP (continuous positive airway pressure) dependence Chronic cough Asthma Leg cramps History of edema History of Holter monitoring History of echocardiogram Cardiology follow-up encounter Afib COVID-19 Palpitations Tachycardia Patent foramen ovale SOB (shortness of breath) Wide-complex tachycardia Paroxysmal atrial fibrillation Essential (primary) hypertension Nonischemic cardiomyopathy Valvular heart disease Nonrheumatic tricuspid (valve) insufficiency Nonrheumatic mitral (valve) insufficiency Hypothyroidism Home Medications ?Medication ?Instructions ?Recorded ?Last Taken ?Type levothyroxine 112 mcg tablet 112 mcg PO DAILY 06/10/17 12/29/24 History Blood Pressure Cuff #1 ea 08/23/19 Unknown Rx multivitamin-ferrous 1 tab PO QDAY 08/22/23 Unkno wn History fumarate-folic acid 18 mg-400 mcg tablet (Centrum Complete) hydrochlorothiazide 25 mg tablet 25 mg PO DAILY #90 ta bs 01/30/24 12/29/24 Rx metoprolol tartrate 50 mg tablet 50 mg PO BID #180 TAB LETS 08/16/24 02/25/25 Rx apixaban 5 mg tablet (Eliquis) 5 mg PO BID #180 tabs 0 11/02/24 02/21/25 Rx albuterol sulfate 90 mcg/actuation 2 puff inhalation 4 X/DAY PRN 12/15/24 Unknown History aerosol inhaler shortness of breath or wheez ing fluticasone furoate 200 1 ea inhalation DAILY 12/29/24 History mcg-vilanterol 25 mcg/dose inhalation powder (Breo Ellipta) docusate sodium 100 mg capsule 100 mg PO BID #20 caps 12/29/24 Unknown Rx (Colace) losartan 50 mg tablet 50 mg PO BID #180 tabs 01/2502/25/25 Rx Allergy/AdvReac Type Severity Reaction Status Date / Time lisinopril AdvReac Unknown Dry Cough Verified 02/24/25 10:32 Family History Father CAD (coronary artery disease) Mother Thyroid disorder Surgical History History of partial nephrectomy History of cardiac catheterization History of melanoma excision Hx of meniscectomy of right knee Hx of cataract removal with insertion of prosthetic lens (~06/2022) History of open reduction and internal fixation (ORIF) procedure History of vasectomy History of tonsillectomy Social History Smoking Status: Light Smoker (<10/day) alcohol intake: current alcohol intake frequency: a few times a week Alcohol type: beer, wine and hard liquor substance use type: does not use caffeine: Yes Type: carbonated beverages and coffee Number of servings: 4 what type of physical activity do you participate in: none seatbelt use: always do you feel safe at home: Yes ROS Constitutional Constitutional: Denies fatigue, fever(s), poor appetite, weight gain or weight loss Gastrointestinal Gastrointestinal: Denies belching, bloating, change in bowel habits, change in stool character, chewing difficulty, coffee ground emesis, constipation, cramping, diarrhea, dyspepsia, dysphagia, early satiety, excessive flatus, fecalincontinence, heartburn, hematemesis, hematochezia, hemorrhoids, loose stools, melena, nausea, odynophagia, rectal bleeding, tenesmus, vomiting or weight changes Vital Signs Vital Signs Vital Signs: 02/25/25 11:57 02/25/25 12:04 Temperature 96.9 F L Temperature Source Temporal Pulse Rate 60 Respiratory Rate 16 Respiratory Pattern Normal Blood Pressure 123/82 H Blood Pressure Mean 95 Blood Pressure Source Monitor Blood Pressure Position Semi-Fowlers Blood Pressure Location Right Arm Pulse Ox 99 Oxygen Delivery Method Room Air Weight Weight: 256 lb 13.416 oz Body Mass Index (BMI) 36.8 Physical Exam Const alert, oriented x3, no apparent distress and healthy appearing General Appearance: cooperative GI normal to inspection, nondistended, normoactive bowel sounds, soft to palpation,non-tender and non-distended Percussion: normal to percussion Rectal Exam: deferred Assessment & Plan Assessment/Plan (1) Diverticulitis: PLAN: Assessment and Plan Assessment and Plan (1) Diverticulitis: Status: Acute Plan: Pt is a 69 yo male pt here today for f/u after [facility] ED for diverticulitis. Pt wasprescribed 10 day course of cipro/flagyl. He finished this and is doing well now. He is just having some dull pain now. His last colonoscopy was 5-7 years ago. He will have repeat colonoscopy to assess his diverticular disease. I recommended he take miralax as needed for constipation. In one month, he will start taking a fiber supplement to prevent future diverticular flares. -Colonoscopy -Miralax PRN -Start fiber supplement in 1 month -f/u as needed 02/25/25 1225 <Electronically signed by Charly Rosas DO> Cosigner Signature (if applicable): CC: Dr. Jimena Cagle MD; Charly Rosas DO~ Signed [facility] Work Phone: 1(369) 115-476705-23-2025 Consult note [facility] Medical Records Department [address] [place] [address] Anesthesia Postop Eval II 02/25/25 1326 MR#: [id number] Acct: [id number] Name: SWAPNA TEJADA Rep #:[id number] : 1955 69 From: Rigo Kendrick MD PCP: Dr. Jimena Cagle MD Status:REG [facility] Race: C Location: [place] [address]- Anesthesia Postop Eval I Sum Postop Eval Completion status Anesthesia document: Postop Eval 1 completed: Yes Anesthesia Postop Eval I Summary Anesthesia Postop Eval I Summary: Anesthesia Postop Eval I: Assessment Summary Airway patent Yes 02/25/25 13:02 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 CLERK.[email or web address] Spontaneous unlabored Yes 02/25/25 13:02 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 CLERK.SOBR respirations Mental status nausea No 02/25/25 13:02 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 CLERK.SOBR Vomiting No 02/25/25 13:02 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 CLERK.SOBR Anesthesia Postop Eval I: Fluid Summary Crystalloid volume administer 300 02/25/25 13:02 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 CLERK.SOBR (ml) Colloids volume administered ( ml) Blood Product volume administered (ml) Total IV fluid infused 300 02/25/25 13:02 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 CLERK.SOBR Anesthesia Postop Eval I: Summary Notes Anesthesia Complication No 02/25/25 13:02 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 CLERK.SOBR Anesthesia Complication Comment: Post-operative progress note Anesthesia: Postop Eval II Evaluation Mental status: Awake Pain Level: 0 nausea: No Vomiting: No 02/25/25 1326 > Date _ Rigo Kendrick MD Cosigner Signature: Date CC: ~ Signed [facility]05-23-2025 Consult note Author Rigo Kendrick [facility] Note Date/Time February 25, 2025 11:38 am [facility] Medical Records Department [address] [place] [address] Pre-Anesthesia Evaluation 02/25/25 1138 MR#: [id number] Acct: [id number] Name: SWAPNA TEJADA Rep #:[id number] : 1955 69 From: Rigo Kendrick MD PCP: Dr. Jimena Cagle MD Status:REG [facility] Race: C Location: [place] [address] ASA Classification* ASA Classification ASA Classification: 2 Assessment & Plan Anesthesia* Anesthesia Assessment Anesthesia Assessment: Discussed sedation and/or anesthesia options, risks, benefits, and alternatives with patient/parents/legal guardian/POA. Questions invited. The patient/parents/legal guardian/POA seems to understand and agrees to proceedwith anesthesia plan. Reviewed the physical assessment, medical history, allergy history and patient home medications list prior to surgery/procedure/anesthetic and documented any changes. Performed airway and anesthesia risk assessments. Anesthesia Type Anesthesia Type: MAC Anesthesia Focused Assessment* Airway Assessment Mouth opens: >3 cm Mallampati Score: II Focused Labs Anesthesia Preop lab: CBC WBC 8.0 K/mm3 (4.4-11.0) 12/31/24 06:21 12/31/24 RBC 3.91 M/mm3 (4.6-6.2) L 12/31/24 06:21 12/31/24 Hgb 11.4 g/dL (13.0-16.5) L 12/31/24 06: 5 Hct 35.1 % (40-54) L 12/31/24 06:21 12/31/24 Plt Count 169 K/mm3 (150-450) 12/31/24 06:21 12/31/24 CHEMISTRY Potassium 3.9 mmol/L (3.3-5.1) 12/31/24 06:21 12/31/24 Sodium 137 mmol/L (133-145) 12/31/24 06:21 12/31/24 Magnesium 2.2 mg/dL (1.8-2.4) 06/10/17 12:30 06/10/17 BUN 17 mg/dL (4-19) 12/31/24 06:21 12/31/24 Creatinine 1.34 mg/dL (0.70-1.20) H 12/31/24 06:21 Glucose 106 mg/dL (70-99) H 12/31/24 06:21 12/31/24 POC Glucose 100 mg/dL (70-110) 05/07/20 16:58 05/07/20 TSH 1.500 uIU/mL (0.300-4.200) 12/16/24 12:13 12/04 12/28 COAG PT 13.9 SECONDS (11.7-14.9) 09/01/18 10:30 Pre-Assessment Diagnosis/Proposed Procedure Planned Operative Procedure(s): CSCOPE Anesthesia History Anesthesia 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 When Was Last Pacemaker Check QUESTION #4 FULL TEXT: You/Your Family Experience fever (hyperthermia) with Anesthesia Last Oral Intake Last Oral intake: Last Oral Intake NPO since Meds taken in AM with sips of water? Meds patient instructed to take am of surgery PONV PONV - yard hostler: PONV - yard hostler Female No 02/24/25 10:34 HX of Motion Sickness No 02/24/25 10:34 HX of N/V After Surgery No 02/24/25 10:34 Non-Smoker No 02/24/25 10:34 Duration of Surgery greater No 02/24/25 10:34 than 60 minutes Number of Risk Factors PONV Score Height & Weight Height & Weight: Anesthesia: Height & Weight Height 5 ft 10 in 12/29/24 17:20 Respiratory Assessment Respiratory Assessment - yard hostler: Respiratory Tract Infection Hx - yard hostler Hx Respiratory Tract Infection No 02/24/25 10:34 STOP Sleep Apnea STOP Sleep Apnea - yard hostler: STOP Sleep Apnea - yard hostler Hx Hypertension Yes: CONTROLLED WITH MEDS 02/24/25 10:34 Hx Sleep Apnea Yes 02/24/25 10:34 CPAP Yes 02/24/25 10:34 BIPAP No 02/24/25 10:34 Do you snore loudly (louder than talking or can be heard Do you often feel tired/ fatigued/ sleepy during daytime? Has anyone observed you stop breathing during sleep? STOP Results Positive 02/24/25 10:34 QUESTION #5 FULL TEXT : Do you snore loudly (louder than talking or can be heard through closed doors)? 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 Specify any problems Hx of Preganancy in last 3 N/A 02/24/25 10:34 Months Nurse Filling Out Transfusion NBUCHER 02/24/25 10:34 & Questions: Date: 02/24/25 02/24/25 10:34 Time: 10:35 02/24/25 10:34 Patient unable to answer at this time (ie. confused, unrespo /Reproduction History /Reproductive History - yard hostler: /Reproductive Hx- yard hostler Hx Now Gestational Age (in weeks): EDC: Hx Hx Para Hx Section SAB No 02/24/25 10:34 PFSH Medical History Smoker History of atrial fibrillation History of stress test Hypertension Wears glasses Cancer Alcohol use History of steroid therapy Thyroid disease Arthritis History of renal disease Back pain History of diverticulitis Heartburn Cigar smoker CPAP (continuous positive airway pressure) dependence Chronic cough Asthma Leg cramps History of edema History of Holter monitoring History of echocardiogram Cardiology follow-up encounter Afib COVID-19 Palpitations Tachycardia Patent foramen ovale SOB (shortness of breath) Wide-complex tachycardia Paroxysmal atrial fibrillation Essential (primary) hypertension Nonischemic cardiomyopathy Valvular heart disease Nonrheumatic tricuspid (valve) insufficiency Nonrheumatic mitral (valve) insufficiency Hypothyroidism Home Medications ?Medication ?Instructions ?Recorded ?Last Taken ?Type levothyroxine 112 mcg tablet 112 mcg PO DAILY 06/10/17 12/29/24 History Blood Pressure Cuff #1 ea 08/23/19 Unknown Rx multivitamin-ferrous 1 tab PO QDAY 08/22/23 Unkno wn History fumarate-folic acid 18 mg-400 mcg tablet (Centrum Complete) hydrochlorothiazide 25 mg tablet 25 mg PO DAILY #90 ta bs 01/30/24 12/29/24 Rx metoprolol tartrate 50 mg tablet 50 mg PO BID #180 TAB LETS 08/16/24 12/29/24 Rx apixaban 5 mg tablet (Eliquis) 5 mg PO BID #180 tabs 0 11/02/24 02/21/25 Rx albuterol sulfate 90 mcg/actuation 2 puff inhalation 4 X/DAY PRN 12/15/24 Unknown History aerosol inhaler shortness of breath or wheez ing fluticasone furoate 200 1 ea inhalation DAILY 12/29/24 History mcg-vilanterol 25 mcg/dose inhalation powder (Breo Ellipta) docusate sodium 100 mg capsule 100 mg PO BID #20 caps 12/29/24 Unknown Rx (Colace) losartan 50 mg tablet 50 mg PO BID #180 tabs 01/25 Unknown Rx Allergy/AdvReac Type Severity Reaction Status Date / Time lisinopril AdvReac Unknown Dry Cough Verified 02/24/25 10:32 Family History Father CAD (coronary artery disease) Mother Thyroid disorder Surgical History History of partial nephrectomy History of cardiac catheterization History of melanoma excision Hx of meniscectomy of right knee Hx of cataract removal with insertion of prosthetic lens (~06/2022) History of open reduction and internal fixation (ORIF) procedure History of vasectomy History of tonsillectomy Social History Smoking Status: Light Smoker (<10/day) alcohol intake: current alcohol intake frequency: a few times a week Alcohol type: beer, wine and hard liquor substance use type: does not use caffeine: Yes Type: carbonated beverages and coffee Number of servings: 4 what type of physical activity do you participate in: none seatbelt use: always do you feel safe at home: Yes Review of Systems (Anesthesia) ROS Narrative System reviewed and no additional complaints, except as documented. 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 Jimena Cagle MD Status:REG [facility] Y Race: C Location: [place] [address] Anesthesia: Postop Eval I Current Vital Signs Temperature: 97.7 F Pulse Rate: 67 Blood Pressure: 114/68 Respiratory Rate: 16 Pulse Ox: 67 Oxygen Delivery Method: Room Air Assessment Airway patent: Yes Spontaneous unlabored respirations: Yes nausea: No Vomiting: No Anesthesia Complication: No Fluid Hydration Crystalloid volume administer (ml): 300 Total IV fluid infused: 300 Progress Note Anesthesia document: Postop Eval 1 completed: Yes 02/25/25 1306 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 CLERK> Date _ Zach Olivera 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 CLERK Cosigner Signature: Date CC: ~ Signed [facility]05-23-2025 Procedure note [facility] Medical Records Department [address] [place] [address] Colonoscopy Report MR#: [id number] Acct: [id number] Name: SWAPNA TEJADA Rep #:[id number] : 1955 69 From: Charly Rosas DO PCP: Dr. Jimena Cagle MD Status:[facility] Patient Name: Swapna Tejada Procedure Date: 02/25/2025 12:38 PM Date of : 1955 Age: 69 Procedure: Colonoscopy Indications: Abnormal CT of the GI tract Providers: Charly Rosas DO Medicines: Monitored Anesthesia Care Patient Profile: This is a 69 year old male. Refer to note in patient chart for documentation of history and physical. Last Colonoscopy: several years ago. Complications: No immediate complications. Procedure: Pre-Anesthesia Assessment: - Prior to the procedure, a History and Physical was performed, and patient medications and allergies were reviewed. The patient is competent. The risks and benefits of the procedure and the sedation options and risks were discussed with the patient. All questions were answered and informed consent was obtained. Patient identification and proposed procedure were verified by the physician in the pre-procedure area. Mental Status Examination: alert and oriented. Airway Examination: normal oropharyngeal airway and neck mobility. Respiratory Examination: clear to auscultation. CV Examination: normal. Prophylactic Antibiotics: The patient does not require prophylactic antibiotics. Prior Anticoagulants: The patient has taken no anticoagulant or antiplatelet agents except for NSAID medication. ASA Grade Assessment: II - A patient with mild systemic disease. After reviewing the risks and benefits, the patient was deemed in satisfactory condition to undergo the procedure. The anesthesia plan was to use monitored anesthesia care (MAC). Immediately prior to administration of medications, the patient was re-assessed for adequacy to receive sedatives. The heart rate, respiratory rate, oxygen saturations, blood pressure, adequacy of pulmonary ventilation, and response to care were monitored throughout the procedure. The physical status of the patient was re-assessed after the procedure. After I obtained informed consent, the scope was passed under direct vision. Throughout the procedure, the patient's blood pressure, pulse, and oxygen saturations were monitored continuously. The Colonoscope was introduced through the anus and advanced to the cecum, identified by appendiceal orifice and ileocecal valve. The colonoscopy was performed without difficulty. The patient tolerated the procedure well. The quality of the bowel preparation was good. The ileocecal valve, appendiceal orifice, and rectum were photographed. Scope In: 12:48:18 PM Scope Withdrawal Time 0 hours 7 minutes 56 seconds Scope Out: 12:58:19 PM Total Procedure Duration Time 0 hours 10 minutes 1 second Findings: The perianal and digital rectal examinations were normal. A 5 mm polyp was found in the recto-sigmoid colon. The polyp was sessile. The polyp was removed with a jumbo cold forceps. Resection and retrieval were complete. Verification of patient identification for the specimen was done. Estimated blood loss was minimal. Multiple small and large-mouthed diverticula were found in the entire colon. Impression: - One 5 mm polyp at the recto-sigmoid colon, removed with a jumbo cold forceps. Resected and retrieved. - Diverticulosis in the entire examined colon. Healed diverticulitis in the sigmoid colon. Recommendation: - Discharge patient to home. - Resume previous diet. - Continue present medications. - Await pathology results. - Repeat colonoscopy in 5 years for surveillance. Procedure Code(s): --- Professional --- 40724, Colonoscopy, flexible; with biopsy, single or multiple CPT copyright 2021 [employer]. All rights reserved. The codes documented in this report are preliminary and upon field associate review may be revised to meet current compliance requirements. Charly Rosas DO 02/25/2025 1:02:34 PM This report has been signed electronically. Number of Addenda: 0 Note Initiated On: 02/25/2025 12:38 PM 02/25/25 1302 Date _ Charly Villanueva Signature: Date (if indicated) CC: Dr. Jimena Cagle MD; Charly Rosas DO ~ Date Dictated: 02/25/25 1238 Date Transcribed: Saxophone Assembler: RF Signed [facility]05-23-2025 Procedure note [facility] Medical Records Department [address] [facility] [place] [address] Operative Report - CC Letter MR#: [id number] Acct: [id number] Name: SWAPNA TEJADA Rep #:[id number] : 1955 69 From: Charly Rosas DO PCP: Dr. Jimena Cagle MD Status:REG [facility] 02/25/2025 Jimena Cagle [address] [place] [address] Re : Colonoscopy procedure for Swapna Tejada Dear Dr. Cagle This procedure was performed on Tuesday, February 25, 2025. My impressions and recommendations are as follows: Impressions : - One 5 mm polyp at the recto-sigmoid colon, removed with a jumbo cold forceps. Resected and retrieved. - Diverticulosis in the entire examined colon. Healed diverticulitis in the sigmoid colon. Recommendations : - Discharge patient to home. - Resume previous diet. - Continue present medications. - Await pathology results. - Repeat colonoscopy in 5 years for surveillance. My findings are described in the full procedure note, which is enclosed. If I can be of further assistance, please feel free to contact me at . Sincerely, Charly Rosas DO 02/25/2025 1:02:34 PM This report has been signed electronically. 02/25/25 1302 Date _ Charly Rosas DO Cosigner Signature: Date (if indicated) CC: Dr. Jimena Cagle MD; Charly Rosas DO ~ Date Dictated: 02/25/25 1238 Date Transcribed: Saxophone Assembler: RF Signed [facility]05-23-2025 History and physical note [facility] Medical Records Department [address] [place] [address] History & Physical Exam 02/25/25 1224 MR#: [id number] Acct: [id number] Name: SWAPNA TEJADA Rep #:[id number] : 1955 69 From: Charly Rosas DO PCP: Dr. Jimena Cagle MD Status:[facility] Location: [place] [address] HPI - General General Date of Admission: 02/25/25 Date of Service: 02/25/25 Chief Complaint: Diverticulitis HPI Narrative SWAPNA TEJADA, is a 69 M who presents today for evaluation of diverticulitis [facility] ED 2.07.30 with abd pain in the LLQ for two weeks. Hx of diverticular disease. CT abd/pelvis with sigmoid diverticulitis and right kidney mass consistent with renal cell carcinoma. Started on Cipro/ Flagyl and [place] for pain Abdomen/Pelvis CT 11/15/24 19:27 IMPRESSION: 1. Moderate acute uncomplicated distal descending colonic diverticulitis. 2. Heterogeneously enhancing mass in the inferior pole of the right kidney concerning for renal cell carcinoma. OV 2.. Pt abd pain has been improving. He now just has some dull achy pain. He finished his antibiotic and took 3 of the pain pills. He has struggled with some constipation and is taking miralax as needed. He did see the urologist and [facility] Medical History Smoker History of atrial fibrillation History of stress test Hypertension Wears glasses Cancer Alcohol use History of steroid therapy Thyroid disease Arthritis History of renal disease Back pain History of diverticulitis Heartburn Cigar smoker CPAP (continuous positive airway pressure) dependence Chronic cough Asthma Leg cramps History of edema History of Holter monitoring History of echocardiogram Cardiology follow-up encounter Afib COVID-19 Palpitations Tachycardia Patent foramen ovale SOB (shortness of breath) Wide-complex tachycardia Paroxysmal atrial fibrillation Essential (primary) hypertension Nonischemic cardiomyopathy Valvular heart disease Nonrheumatic tricuspid (valve) insufficiency Nonrheumatic mitral (valve) insufficiency Hypothyroidism Home Medications ?Medication ?Instructions ?Recorded ?Last Taken ?Type levothyroxine 112 mcg tablet 112 mcg PO DAILY 06/10/17 12/29/24 History Blood Pressure Cuff #1 ea 08/23/19 Unknown Rx multivitamin-ferrous 1 tab PO QDAY 08/22/23 Unkno wn History fumarate-folic acid 18 mg-400 mcg tablet (Centrum Complete) hydrochlorothiazide 25 mg tablet 25 mg PO DAILY #90 ta bs 01/30/24 12/29/24 Rx metoprolol tartrate 50 mg tablet 50 mg PO BID #180 TAB LETS 08/16/24 02/25/25 Rx apixaban 5 mg tablet (Eliquis) 5 mg PO BID #180 tabs 0 11/02/24 02/21/25 Rx albuterol sulfate 90 mcg/actuation 2 puff inhalation 4 X/DAY PRN 12/15/24 Unknown History aerosol inhaler shortness of breath or wheez ing fluticasone furoate 200 1 ea inhalation DAILY 12/29/24 History mcg-vilanterol 25 mcg/dose inhalation powder (Breo Ellipta) docusate sodium 100 mg capsule 100 mg PO BID #20 caps 12/29/24 Unknown Rx (Colace) losartan 50 mg tablet 50 mg PO BID #180 tabs 01/2502/25/25 Rx Allergy/AdvReac Type Severity Reaction Status Date / Time lisinopril AdvReac Unknown Dry Cough Verified 02/24/25 10:32 Family History Father CAD (coronary artery disease) Mother Thyroid disorder Surgical History History of partial nephrectomy History of cardiac catheterization History of melanoma excision Hx of meniscectomy of right knee Hx of cataract removal with insertion of prosthetic lens (~06/2022) History of open reduction and internal fixation (ORIF) procedure History of vasectomy History of tonsillectomy Social History Smoking Status: Light Smoker (<10/day) alcohol intake: current alcohol intake frequency: a few times a week Alcohol type: beer, wine and hard liquor substance use type: does not use caffeine: Yes Type: carbonated beverages and coffee Number of servings: 4 what type of physical activity do you participate in: none seatbelt use: always do you feel safe at home: Yes ROS Constitutional Constitutional: Denies fatigue, fever(s), poor appetite, weight gain or weight loss Gastrointestinal Gastrointestinal: Denies belching, bloating, change in bowel habits, change in stool character, chewing difficulty, coffee ground emesis, constipation, cramping, diarrhea, dyspepsia, dysphagia, earlysatiety, excessive flatus, fecalincontinence, heartburn, hematemesis, hematochezia, hemorrhoids, loose stools, melena, nausea, odynophagia, rectal bleeding, tenesmus, vomiting or weight changes Vital Signs Vital Signs Vital Signs: 02/25/25 11:57 02/25/25 12:04 Temperature 96.9 F L Temperature Source Temporal Pulse Rate 60 Respiratory Rate 16 Respiratory Pattern Normal Blood Pressure 123/82 H Blood Pressure Mean 95 Blood Pressure Source Monitor Blood Pressure Position Semi-Fowlers Blood Pressure Location Right Arm Pulse Ox 99 Oxygen Delivery Method Room Air Weight Weight: 256 lb 13.416 oz Body Mass Index (BMI) 36.8 Physical Exam Const alert, oriented x3, no apparent distress and healthy appearing General Appearance: cooperative GI normal to inspection, nondistended, normoactive bowel sounds, soft to palpation,non-tender and non-distended Percussion: normal to percussion Rectal Exam: deferred Assessment & Plan Assessment/Plan (1) Diverticulitis: PLAN: Assessment and Plan Assessment and Plan (1) Diverticulitis: Status: Acute Plan: Pt is a 69 yo male pt here today for f/u after [facility] ED for diverticulitis. Pt wasprescribed 10 day course of cipro/flagyl. He finished this and is doing well now. He is just having some dull pain now.His last colonoscopy was 5-7 years ago. He will have repeat colonoscopy to assess his diverticular disease. I recommended he take miralax as needed for constipation. In one month, he will start taking a fiber supplement to prevent future diverticular flares. -Colonoscopy -Miralax PRN -Start fiber supplement in 1 month -f/u as needed 02/25/25 7875 Cosigner Signature (if applicable): CC: Dr. Jimena Cagle MD; Charly Friend, DO~ Signed [facility]05-23-2025 [facility] Medical Records Department [address] [place] [address] History Physical Exam 02/25/25 1224 MR#: [id number] Acct: [id number] Name: SWAPNA TEJADA Rep #: [id number] : 1955 69 From: Charly Rosas DO PCP: Dr. Jimena Cagle MD Status:REG [facility] Location: [place] [address] HPI - General General Date of Admission: 02/25/25 Date of Service: 02/25/25 Chief Complaint: Diverticulitis HPI Narrative SWAPNA TEJADA, is a 69 M who presents today for evaluation of diverticulitis [facility] ED 2.07.30 with abd pain in the LLQ for two weeks. Hx of diverticular disease. CT abd/pelvis with sigmoid diverticulitis and right kidney mass consistent with renal cell carcinoma. Started on Cipro/ Flagyl and [place] for pain Abdomen/Pelvis CT 11/15/24 19:27 IMPRESSION: 1. Moderate acute uncomplicated distal descending colonic diverticulitis. 2. Heterogeneously enhancing mass in the inferior pole of the right kidney concerning for renal cell carcinoma. OV 2.. Pt abd pain has been improving. He now just has some dull achy pain. He finished his antibiotic and took 3 of the pain pills. He has struggled with some constipation and is taking miralax as needed. He did see the urologist and [facility]. [facility] Medical History Smoker History of atrial fibrillation History of stress test Hypertension Wears glasses Cancer Alcohol use History of steroid therapy Thyroid disease Arthritis History of renal disease Back pain History of diverticulitis Heartburn Cigar smoker CPAP (continuous positive airway pressure) dependence Chronic cough Asthma Leg cramps History of edema History of Holter monitoring History of echocardiogram Cardiology follow-up encounter Afib COVID-19 Palpitations Tachycardia Patent foramen ovale SOB (shortness of breath) Wide-complex tachycardia Paroxysmal atrial fibrillation Essential (primary) hypertension Nonischemic cardiomyopathy Valvular heart disease Nonrheumatic tricuspid (valve) insufficiency Nonrheumatic mitral (valve) insufficiency Hypothyroidism Home Medications ???Medication ???Instructions ???Recorded ???Last Taken ???Type levothyroxine 112 mcg tablet 112 mcg PO DAILY 06/10/17 12/29/24 History Blood Pressure Cuff #1 ea 08/23/19 Unknown Rx multivitamin-ferrous 1 tab PO QDAY 08/22/23 Unknown His tory fumarate-folic acid 18 mg-400 mcg tablet (Centrum Complete) hydrochlorothiazide 25 mg tablet 25 mg PO DAILY #90 tabs 01/30/24 0 12/29/24 Rx metoprolol tartrate 50 mg tablet 50 mg PO BID #180 TABLETS 08/16/24 02/25/25 Rx apixaban 5 mg tablet (Eliquis) 5 mg PO BID #180 tabs 11/02/24 Rx albuterol sulfate 90 mcg/actuation 2 puff inhalation 4X/DAY PRN 09/29 Unknown History aerosol inhaler shortness of breath or wheezing fluticasone furoate 200 1 ea inhalation DAILY 12/15/24 History mcg-vilanterol 25 mcg/dose inhalation powder (Breo Ellipta) docusate sodium 100 mg capsule 100 mg PO BID #20 caps 12/29/24 Un known Rx (Colace) losartan 50 mg tablet 50 mg PO BID #180 tabs 01/25/25 Rx Allergy/AdvReac Type Severity Reaction Status Date / Time lisinopril AdvReac Unknown Dry Cough Verified 02/24/25 10:32 Family History Father CAD (coronary artery disease) Mother Thyroid disorder Surgical History History of partial nephrectomy History of cardiac catheterization History of melanoma excision Hx of meniscectomy of right knee Hx of cataract removal with insertion of prosthetic lens ( 06/2022) History of open reduction and internal fixation (ORIF) procedure History of vasectomy History of tonsillectomy Social History Smoking Status: Light Smoker (<10/day) alcohol intake: current alcohol intake frequency: a few times a week Alcohol type: beer, wine and hard liquor substance use type: does not use caffeine: Yes Type: carbonated beverages and coffee Number of servings: 4 what type of physical activity do you participate in: none seatbelt use: always do you feel safe at home: Yes ROS Constitutional Constitutional: Denies fatigue, fever(s), poor appetite, weight gain or weight loss Gastrointestinal Gastrointestinal: Denies belching, bloating, change in bowel habits, change in stool character, chewing difficulty, coffee ground emesis, constipation, cramping, diarrhea, dyspepsia, dysphagia, early satiety, excessive flatus, fecal incontinence, heartburn, hematemesis, hematochezia, hemorrhoids, loose stools, melena, nausea, odynophagia, rectal bleeding, tenesmus, vomiting or we (more content not included)...[facility]05-23-2025 Consult note [facility] Medical Records Department [address] [place] [address] Pre-Anesthesia Evaluation 02/25/25 1138 MR#: [id number] Acct: [id number] Name: SWAPNA TEJADA Rep #:[id number] : 1955 69 From: Rigo Kendrick MD PCP: Dr. Jimena Cagle MD Status:REG SD Y Race: C Location: [place] [address] ASA Classification* ASA Classification ASA Classification: 2 Assessment & Plan Anesthesia* Anesthesia Assessment Anesthesia Assessment: Discussed sedation and/or anesthesia options, risks, benefits, and alternatives with patient/parents/legal guardian/POA. Questions invited. The patient/parents/legal guardian/POA seems to understand and agrees to proceedwith anesthesia plan. Reviewed the physical assessment, medical history, allergy history and patient home medications list prior to surgery/procedure/anesthetic and documented any changes. Performed airway and anesthesia risk assessments. Anesthesia Type Anesthesia Type: MAC Anesthesia Focused Assessment* Airway Assessment Mouth opens: >3 cm Mallampati Score: II Focused Labs Anesthesia Preop lab: CBC WBC 8.0 K/mm3 (4.4-11.0) 12/31/24 06:21 12/31/24 RBC 3.91 M/mm3 (4.6-6.2) L 12/31/24 06:21 12/31/24 Hgb 11.4 g/dL (13.0-16.5) L 12/31/24 06:21 5 Hct 35.1 % (40-54) L 12/31/24 06:21 12/31/24 Plt Count 169 K/mm3 (150-450) 12/31/24 06:21 12/31/24 CHEMISTRY Potassium 3.9 mmol/L (3.3-5.1) 12/31/24 06:21 12/31/24 Sodium 137 mmol/L (133-145) 12/31/24 06:21 12/31/24 Magnesium 2.2 mg/dL (1.8-2.4) 06/10/17 12:30 06/10/17 BUN 17 mg/dL (4-19) 12/31/24 06:21 12/31/24 Creatinine 1.34 mg/dL (0.70-1.20) H 12/31/24 06:21 Glucose 106 mg/dL (70-99) H 12/31/24 06:21 12/31/24 POC Glucose 100 mg/dL (70-110) 05/07/20 16:58 05/07/20 TSH 1.500 uIU/mL (0.300-4.200) 12/16/24 12:13 12/04 12/28 COAG PT 13.9 SECONDS (11.7-14.9) 09/01/18 10:30 Pre-Assessment Diagnosis/Proposed Procedure Planned Operative Procedure(s): CSCOPE Anesthesia History Anesthesia 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 When Was Last Pacemaker Check QUESTION #4 FULL TEXT: You/Your Family Experience fever (hyperthermia) with Anesthesia Last Oral Intake Last Oral intake: Last Oral Intake NPO since Meds taken in AM with sips of water? Meds patient instructed to take am of surgery PONV PONV - yard hostler: PONV - yard hostler Female No 02/24/25 10:34 HX of Motion Sickness No 02/24/25 10:34 HX of N/V After Surgery No 02/24/25 10:34 Non-Smoker No 02/24/25 10:34 Duration of Surgery greater No 02/24/25 10:34 than 60 minutes Number of Risk Factors PONV Score Height & Weight Height & Weight: Anesthesia: Height & Weight Height 5 ft 10 in 12/29/24 17:20 Respiratory Assessment Respiratory Assessment - yard hostler: Respiratory Tract Infection Hx - yard hostler Hx Respiratory Tract Infection No 02/24/25 10:34 STOP Sleep Apnea STOP Sleep Apnea - yard hostler: STOP Sleep Apnea - yard hostler Hx Hypertension Yes: CONTROLLED WITH MEDS 02/24/25 10:34 Hx Sleep Apnea Yes 02/24/25 10:34 CPAP Yes 02/24/25 10:34 BIPAP No 02/24/25 10:34 Do you snore loudly (louder than talking or can be heard Do you often feel tired/ fatigued/ sleepy during daytime? Has anyone observed you stop breathing during sleep? STOP Results Positive 02/24/25 10:34 QUESTION #5 FULL TEXT : Do you snore loudly (louder than talking or can be heard through closeddoors)? 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 Specify any problems Hx of Preganancy in last 3 N/A 02/24/25 10:34 Months Nurse Filling Out Transfusion NBUCHER 02/24/25 10:34 & Questions: Date: 02/24/25 02/24/25 10:34 Time: 10:35 02/24/25 10:34 Patient unable to answer at this time (ie. confused, unrespo /Reproduction History /Reproductive History - yard hostler: /Reproductive Hx- yard hostler Hx Now Gestational Age (in weeks): EDC: Hx Hx Para Hx Section SAB No 02/24/25 10:34 [facility] Medical History Smoker History of atrial fibrillation History of stress test Hypertension Wears glasses Cancer Alcohol use History of steroid therapy Thyroid disease Arthritis History of renal disease Back pain History of diverticulitis Heartburn Cigar smoker CPAP (continuous positive airway pressure) dependence Chronic cough Asthma Leg cramps History of edema History of Holter monitoring History of echocardiogram Cardiology follow-up encounter Afib COVID-19 Palpitations Tachycardia Patent foramen ovale SOB (shortness of breath) Wide-complex tachycardia Paroxysmal atrial fibrillation Essential (primary) hypertension Nonischemic cardiomyopathy Valvular heart disease Nonrheumatic tricuspid (valve) insufficiency Nonrheumatic mitral (valve) insufficiency Hypothyroidism Home Medications ?Medication ?Instructions ?Recorded ?Last Taken ?Type levothyroxine 112 mcg tablet 112 mcg PO DAILY 06/10/17 12/29/24 History Blood Pressure Cuff #1 ea 08/23/19 Unknown Rx multivitamin-ferrous 1 tab PO QDAY 08/22/23 Unkno wn History fumarate-folic acid 18 mg-400 mcg tablet (Centrum Complete) hydrochlorothiazide 25 mg tablet 25 mg PO DAILY #90 ta bs 01/30/24 12/29/24 Rx metoprolol tartrate 50 mg tablet 50 mg PO BID #180 TAB LETS 08/16/24 12/29/24 Rx apixaban 5 mg tablet (Eliquis) 5 mg PO BID #180 tabs 0 11/02/24 02/21/25 Rx albuterol sulfate 90 mcg/actuation 2 puff inhalation 4 X/DAY PRN 12/15/24 Unknown History aerosol inhaler shortness of breath or wheez ing fluticasone furoate 200 1 ea inhalation DAILY 12/29/24 History mcg-vilanterol 25 mcg/dose inhalation powder (Breo Ellipta) docusate sodium 100 mg capsule 100 mg PO BID #20 caps 12/29/24 Unknown Rx (Colace) losartan 50 mg tablet 50 mg PO BID #180 tabs 01/25 Unknown Rx Allergy/AdvReac Type Severity Reaction Status Date / Time lisinopril AdvReac Unknown Dry Cough Verified 02/24/25 10:32 Family History Father CAD (coronary artery disease) Mother Thyroid disorder Surgical History History of partial nephrectomy History of cardiac catheterization History of melanoma excision Hx of meniscectomy of right knee Hx of cataract removal with insertion of prosthetic lens (~06/2022) History of open reduction and internal fixation (ORIF) procedure History of vasectomy History of tonsillectomy Social History Smoking Status: Light Smoker (<10/day) alcohol intake: current alcohol intake frequency: a few times a week Alcohol type: beer, wine and hard liquor substance use type: does not use caffeine: Yes Type: carbonated beverages and coffee Number of servings: 4 what type of physical activity do you participate in: none seatbelt use: always do you feel safe at home: Yes Review of Systems (Anesthesia) ROS Narrative System reviewed and no additional complaints, except as documented. 02/25/25 1138 > Date _ Rigo Kendrick MD Cosigner Signature: Date CC: ~ Signed [facility]03-28-2025 Consult note [facility] Medical Records Department [address] [place] [address] Anesthesia Postop Eval II 12/29/24 1541 MR#: [id number] Acct: [id number] Name: SWAPNA TEJADA Rep #:[id number] : 1955 69 From: Rigo Kendrick MD PCP: Dr. 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 Spontaneous unlabored Yes 12/29/24 15:22 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 respirations Mental status Awake,Calm 12/29/24 15:22 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 nausea No 12/29/24 15:22 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 Vomiting No 12/29/24 15:22 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 Anesthesia Postop Eval I: Fluid Summary Crystalloid volume administer 2,300 12/29/24 15:22 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 (ml) Colloids volume administered ( ml) Blood Product volume administered (ml) Total IV fluid infused 2,300 12/29/24 15:22 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 Anesthesia Postop Eval I: Summary Notes Anesthesia Complication No 12/29/24 15:22 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 Anesthesia Complication Comment: Post-operative progress note Anesthesia: Postop Eval II Evaluation Mental status: Awake Pain Level: 3 nausea: No Vomiting: No 12/29/24 1541 > Date _ Rigo Kendrick MD [facility] Signature: Date CC: ~ Signed [facility]03-28-2025 Discharge summary [facility] Medical Records Department [address] [place] [address] Instructions for Home/Discharge Instructions 12/29/24 1216 MR#: [id number] Acct: [id number] Name: SWAPNA TEJADA Rep #:[id number] : 1955 69 From: Portillo Lowry MD PCP: Dr. Jimena Cagle MD Status:REG [facility] Discharge Instructions Diet Discharge Diet: No restrictions DC O2, CPAP, BIPAP needs Home O2 Discharge instructions: No Dressing / Incision Discharge Activity: May Not Drive (while taking narcotic pain medications.) Return to work on:: 01/26/25 Dressing / Incision Call your doctor if you observe: Fever of 101 or Higher and Uncontrolled pain Suture Line Care: Avoid Pulling/Pushing and Avoid Pinching/Bending Follow Up Care Please Follow Up With: Portillo Lowry MD When: Call [phone] for an appointment Test Results: Test results from this visit will be discussed in further detail at your follow- up appointment, if applicable. Discharge Plan Admission Primary Reason for Your Visit: right partial nephrectomy Attending Provider: Portillo Lowry Primary Care Provider: Jimena Cagle Instructions Print Language: Ethiopian Discharge Orders/Prescriptions Prescriptions: New docusate sodium [Colace] 100 mg capsule 100 mg PO BID Qty: 20 0RF oxycodone 5 mg tablet 5 mg PO Q6H PRN (Reason: pain) 7 Days Qty: 14 0RF Continued Centrum Complete 18-400 mg-mcg tablet 1 tab PO QDAY (DME) Blood Pressure Cuff Qty: 1 0RF Rx Instructions: As directed levothyroxine 112 MCG tablet 112 mcg PO DAILY Patient Comments: thyroid fluticasone furoate-vilanterol [Breo Ellipta] 200-25 mcg/dose blister with device 1 ea inhalation DAILY albuterol sulfate 90 mcg/actuation HFA aerosol inhaler 2 puff INHALATION 4X/DAY PRN (Reason: shortness of breath or wheezing) hydrochlorothiazide 25 mg tablet 25 mg PO DAILY Qty: 90 4RF metoprolol tartrate 50 mg tablet 50 mg PO BID Qty: 180 3RF losartan 50 mg tablet 50 mg PO BID Qty: 180 3RF Held Eliquis 5 mg tablet 5 mg PO BID Qty: 180 3RF Hold Instructions: Resume on 01/12/25. Referrals / Follow Up: Jimena Cagle MD [Primary Care Provider] - Potrillo Lowry MD [Med Staff - Active Staff] - Disposition Disposition (needs filled in before D/C Order can be placed): Home, Self Care 12/29/24 1216Portillo Lowry MD CC: Dr. Jimena Cagle MD ~ Signed [facility]03-28-2025 Progress note Author Portillo Lowry [facility] Note Date/Time December 31, 2024 6:5 6am [facility] Medical Records Department [address] [place] [address] Progress Note - Urology 12/31/24 0653 MR#: [id number] Acct: [id number] Name: SWAPNA TEJADA Rep #:[id number] : 1955 69 From: Portillo Lowry MD PCP: Dr. Jimena Cagle MD Status:ADM JEFF Location: [place] [id number] Subjective Subjective 69-year-old male status post right lower pole partial nephrectomy. Postoperative day #2 he looks like is doing well reports that he is eating regular food staying down and also tolerating liquids okay we can Hep-Lock his fluids this morning De La Rosa catheter is out he has been urinating. He has not passed gas. Abdomen abdomen is soft and benign. He is using SCDs for DVT prophylaxis but contraindicated for pharmacological prophylaxis for DVT given the high risk of bleeding from a partial nephrectomy patient can go home today with a regular diet he will go home stool softeners and pain medicine he can resume all his medications , but he was given strict instructions not to start any blood thinners and not to start his Eliquis for a very high risk for bleeding from the resection site. He will follow-up in 2 weeks in my office to review the pathology report and for postoperative check. Objective Data Objective Data Vital Signs: Vital Signs Temp Pulse Resp BP Pulse Ox O2 Del Method O2 Flow Rate 98.7 F 78 18 121/81 H 93 Nasal Cannula 1.5 12/31/24 03:19 12/31/24 06:31 12/31/24 06:31 12/31/24 03:19 12/31/24 06:31 12/31/24 06:31 12/31/24 06:31 Oxygen Flow Rate (L/min) 1.5 Oxygen Delivery Method Nasal Cannula Weight: 120.2 kg Body Mass Index (BMI) 38.0 Intake & Output: Intake and Output for Last 24 Hours 12/29/24 12/30/24 12/31/24 23:59 23:59 23:59 Intake Total 1136 / 1136 2846.67 / 2846.67 945 / 945 Output Total 600 / 600 1225 / 1225 575 / 575 Balance 536 / 536 1621.67 / 1621.67 370 / 370 Lab / Micro Data 12/30/24 06:40 12/30/24 06:40 Labs: Laboratory Results - last 24 hr 12/30/24 06:40: WBC 11.2 H, RBC 4.18 L, Hgb 12.2 L, Hct 36.3 L, MCV 86.8, MCH 29.2, MCHC 33.6, RDW Std Deviation 41.1, RDW Coeff of Agustín 13.1, Plt Count 218, MPV 9.0, Immature Gran % (Auto) 0.400, Neut % (Auto) 84.0 H, Lymph % (Auto) 6.0 L, Sandoval % (Auto) 9.5, Eos % (Auto) 0.0, Baso % (Auto) 0.1, Absolute Neuts (auto)9.4 H, Absolute Lymphs (auto) 0.68 L, Nucleated RBC % 0, Sodium 138, Potassium 4.0, Chloride 107, Carbon Dioxide 21.9, Anion Gap 8, BUN 18, Creatinine 1.16, Estim Creat Clear Calc 78.11, Est GFR (MDRD) Non-Af 68, BUN/Creatinine Ratio 15.2, Glucose 132 H, Calcium 9.2 12/31/24 0656 <Electronically signed by Portillo Lowry MD> Cosigner Signature (if applicable): CC: ~ Signed [facility] Work Phone: 1(249) 336-637603-28-2025 Progress note [facility] Medical Records Department [address] [place] [address] Progress Note - Urology 12/31/24 0653 MR#: [id number] Acct: [id number] Name: SWAPNA TEJADA Rep #:[id number] : 1955 69 From: Portillo Lowry MD PCP: Dr. Jimena Cagle MD Status:ADM JEFF Location: [facility] [id number] Subjective Subjective 69-year-old male status post right lower pole partial nephrectomy. Postoperative day #2 he looks like is doing well reports that he is eating regular food staying down and also tolerating liquids okay we can Hep-Lock his fluids this morning De La Rosa catheter is out he has been urinating. He has not passed gas. Abdomen abdomen is soft and benign. He is using SCDs for DVT prophylaxis but contraindicated for pharmacological prophylaxis for DVT given the high risk of bleeding from a partial nephrectomy patient can go home today with a regular diet he will go home stool softeners and pain medicine lichaan resume all his medications , but he was given strict instructions not to start any blood thinners and not to start his Eliquis for a very high risk for bleeding from the resection site. He will follow-up in 2 weeks in my office to review the pathology report and for postoperative check. Objective Data Objective Data Vital Signs: Vital Signs Temp Pulse Resp BP Pulse Ox O2 Del Method O2 Flow Rate 98.7 F 78 18 121/81 H 93 Nasal Cannula 1.5 12/31/24 03:19 12/31/24 06:31 12/31/24 06:31 12/31/24 03:19 12/31/24 06:31 12/31/24 06:31 12/31/24 06:31 Oxygen Flow Rate (L/min) 1.5 Oxygen Delivery Method Nasal Cannula Weight: 120.2 kg Body Mass Index (BMI) 38.0 Intake & Output: Intake and Output for Last 24 Hours 12/29/24 12/30/24 12/31/24 23:59 23:59 23:59 Intake Total 1136 / 1136 2846.67 / 2846.67 945 / 945 Output Total 600 / 600 1225 / 1225 575 / 575 Balance 536 / 536 1621.67 / 1621.67 370 / 370 Lab / Micro Data 12/30/24 06:40 12/30/24 06:40 Labs: Laboratory Results - last 24 hr 12/30/24 06:40: WBC 11.2 H, RBC 4.18 L, Hgb 12.2 L, Hct 36.3 L, MCV 86.8, MCH 29.2, MCHC 33.6, RDW Std Deviation 41.1, RDW Coeff of Agustín 13.1, Plt Count 218, MPV 9.0, Immature Gran % (Auto) 0.400, Neut % (Auto) 84.0 H, Lymph % (Auto) 6.0 L, Sandoval % (Auto) 9.5, Eos % (Auto) 0.0, Baso % (Auto) 0.1, Absolute Neuts (auto)9.4 H, Absolute Lymphs (auto) 0.68 L, Nucleated RBC % 0, Sodium 138, Potassium 4.0, Chloride 107, Carbon Dioxide 21.9, Anion Gap 8, BUN 18, Creatinine 1.16, Estim Creat Clear Calc 78.11, Est GFR (MDRD) Non-Af 68, BUN/Creatinine Ratio 15.2, Glucose 132 H, Calcium 9.2 12/31/24 0656 Cosigner Signature (if applicable): CC: ~ Signed [facility]03-27-2025 Progress note Author Portillo Lowry [facility] Note Date/Time December 30, 2024 7:3 0am [facility] Medical Records Department [address] [place] [address] Progress Note - Urology 12/30/24 0729 MR#: [id number] Acct: [id number] Name: SWAPNA TEJADA Rep #:[id number] : 1955 69 From: Portillo Lowry MD PCP: Dr. Jimena Cagle MD Status:ADM JEFF Location: [facility] [id number] Subjective Subjective 69-year-old male status post right partial nephrectomy for lower pole renal masscomplete resection. Postop day #1 patient looks fairly good just have some minor soreness in the abdomen which is expected. He is tolerating liquids but has not tried any solid food yet will see how it goes today we will remove the De La Rosa catheter today keep him on IV fluids. Tumor was fairly deep so too high risk this restart any pharmacological DVT prophylaxis he will continue with SCDsno sinus clubbing swelling or edema in the lower extremities abdomen soft and benign. He is on little bit of oxygen will wean as tolerated. Will check a setof blood labs tomorrow continue with IV fluids for now. Objective Data Objective Data Vital Signs: Vital Signs Temp Pulse Resp BP Pulse Ox O2 Del Method O2 Flow Rate 98.2 F 82 17 119/81 H 97 Nasal Cannula 2 12/30/24 05:13 12/30/24 05:13 12/30/24 05:13 12/30/24 05:13 12/30/24 05:13 12/30/24 05:13 12/30/24 05:13 Oxygen Flow Rate (L/min) 2 Oxygen Delivery Method Nasal Cannula Weight: 120.2 kg Body Mass Index (BMI) 38.0 Intake & Output: Intake and Output for Last 24 Hours 12/28/24 12/29/24 12/30/24 23:59 23:59 23:59 Intake Total 1136 / 1136 350 / 350 Output Total 600 / 600 250 / 250 Balance 536 / 536 100 / 100 Lab / Micro Data 12/30/24 06:40 12/16/24 12:13 Labs: Laboratory Results - last 24 hr 12/30/24 06:40: WBC 11.2 H, RBC 4.18 L, Hgb 12.2 L, Hct 36.3 L, MCV 86.8, MCH 29.2, MCHC 33.6, RDW Std Deviation 41.1, RDW Coeff of Agustín 13.1, Plt Count 218, MPV 9.0, Immature Gran % (Auto) 0.400, Neut % (Auto) 84.0 H, Lymph % (Auto) 6.0 L, Sandoval % (Auto) 9.5, Eos % (Auto) 0.0, Baso % (Auto) 0.1, Absolute Neuts (auto)9.4 H, Absolute Lymphs (auto) 0.68 L, Nucleated RBC % 0 12/30/24 0730 <Electronically signed by Portillo Lowry MD> Cosigner Signature (if applicable): CC: ~ Signed [facility] Work Phone: 1(599) 440-236403-27-2025 Progress note [facility] Medical Records Department [address] [place] [address] Progress Note - Urology 12/30/24 0729 MR#: [id number] Acct: [id number] Name: SWAPNA TEJADA Rep #:[id number] : 1955 69 From: Portillo Lowry MD PCP: Dr. Jimena Cagle MD Status:ADM JEFF Location: [facility] [id number] Subjective Subjective 69-year-old male status post right partial nephrectomy for lower pole renal masscomplete resection.Postop day #1 patient looks fairly good just have some minor soreness in the abdomen which is expected. He is tolerating liquids but has not tried any solid food yet will see how it goes today we will remove the De La Rosa catheter today keep him on IV fluids. Tumor was fairly deep so too high risk thisrestart any pharmacological DVT prophylaxis he will continue with SCDsno sinus clubbing swelling oredema in the lower extremities abdomen soft and benign. He is on little bit of oxygen will wean as tolerated. Will check a setof blood labs tomorrow continue with IV fluids for now. Objective Data Objective Data Vital Signs: Vital Signs Temp Pulse Resp BP Pulse Ox O2 Del Method O2 Flow Rate 98.2 F 82 17 119/81 H 97 Nasal Cannula 2 12/30/24 05:13 12/30/24 05:13 12/30/24 05:13 12/30/24 05:13 12/30/24 05:13 12/30/24 05:13 12/30/24 05:13 Oxygen Flow Rate (L/min) 2 Oxygen Delivery Method Nasal Cannula Weight: 120.2 kg Body Mass Index (BMI) 38.0 Intake & Output: Intake and Output for Last 24 Hours 12/28/24 12/29/24 12/30/24 23:59 23:59 23:59 Intake Total 1136 / 1136 350 / 350 Output Total 600 / 600 250 / 250 Balance 536 / 536 100 / 100 Lab / Micro Data 12/30/24 06:40 12/16/24 12:13 Labs: Laboratory Results - last 24 hr 12/30/24 06:40: WBC 11.2 H, RBC 4.18 L, Hgb 12.2 L, Hct 36.3 L, MCV 86.8, MCH 29.2, MCHC 33.6, RDW Std Deviation 41.1, RDW Coeff of Agustín 13.1, Plt Count 218, MPV 9.0, Immature Gran % (Auto) 0.400, Neut % (Auto) 84.0 H, Lymph % (Auto) 6.0 L, Sandoval % (Auto) 9.5, Eos % (Auto) 0.0, Baso % (Auto) 0.1, Absolute Neuts (auto)9.4 H, Absolute Lymphs (auto) 0.68 L, Nucleated RBC % 0 12/30/24 0730 Cosigner Signature (if applicable): CC: ~ Signed [facility]03-26-2025 Consult note Author Rigo Kendrick [facility] Note Date/Time December 31, 2024 9:5 1am [facility] Medical Records Department [address] [place] [address] Anesthesia Postop Eval II 12/29/24 1541 MR#: [id number] Acct: [id number] Name: SWAPNA TEJADA Rep #:[id number] : 1955 69 From: Rigo Kendrick MD PCP: Dr. Jimena Cagle MD Status:REG SDC Y Race: C Location: [address] Anesthesia Postop Eval I Sum Postop Eval Completion status Anesthesia document: Postop Eval 1 completed: Yes Anesthesia Postop Eval I Summary Anesthesia Postop Eval I Summary: Anesthesia Postop Eval I: Assessment Summary Airway patent Yes 12/29/24 15:22 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 Spontaneous unlabored Yes 12/29/24 15:22 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 [email or web address] respirations Mental status Awake,Calm 12/29/24 15:22 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 [email or web address] nausea No 12/29/24 15:22 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 [email or web address] Vomiting No 12/29/24 15:22 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 Anesthesia Postop Eval I: Fluid Summary Crystalloid volume administer 2,300 12/29/24 15:22 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 [email or web address] (ml) Colloids volume administered ( ml) Blood Product volume administered (ml) Total IV fluid infused 2,300 12/29/24 15:22 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 [email or web address] Anesthesia Postop Eval I: Summary Notes Anesthesia Complication No 12/29/24 15:22 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 [email or web address] Anesthesia Complication Comment: Post-operative progress note Anesthesia: Postop Eval II Evaluation Mental status: Awake Pain Level: 3 nausea: No Vomiting: No 12/29/24 1541 <Electronically signed by Rigo Kendrick MD > Date _ Rigo Kendrick MD Cosigner Signature: Date CC: ~ Signed [facility] Work Phone: [phone]) 910-305503-26-2025 Consult note Author Chuy Serrano [facility] Note Date/Time December 29, 2024 3:2 2pm [facility] Medical Records Department [address] [place] [address] Anesthesia Postop Eval I 12/29/24 1521 MR#: [id number] Acct: [id number] Name: ISISTESSYSWAPNA MENDOZA Rep #:[id number] : 1955 69 From: Chuy Serrano CRNA PCP: Dr. Jimena Cagle MD Status:REG SDC Y Race: C Location: [place] [address] Anesthesia: Postop Eval I Current Vital Signs Temperature: 98.1 F Pulse Rate: 99 Blood Pressure: 148/99 Respiratory Rate: 20 Pulse Ox: 95 Oxygen Delivery Method: Room Air Assessment Airway patent: Yes Spontaneous unlabored respirations: Yes Mental status: Awake and Calm nausea: No Vomiting: No Anesthesia Complication: No Fluid Hydration Crystalloid volume administer (ml): 2,300 Total IV fluid infused: 2,300 Progress Note Anesthesia document: Postop Eval 1 completed: Yes 12/29/241521 <Electronically signed by Chuy figueroa CRNA> Date _ Chuy Serrano CRNA Cosigner Signature: Date CC: ~ Signed [facility] Work Phone: [phone]) 902-934503-26-2025 Consult note [facility] Medical Records Department [address] [place] [address] Anesthesia Postop Eval I 12/29/24 1521 MR#: [id number] Acct: [id number] Name: SWAPNA TEJADA Rep #:[id number] : 1955 69 From: Chuy Serrano 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 CLERK PCP: Dr. Jimena Cagle MD Status:REG [facility] Y Race: C Location: [place] [address] Anesthesia: Postop Eval I Current Vital Signs Temperature: 98.1 F Pulse Rate: 99 Blood Pressure: 148/99 Respiratory Rate: 20 Pulse Ox: 95 Oxygen Delivery Method: Room Air Assessment Airway patent: Yes Spontaneous unlabored respirations: Yes Mental status: Awake and Calm nausea: No Vomiting: No Anesthesia Complication: No Fluid Hydration Crystalloid volume administer (ml): 2,300 Total IV fluid infused: 2,300 Progress Note Anesthesia document: Postop Eval 1 completed: Yes 12/29/24 1522 y 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 CLERK> Date _ Chuygregory Pottsley 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 CLERK Cosigner Signature: Date CC: ~ Signed [facility]03-26-2025 Procedure note [facility] Medical Records Department [address] [place] [address] Operative Report 12/29/24 1456 MR#: [id number] Acct: [id number] Name: SWAPNA TEJADA Rep #:[id number] : 1955 69 From: Portillo Lowry MD PCP: Dr. Jimena Cagle MD Status:REG [facility] Location: [place] [address] Operative Report (Standard) Operative Information Date of Procedure: 12/29/24 Pre-Operative Diagnosis: Right renal mass Post-Operative Diagnosis: The same Surgery/Procedure Performed: Laparoscopic robotic assisted right partial nephrectomy sleeve turner: Yes Heel Shaper: Jolly Crouch Tasks completed by children's nursery assistant: Opening, Closing, Opening & closing, Harvestinggrafts, Dissecting tissue, Removing tissue, Implanting device, Altering tissue, Insert Trochanter, Hemostasis: Clamp, Hemostasis: Tie, Hemostasis: Electrocautery, Trocar, Retracting and Other Type of Anesthesia: General RN Documented Start/Stop Times: Operation Date: 12/29/24 11:30 Case Time Into Pre-Op 12/29/24 09:38 Out of Pre-Op 12/29/24 12:07 Anesthesia Start 12/29/24 12:12 Into Room 12/29/24 12:12 Procedure Start 12/29/24 12:40 Procedure Start Time: 12:40 Procedure Stop Time: 14:57 Select all DRAINS/GRAFTS/IMPLANTS that apply: Drains Drain details: De La Rosa catheter Estimated Blood Loss: 500 cc Specimen collected: No Description of surgery: Patient was taken back to to the operating room after smooth induction of anesthesia he was placed lateral flank position the patient's De La Rosa catheter wasplaced the abdomen was prepped and draped in usual sterile fashion. Made a small incision in the abdomen been severest Veress needle into the abdomen insufflated the abdomen CO2 gas upon insufflation the patient had a episode of bradycardia thiswas controlled by anesthesia once this was controlled then we proceeded with surgery again placed Akron ports and then Robot and proceeded witha laparoscopic robotic surgery to remove the tumor from the lower pole of the right kidnEY, first I dissected the colon off the kidney and then I dissected towards the renal hilum the Myke the Grady duodenum was kocherized and reflected off the hilum I then identified the vena cava identified the gonadal that was that was going to the vena cava this was left in place and then identified the first renal vein then identified a second renal vein these both w ere left in place between the 2 renal veins then deep within the fat was the renal artery once thiswas identified it was clean enough for 2 bulldogs to go on it. We then used ultrasound to identify the kidney had a lot of adequate adipose tissuearound the kidney I then dissected through the adipose tissue down to the parenchyma of the kidney and then used ultrasound identify the tumor that was ab out 4 cm in size in the lower pole of the right kidney that was going deep into the sinus of the kidney I then used ultrasound to vicente out the edges of theresection site where the tumor deep is goinginto the kidney once this is accomplished and we got ready the artery was clamped with 2 bulldogs and we proceeded with the resection using cold knife and minimal electrocautery the tumor was then resected off the lower pole of the kidney having a gross negativemargin and the entire way once the tumor was resected completely then is placed in Endo Catch bag I then used STRATAFIX stitch to run thebase of the resection site to control blood vessels we did an early unclamping and immediately there was recognition of a fairly sizable blood vessel that was bleeding in the hilum of the resection so I did use a second STRATAFIX stitch to to suture this once this was sutured closed and the bleeding stopped we then performed a renal artery to reapproximate the edges of the kidney using a CT1 needle and 0 Vicryl with continuous fashion using clips along the way to put pressure on the kidney and this allowed for hemostatic pressure on the resection site Floseal and Surgicel was then placed on top of the resection site we lowered the pressure down to 5 mmHg and there was no bleeding from the resection site we then undocked the robot extracted the tumor through the Cecilio through the 1012 port where the air seal port was being used with open up the air seal port and then we reclosed this incision with interrupted 0 Vicryl stitches. Then we look backinside the abdomen all suture sponges needles were removed at the end of the case and there was no sign of bleeding from the resection site took about 7 to 10 minutes to extract the tumor and during this time there was no significant amountof bleeding from the resection site in the lower pole of the right kidneyappeared to be good hemostasis blood pressure was stable. This point we then are closing all the subcuticular stitches with 4-0 Monocryl the anesthetic is currently being reversed blood loss about 500 cc and it was a complete gross resection of the tumor in the lower pole of the kidney. Surgical Findings: Mass in the lower pole resected completely and reconstructed Complications Complications: No Admit VTE Documentation VTE Present on Admission: No VTE Mechan Device Prophylaxis: SCD's VTE Pharm Prophylaxis ordered?: No 12/29/24 1504 Cosigner Signature (if applicable): CC: Dr. Jimena Cagle MD; Dr. Portillo Lowry MD~ Signed [facility]03-26-2025 Discharge summary Author Portillo Lowry [facility] Note Date/Time December 31, 2024 9:5 1am [facility] Medical Records Department [address] [place] [address] Instructions for Home/Discharge Instructions 12/29/24 1216 MR#: [id number] Acct: [id number] Name: SWAPNA TEJADA Rep #:[id number] : 1955 69 From: Portillo Lowry MD PCP: Dr. Jimena Cagle MD Status:REG SDC Discharge Instructions Diet Discharge Diet: No restrictions DC O2, CPAP, BIPAP needs Home O2 Discharge instructions: No Dressing / Incision Discharge Activity: May Not Drive (while taking narcotic pain medications.) Return to work on:: 01/26/25 Dressing / Incision Call your doctor if you observe: Fever of 101 or Higher and Uncontrolled pain Suture Line Care: Avoid Pulling/Pushing and Avoid Pinching/Bending Follow Up Care Please Follow Up With: Portillo Lowry MD When: Call [phone] for an appointment Test Results: Test results from this visit will be discussed in further detail at your follow- up appointment, if applicable. Discharge Plan Admission Primary Reason for Your Visit: right partial nephrectomy Attending Provider: Portillo Lowry Primary Care Provider: Jimena Cagle Instructions Print Language: Ethiopian Discharge Orders/Prescriptions Prescriptions: New docusate sodium [Colace] 100 mg capsule 100 mg PO BID Qty: 20 0RF oxycodone 5 mg tablet 5 mg PO Q6H PRN (Reason: pain) 7 Days Qty: 14 0RF Continued Centrum Complete 18-400 mg-mcg tablet 1 tab PO QDAY (DME) Blood Pressure Cuff Qty: 1 0RF Rx Instructions: As directed levothyroxine 112 MCG tablet 112 mcg PO DAILY Patient Comments: thyroid fluticasone furoate-vilanterol [Breo Ellipta] 200-25 mcg/dose blister with device 1 ea inhalation DAILY albuterol sulfate 90 mcg/actuation HFA aerosol inhaler 2 puff INHALATION 4X/DAY PRN (Reason: shortness of breath or wheezing) hydrochlorothiazide 25 mg tablet 25 mg PO DAILY Qty: 90 4RF metoprolol tartrate 50 mg tablet 50 mg PO BID Qty: 180 3RF losartan 50 mg tablet 50 mg PO BID Qty: 180 3RF Held Eliquis 5 mg tablet 5 mg PO BID Qty: 180 3RF Hold Instructions: Resume on 01/12/25. Referrals / Follow Up: Jimena Cagle MD [Primary Care Provider] - EssencePortillo Medina MD [Med Staff - Active Staff] - Disposition Disposition (needs filled in before D/C Order can be placed): Home, Self Care 12/29/24 1216<Electronically signed by Portillo Lowry MD>Portillo Lowry MD CC: Dr. Jimena Cagle MD ~ Signed [facility] Work Phone: 1(186) 606-874803-26-2025 History and physical note Author Portillo Lowry [facility] Note Date/Time December 29, 2024 11: 18am [facility] Medical Records Department [address] [place] [address] History & Physical Exam 12/29/24 1118 MR#: [id number] Acct: [id number] Name: SWAPNA TEJADA Rep #:[id number] : 1955 69 From: Portillo Lowry MD PCP: Dr. Jimena Cagle MD Status:[facility] Location: [place] [address] HPI - General General Date of Service: 12/29/24 Chief Complaint: Right renal mass HPI Narrative SWAPNA TEJADA, is a 69 M who presents for a robotic right partial nephrectomy for a solid lower pole right renal mass PFSH Medical History Wears glasses Cancer Alcohol use History of steroid therapy Thyroid disease Arthritis History of renal disease Back pain History of diverticulitis Heartburn Cigar smoker CPAP (continuous positive airway pressure) dependence Chronic cough Asthma Leg cramps History of edema History of Holter monitoring History of echocardiogram Cardiology follow-up encounter Afib COVID-19 Palpitations Tachycardia Patent foramen ovale SOB (shortness of breath) Wide-complex tachycardia Paroxysmal atrial fibrillation Essential (primary) hypertension Nonischemic cardiomyopathy Valvular heart disease Nonrheumatic tricuspid (valve) insufficiency Nonrheumatic mitral (valve) insufficiency Hypothyroidism Home Medications ?Medication ?Instructions ?Recorded ?Last Taken ?Type levothyroxine 112 mcg tablet 112 mcg PO DAILY 06/10/17 12/29/24 History Blood Pressure Cuff #1 ea 08/23/19 Unknown Rx multivitamin-ferrous 1 tab PO QDAY 08/22/23 Unkno wn History fumarate-folic acid 18 mg-400 mcg tablet (Centrum Complete) hydrochlorothiazide 25 mg tablet 25 mg PO DAILY #90 ta bs 01/30/24 12/29/24 Rx metoprolol tartrate 50 mg tablet 50 mg PO BID #180 TAB LETS 08/16/24 12/29/24 Rx losartan 50 mg tablet 50 mg PO BID #180 tabs 08/1812/29/24 Rx apixaban 5 mg tablet (Eliquis) 5 mg PO BID #180 tabs 0 11/02/24 12/23/24 Rx albuterol sulfate 90 mcg/actuation 2 puff inhalation 4 X/DAY PRN 12/15/24 Unknown History aerosol inhaler shortness of breath or wheez ing fluticasone furoate 200 1 ea inhalation DAILY 12/29/24 History mcg-vilanterol 25 mcg/dose inhalation powder (Breo Ellipta) Allergy/AdvReac Type Severity Reaction Status Date / Time lisinopril AdvReac Unknown Dry Cough Verified 12/29/24 09:58 Family History Father CAD (coronary artery disease) Mother Thyroid disorder Surgical History History of cardiac catheterization History of melanoma excision Hx of meniscectomy of right knee Hx of cataract removal with insertion of prosthetic lens (~06/2022) History of open reduction and internal fixation (ORIF) procedure History of vasectomy History of tonsillectomy Social History Smoking Status: Light Smoker (<10/day) alcohol intake: current alcohol intake frequency: a few times a week Alcohol type: beer, wine and hard liquor substance use type: does not use caffeine: Yes Type: carbonated beverages and coffee Number of servings: 4 what type of physical activity do you participate in: none seatbelt use: always do you feel safe at home: Yes Vital Signs Vital Signs Vital Signs: 12/29/24 10:00 12/29/24 10:00 Temperature 97.5 F L Temperature Source Temporal Pulse Rate 64 Respiratory Rate 16 Respiratory Pattern Normal Blood Pressure 145/92 H Blood Pressure Mean 109 Blood Pressure Source Monitor Blood Pressure Position Semi-Fowlers Blood Pressure Location Right Arm Pulse Ox 97 Oxygen Delivery Method Room Air Weight Weight: 120.2 kg Body Mass Index (BMI) 38.0 Results Lab / Micro Data 12/16/24 12:12/16/24 12:12/29/24 1118 <Electronically signed by Portillo Lowry MD> Cosigner Signature (if applicable): CC: Dr. Jimena Cagle MD; Dr. Portillo Lowry MD~ Signed [facility] Work Phone: 1(214) 528-532003-26-2025 Consult note Author Rigo Kendrick [facility] Note Date/Time December 29, 2024 9:5 5am [facility] Medical Records Department [address] [place] [address] Pre-Anesthesia Evaluation 12/29/24 0952 MR#: [id number] Acct: [id number] Name: SWAPNA TEJADA Rep #:[id number] : 1955 69 From: Rigo Kendrick MD PCP: Dr. Jimena Cagle MD Status:REG [facility] Y Race: C Location: [place] [address] ASA Classification* ASA Classification ASA Classification: 3 Assessment & Plan Anesthesia* Anesthesia Assessment Anesthesia Assessment: Discussed sedation and/or anesthesia options, risks, benefits, and alternatives with patient/parents/legal guardian/POA. Questions invited. The patient/parents/legal guardian/POA seems to understand and agrees to proceedwith anesthesia plan. Reviewed the physical assessment, medical history, allergy history and patient home medications list prior to surgery/procedure/anesthetic and documented any changes. Performed airway and anesthesia risk assessments. Anesthesia Type Anesthesia Type: General Anesthesia Focused Assessment* Airway Assessment Mouth opens: >3 cm Mallampati Score: II Focused Labs Anesthesia Preop lab: CBC WBC 6.8 K/mm3 (4.4-11.0) 12/16/24 12:12/16/24 RBC 4.72 M/mm3 (4.6-6.2) 12/16/24 12:12/16/24 Hgb 13.9 g/dL (13.0-16.5) 12/16/24 12:12/16/24 Hct 41.5 % (40-54) 12/16/24 12:12/16/24 Plt Count 225 K/mm3 (150-450) 12/16/24 12:13 12/16/24 CHEMISTRY Potassium 4.2 mmol/L (3.3-5.1) 12/16/24 12:13 12/16/24 Sodium 140 mmol/L (133-145) 12/16/24 12:13 12/16/24 Magnesium 2.2 mg/dL (1.8-2.4) 06/10/17 12:30 06/10/17 BUN 19 mg/dL (4-19) 12/16/24 12:13 12/16/24 Creatinine 1.11 mg/dL (0.70-1.20) 12/16/24 12:13 12/16/24 Glucose 102 mg/dL (70-99) H 12/16/24 12:13 12/16/24 POC Glucose 100 mg/dL (70-110) 05/07/20 16:58 05/07/20 TSH 1.500 uIU/mL (0.300-4.200) 12/16/24 12:13 12/04 12/28 COAG PT 13.9 SECONDS (11.7-14.9) 09/01/18 10:30 Pre-Assessment Diagnosis/Proposed Procedure Planned Operative Procedure(s): LAP ROBOTIC RIGHT PARTIAL NEPHRECTOMY Anesthesia History Anesthesia History - yard hostler: Anesthesia History - yard hostler Hx Hospitalization No 12/15/24 13:39 Any Problems With Anesthesia No 12/15/24 13:39 Cholinesterase deficiency No 12/15/24 13:39 You/Your Family Experience No 12/15/24 13:39 fever (hyperthermia) with Relationship Recent Exposure to Contagious Disease Does patient have nerve No 12/15/24 13:39 stimulator Patient instructed to have device shut off --Does patient have Pacemaker or ICD? When Was Last Pacemaker Check QUESTION #4 FULL TEXT: You/Your Family Experience fever (hyperthermia) with Anesthesia Last Oral Intake Last Oral intake: Last Oral Intake NPO since Meds taken in AM with sips of water? Meds patient instructed to take am of surgery PONV PONV - yard hostler: PONV - yard hostler Female No 12/15/24 13:39 HX of Motion Sickness No 12/15/24 13:39 HX of N/V After Surgery No 12/15/24 13:39 Non-Smoker Yes 12/15/24 13:39 Duration of Surgery greater Yes 12/15/24 13:39 than 60 minutes Number of Risk Factors 2 12/15/24 13:39 PONV Score Moderate Risk 12/15/24 13:39 Height & Weight Height & Weight: Anesthesia: Height & Weight Height 5 ft 10.5 in 11/15/24 17:52 Respiratory Assessment Respiratory Assessment - yard hostler: Respiratory Tract Infection Hx - yard hostler Hx Respiratory Tract Infection No 12/15/24 13:39 STOP Sleep Apnea STOP Sleep Apnea - yard hostler: STOP Sleep Apnea - yard hostler Hx Hypertension Yes: CONTROLLED WITH MEDS 12/15/24 13:39 Hx Sleep Apnea Yes 12/15/24 13:39 CPAP Yes 12/15/24 13:39 BIPAP No 12/15/24 13:39 Do you snore loudly (louder than talking or can be heard Do you often feel tired/ fatigued/ sleepy during daytime? Has anyone observed you stop breathing during sleep? STOP Results Positive 12/15/24 13:39 QUESTION #5 FULL TEXT : Do you snore loudly (louder than talking or can be heard through closed doors)? Tobacco Use History Tobacco Use History - yard hostler: Tobacco Use History - yard hostler Tobacco Use Smoking Status Light Smoker (<10/day) 12/15/24 13:39 Hx Tobacco Use Yes 12/15/24 13:39 Years Smoking Packs Smoked per Day Smoking Cessation Date was within the last 15 years Hx Smoking Cessation Date Hx Smoking Cessation Counseling Hematologic Medial History Hematologic Hx - yard hostler: Hematologic Medical Hx - dental patient coordinator Hx of Blood Transfusion No 12/15/24 13:39 Hx of Transfusion in last 3 No 12/15/24 13:39 Months Date of Last Transfusion (if within last 3 months) Ever experience any problems No 12/15/24 13:39 with transfusion(s)? Specify any problems Hx of Preganancy in last 3 N/A 12/15/24 13:39 Months Nurse Filling Out Transfusion DSCHRIBER 12/15/24 13:39 & Questions: Date: 12/15/24 12/15/24 13:39 Time: 13:41 12/15/24 13:39 Patient unable to answer at this time (ie. confused, unrespo /Reproduction History /Reproductive History - yard hostler: /Reproductive Hx- yard hostler Hx Now No 12/15/24 13:39 Gestational Age (in weeks): EDC: Hx Hx Para Hx Section SAB No 12/15/24 13:39 Active Medications Active Medications: Current Medications Generic Name Dose Route Start Last Admin Trade Name Freq PRN Reason Stop Dose Admin Cefazolin Sodium 3 gm/ N/A 30 mls @ 600 mls/hr 12/29/24 11:30 IV 12/29/24 11:32 PREOP ONE Sodium Chloride 1,000 mls @ 15 mls/hr 12/29/24 09:40 IV 01/03/25 22:59 .Q48H ANN MARIE PFSH Medical History Wears glasses Cancer Alcohol use History of steroid therapy Thyroid disease Arthritis History of renal disease Back pain History of diverticulitis Heartburn Cigar smoker CPAP (continuous positive airway pressure) dependence Chronic cough Asthma Leg cramps History of edema History of Holter monitoring History of echocardiogram Cardiology follow-up encounter Afib COVID-19 Palpitations Tachycardia Patent foramen ovale SOB (shortness of breath) Wide-complex tachycardia Paroxysmal atrial fibrillation Essential (primary) hypertension Nonischemic cardiomyopathy Valvular heart disease Nonrheumatic tricuspid (valve) insufficiency Nonrheumatic mitral (valve) insufficiency Hypothyroidism Home Medications ?Medication ?Instructions ?Recorded ?Last Taken ?Type levothyroxine 112 mcg tablet 112 mcg PO DAILY 06/10/17 07/29/17 History Blood Pressure Cuff #1 ea 08/23/19 Unknown Rx multivitamin-ferrous 1 tab PO QDAY 08/22/23 Unkno wn History fumarate-folic acid 18 mg-400 mcg tablet (Centrum Complete) hydrochlorothiazide 25 mg tablet 25 mg PO DAILY #90 ta bs 01/30/24 Unknown Rx metoprolol tartrate 50 mg tablet 50 mg PO BID #180 TAB LETS 08/16/24 Unknown Rx losartan 50 mg tablet 50 mg PO BID #180 tabs 08/18 Unknown Rx apixaban 5 mg tablet (Eliquis) 5 mg PO BID #180 tabs 0 11/02/24 Unknown Rx albuterol sulfate 90 mcg/actuation 2 puff inhalation 4 X/DAY PRN 12/15/24 Unknown History aerosol inhaler shortness of breath or wheez ing fluticasone furoate 200 1 ea inhalation DAILY Unknown History mcg-vilanterol 25 mcg/dose inhalation powder (Breo Ellipta) Allergy/AdvReac Type Severity Reaction Status Date / Time lisinopril AdvReac Unknown Dry Cough Verified 12/15/24 13:34 Family History Father CAD (coronary artery disease) Mother Thyroid disorder Surgical History History of cardiac catheterization History of melanoma excision Hx of meniscectomy of right knee Hx of cataract removal with insertion of prosthetic lens (~06/2022) History of open reduction and internal fixation (ORIF) procedure History of vasectomy History of tonsillectomy Social History Smoking Status: Light Smoker (<10/day) alcohol intake: current alcohol intake frequency: a few times a week Alcohol type: beer, wine and hard liquor substance use type: does not use caffeine: Yes Type: carbonated beverages and coffee Number of servings: 4 what type of physical activity do you participate in: none seatbelt use: always do you feel safe at home: Yes Review of Systems (Anesthesia) ROS Narrative System reviewed and no additional complaints, except as documented. 12/29/24 09 <Electronically signed by Rigo Kendrick MD > Date _ Rigo Kendrick MD Cosigner Signature: Date CC: ~ Signed [facility] Work Phone: 1(381) 608-337003-26-2025 History and physical note [facility] Medical Records Department [address] [place] [address] History & Physical Exam 12/29/24 1118 MR#: [id number] Acct: [id number] Name: SWAPNA TEJADA Rep #:[id number] : 1955 69 From: Portillo Lowry MD PCP: Dr. Jimena Cagle MD Status:REG [facility] Location: [place] [address] HPI - General General Date of Service: 12/29/24 Chief Complaint: Right renal mass HPI Narrative SWAPNA TEJADA, is a 69 M who presents for a robotic right partial nephrectomy for a solid lower pole right renal mass [facility] Medical History Wears glasses Cancer Alcohol use History of steroid therapy Thyroid disease Arthritis History of renal disease Back pain History of diverticulitis Heartburn Cigar smoker CPAP (continuous positive airway pressure) dependence Chronic cough Asthma Leg cramps History of edema History of Holter monitoring History of echocardiogram Cardiology follow-up encounter Afib COVID-19 Palpitations Tachycardia Patent foramen ovale SOB (shortness of breath) Wide-complex tachycardia Paroxysmal atrial fibrillation Essential (primary) hypertension Nonischemic cardiomyopathy Valvular heart disease Nonrheumatic tricuspid (valve) insufficiency Nonrheumatic mitral (valve) insufficiency Hypothyroidism Home Medications ?Medication ?Instructions ?Recorded ?Last Taken ?Type levothyroxine 112 mcg tablet 112 mcg PO DAILY 06/10/17 12/29/24 History Blood Pressure Cuff #1 ea 08/23/19 Unknown Rx multivitamin-ferrous 1 tab PO QDAY 08/22/23 Unkno wn History fumarate-folic acid 18 mg-400 mcg tablet (Centrum Complete) hydrochlorothiazide 25 mg tablet 25 mg PO DAILY #90 ta bs 01/30/24 12/29/24 Rx metoprolol tartrate 50 mg tablet 50 mg PO BID #180 TAB LETS 08/16/24 12/29/24 Rx losartan 50 mg tablet 50 mg PO BID #180 tabs 08/1812/29/24 Rx apixaban 5 mg tablet (Eliquis) 5 mg PO BID #180 tabs 0 11/02/24 12/23/24 Rx albuterol sulfate 90 mcg/actuation 2 puff inhalation 4 X/DAY PRN 12/15/24 Unknown History aerosol inhaler shortness of breath or wheez ing fluticasone furoate 200 1 ea inhalation DAILY 12/29/24 History mcg-vilanterol 25 mcg/dose inhalation powder (Breo Ellipta) Allergy/AdvReac Type Severity Reaction Status Date / Time lisinopril AdvReac Unknown Dry Cough Verified 12/29/24 09:58 Family History Father CAD (coronary artery disease) Mother Thyroid disorder Surgical History History of cardiac catheterization History of melanoma excision Hx of meniscectomy of right knee Hx of cataract removal with insertion of prosthetic lens (~06/2022) History of open reduction and internal fixation (ORIF) procedure History of vasectomy History of tonsillectomy Social History Smoking Status: Light Smoker (<10/day) alcohol intake: current alcohol intake frequency: a few times a week Alcohol type: beer, wine and hard liquor substance use type: does not use caffeine: Yes Type: carbonated beverages and coffee Number of servings: 4 what type of physical activity do you participate in: none seatbelt use: always do you feel safe at home: Yes Vital Signs Vital Signs Vital Signs: 12/29/24 10:00 12/29/24 10:00 Temperature 97.5 F L Temperature Source Temporal Pulse Rate 64 Respiratory Rate 16 Respiratory Pattern Normal Blood Pressure 145/92 H Blood Pressure Mean 109 Blood Pressure Source Monitor Blood Pressure Position Semi-Fowlers Blood Pressure Location Right Arm Pulse Ox 97 Oxygen Delivery Method Room Air Weight Weight: 120.2 kg Body Mass Index (BMI) 38.0 Results Lab / Micro Data 12/16/24 12:13 12/16/24 12:13 12/29/24 1118 Cosigner Signature (if applicable): CC: Dr. Jimena Cagle MD; Dr. Portillo Lowry MD~ Signed [facility]03-26-2025 [facility] Medical Records Department [address] [place] [address] History Physical Exam 12/29/24 1118 MR#: [id number] Acct: [id number] Name: SWAPNA TEJADA Rep #: [id number] : 1955 69 From: Portillo Lowry MD PCP: Dr. Jimena Cagle MD Status:[facility] Location: [address] - General General Date of Service: 12/29/24 Chief Complaint: Right renal mass HPI Narrative SWAPNA TEJADA, is a 69 M who presents for a robotic right partial nephrectomy for a solid lower pole right renal mass PFSH Medical History Wears glasses Cancer Alcohol use History of steroid therapy Thyroid disease Arthritis History of renal disease Back pain History of diverticulitis Heartburn Cigar smoker CPAP (continuous positive airway pressure) dependence Chronic cough Asthma Leg cramps History of edema History of Holter monitoring History of echocardiogram Cardiology follow-up encounter Afib COVID-19 Palpitations Tachycardia Patent foramen ovale SOB (shortness of breath) Wide-complex tachycardia Paroxysmal atrial fibrillation Essential (primary) hypertension Nonischemic cardiomyopathy Valvular heart disease Nonrheumatic tricuspid (valve) insufficiency Nonrheumatic mitral (valve) insufficiency Hypothyroidism Home Medications ???Medication ???Instructions ???Recorded ???Last Taken ???Type levothyroxine 112 mcg tablet 112 mcg PO DAILY 06/10/17 12/29/24 History Blood Pressure Cuff #1 ea 08/23/19 Unknown Rx multivitamin-ferrous 1 tab PO QDAY 08/22/23 Unknown His tory fumarate-folic acid 18 mg-400 mcg tablet (Centrum Complete) hydrochlorothiazide 25 mg tablet 25 mg PO DAILY #90 tabs 01/30/24 0 12/29/24 Rx metoprolol tartrate 50 mg tablet 50 mg PO BID #180 TABLETS 08/16/24 12/29/24 Rx losartan 50 mg tablet 50 mg PO BID #180 tabs 08/18/24 Rx apixaban 5 mg tablet (Eliquis) 5 mg PO BID #180 tabs 11/02/24 Rx albuterol sulfate 90 mcg/actuation 2 puff inhalation 4X/DAY PRN 09/29 Unknown History aerosol inhaler shortness of breath or wheezing fluticasone furoate 200 1 ea inhalation DAILY 12/15/24 History mcg-vilanterol 25 mcg/dose inhalation powder (Breo Ellipta) Allergy/AdvReac Type Severity Reaction Status Date / Time lisinopril AdvReac Unknown Dry Cough Verified 12/29/24 09:58 Family History Father CAD (coronary artery disease) Mother Thyroid disorder Surgical History History of cardiac catheterization History of melanoma excision Hx of meniscectomy of right knee Hx of cataract removal with insertion of prosthetic lens ( 06/2022) History of open reduction and internal fixation (ORIF) procedure History of vasectomy History of tonsillectomy Social History Smoking Status: Light Smoker (<10/day) alcohol intake: current alcohol intake frequency: a few times a week Alcohol type: beer, wine and hard liquor substance use type: does not use caffeine: Yes Type: carbonated beverages and coffee Number of servings: 4 what type of physical activity do you participate in: none seatbelt use: always do you feel safe at home: Yes Vital Signs Vital Signs Vital Signs: 12/29/24 10:00 12/29/24 10:00 Temperature 97.5 F L Temperature Source Temporal Pulse Rate 64 Respiratory Rate 16 Respiratory Pattern Normal Blood Pressure 145/92 H Blood Pressure Mean 109 Blood Pressure Source Monitor Blood Pressure Position Semi-Fowlers Blood Pressure Location Right Arm Pulse Ox 97 Oxygen Delivery Method Room Air Weight Weight: 120.2 kg Body Mass Index (BMI) 38.0 Results Lab / Micro Data 12/16/24 12:13 12/16/24 12:13 12/29/24 1118 Cosigner Signature (if applicable): CC: Dr. Jimena Cagle MD; Dr. Portillo Lowry [facility] Consult note [facility] Medical Records Department [address] [facility] [place] [address] Pre-Anesthesia Evaluation 12/29/24 0952 MR#: [id number] Acct: [id number] Name: SWAPNA TEJADA Rep #:[id number] : 1955 69 From: Rigo Kendrick MD PCP: Dr. Jimena Cagle MD Status:REG [facility] Y Race: C Location: [place] [address]- ASA Classification* ASA Classification ASA Classification: 3 Assessment & Plan Anesthesia* Anesthesia Assessment Anesthesia Assessment: Discussed sedation and/or anesthesia options, risks, benefits, and alternatives with patient/parents/legal guardian/POA. Questions invited. The patient/parents/legal guardian/POA seems to understand and agrees to proceedwith anesthesia plan. Reviewed the physical assessment, medical history, allergy history and patient home medications list prior to surgery/procedure/anesthetic and documented any changes. Performed airway and anesthesia risk assessments. Anesthesia Type Anesthesia Type: General Anesthesia Focused Assessment* Airway Assessment Mouth opens: >3 cm Mallampati Score: II Focused Labs Anesthesia Preop lab: CBC WBC 6.8 K/mm3 (4.4-11.0) 12/16/24 12:12/16/24 RBC 4.72 M/mm3 (4.6-6.2) 12/16/24 12:12/16/24 Hgb 13.9 g/dL (13.0-16.5) 12/16/24 12:12/16/24 Hct 41.5 % (40-54) 12/16/24 12:12/16/24 Plt Count 225 K/mm3 (150-450) 12/16/24 12:12/16/24 CHEMISTRY Potassium 4.2 mmol/L (3.3-5.1) 12/16/24 12:12/16/24 Sodium 140 mmol/L (133-145) 12/16/24 12:12/16/24 Magnesium 2.2 mg/dL (1.8-2.4) 06/10/17 12:30 06/10/17 BUN 19 mg/dL (4-19) 12/16/24 12:12/16/24 Creatinine 1.11 mg/dL (0.70-1.20) 12/16/24 12:12/16/24 Glucose 102 mg/dL (70-99) H 12/16/24 12:12/16/24 POC Glucose 100 mg/dL (70-110) 05/07/20 16:58 05/07/20 TSH 1.500 uIU/mL (0.300-4.200) 12/16/24 12:13 12/04 12/28 COAG PT 13.9 SECONDS (11.7-14.9) 09/01/18 10:30 Pre-Assessment Diagnosis/Proposed Procedure Planned Operative Procedure(s): LAP ROBOTIC RIGHT PARTIAL NEPHRECTOMY Anesthesia History Anesthesia History - yard hostler: Anesthesia History - yard hostler Hx Hospitalization No 12/15/24 13:39 Any Problems With Anesthesia No 12/15/24 13:39 Cholinesterase deficiency No 12/15/24 13:39 You/Your Family Experience No 12/15/24 13:39 fever (hyperthermia) with Relationship Recent Exposure to Contagious Disease Does patient have nerve No 12/15/24 13:39 stimulator Patient instructed to have device shut off --Does patient have Pacemaker or ICD? When Was Last Pacemaker Check QUESTION #4 FULL TEXT: You/Your Family Experience fever (hyperthermia) with Anesthesia Last Oral Intake Last Oral intake: Last Oral Intake NPO since Meds taken in AM with sips of water? Meds patient instructed to take am of surgery PONV PONV - yard hostler: PONV - yard hostler Female No 12/15/24 13:39 HX of Motion Sickness No 12/15/24 13:39 HX of N/V After Surgery No 12/15/24 13:39 Non-Smoker Yes 12/15/24 13:39 Duration of Surgery greater Yes 12/15/24 13:39 than 60 minutes Number of Risk Factors 2 12/15/24 13:39 PONV Score Moderate Risk 12/15/24 13:39 Height & Weight Height & Weight: Anesthesia: Height & Weight Height 5 ft 10.5 in 11/15/24 17:52 Respiratory Assessment Respiratory Assessment - yard hostler: Respiratory Tract Infection Hx - yard hostler Hx Respiratory Tract Infection No 12/15/24 13:39 STOP Sleep Apnea STOP Sleep Apnea - yard hostler: STOP Sleep Apnea - yard hostler Hx Hypertension Yes: CONTROLLED WITH MEDS 12/15/24 13:39 Hx Sleep Apnea Yes 12/15/24 13:39 CPAP Yes 12/15/24 13:39 BIPAP No 12/15/24 13:39 Do you snore loudly (louder than talking or can be heard Do you often feel tired/ fatigued/ sleepy during daytime? Has anyone observed you stop breathing during sleep? STOP Results Positive 12/15/24 13:39 QUESTION #5 FULL TEXT : Do you snore loudly (louder than talking or can be heard through closeddoors)? Tobacco Use History Tobacco Use History - yard hostler: Tobacco Use History - yard hostler Tobacco Use Smoking Status Light Smoker (<10/day) 12/15/24 13:39 Hx Tobacco Use Yes 12/15/24 13:39 Years Smoking Packs Smoked per Day Smoking Cessation Date was within the last 15 years Hx Smoking Cessation Date Hx Smoking Cessation Counseling Hematologic Medial History Hematologic Hx - yard hostler: Hematologic Medical Hx - dental patient coordinator Hx of Blood Transfusion No 12/15/24 13:39 Hx of Transfusion in last 3 No 12/15/24 13:39 Months Date of Last Transfusion (if within last 3 months) Ever experience any problems No 12/15/24 13:39 with transfusion(s)? Specify any problems Hx of Preganancy in last 3 N/A 12/15/24 13:39 Months Nurse Filling Out Transfusion DSCHRIBER 12/15/24 13:39 & Questions: Date: 12/15/24 12/15/24 13:39 Time: 13:41 12/15/24 13:39 Patient unable to answer at this time (ie. confused, unrespo /Reproduction History /Reproductive History - yard hostler: /Reproductive Hx- yard hostler Hx Now No 12/15/24 13:39 Gestational Age (in weeks): EDC: Hx Hx Para Hx Section SAB No 12/15/24 13:39 Active Medications Active Medications: Current Medications Generic Name Dose Route Start Last Admin Trade Name Freq PRN Reason Stop Dose Admin Cefazolin Sodium 3 gm/ N/A 30 mls @ 600 mls/hr 12/29/24 11:30 IV 12/29/24 11:32 PREOP ONE Sodium Chloride 1,000 mls @ 15 mls/hr 12/29/24 09:40 IV 01/03/25 22:59 .Q48H ANN MARIE PFSH Medical History Wears glasses Cancer Alcohol use History of steroid therapy Thyroid disease Arthritis History of renal disease Back pain History of diverticulitis Heartburn Cigar smoker CPAP (continuous positive airway pressure) dependence Chronic cough Asthma Leg cramps History of edema History of Holter monitoring History of echocardiogram Cardiology follow-up encounter Afib COVID-19 Palpitations Tachycardia Patent foramen ovale SOB (shortness of breath) Wide-complex tachycardia Paroxysmal atrial fibrillation Essential (primary) hypertension Nonischemic cardiomyopathy Valvular heart disease Nonrheumatic tricuspid (valve) insufficiency Nonrheumatic mitral (valve) insufficiency Hypothyroidism Home Medications ?Medication ?Instructions ?Recorded ?Last Taken ?Type levothyroxine 112 mcg tablet 112 mcg PO DAILY 06/10/17 07/29/17 History Blood Pressure Cuff #1 ea 08/23/19 Unknown Rx multivitamin-ferrous 1 tab PO QDAY 08/22/23 Unkno wn History fumarate-folic acid 18 mg-400 mcg tablet (Centrum Complete) hydrochlorothiazide 25 mg tablet 25 mg PO DAILY #90 ta bs 01/30/24 Unknown Rx metoprolol tartrate 50 mg tablet 50 mg PO BID #180 TAB LETS 08/16/24 Unknown Rx losartan 50 mg tablet 50 mg PO BID #180 tabs 08/18 Unknown Rx apixaban 5 mg tablet (Eliquis) 5 mg PO BID #180 tabs 0 11/02/24 Unknown Rx albuterol sulfate 90 mcg/actuation 2 puff inhalation 4 X/DAY PRN 12/15/24 Unknown History aerosol inhaler shortness of breath or wheez ing fluticasone furoate 200 1 ea inhalation DAILY Unknown History mcg-vilanterol 25 mcg/dose inhalation powder (Breo Ellipta) Allergy/AdvReac Type Severity Reaction Status Date / Time lisinopril AdvReac Unknown Dry Cough Verified 12/15/24 13:34 Family History Father CAD (coronary artery disease) Mother Thyroid disorder Surgical History History of cardiac catheterization History of melanoma excision Hx of meniscectomy of right knee Hx of cataract removal with insertion of prosthetic lens (~06/2022) History of open reduction and internal fixation (ORIF) procedure History of vasectomy History of tonsillectomy Social History Smoking Status: Light Smoker (<10/day) alcohol intake: current alcohol intake frequency: a few times a week Alcohol type: beer, wine and hard liquor substance use type: does not use caffeine: Yes Type: carbonated beverages and coffee Number of servings: 4 what type of physical activity do you participate in: none seatbelt use: always do you feel safe at home: Yes Review of Systems (Anesthesia) ROS Narrative System reviewed and no additional complaints, except as documented. 12/29/24 0955 > Date _ Rigo Camacho Signature: Date CC: ~ Signed [facility]02-27-2025 Evaluation note* Diagnosis Onset Date Resolution Status Admit Date Diverticulitis acute November 072024 3:58pm Diverticulitis acute February 25, 2025 11:29am [facility] Work Phone: 1(285) 423-495601-28-2025 Evaluation note* Diagnosis Onset Date Resolution Status Admit Date Essential (primary) hypertension chronic November 02 3:32pm Paroxysmal atrial fibrillation chron ic November 02, 2024 3:32pm Diverticulitis acute November 072024 3:58pm [facility] Work Phone: [phone]) 132-278001-28-2025 Evaluation note* Diagnosis Onset Date Resolution Status Admit Date Essential (primary) hypertension chronic November 02 3:32pm Paroxysmal atrial fibrillation chron ic November 02, 2024 3:32pm Diverticulitis acute November 072024 3:58pm Diverticulitis acute February 25, 2025 11:29am [facility] Work Phone: Evaluation noteNo assessment information available [facility] Work Phone: Evaluation note* Diagnosis Onset Date Resolution Status Essential (primary) hypertension chronic Paroxysmal atrial fibrillation chronic Valvular heart disease chron ic Nonischemic cardiomyopathy r esolved Wide-complex tachycardia res olved [facility] Work Phone: Hospital Discharge instructionsAmbulatory Orders* Physical Therapy Referral Location: None Selected [facility] Work Phone: Reason for referral (narrative)No reason for referral [facility] Work Phone: Summary Purpose Family History No Family History Records Found Relationship Condition Age at Onset Recorded Date/T drake father Coronary artery disease Unknown mother Disorder of thyroid Unknown Advance Directives No Advanced Directives Records Found Advance Directive Response Recorded Date/ Time Advance Directives No August 10:19am Living Will No September 29, 021 3:37pm Power of Awning Hanger No September 29, 2021 3:37pm Advance Directive Response Recorded Date/ Time Living Will No September 29 021 3:37pm Do you have a Healthcare Power of Awning Hanger? No September 29, 2021 3:37pm Living Will Yes December 29, 2024 5:20pm Do you have a Healthcare Power of Awning Hanger? Yes December 29, 2024 5:20pm Name of Medical Power of Awning Hanger December 29, 2024 5:20pm Living Will Yes November 15 8:26pm Do you have a Healthcare Power of Awning Hanger? No November 15, 2024 8:26pm Advance Directives No August 10:19am Advance Directive Response Recorded Date/ Time Living Will No September 29 3:37pm Do you have a Healthcare Power of Awning Hanger? No September 29, 2021 3:37pm Living Will Yes December 29, 2024 5:20pm Do you have a Healthcare Power of Awning Hanger? Yes December 29, 2024 5:20pm Name of Medical Power of Awning Hanger December 29, 2024 5:20pm Living Will Yes November 15 8:26pm Do you have a Healthcare Power of Awning Hanger? No November 15, 2024 8:26pm Do you have a Healthcare Power of Awning Hanger? Yes February 24, 2025 10:34am Advance Directives No August 10:19am Advance Directive Response Recorded Date/ Time Living Will Yes December 29, 2024 5:20pm Do you have a Healthcare Power of Awning Hanger? Yes December 29, 2024 5:20pm Name of Medical Power of Awning Hanger December 29, 2024 5:20pm Living Will Yes November 15 8:26pm Do you have a Healthcare Power of Awning Hanger? No November 15, 2024 8:26pm Do you have a Healthcare Power of Awning Hanger? Yes February 24, 2025 10:34am Advance Directives No August 10:19am Advance Directive Response Recorded Date/ Time Living Will Yes December 29, 2024 5:20pm Do you have a Healthcare Power of Awning Hanger? Yes December 29, 2024 5:20pm Name of Medical Power of Awning Hanger December 29, 2024 5:20pm Do you have a Healthcare Power of Awning Hanger? Yes February 24, 2025 10:34am Advance Directives No August 10:19am Advance Directive Response Recorded Date/ Time Do you have a Healthcare Power of Awning Hanger? Yes February 24, 2025 10:34am Advance Directives No August 10:19am Chief Complaint and Reason for Visit Chief Complaint 1 y fu PREV PFM PT NEED ORDER Reason for Visit Essential (primary) hypertension Paroxysmal atrial fibrillation Valvular heart disease Nonischemic cardiomyopathy Wide-complex tachycardia Chief Complaint Admit Date 1 Y FU/PREV PFM November 02, 2024 3 :32pm abd pain November 15, 2024 5:49pm Diverticulitis December 02, 2024 3:58pm PREOP December 16, 2024 12: 07pm Laparoscopic, Nephrectomy,Partial December 29, 2024 12:05pm Reason for Visit Admit Date Essential (primary) hypertension November 02, 2024 3:32pm Paroxysmal atrial fibrillation October 072024 3:32pm Diverticulitis December 02, 2024 3:58pm Reason for Visit Admit Date Essential (primary) hypertension November 02, 2024 3:32pm Paroxysmal atrial fibrillation October 072024 3:32pm Diverticulitis December 02, 2024 3:58pm Diverticulitis February 25, 2025 11:29 am Chief Complaint Admit Date abd pain November 15, 2024 5:49pm Diverticulitis December 02, 2024 3:58pm PREOP December 16, 2024 12: 07pm Laparoscopic, Nephrectomy,Partial December 29, 2024 12:05pm Follow up to scope March 10, 2025 12:30 pm Reason for Visit Admit Date Diverticulitis December 02, 2024 3:58pm Diverticulitis February 25, 2025 11:29 am Chief Complaint Admit Date Laparoscopic, Nephrectomy,Partial December 29, 2024 12:05pm Follow up to scope March 10, 2025 12:30 pm LUMBAR SPINE April 25, 2025 1:34 pm Room 4 April 25, 2025 1:47 pm Reason for Visit Admit Date Diverticulitis February 25, 2025 11:29 am Diverticulitis March 10, 2025 12:30 pm Chief Complaint Admit Date Follow up to scope March 10, 2025 12:30 pm LUMBAR SPINE April 25, 2025 1:34 pm Room 4 April 25, 2025 1:47 pm 6 M FU May 03, 2025 11:3 4am Reason for Visit Admit Date Diverticulitis February 25, 2025 11:29 am Diverticulitis March 10, 2025 12:30 pm 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 witho April 25, 2025 1:34pm Essential (primary) hypertension May 032024 11:34am Paroxysmal atrial fibrillation April 11:34am Additional Source Comments (unrecognized sect ion and content) No Status Records FoundNo Status Records Found INFORMATION SOURCE (unrecogn ized section and content) DATE CREATED AUTHOR 03/30/2018 [facility] DATE CREATED AUTHOR AUTHOR'S ORGANIZ ATION 05/24/2025 [facility] Goals (unrecognized section and content) Goals may be documented in a n alternate sectionGoals may be documented in an alternate section Care Teams (unrecognized sec tion and content) Team Status: Active Member Role Status Dates Dr. Jimena Cagle MD Family Provider Active Dr. Jimena Cagle MD Primary Care Provider Active Team Status: Inactive Member Role Status Dates Dr. Jimena Cagle MD Primary Care Provider, Referrin g Provider Active Luis Bo PAYROLL ASSOCIATE, PAYROLL ASSOCIATE-C Attending Provider Active Team Status: Inactive Member Role Status Dates Dr. Jimena Cagle MD Primary Care Prov ider, Attending Provider, Referring Provider Active Team Status: Active Member Role Status Dates Dr. Jimena Cagle MD Primary Care Provider Active Team Status: Inactive Member Role Status Dates Dr. Jimena Cagle MD Primary Care Provider Active Start: November 02, 2024 End: November 02, 2024 Dr. Jimena Cagle MD Referring Provider Active Start: November 02, 2024 End: November 02, 2024 Dr. Neville Scherer MD Attending Provider Active S tart: November 02, 2024 End: November 02, 2024 Team Status: Inactive Member Role Status Dates Dr. Jimena Cagle MD Primary Care Provider Active Start: November 15, 2024 End: November 15, 2024 Dr. Hilaria Jacobo DO Attending Provider Active S tart: November 15, 2024 End: November 15, 2024 Dr. Hilaria Jacobo DO Emergency Provider Active S tart: November 15, 2024 End: November 15, 2024 Team Status: Inactive Member Role Status Dates Dr. Jimena Cagle MD Primary Care Provider Active Start: December 02, 2024 End: December 02, 2024 Dr. Jimena Cagle MD Referring Provider Active Start: December 02, 2024 End: December 02, 2024 NATHALIE Arenas Attending Provider Active Start: December 02, 2024 End: December 02, 2024 Team Status: Active Member Role Status Dates Dr. Jimena Cagle MD Primary Care Provider Active Start: December 16, 2024 End: December 16, 2024 Dr. Rick Calhoun MD Attending Provider Activ e Start: December 16, 2024 End: December 16, 2024 Dr. Portillo Lowry MD Referring Provider Active Start: December 16, 2024 End: December 16, 2024 Team Status: Inactive Member Role Status Dates Dr. Jimena Cagle MD Primary Care Provider Active Start: December 29, 2024 End: December 31, 2024 Dr. Portillo Lowry MD Admit Provider Active Start: December 29, 2024 End: December 31, 2024 Dr. Portillo Lowry MD Attending Provider Active Start: December 29, 2024 End: December 31, 2024 Dr. Portillo Lowry MD Referring Provider Active Start: December 29, 2024 End: December 31, 2024 Team Status: Inactive Member Role Status Dates Dr. Jimena Cagle MD Primary Care Provider Active Start: February 25, 2025 End: February 25, 2025 Dr. Jimena Cagle MD Referring Provider Active Start: February 25, 2025 End: February 25, 2025 Dr. Charly Rosas DO Attending Provider Active Start: February 25, 2025 End: February 25, 2025 Team Status: Active Member Role Status Dates Dr. Jimena Cagle MD Primary Care Provider Active Start: February 25, 2025 Dr. Jimena Cagle MD Referring Provider Active Start: February 25, 2025 Dr. Charly Rosas DO Attending Provider Active Start: February 25, 2025 Dr. Charly Rosas DO Other Provider Active St art: February 25, 2025 Team Status: Inactive Member Role Status Dates Dr. Jimena Cagle MD Primary Care Provider Active Start: March 10, 2025 End: March 10, 2025 Dr. Jimena Cagle MD Referring Provider Active Start: March 10, 2025 End: March 10, 2025 NATHALIE Arenas Attending Provider Active Start: March 10, 2025 End: March 10, 2025 Team Status: Active Member Role/Relationship Status Dates Dr. Jimena Cagle MD Primary Care Provider Active Team Status: Inactive Member Role/Relationship Status Dates Dr. Jimena Cagle MD Primary Care Provider Active Start: December 29, 2024 End: December 31, 2024 Dr. Portillo Lowry MD Admit Provider Active Start: December 29, 2024 End: December 31, 2024 Dr. Portillo Lowry MD Attending Provider Active Start: December 29, 2024 End: December 31, 2024 Dr. Portillo Lowry MD Referring Provider Active Start: December 29, 2024 End: December 31, 2024 Team Status: Inactive Member Role/Relationship Status Dates Dr. Jimena Cagle MD Primary Care Provider Active Start: February 25, 2025 End: February 25, 2025 Dr. Jimena Cagle MD Referring Provider Active Start: February 25, 2025 End: February 25, 2025 Dr. Charly Rosas DO Attending Provider Active Start: February 25, 2025 End: February 25, 2025 Team Status: Active Member Role/Relationship Status Dates Dr. Jimena Cagle MD Primary Care Provider Active Start: February 25, 2025 Dr. Jimena Cagle MD Referring Provider Active Start: February 25, 2025 Dr. Charly Rosas DO Attending Provider Active Start: February 25, 2025 Dr. Charly Rosas DO Other Provider Active St art: February 25, 2025 Team Status: Inactive Member Role/Relationship Status Dates Dr. Jimena Cagle MD Primary Care Provider Active Start: March 10, 2025 End: March 10, 2025 Dr. Jimena Cagle MD Referring Provider Active Start: March 10, 2025 End: March 10, 2025 NATHALIE Arenas Attending Provider Active Start: March 10, 2025 End: March 10, 2025 Team Status: Active Member Role/Relationship Status Dates Dr. Jimena Cagle MD Primary Care Provider Active Start: April 25, 2025 Dr. Jimena Cagle MD Referring Provider Active Start: April 25, 2025 NATHALIE Stevens Attending Provider Active Star t: April 25, 2025 Team Status: Inactive Member Role/Relationship Status Dates Dr. Jimena Cagle MD Primary Care Provider Active Start: April 25, 2025 End: April 25, 2025 Dr. Neville Scherer MD Attending Provider Active S tart: April 25, 2025 End: April 25, 2025 Team Status: Inactive Member Role/Relationship Status Dates Dr. Jimena Cagle MD Primary Care Provider Active Start: April 25, 2025 End: April 25, 2025 Dr. Jimena Cagle MD Referring Provider Active Start: April 25, 2025 End: April 25, 2025 NATHALIE Stevens Attending Provider Active Star t: April 25, 2025 End: April 25, 2025 Team Status: Active Member Role/Relationship Status Dates Dr. Frandy Patton MD Primary Care Provider Active Team Status: Inactive Member Role/Relationship Status Dates Dr. Jimena Cagle MD Primary Care Provider Active Start: February 25, 2025 End: February 25, 2025 Dr. Jimena Cagle MD Referring Provider Active Start: February 25, 2025 End: February 25, 2025 Dr. Charly Rosas DO Attending Provider Active Start: February 25, 2025 End: February 25, 2025 Team Status: Active Member Role/Relationship Status Dates Dr. Jimena Cagle MD Primary Care Provider Active Start: February 25, 2025 Dr. Jimena Cagle MD Referring Provider Active Start: February 25, 2025 Dr. Charly Rosas DO Attending Provider Active Start: February 25, 2025 Dr. Charly Rosas DO Other Provider Active St art: February 25, 2025 Team Status: Inactive Member Role/Relationship Status Dates Dr. Jimena Cagle MD Primary Care Provider Active Start: March 10, 2025 End: March 10, 2025 Dr. Jimena Cagle MD Referring Provider Active Start: March 10, 2025 End: March 10, 2025 NATHALIE Arenas Attending Provider Active Start: March 10, 2025 End: March 10, 2025 Team Status: Inactive Member Role/Relationship Status Dates Dr. Jimena Cagle MD Primary Care Provider Active Start: April 25, 2025 End: April 25, 2025 Dr. Jimena Cagle MD Referring Provider Active Start: April 25, 2025 End: April 25, 2025 NATHALIE Stevens Attending Provider Active Star t: April 25, 2025 End: April 25, 2025 Team Status: Inactive Member Role/Relationship Status Dates Dr. Jimena Cagle MD Primary Care Provider Active Start: April 25, 2025 End: April 25, 2025 Dr. Neville Scherer MD Attending Provider Active S tart: April 25, 2025 End: April 25, 2025 Team Status: Inactive Member Role/Relationship Status Dates Dr. Jimena Cagle MD Referring Provider Active Start: May 03, 2025 End: May 03, 2025 Luis Bo PAYROLL ASSOCIATE, PAYROLL ASSOCIATE-C Attending Provider Active S tart: May 03, 2025 End: May 03, 2025 Dr. Frandy Patton MD Primary Care Provider Active Start: May 03, 2025 End: May 03, 2025 FOR RECORDS PERTAINING TO PATIENTS WHO ARE OR HAVE BEEN ENROLLED IN A CHEMICAL DEPENDENCY/SUBSTANCEABUSE PROGRAM, SOME INFORMATION MAY BE OMITTED. This clinical summary was aggregated from multiple sources. Caution should be exercised in using it in the provision of clinical care. This summary normalizes information from multiple sources, and as a consequence, information in this document may materially change the coding, format and clinical context of patient data. In addition, data may be omitted in some cases. CLINICAL DECISIONS SHOULD BE BASED ON THE PRIMARY CLINICAL RECORDS. [facility]. provides no warranty or guarantee of the accuracy or completeness of information in this document.
== END | disposition home or self-care (01) ==
PROVIDERS: PCP Family Medicine; Referring Provider Internal Medicine Cardiovascular Disease; Visit Provider Internal Medicine Cardiovascular Disease
DX: I48.0 Paroxysmal atrial fibrillation (principal)
CPT/HCPCS: 93306

== ENCOUNTER → 2025-06-10 | Outpatient (CLI) | payer OTHER, SELFPAY ==
[2025-06-10 10:53] LABS: AST(SGOT) 16 U/L (<=37); Alanine Aminotransfer ALT/SGPT 19 U/L (<=46); Albumin, Serum 4.1 g/dL (3.4-4.8); Alkaline Phosphatase 73 U/L (40-129); Anion Gap 10 (5-15); BUN 20 mg/dL (4-19); BUN/Creat Ratio 17.3 RATIO (10-20); Calcium,Total 10.5 mg/dL (7.6-11.0); Carbon Dioxide 24.8 mmol/L (21.0-32.0); Chloride 106 mmol/L (98-108); Cholesterol 195 mg/dL (<=200); Free T3 3.0 pg/mL (2.18-3.98); Globulin 2.7 g/dL (2.2-4.2); Glucose 104 mg/dL (70-99); Low Density Lipoprotein Calc. 125 mg/dL; Potassium 4.2 mmol/L (3.3-5.1); Triglycerides 64 mg/dL; Very Low Density Lipoprotein 13 mg/dL (5-40); cholesterol:hdl ratio screen 3.44
== END | disposition home or self-care (01) ==
LOC: MFPLAB 08:51
PROVIDERS: PCP Family Medicine; Visit Provider Family Medicine
DX: E03.9 Hypothyroidism, unspecified (principal); I10 Essential (primary) hypertension
CPT/HCPCS: 36415; 80053; 80061; 84439; 84443; 84481

== ENCOUNTER → 2025-09-19 | Outpatient (CLI) | payer OTHER, SELFPAY ==
--- NOTE | 2025-09-19 14:50 | CT_ITS ---
PROCEDURE: ABDOMEN/PELVIS WITH CONTRAST 09/19/2025 REASON FOR EXAM: MALIGNANT NEOPLASM OF RIGHT KIDNEY TECHNIQUE: Procedure Code: [id number] Modality: CT Procedure: ABDOMEN/PELVIS WITH CONTRAST Coronal and Sagittal reconstruction series were provided. CONTRAST: Isovue-300 VOLUME: 80 mL One or more dose reduction techniques were used (e.g., Automated exposure control, adjustment of the mA and/or kV according to patient size, use of iterative reconstruction technique. RADIATION DOSE SUMMARY: CTDlvol: 9.97+ 22.54 mGy DLP: 1344.05 mGycm COMPARISON: 11/15/2024 FINDINGS: Mild motion limitation upper to mid abdomen. Lung bases: Trace to mild clustered ill-defined mostly ground-glass nodularity in the RIGHT lower lobe, new. Liver: Unremarkable. Spleen: Unremarkable. Gallbladder: Unremarkable. Pancreas: Unremarkable. Adrenals: Unremarkable. Kidneys: Interval partial RIGHT lower pole nephrectomy without definite local recurrence evident on single phase CT. Renal sinus cysts on the LEFT. Bowel: Diverticulosis.. Normal caliber appendix. Lymph nodes: Unremarkable. Vasculature: Trace atherosclerosis. Peritoneum: Unremarkable. Bladder: Underdistended and suboptimally evaluated. Wall thickening borderline slightly disproportionate to underdistention. Reproductive Organs: Prostatomegaly. Body Wall: Unremarkable. Bones: Mild degenerative findings. Few punctate sclerotic pelvic presumed bone islands are grossly similar.. CT/Abdomen/Pelvis WITH Contrast IMPRESSION: 1. Borderline mild cystitis versus sequela of chronic bladder outlet obstructio n given prostatomegaly. Correlate with urinalysis. 2. Interval partial RIGHT nephrectomy. No definite local recurrence or metasta tic disease within the abdomen/pelvis evident on single phase CT. 3. Findings suggestive of a minimal infectious/inflammatory process such as tra ce pneumonia in the RIGHT lower lobe. Given vaguely nodular elements and the provided history, recommend CT chest in 1-3 mo nths to document stability/resolution. 4. Additional description as above. Incidental Finding Alert: As above. Recommend follow-up CT chest as above and management of this incidental finding should follow the [employer] ([employer]) Incidental Findings Committee re commendations. Reading Location: [facility]
[2025-09-19 15:11] LABS: CREATININE FINGERSTICK 1.2 mg/dL (0.70-1.30); EGFR FINGERSTICK > 60.0000 mL/min (>60)
== END | disposition home or self-care (01) ==
PROVIDERS: PCP Family Medicine; Referring Provider Urology; Visit Provider Urology
DX: C64.1 Malignant neoplasm of right kidney, except renal pelvis (principal)
CPT/HCPCS: 74177; Q9967

== ENCOUNTER → 2025-10-04 | Outpatient (CLI) | payer OTHER, SELFPAY ==
--- NOTE | 2025-10-04 15:51 | CT_ITS ---
PROCEDURE: CHEST WITHOUT CONTRAST 10/04/2025 REASON FOR EXAM: Clinical history of disorder of the lung. TECHNIQUE: Chest CT without contrast. Coronal and Sagittal reconstruction series were provided. One or more dose reduction techniques were used (e.g., Automated exposure control, adjustment of the mA and/or kV according to patient size, use of iterative reconstruction technique RADIATION DOSE SUMMARY: DLP: 648.26 mGycm COMPARISON: None available. FINDINGS: Pulmonary parenchyma: No focal lung consolidation. Ill-defined right lower lobe density which may be infectious or inflammatory in nature. There are a few pulmonary nodules, for example (series 4): Right middle lobe perifissural 3 mm pulmonary nodule (image 62). Right lower lobe 3 mm pulmonary nodule (image 64). Airways: The central airways are patent. Pleural space: No pneumothorax or pleural effusion. Heart and pericardium: The heart is normal in size. Trace pericardial effusion. There are coronary artery calcifications. Mediastinum and presley: Unremarkable. Thoracic vessels: The thoracic aorta and main pulmonary artery are normal in caliber. Trace scattered atherosclerotic calcification in the thoracic aorta. Osseous structures: No aggressive osseous lesion. Degenerative changes of the thoracic spine. Irregularity at the T7-T8 apposing endplates which may be secondary to Schmorl's nodes. Upper visualized abdomen: Unremarkable. CT/Chest without Contrast IMPRESSION: 1. Ill-defined right lower lobe density which may be infectious or inflammatory in nature. A follow-up CT may be obtained in 1-3 months to resolution. 2. Pulmonary nodules measuring up to 3 mm. 3. Coronary artery calcifications. Reading Location: [id number]
== END | disposition home or self-care (01) ==
LOC: CT 15:47
PROVIDERS: PCP Family Medicine; Referring Provider Urology; Visit Provider Urology
DX: J98.4 Other disorders of lung (principal)
CPT/HCPCS: 71250